=== PATIENT | male | born 1950 | race Caucasian/White ===

== ENCOUNTER 2016-10-28 05:18 | Day surgery (SDC) | payer OTHER ==
[2016-10-23 14:04] VITALS: BMI 32.4
[2016-10-28] MEDS ORDERED: LIDOCAINE 1%/EPI 1:100000 (50 ML MULTI DOSE VIAL) ONE (10:38)
[2016-10-28] MEDS ORDERED: BUPIVACAINE HCL/PF 0.5% (5MG/ML) 10 ML VIAL ONE (10:48)
[2016-10-28] MEDS ORDERED: MIDAZOLAM HCL 2 MG/2 ML SINGLE DOSE VIAL ONE ×2 (10:57→11:03)
[2016-10-28] MEDS ORDERED: LIDOCAINE HCL/PF 2% SDV 5ML VIAL ONE (10:57)
[2016-10-28] MEDS ORDERED: ceFAZolin SODIUM 1 GM VIAL ONE (10:57)
[2016-10-28] MEDS ORDERED: PROPOFOL 20 ML ONE ×2 (10:57)
[2016-10-28] MEDS ORDERED: BUPIVACAINE HCL/PF 0.5% (5MG/ML) 10 ML VIAL IJ ONE ×2 (11:11)
[2016-10-28] MEDS ORDERED: ONDANSETRON 4 MG/2 ML VIAL IVPUSH PRN (11:46)
[2016-10-28] MEDS ORDERED: oxyCODONE HCL 5 MG TABLET PO PRN (11:46)
--- NOTE | 2016-10-28 11:52 | HP ---
Admitting History and Physical - Primary Care Physician PCP: Osorio Chery ([employer]) - Admission Chief Complaint: Chronic ulceration of the left 3rd toe History of Present Illness: Left 3rd toe is rigidly hammered and suffers from months of recurrent ulcerations that were treated with padding, debridement and antibiotics. The ulceration heals and then reulcerates when patient returns to work. Most recently we decided to wait for ulcer healing and then to remove the distal phalanx to prevent recurrence of the wound again. The same procedure worked nicely on the left 2nd toe previously. 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 No: None - Smoking History Smoking history: Never smoked Have you smoked in the past 12 months: No Aproximately how many cigarettes per day: 0 - Alcohol/Substance Use Hx Alcohol Use: Yes (BEER,WINE) Number of Drinks Daily: 4 - Social History ADL: Independent Occupation: salesman History of Recent Travel: No Home Medications - Allergies Allergies/Adverse Reactions: Allergies Allergy/AdvReac Type Severity Reaction Status Date / Time No Known Drug Allergies Allergy Verified 10/28/16 10:10 - Home Medications Home Medications: Ambulatory Orders Allopurinol [Zyloprim -] 100 mg PO DAILY 07/28/16 Amiodarone HCl 100 mg PO DAILY 07/28/16 Bicalutamide 50 mg PO DAILY 07/28/16 Cholecalciferol (Vitamin D3) [Vitamin D3 -] 1,000 unit PO HS 07/28/16 Fenofibrate [Lofibra] 54 mg PO DAILY 07/28/16 Ferrous Gluconate [Iron] 28 mg PO HS 07/28/16 Flaxseed/Omega3,6,9/Fatty Acid [Flax Seed Oil 1,300 mg Softgel] 1,000 mg PO HS 07/28/16 Folic Acid 0.4 mg PO HS 07/28/16 Metoprolol Tartrate 75 mg PO BID 07/28/16 Rivaroxaban [Xarelto -] 20 mg PO HS 07/28/16 Simvastatin 20 mg PO HS 07/28/16 Vitamin B Complex 1 each PO HS 10/17/16 Furosemide [Lasix -] 40 mg PO DAILY #30 tablet 07/30/16 Calcium Carbonate [Calcium] 500 mg PO HS 10/23/16 Cinnamon Bark [Cinnamon] 500 mg PO HS 10/23/16 Magnesium 200 mg PO HS 10/23/16 Multivitamin [Poly-Vitamin] 1 each PO HS 10/23/16 Cordova-3 Fatty Acids [Fish Oil] 300 mg PO HS 10/23/16 Pyridoxine HCl [Vitamin B6] 100 mg PO HS 10/23/16 Simvastatin 40 mg PO HS 10/23/16 Tamsulosin HCl [Flomax] 0.4 mg PO DAILY 10/23/16 Thiamine HCl [Vitamin B1] 100 mg PO HS 10/23/16 Family Disease History - Family Disease History Family Disease History: Heart Disease: Mother ( at 66), Other: Father ( unknown) Physical Examination Vital Signs: Vital Signs Temperature 97.7 F 10/28/16 10:14 Pulse Rate 76 10/28/16 10:14 Respiratory Rate 18 10/28/16 10:14 Blood Pressure 133/56 10/28/16 10:14 O2 Sat by Pulse Oximetry (%) 98 10/28/16 10:14 Edema: LLE: Trace, RLE: Trace Peripheral Pulses: Left Doralis Pedis: 2+, Right Dorsalis Pedis: 2+ Wound/Incision: Yes: Other (Left toe distal wound fully healed but 3rd toe remains rigidly hammered at the pipj.) Imaging - Results X-ray: Other (Image of left 3rd toe examined. No sign of erosion present in the distal phalanx. No sign of soft tissue edema in the toe.) Assessment/Plan Diagnosis/Assessment Left 3rd hammertoe rigidly plantarflexed with history of chronic ulceration at the distal end of the digit from mechanical pressure and peripheral neuropathy. Lesion is currently healed and no sign of cellulitis or infection is present currently. Plan Resection of the distal phalanx of the to to remove weight bearing pressure and allow for more permanent resolution of the wound process at this site.
[2016-10-28] MEDS ORDERED: LACTATED RINGERS SOLUTION 1,000 ML IV SCH (12:00)
[2016-10-28 12:15] VITALS: TEMP 98.1
[2016-10-28 13:25] VITALS: BP 141/69; PULSE 70
--- NOTE | 2016-10-28 13:44 | OP ---
DATE OF OPERATION: 10/28/2016 SURGEON: Osorio Chery DPM PREOPERATIVE DIAGNOSIS: Left 3rd toe rigid hammertoe with history of distal ulceration. POSTOPERATIVE DIAGNOSIS: Left 3rd toe rigid hammertoe with history of distal ulceration. PROCEDURE: Distal phalangeal disarticulation amputation of the left 3rd toe distal interphalangeal joint. DESCRIPTION OF PROCEDURE: Under fractional anesthesia and a surgical scrub with Betadine scrub and solution x2, the patient was draped using sterile technique. Inspection of the left foot showed a prior amputation of the distal interphalangeal joint of the left 2nd toe with normal skin integrity and complete healing. Also noted was a healed ulceration of the distal aspect of the left 3rd toe with no cutaneous signs of infection or inflammation, complete resolution of prior ulceration. There was no edema, no erythema, and no break in the epithelium. Using a number 15 surgical blade, a curvilinear incision was made on the distal aspect of the toe proximal to the proximal nail fold and around the distal aspect of the foot, removing the tissue that was previously ulcerated on the distal aspect of the toe. The distal interphalangeal joint was disarticulated using sharp dissection, and then, the entire distal phalanx and the overlying soft tissue was resected, leaving a nice healthy plantar pad flap for primary closure. Following removal of the distal phalanx and its overlying soft tissue, the wound was copiously irrigated with sterile saline. The wound was inspected to investigate for any sign of abscess, necrosis, or pathology, and none was found visually. There was no drainage. There was no abscess. No sign of infection whatsoever. Following irrigation and inspection, the distal flap was articulated in a normal anatomic position and sutured with simple interrupted sutures, 4-0 Prolene suture. A dry sterile dressing with Adaptic underlay was applied to the left foot. The patient tolerated the surgical procedure well, and he left the operating room stable, awake, and in no pain. SUSANNE ROBINS/[id number]
--- NOTE | 2016-10-31 13:16 | PATH ---
Surgical Pathology Report Patient Name: MORALES ZHONG [facility]. Rec. #: [id number] /Age/Gender: 1950 (Age: 66) / M Account: [id number] Location: [facility] SURGICAL Taken: 10/28/2016 Received: 10/28/2016 Reported: 10/31/2016 Physicians: Osorio Chery M.D. Specimen(s) Received BONE & SKIN DISTAL PHALANX 3RD LEFT TOE Clinical History Hammertoe, chronic ulceration Final Diagnosis SKIN AND BONE, DISTAL PHALANX THIRD LEFT TOE, REMOVAL: FOCALLY ULCERATED SKIN AND UNDERLYING SOFT TISSUE WITH CHRONIC INFLAMMATION, FIBROSIS AND REACTIVE VASCULAR PROLIFERATION. UNDERLYING BONE WITH REACTIVE CHANGES; NO HISTOLOGIC EVIDENCE OF OSTEOMYELITIS. SKIN AND SOFT TISSUE RESECTION MARGIN APPEAR VIABLE. BONE AT RESECTION MARGIN APPEARS VIABLE. Comment: Immunohistochemical stain for HHV8 performed at [place], [place] ([id number]) and interpreted at [facility] is negative, supporting reactive vascular proliferation. Electronically Signed Dago Diaz M.D. Gross Description Received in formalin, labeled "bone/skin distal phalanx third toe left foot" is a 2.7 x 2.2 x 1.4 cm product of a distal phalanx amputation. The unguis is nayak and thickened. There is a focal possible ulceration at 0.1 cm from the skin and soft tissue margin. Carpet Measurer sections are submitted in 2 cassettes as follows: 1-shave of bone, soft tissue and skin margins, following decalcification; 2-additional full thickness sections of specimen, following decalcification. 10/29/2016 [facility]10/29/2016
== END 2016-10-28 14:13 | disposition home or self-care (01) ==
LOC: JASU-SURG 05:18
PROVIDERS: ATTEND Podiatrist Foot Surgery
PROC: 0Y6U0Z3 Detachment at Left 3rd Toe, Low, Open Approach (ICD-10-PCS; principal; 2016-10-28 11:00)
DX: M20.42 Other hammer toe(s) (acquired), left foot (principal); L97.524 Non-pressure chronic ulcer of other part of left foot with necrosis of bone
CPT/HCPCS: 73630-TC-LT; 88304-TC; 88311-TC; 88342-TC; 94760

== ENCOUNTER 2017-04-02 16:36 | Inpatient (IN) | payer OTHER ==
--- NOTE | 2017-04-02 17:03 | PDOC ---
History of Present Illness - General History Source: Patient Exam Limitations: No Limitations - History of Present Illness Initial Comments: 04/02/17 17:01 This is a 65 yo M with PMH of HTN, HLD, Afib s/p pacemaker, on xarelto, neuropathy, CVA, prostate CA, Renal CA s/p nephrectomy (05/2016) and BPH, who presents to ED due to L foot pain. Patient suffered L foot charcot fracture 4 mo ago and was placed in a boot. Boot was taken off 2 weeks ago and he was walking in orthopedic shoes. 3 days ago the Plantar aspect of his L foot started hurting with weight bearing so he visited his PCP. PCP discovered a planter blister associated with erythema and pitting edema of ankle. Blister was debrided and patient was referred to ER. He denies f/c, chest pain, cough, hemoptysis, sob 04/02/17 17:25 04/02/17 18:16 <Adrienne Hendrix - Last Filed: 04/02/17 18:49> <Jam Carrillo - Last Filed: 04/02/17 22:42> - General Chief Complaint: Wound Stated Complaint: PCP SENT/LT FOOT PAIN Past History - Past Medical History Anemia: No Asthma: No Cancer: Yes (PROSTATE CANCER 12/23 HORMONE INJECTIONS, RENAL CA) Cardiac Disorders: Yes (bradycardia,afib) CVA: Yes (DENIES TIA) COPD: No CHF: (ATRIAL FIB) Dementia: No Diabetes: No GI Disorders: No Disorders: Yes (enlarged prostate) HTN: Yes Hypercholesterolemia: Yes Liver Disease: No Seizures: No Thyroid Disease: Yes (hypothyroid) - Surgical History Abdominal Surgery: Yes (LEFT KIDNEY REMOVED) Appendectomy: No Cardiac Surgery: Yes (ppm) Cholecystectomy: No Lung Surgery: No Neurologic Surgery: No Orthopedic Surgery: Yes (bilateral knee replacement) - Immunization History Immunization Up to Date: Yes - Psycho/Social/Smoking Cessation Hx Anxiety: No Suicidal Ideation: No Smoking Status: No Smoking History: Never smoked Have you smoked in the past 12 months: No Number of Cigarettes Smoked Daily: 0 Information on smoking cessation initiated: No Hx Alcohol Use: Yes (everyday) Drug/Substance Use Hx: No Substance Use Type: Alcohol Hx Substance Use Treatment: No <Adrienne Hendrix - Last Filed: 04/02/17 18:49> <Jam Carrillo - Last Filed: 04/02/17 22:42> - Past Medical History Allergies/Adverse Reactions: Allergies Allergy/AdvReac Type Severity Reaction Status Date / Time No Known Drug Allergies Allergy Verified 04/02/17 18:07 Home Medications: Ambulatory Orders Allopurinol [Zyloprim -] 100 mg PO DAILY 04/02/17 Amiodarone HCl 100 mg PO DAILY 04/02/17 Bicalutamide 50 mg PO DAILY 04/02/17 Calcium Carbonate [Calcium] 500 mg PO DAILY 04/02/17 Cholecalciferol (Vitamin D3) [Vitamin D3 -] 1,000 unit PO DAILY 04/02/17 Ferrous Gluconate [Ferate] 240 mg PO DAILY 04/02/17 Folic Acid 0.4 mg PO DAILY 04/02/17 Furosemide [Lasix] 40 mg PO DAILY 04/02/17 Hydralazine HCl [Apresoline -] 25 mg PO BID 04/02/17 Magnesium Oxide [Magnesium] 400 mg PO DAILY 04/02/17 Metoprolol Tartrate [Lopressor -] 50 mg PO BID 04/02/17 Rivaroxaban [Xarelto -] 20 mg PO DAILY 04/02/17 Simvastatin [Zocor -] 20 mg PO HS 04/02/17 Tamsulosin HCl 0.4 mg PO DAILY 04/02/17 Review of Systems - Review of Systems Able to Perform ROS?: Yes Is the patient limited Indonesian proficient: No Constitutional: No: Chills, Fever HEENTM: No: Nose Congestion, Hearing Loss, Throat Pain Respiratory: No: Orthopnea, Shortness of Breath, SOB with Exertion, Productive cough, Hemoptysis ABD/GI: No: Abdominal Distended, Constipated, Diarrhea, Nausea, Rectal Bleeding , Vomiting, Tarry Stools : No: Dysuria, Flank Pain Musculoskeletal: No: Back Pain, Joint Pain, Joint Swelling Integumentary: No: Bruising, Pruritus, Rash Neurological: No: Headache, Numbness, Paresthesia Psychiatric: No: Anxiety Endocrine: No: Change in Weight Hematologic/Lymphatic: No: Blood Clots, Easy Bruising All Other Systems: Reviewed and Negative <Adrienne Hendrix - Last Filed: 04/02/17 18:49> *Physical Exam - Vital Signs Last Vital Signs Temp Pulse Resp BP Pulse Ox 97.7 F 70 20 156/74 98 04/02/17 16:46 04/02/17 16:46 04/02/17 16:46 04/02/17 16:46 04/02/17 16:46 - Physical Exam Comments: 04/02/17 17:32 General: AAOx3, NAD HEENT atraumatic, perrla eomi, sclera anicteric, conjunctiva clear CV RRR S1S2 grade 3 systolic ej murmur Pulm CTA b/l Musclumoskeletal: L ankle 2+ pitting edema, erythematous, warm, 3 cm ulcer on plantar aspect if foot with clean base and no discharge or odor. Surrounding mild tenderness. Neuro: CN II-XII grossly intact. b/l reduced plantar sensation. <Adrienne Hendrix - Last Filed: 04/02/17 18:49> - Vital Signs Last Vital Signs Temp Pulse Resp BP Pulse Ox 97.7 F 70 20 156/74 98 04/02/17 16:46 04/02/17 16:46 04/02/17 16:46 04/02/17 16:46 04/02/17 16:46 <Jam Carrillo - Last Filed: 04/02/17 22:42> ED Treatment Course - LABORATORY CBC & Chemistry Diagram: 04/02/17 17:45 04/02/17 17:45 <Adrienne Hendrix - Last Filed: 04/02/17 18:49> - LABORATORY CBC & Chemistry Diagram: 04/02/17 17:45 04/02/17 17:45 - ADDITIONAL ORDERS Additional order review: Laboratory Results 04/02/17 04/02/17 17:45 16:52 Sodium Cancelled 140 Potassium Cancelled 3.7 Chloride Cancelled 103 Carbon Dioxide Cancelled 27 Anion Gap Cancelled 10 BUN Cancelled 21 H D Creatinine Cancelled 1.7 H Creat Clearance w eGFR Cancelled 40.78 Random Glucose Cancelled 126 H Calcium Cancelled 9.0 Total Bilirubin Cancelled 0.7 AST Cancelled 27 ALT Cancelled 34 Alkaline Phosphatase Cancelled 47 Total Protein Cancelled 7.2 Albumin Cancelled 3.6 04/02/17 17:45 RBC 3.39 L MCV 94.0 MCHC 34.1 RDW 13.7 MPV 7.9 Neutrophils % 58.9 D Lymphocytes % 27.4 D Monocytes % 9.4 Eosinophils % 3.1 Basophils % 1.2 - Medications Given in the ED: ED Medications Discontinued Medications Generic Name Dose Route Start Last Admin Trade Name Tonny PRN Reason Stop Dose Admin Vancomycin HCl 1,000 mg/ 250 mls @ 250 mls/hr 04/02/17 17:31 04/02/17 18:54 Dextrose IVPB 04/02/17 18:30 250 mls/hr ONCE ONE Administration Protocol Piperacillin Sod/Tazobactam 50 mls @ 100 mls/hr 04/02/17 17:31 04/02/17 18:00 Sod 3.375 gm/ Dextrose IVPB 04/02/17 18:00 100 mls/hr ONCE ONE Administration Protocol <Jam Carrillo - Last Filed: 04/02/17 22:42> Medical Decision Making - Medical Decision Making 04/02/17 17:34 patient presents with cinical picture most consistent with L foot cellulitis. r/ o osteomyelitis, fracture, dvt cbc, cmp, blood cultures, foot x ray, duplex IV luis ferro 04/02/17 18:16 No leukocystosis, baseline anemia 04/02/17 18:49 further labs and imaging p/d <Adrienne Hendrix - Last Filed: 04/02/17 18:49> *DC/Admit/Observation/Transfer <Adrienne Hendrix - Last Filed: 04/02/17 18:49> - Discharge Dispostion Admit: Yes <Jam Carrillo - Last Filed: 04/02/17 22:42> Diagnosis at time of Disposition: Foot pain, left Cellulitis Qualifiers: Site of cellulitis: extremity Site of cellulitis of extremity: lower extremity Laterality: left Qualified Code(s): L03.116 - Cellulitis of left lower limb - Discharge Dispostion Condition at time of disposition: Stable - Referrals Referrals: Eric Feliciano [Primary Care Provider] -
[2017-04-02] MEDS ORDERED: VANCOMYCIN 1,000 MG in DEXTROSE 5%-WATER - 250 ML IVPB ONE (17:31)
[2017-04-02] MEDS ORDERED: PIPERACILLIN/TAZOB 3.375 GM 3.375 GM in DEXTROSE 5%-WATER - 50 ML IVPB ONE (17:31)
--- NOTE | 2017-04-02 17:34 | PDOC ---
Attending Attestation - Resident Resident Name: Jessica Hendrixudmila - ED Attending Attestation I have performed the following: I have examined & evaluated the patient, The case was reviewed & discussed with the resident, I agree w/resident's findings & plan - HPI HPI: 04/02/17 17:34 65y M hx of htn, hl, afib on xerolto s/p pm, neuropathy hx of charcot fracture, cva, prostate ca, renal ca, bph referred to ED by podiatry for evaluation of L foot pain and swelling, pt with recent ulcer on L plantar arch, but with swelling for several days and redness for approx 1 day without associated fver/ chlils, n/v/c. on exam the ulcer appear with clean margins (but s/p dibridement ), on medial aspect of L ankle +erythema, warmth, edema and mildly tendner, + deminished sensation on foot. suspect cellulitis with entry point at ulcer will r/o dvt will likely need abx in light of medical history, consider admission for iv abx 04/02/17 21:13 pts labs reviewed pts US and xray negative likely cellulitis will admit for inpatient management per dr. Chery's request will admit to hospitilast service discussed with dr. chery - states he failed outpatient augmentin requests admission 04/02/17 21:[address] Arango agreed with admission stable for med/surg Case discussed in detail with admitting physician including history, physical exam and ancillary studies. Admitting physician has assumed care for the patient, will follow all pending diagnostics and will complete the evaluation and treatment. - Physicial Exam PE: 04/06/17 07:36 see above - Medical Decision Making 04/06/17 07:36 see above Heart Score/ECG Review - ECG Impressions Comment:: 04/03/17 00:15 Twelve-lead EKG was performed and reviewed by me. AV dual paced rhythm Rate of 68
[2017-04-02] MEDS ORDERED: PIPERACILLIN/TAZOB 3.375 GM 50 ML IVPB ONE (17:59)
[2017-04-02 18:01] LABS: BASOPHIL 1.2 % (0-2.0); EOSINOPHIL 3.1 % (0-4.5); MCH 32.1 pg (25.7-33.7); MCHC 34.1 g/dl (32.0-35.9); MEAN PLT VOLUME 7.9 fl (7.5-11.1); NEUTROPHILS 58.9 % (42.8-82.8); PLATELET COUNT 222 K/MM3 (134-434); RDW 13.7 % (11.9-15.9); WHITE BLOOD COUNT 8.3 K/mm3 (4.0-10.0)
[2017-04-02] MEDS ORDERED: VANCOMYCIN 1 GRAM (PRE-DOCKED) 250 ML IVPB ONE (18:33)
[2017-04-02 19:45] LABS: ALBUMIN 3.6 g/dl (3.4-5.0); ANION GAP 10 (8-16); BILIRUBIN,TOTAL 0.7 mg/dL (0.2-1.0); CO2 27 mmol/L (21-32); CREATININE 1.7 mg/dL (0.7-1.3); GLUCOSE,RANDOM 126 mg/dL (74-106); SGOT/AST 27 U/L (15-37); SGPT/ALT 34 U/L (12-78); TOT PROT 7.2 g/dl (6.4-8.2)
[2017-04-02 19:46] LABS: ALK PHOS 47 U/L (45-117)
--- NOTE | 2017-04-02 22:37 | HP ---
CHIEF COMPLAINT: "My left foot hurts." PCP: Braden kellogg [facility] HISTORY OF PRESENT ILLNESS: This is a 65 yo M with PMH of HTN, HLD, Afib s/p pacemaker, on xarelto, neuropathy, CVA, prostate CA, Renal CA s/p left nephrectomy (05/2016) and BPH, who presents for care due to L foot pain. Patient suffered L foot charcot fracture 4 months ago and was placed in a cam boot. Boot was taken off 2 weeks ago and he was walking in orthopedic shoes. 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 Blister was debrided and patient was started on Augmentin 875mg. Patient had f/u visit today where exam has not improved and was referred to ED for admission. He denies f/c, chest pain, cough , hemoptysis or sob. ER course was notable for: (1) Sono negative for DVT (2) Xray neg for osteomyelitis (3) CKD stage 3b Recent Travel: denies PAST MEDICAL HISTORY: see HPI PAST SURGICAL HISTORY: see HPI Social History: Smoking: denies Alcohol: 6 beers daily Drugs: denies Family History: Allergies No Known Drug Allergies Allergy (Verified 04/02/17 18:07) HOME MEDICATIONS: Home Medications 3 Medication Instructions Recorded Allopurinol [Zyloprim -] 100 mg PO DAILY 04/02/17 Amiodarone HCl 100 mg PO DAILY 04/02/17 Bicalutamide 50 mg PO DAILY 04/02/17 Calcium Carbonate [Calcium] 500 mg PO DAILY 04/02/17 Cholecalciferol (Vitamin D3) 1,000 unit PO DAILY 04/02/17 [Vitamin D3 -] Ferrous Gluconate [Ferate] 240 mg PO DAILY 04/02/17 Folic Acid 0.4 mg PO DAILY 04/02/17 Furosemide [Lasix] 40 mg PO DAILY 04/02/17 Hydralazine HCl [Apresoline -] 25 mg PO BID 04/02/17 Magnesium Oxide [Magnesium] 400 mg PO DAILY 04/02/17 Metoprolol Tartrate [Lopressor -] 50 mg PO BID 04/02/17 Rivaroxaban [Xarelto -] 20 mg PO DAILY 04/02/17 Simvastatin [Zocor -] 20 mg PO HS 04/02/17 Tamsulosin HCl 0.4 mg PO DAILY 04/02/17 REVIEW OF SYSTEMS CONSTITUTIONAL: Absent: fever, chills, diaphoresis, generalized weakness, malaise, loss of appetite, weight change HEENT: Absent: rhinorrhea, nasal congestion, throat pain, throat swelling, difficulty swallowing, mouth swelling, ear pain, eye pain, visual changes CARDIOVASCULAR: Absent: chest pain, syncope, palpitations, irregular heart rate, lightheadedness , peripheral edema RESPIRATORY: Absent: cough, shortness of breath, dyspnea with exertion, orthopnea, wheezing, stridor, hemoptysis GASTROINTESTINAL: Absent: abdominal pain, abdominal distension, nausea, vomiting, diarrhea, constipation, melena, hematochezia GENITOURINARY: Absent: dysuria, frequency, urgency, hesitancy, hematuria, flank pain, genital pain MUSCULOSKELETAL: Absent: myalgia, arthralgia, joint swelling, back pain, neck pain SKIN: Present- erythema to left ankle Absent: rash, itching, pallor HEMATOLOGIC/IMMUNOLOGIC: Absent: easy bleeding, easy bruising, lymphadenopathy, frequent infections ENDOCRINE: Absent: unexplained weight gain, unexplained weight loss, heat intolerance, cold intolerance NEUROLOGIC: Absent: headache, focal weakness or paresthesias, dizziness, unsteady gait, seizure, mental status changes, bladder or bowel incontinence PSYCHIATRIC: Absent: anxiety, depression, suicidal or homicidal ideation, hallucinations. PHYSICAL EXAMINATION Vital Signs - 24 hr 3 04/02/17 16:46 Temperature 97.7 F Pulse Rate 70 Respiratory 20 Rate Blood Pressure 156/74 O2 Sat by Pulse 98 Oximetry (%) GENERAL: Awake, alert, and fully oriented, in no acute distress. HEAD: Normal with no signs of trauma. EYES: Pupils equal, round and reactive to light, extraocular movements intact, sclera anicteric, conjunctiva clear. No lid lag. EARS, NOSE, THROAT: Ears normal, nares patent, oropharynx clear without exudates. Moist mucous membranes. NECK: Normal range of motion, supple without lymphadenopathy, JVD, or masses. LUNGS: Breath sounds equal, clear to auscultation bilaterally. No wheezes, and no crackles. No accessory muscle use. HEART: Regular rate and rhythm, normal S1 and S2 without murmur, rub or gallop. ABDOMEN: Soft, nontender, not distended, normoactive bowel sounds, no guarding, no rebound, no masses. No hepatomegaly or splenomegaly. MUSCULOSKELETAL: Normal range of motion at all joints. No bony deformities or tenderness. No CVA tenderness. UPPER EXTREMITIES: 2+ pulses, warm, well-perfused. No cyanosis. No clubbing. No peripheral edema. LOWER EXTREMITIES: 2+ pulses, warm, well-perfused. No calf tenderness. Left ankle and calf swelling with erythema. No streaking present. NEUROLOGICAL: Cranial nerves II-XII intact. Normal speech. Normal gait. PSYCHIATRIC: Cooperative. Good eye contact. Appropriate mood and affect. SKIN: Warm, dry, normal turgor, no rashes or lesions noted, normal capillary refill. 2cm x 4cm ovoid ulceration to medial plantar surface of left foot. Laboratory Results - last 24 hr 3 04/02/17 04/02/17 04/02/17 16:52 17:45 17:45 WBC 8.3 RBC 3.39 L Hgb 10.9 L D Hct 31.9 L MCV 94.0 MCHC 34.1 RDW 13.7 Plt Count 222 MPV 7.9 Neutrophils % 58.9 D Lymphocytes % 27.4 D Monocytes % 9.4 Eosinophils % 3.1 Basophils % 1.2 Sodium 140 Cancelled Potassium 3.7 Cancelled Chloride 103 Cancelled Carbon Dioxide 27 Cancelled Anion Gap 10 Cancelled BUN 21 H D Cancelled Creatinine 1.7 H Cancelled Creat Clearance w eGFR 40.78 Cancelled Random Glucose 126 H Cancelled Calcium 9.0 Cancelled Total Bilirubin 0.7 Cancelled AST 27 Cancelled ALT 34 Cancelled Alkaline Phosphatase 47 Cancelled Total Protein 7.2 Cancelled Albumin 3.6 Cancelled ASSESSMENT/PLAN: A: 66 yo man who failed outpatient abx therapy for cellulitis of left ankle and calf. CIWA- 0. P: 1. Cellulitis - Vanco renal dosed - Zosyn 3.375g q6h - ID consult 2. CKD stage 3b - avoid nephrotoxic drugs - trend lytes - CaCO3 500mg daily - Ferrous gluconate 240mg daily 3. Anemia of chronic disease - trend CBC - Ferrous gluconate 240mg daily 4. HTN - Metoprolol 50mg bid - Hydralazine 25mg bid - Lasix 40mg daily 5. HLD - Zocor 20mg 6. Afib - Amiodorone 100mg daily - Xarelto 20mg daily 7. ETOH dependance - Folate 0.4mg daily - Mag Oxide 400mg daily - trend CIWA- 0 at present - librium prn 8. Prostate CA - Bicalutamide 50mg daily - Flomax 0.4mg daily 9. Gout - Allopurinol 100mg daily 10. F/E/N - low NA diet - replete prn 11. PPX - on Xarelto - OOB Dispo- This patient requires inpatient evaluation of acute medical conditions. Code Status- FULL CODE Visit type - Emergency Visit Emergency Visit: Yes ED Registration Date: 04/02/17 Care time: The patient presented to the Emergency Department on the above date and was hospitalized for further evaluation of their emergent condition. - New Patient This patient is new to me today: Yes Date on this admission: 04/03/17 - Critical Care Critical Care patient: No
[2017-04-02] MEDS: METOPROLOL TARTRATE 50 MG TABLET (FP) PO SCH (23:37)
[2017-04-02] MEDS: hydrALAZINE HCL 25 MG TABLET (FP) PO SCH (23:37)
[2017-04-03] MEDS ORDERED: PIPERACILLIN/TAZOB 3.375 GM/50 ML PRE-DOCKED IVPB ONE
[2017-04-03] MEDS ORDERED: PIPERACILLIN/TAZOB 3.375 GM 50 ML IVPB ONE (00:34)
[2017-04-03] MEDS ORDERED: VANCOMYCIN 1,750 MG in DEXTROSE 5%-WATER - 500 ML IVPB ONE (06:00)
[2017-04-03] MEDS ORDERED: PIPERACILLIN/TAZOB 3.375 GM/50 ML PRE-DOCKED IV ONE (06:13)
[2017-04-03 06:18] LABS: BASOPHIL 1.1 % (0-2.0); EOSINOPHIL 4.4 % (0-4.5); MCH 32.2 pg (25.7-33.7); MCHC 33.9 g/dl (32.0-35.9); MEAN CELL VOLUME 95.1 fl (80-96); MEAN PLT VOLUME 7.7 fl (7.5-11.1); NEUTROPHILS 56.2 % (42.8-82.8); PLATELET COUNT 193 K/MM3 (134-434); WHITE BLOOD COUNT 6.9 K/mm3 (4.0-10.0)
[2017-04-03 06:39] LABS: ANION GAP 9 (8-16); CALCIUM 8.4 mg/dL (8.5-10.1); CO2 27 mmol/L (21-32); CREATININE 1.7 mg/dL (0.7-1.3); GLUCOSE,RANDOM 172 mg/dL (74-106); MAGNESIUM 1.6 mg/dL (1.8-2.4)
[2017-04-03] MEDS: TAMSULOSIN HCL 0.4 MG CAP.ER.24H (FP) PO SCH (09:31)
[2017-04-03] MEDS ORDERED: TAMSULOSIN HCL 0.4 MG CAP.ER.24H (FP) ONE (09:39)
[2017-04-03] MEDS ORDERED: FUROSEMIDE 40 MG TABLET (FP) PO SCH (10:00)
[2017-04-03] MEDS ORDERED: SODIUM CHLORIDE 1,000 ML IV SCH (10:00)
[2017-04-03] MEDS: hydrALAZINE HCL 25 MG TABLET (FP) PO SCH ×2 (10:30→21:46)
[2017-04-03] MEDS: BICALUTAMIDE 50 MG TABLET (FP) PO SCH (10:31)
[2017-04-03] MEDS: METOPROLOL TARTRATE 50 MG TABLET (FP) PO SCH ×2 (10:31→21:47)
[2017-04-03] MEDS: FERROUS GLUCONATE 324 MG TAB (FP) PO SCH (10:32)
[2017-04-03] MEDS: AMIODARONE HCL 200 MG TABLET (FP) PO SCH (10:32)
[2017-04-03] MEDS: MAGNESIUM OXIDE 400 MG TABLET (FP) PO SCH (10:32)
[2017-04-03] MEDS: CALCIUM (OYSTER SHELL) 500 MG TABLET (FP) PO SCH (10:32)
[2017-04-03] MEDS: RIVAROXABAN 20 MG TABLET PO SCH (10:33)
[2017-04-03] MEDS: ALLOPURINOL 100 MG TABLET (FP) PO SCH (10:33)
[2017-04-03] MEDS: CHOLECALCIFEROL (VITAMIN D3) 1,000 UNIT TABLET (FP) PO SCH (10:33)
[2017-04-03 17:03] VITALS: BMI 33.1
--- NOTE | 2017-04-03 17:04 | CONSULT ---
Consult Consult Specialty:: infectious diseases Reason for Consultation:: cellulittis and wound of the rt leg - History of Present Illness History of Present Illness: 65 yo M with PMH of HTN, HLD, Afib s/p pacemaker, on xarelto, neuropathy, CVA, prostate CA, Renal CA s/p left nephrectomy (05/2016) and BPH, who presents for care due to L foot pain. Patient suffered L foot charcot fracture 4 months ago and was placed in a cam boot. Boot was taken off 2 weeks ago and he was walking in orthopedic shoes. On 03/30, the plantar aspect of his L foot started hurting with weight bearing so he visited his chief technical officer who discovered a planter blister associated with erythema and pitting edema of ankle. Blister was debrided and patient was started on Augmentin 875mg. acording to the patient and the doctor his wound is not improving and now he has developed cellulittis of th ankle and the leg with pain present wound looked at and the patient has cellulitis - History Source History Provided By: Patient Limitations to Obtaining History: No Limitations - Past Medical History Cardio/Vascular: Yes: HTN, Hyperlipdemia, Other (bradycardia on PPM) Renal/: Yes: Renal Inusuff, BPH - Past Surgical History Past Surgical History: Yes: Joint Replacement (knee bilaterally). No: None - Alcohol/Substance Use Hx Alcohol Use: Yes (everyday) Number of Drinks Daily: 4 - Smoking History Smoking history: Never smoked Have you smoked in the past 12 months: No Aproximately how many cigarettes per day: 0 - Social History Usual Living Arrangement: With Spouse ADL: Independent Occupation: salesman History of Recent Travel: No Home Medications - Allergies Allergies/Adverse Reactions: Allergies Allergy/AdvReac Type Severity Reaction Status Date / Time No Known Drug Allergies Allergy Verified 04/02/17 18:07 - Home Medications Home Medications: Ambulatory Orders Allopurinol [Zyloprim -] 100 mg PO DAILY 04/02/17 Amiodarone HCl 100 mg PO DAILY 04/02/17 Bicalutamide 50 mg PO DAILY 04/02/17 Calcium Carbonate [Calcium] 500 mg PO DAILY 04/02/17 Cholecalciferol (Vitamin D3) [Vitamin D3 -] 1,000 unit PO HS 04/02/17 Ferrous Gluconate [Ferate] 240 mg PO DAILY 04/02/17 Furosemide [Lasix] 40 mg PO DAILY 04/02/17 Hydralazine HCl [Apresoline -] 25 mg PO BID 04/02/17 Magnesium Oxide [Magnesium] 400 mg PO DAILY 04/02/17 Rivaroxaban [Xarelto -] 20 mg PO HS 04/02/17 Simvastatin [Zocor -] 20 mg PO HS 04/02/17 Tamsulosin HCl 0.4 mg PO HS 04/02/17 Fenofibrate 54 mg PO DAILY 04/04/17 Levothyroxine [Synthroid -] 50 mg PO DAILY 04/04/17 Mirabegron [Myrbetriq] 50 mg PO HS 04/04/17 Amox-Tr/K Cl [Augmentin - 875Mg Tablet] 1 tab PO BID #14 tablet 04/06/17 Collagenase Clostridium Hist. [Santyl -] 1 applic TP DAILY #1 tube 04/06/17 Folic Acid - 1 mg PO HS #30 tablet 04/06/17 Furosemide [Lasix -] 40 mg PO DAILY tablet 04/06/17 Magnesium Oxide [Mag-Ox -] 400 mg PO BID #60 tab 04/06/17 Metoprolol Tartrate [Lopressor -] 75 mg PO BID #60 tablet 04/06/17 Thiamine HCl [Vitamin B1 -] 100 mg PO DAILY #60 tablet MDD 1 tab 04/06/17 Family Disease History - Family Disease History Family Disease History: Heart Disease: Mother ( at 66), Other: Father ( unknown) Review of Systems - Review of Systems Constitutional: reports: No Symptoms Eyes: reports: No Symptoms HENT: reports: No Symptoms Neck: reports: No Symptoms Cardiovascular: reports: No Symptoms Respiratory: reports: No Symptoms Gastrointestinal: reports: No Symptoms Genitourinary: reports: No Symptoms Musculoskeletal: reports: Extremity Pain, Other Integumentary: reports: Change in Color, Erythema Neurological: reports: No Symptoms Endocrine: reports: No Symptoms Hematology/Lymphatic: reports: No Symptoms Psychiatric: reports: No Symptoms Physical Exam Vital Signs: Vital Signs Temperature 98.2 F 04/03/17 05:41 Pulse Rate 64 04/03/17 13:41 Respiratory Rate 18 04/03/17 05:41 Blood Pressure 127/80 04/03/17 13:41 O2 Sat by Pulse Oximetry (%) 97 04/03/17 13:41 Constitutional: Yes: Well Nourished, No Distress, Obese Eyes: Yes: Conjunctiva Clear Neck: Yes: Supple, Trachea Midline Cardiovascular: Yes: Regular Rate and Rhythm Respiratory: Yes: Regular, CTA Bilaterally Gastrointestinal: Yes: Normal Bowel Sounds, Soft Musculoskeletal: Yes: WNL Extremities: Yes: Erythema (rt leg), Other Integumentary: Yes: Erythema Wound/Incision: Yes: Dressing Removed (wound looked at patient wound is clean about 3x 3) Psychiatric: Yes: Alert, Oriented Labs: CBC, BMP 04/03/17 06:10 04/03/17 06:10 Imaging - Results X-ray: Report Reviewed, Image Reviewed Assessment/Plan P: 1. Cellulitis 2. CKD 3. Anemia of chronic disease 4. HTN 5. HLD 6. Afib 7. ETOH dependance 8. Prostate CA 9. Gout plan [place] patient on oral clinda iv zosyn monitor leg rest as per primary
--- NOTE | 2017-04-03 17:26 | PN ---
Physical Exam: SUBJECTIVE: Patient seen and examined in ED. Patient states one week ago his foot was fine. He was given orthotics to wear in his boot for a Charcot foot and the orthotics were too tight. He developed a blister that then developed into an ulcer. OBJECTIVE: Vital Signs Period Temp Pulse Resp BP Sys/Farrar Pulse Ox Last 24 Hr 97.8 F-98.2 F 64-74 18-20 127-163/80-98 97-99 GENERAL: The patient is awake, alert, and fully oriented, in no acute distress. HEAD: Normal with no signs of trauma. EYES: PERRL, extraocular movements intact, sclera anicteric, conjunctiva clear. No ptosis. LUNGS: Breath sounds equal, clear to auscultation bilaterally, no wheezes, no crackles, no accessory muscle use. HEART: Regular rate and rhythm, S1, S2 without murmur, rub or gallop. ABDOMEN: Soft, nontender, nondistended, normoactive bowel sounds, no guarding, no rebound UPPER EXTREMITIES: 2+ pulses, warm, well-perfused, no edema. LOWER EXTREMITIES: Left foot: ulcer to plantar surface with moderate amount of nayak exudate on dressing, nayak slough in wound bed. Mild redness, streaking extending from left foot to just above the ankle. NEUROLOGICAL: Cranial nerves II through XII grossly intact. Normal speech, gait not observed. Laboratory Results - last 24 hr 04/03/17 04/03/17 06:10 06:10 WBC 6.9 RBC 3.25 L Hgb 10.5 L Hct 30.9 L MCV 95.1 MCHC 33.9 RDW 14.0 Plt Count 193 MPV 7.7 Neutrophils % 56.2 Lymphocytes % 28.6 Monocytes % 9.7 Eosinophils % 4.4 Basophils % 1.1 Sodium 140 Potassium 3.9 Chloride 104 Carbon Dioxide 27 Anion Gap 9 BUN 20 H Creatinine 1.7 H Random Glucose 172 H D Calcium 8.4 L Magnesium 1.6 L D Active Medications Generic Name Dose Route Start Last Admin Trade Name Freq PRN Reason Stop Dose Admin Allopurinol 100 mg 04/03/17 10:00 04/03/17 10:33 Zyloprim - PO Not Given DAILY [facility] Amiodarone HCl 100 mg 04/03/17 10:00 04/03/17 10:32 Cordarone - PO Not Given DAILY [facility] Atorvastatin Calcium 10 mg 04/03/17 22:00 Lipitor - PO [facility] Bicalutamide 50 mg 04/03/17 10:00 04/03/17 10:31 Casodex - PO Not Given DAILY [facility] Calcium Carbonate 500 mg 04/03/17 10:00 04/03/17 10:32 Os-Franko 500mg - PO 500 mg DAILY [facility] Administration Cholecalciferol 1,000 unit 04/03/17 10:00 04/03/17 10:33 Vitamin D3 - PO Not Given DAILY [facility] Clindamycin HCl 300 mg 04/03/17 18:00 Cleocin - PO Q6HPO [facility] Ferrous Gluconate 324 mg 04/03/17 10:00 04/03/17 10:32 Fergon - PO 324 mg DAILY [facility] Administration Furosemide 40 mg 04/03/17 10:00 04/03/17 10:32 Lasix - PO Not Given DAILY [facility] Hydralazine HCl 25 mg 04/02/17 23:00 04/03/17 10:30 Apresoline - PO Not Given BID [facility] Vancomycin HCl 1,500 mg/ 500 mls @ 250 mls/hr 04/03/17 18:30 Dextrose IVPB 04/03/17 20:29 ONCE ONE Protocol Sodium Chloride 1,000 mls @ 100 mls/hr 04/03/17 10:00 04/03/17 12:05 Normal Saline - IV 100 mls/hr ASDIR [facility] Administration Piperacillin Sod/Tazobactam 50 mls @ 100 mls/hr 04/03/17 18:00 Sod 3.375 gm/ Dextrose IVPB Q8H-IV [facility] Protocol Magnesium Oxide 400 mg 04/03/17 10:00 04/03/17 10:32 Mag-Ox - PO 400 mg DAILY [facility] Administration Metoprolol Tartrate 50 mg 04/02/17 23:00 04/03/17 10:31 Lopressor - PO Not Given BID [facility] Non-Formulary Medication 0.4 mg 04/03/17 10:00 Folic Acid [Folic Acid] PO DAILY [facility] Rivaroxaban 20 mg 04/03/17 10:00 04/03/17 10:33 Xarelto - PO Not Given DAILY [facility] Tamsulosin HCl 0.4 mg 04/03/17 08:30 04/03/17 09:31 Flomax - PO Not Given DAILY@0830 [facility] ASSESSMENT/PLAN: 66 year-old male with a PMH of HTN, HLD, afib with demand PPM, ETOH abuse s/p Lola Prince tear repair, gout, Charcot foot, peripheral neuropathy, BPH, CKD, renal cancer s/p nephrectomy, and prostate cancer on androgen deprivation therapy. Admitted for vascular ulcer of left foot and cellulitis. Vascular ulcer, plantar surface left foot Mild LLE cellulitis Peripheral neuropathy Charcot foot --wound with thick, nayak exudate --start Zosyn (day #1) and Clinda (day #1) --ID following Hypertension --continue metoprolol, hydralazine Hyperlipidemia --continue Lipitor Afib --continue metoprolol, amiodarone, Xarelto Current ETOH abuse s/p Lola Prince tear repair --told admitting provider he drinks 6 beers per day; on previous admissions 2 -9 drinks per day (beer, wine, vodka) --multivitamin bag x 1L --librium PRN --monitor closely for s/s of withdrawal --daily thiamine, folic acid BPH --continue Flomax Prostate cancer --continue bicalutamide Acute kidney injury --Cr 1.7 on admission, baseline appears to be ~ 1.3 --hold Lasix F/E/N Fluids: PO intake adequate Electrolytes: replete as indicated Nutrition: low sodium DVT prophylaxis: on Xarelto, oob, ambulation Physical therapy eval Daily PT Dispo: continues to require inpatient care. Full Code. Visit type - Emergency Visit Emergency Visit: Yes ED Registration Date: 04/02/17 Care time: The patient presented to the Emergency Department on the above date and was hospitalized for further evaluation of their emergent condition. - New Patient This patient is new to me today: Yes Date on this admission: 04/03/17 - Critical Care Critical Care patient: No
[2017-04-03] MEDS ORDERED: chlordiazePOXIDE HCL 25 MG CAPSULE PO PRN (17:31)
[2017-04-03] MEDS: CLINDAMYCIN HCL 150 MG CAPSULE (FP) PO SCH (17:49)
[2017-04-03] MEDS: PIPERACILLIN/TAZOB 3.375 GM 50 ML IVPB SCH (17:50)
[2017-04-03] MEDS ORDERED: FOLIC ACID INJECTION - 1 MG, THIAMINE HCL 100 MG, MULTIVIT INJECTION ADULT 10 ML in SOD... IVPB ONE (18:00)
[2017-04-03] MEDS ORDERED: VANCOMYCIN 1,500 MG in DEXTROSE 5%-WATER - 500 ML IVPB ONE (18:30)
[2017-04-03] MEDS ORDERED: ATORVASTATIN CA 10 MG TABLET (FP) PO SCH (22:00)
[2017-04-04] MEDS: CLINDAMYCIN HCL 150 MG CAPSULE (FP) PO SCH ×5 (00:29→23:50)
[2017-04-04] MEDS: PIPERACILLIN/TAZOB 3.375 GM 50 ML IVPB SCH ×3 (02:25→17:47)
[2017-04-04] MEDS: TAMSULOSIN HCL 0.4 MG CAP.ER.24H (FP) PO SCH ×2 (08:25→21:29)
[2017-04-04] MEDS: hydrALAZINE HCL 25 MG TABLET (FP) PO SCH ×2 (09:14→21:29)
[2017-04-04] MEDS: AMIODARONE HCL 200 MG TABLET (FP) PO SCH (09:15)
[2017-04-04] MEDS: BICALUTAMIDE 50 MG TABLET (FP) PO SCH (09:15)
[2017-04-04] MEDS: METOPROLOL TARTRATE 50 MG TABLET (FP) PO SCH ×2 (09:16→21:32)
[2017-04-04] MEDS: CHOLECALCIFEROL (VITAMIN D3) 1,000 UNIT TABLET (FP) PO SCH ×2 (09:16→21:30)
[2017-04-04] MEDS: THIAMINE HCL 100 MG TABLET (FP) PO SCH (09:16)
[2017-04-04] MEDS: ALLOPURINOL 100 MG TABLET (FP) PO SCH (09:17)
[2017-04-04] MEDS: RIVAROXABAN 20 MG TABLET PO SCH ×2 (09:17→21:30)
[2017-04-04] MEDS: FERROUS GLUCONATE 324 MG TAB (FP) PO SCH (09:28)
[2017-04-04] MEDS: MAGNESIUM OXIDE 400 MG TABLET (FP) PO SCH (09:28)
[2017-04-04] MEDS: CALCIUM (OYSTER SHELL) 500 MG TABLET (FP) PO SCH (09:28)
[2017-04-04] MEDS ORDERED: FOLIC ACID 1 MG TABLET (FP) PO SCH ×2 (10:00)
--- NOTE | 2017-04-04 13:27 | PN ---
Progress Note, Physician History of Present Illness: doing well leg looks better no complaints swelling has improved - Current Medication List Current Medications: Active Medications Allopurinol (Zyloprim -) 100 mg PO DAILY [facility] Last Admin: 04/04/17 09:17 Dose: Not Given Amiodarone HCl (Cordarone -) 100 mg PO DAILY [facility] Last Admin: 04/04/17 09:15 Dose: Not Given Atorvastatin Calcium (Lipitor -) 10 mg PO HS [facility] Last Admin: 04/03/17 21:46 Dose: Not Given Bicalutamide (Casodex -) 50 mg PO DAILY [facility] Last Admin: 04/04/17 09:15 Dose: Not Given Calcium Carbonate (Os-Franko 500mg -) 500 mg PO DAILY [facility] Last Admin: 04/04/17 09:28 Dose: 500 mg Chlordiazepoxide HCl (Librium -) 25 mg PO Q6H PRN PRN Reason: WITHDRAWAL(CONT SUBST) Cholecalciferol (Vitamin D3 -) 1,000 unit PO DAILY [facility] Last Admin: 04/04/17 09:16 Dose: Not Given Clindamycin HCl (Cleocin -) 300 mg PO Q6HPO [facility] Last Admin: 04/04/17 11:58 Dose: 300 mg Ferrous Gluconate (Fergon -) 324 mg PO DAILY [facility] Last Admin: 04/04/17 09:28 Dose: 324 mg Folic Acid (Folic Acid -) 1 mg PO DAILY [facility] Last Admin: 04/04/17 09:15 Dose: Not Given Hydralazine HCl (Apresoline -) 25 mg PO BID [facility] Last Admin: 04/04/17 09:14 Dose: Not Given Piperacillin Sod/Tazobactam Sod (Zosyn 3.375gm Ivpb (Pre-Docked)) 50 mls @ 100 mls/hr IVPB Q8H-IV [facility] PRN Reason: Protocol Last Admin: 04/04/17 09:13 Dose: 100 mls/hr Magnesium Oxide (Mag-Ox -) 400 mg PO DAILY [facility] Last Admin: 04/04/17 09:28 Dose: 400 mg Metoprolol Tartrate (Lopressor -) 50 mg PO BID [facility] Last Admin: 04/04/17 09:16 Dose: Not Given Rivaroxaban (Xarelto -) 20 mg PO DAILY [facility] Last Admin: 04/04/17 09:17 Dose: Not Given Tamsulosin HCl (Flomax -) 0.4 mg PO DAILY@0830 [facility] Last Admin: 04/04/17 08:25 Dose: Not Given Thiamine HCl (Vitamin B1 -) 100 mg PO DAILY [facility] Last Admin: 04/04/17 09:16 Dose: Not Given - Objective Vital Signs: Vital Signs Temperature 98.2 F 04/04/17 10:00 Pulse Rate 70 04/04/17 10:00 Respiratory Rate 20 04/04/17 10:00 Blood Pressure 172/89 04/04/17 10:00 O2 Sat by Pulse Oximetry (%) 99 04/04/17 09:00 Constitutional: Yes: No Distress, Calm Cardiovascular: Yes: Regular Rate and Rhythm Respiratory: Yes: Regular, CTA Bilaterally Gastrointestinal: Yes: Normal Bowel Sounds, Soft Musculoskeletal: Yes: Other Extremities: Yes: Other Integumentary: Yes: Other (swelling decreasing cellulitits resolving) Neurological: Yes: Alert, Oriented Labs: CBC, BMP 04/03/17 06:10 04/03/17 06:10 Assessment/Plan P: 1. Cellulitis 2. CKD 3. Anemia of chronic disease 4. HTN 5. HLD 6. Afib 7. ETOH dependance 8. Prostate CA 9. Gout plan continue abx rest as per primary
--- NOTE | 2017-04-04 16:12 | PN ---
Physical Exam: SUBJECTIVE: Patient seen and examined Patient was then advised that he could not continue taking his home medications while at the hospital, that he had to take the medications prescribed. Patient said his doctors said he could take his own medications. The nurse asked to see the medications and patient refused. Patient became angry, loud, jumped out of bed and said he was signing out AMA. Security was called. Security officers explained to patient they would have to take his medications. The nurse explained he would get them back. He still refused to have security take the medications or to even see the vials. He was advised of the risks of signing out against medical advice including infection, complications from infection, and . He then agreed to have the nurse see his medications with security guards present. His medications were fully reconciled and will be profiled by pharmacy. OBJECTIVE: Vital Signs Period Temp Pulse Resp BP Sys/Farrar Pulse Ox Last 24 Hr 97.8 F-98.2 F 68-74 18-20 142-172/68-89 97-99 GENERAL: The patient is awake, alert, and fully oriented, in no acute distress. HEAD: Normal with no signs of trauma. EYES: PERRL, extraocular movements intact, sclera anicteric, conjunctiva clear. No ptosis. LUNGS: Breath sounds equal, clear to auscultation bilaterally, no wheezes, no crackles, no accessory muscle use. HEART: Regular rate and rhythm, S1, S2 without murmur, rub or gallop. ABDOMEN: Soft, nontender, nondistended, normoactive bowel sounds, no guarding, no rebound UPPER EXTREMITIES: 2+ pulses, warm, well-perfused, no edema. LOWER EXTREMITIES: Left foot: ulcer to plantar surface with moderate amount of nayak exudate on dressing, nayak slough in wound bed. Mild redness, streaking extending from left foot to just above the ankle. NEUROLOGICAL: Cranial nerves II through XII grossly intact. Normal speech, gait not observed. Active Medications Generic Name Dose Route Start Last Admin Trade Name Freq PRN Reason Stop Dose Admin Allopurinol 100 mg 04/03/17 10:00 04/04/17 09:17 Zyloprim - PO Not Given DAILY [facility] Amiodarone HCl 100 mg 04/03/17 10:00 04/04/17 09:15 Cordarone - PO Not Given DAILY [facility] Atorvastatin Calcium 10 mg 04/03/17 22:00 04/03/17 21:46 Lipitor - PO Not Given [facility] Bicalutamide 50 mg 04/03/17 10:00 04/04/17 09:15 Casodex - PO Not Given DAILY [facility] Calcium Carbonate 500 mg 04/03/17 10:00 04/04/17 09:28 Os-Franko 500mg - PO 500 mg DAILY [facility] Administration Chlordiazepoxide HCl 25 mg 04/03/17 17:31 Librium - PO Q6H PRN WITHDRAWAL(CONT SUBST) Cholecalciferol 1,000 unit 04/03/17 10:00 04/04/17 09:16 Vitamin D3 - PO Not Given DAILY [facility] Clindamycin HCl 300 mg 04/03/17 18:00 04/04/17 11:58 Cleocin - PO 300 mg Q6HPO [facility] Administration Ferrous Gluconate 324 mg 04/03/17 10:00 04/04/17 09:28 Fergon - PO 324 mg DAILY [facility] Administration Folic Acid 1 mg 04/04/17 10:00 04/04/17 09:15 Folic Acid - PO Not Given DAILY [facility] Hydralazine HCl 25 mg 04/02/17 23:00 04/04/17 09:14 Apresoline - PO Not Given BID [facility] Piperacillin Sod/Tazobactam Sod 50 mls @ 100 mls/hr 04/03/17 18:00 04/04/17 09: 13 Zosyn 3.375gm Ivpb (Pre-Docked) IVPB 100 mls/hr Q8H-IV [facility] Administration Protocol Magnesium Oxide 400 mg 04/03/17 10:00 04/04/17 09:28 Mag-Ox - PO 400 mg DAILY [facility] Administration Metoprolol Tartrate 50 mg 04/02/17 23:00 04/04/17 09:16 Lopressor - PO Not Given BID [facility] Rivaroxaban 20 mg 04/03/17 10:00 04/04/17 09:17 Xarelto - PO Not Given DAILY [facility] Tamsulosin HCl 0.4 mg 04/03/17 08:30 04/04/17 08:25 Flomax - PO Not Given DAILY@0830 [facility] Thiamine HCl 100 mg 04/04/17 10:00 04/04/17 09:16 Vitamin B1 - PO Not Given DAILY [facility] ASSESSMENT/PLAN: ERYTHEMA HAS COMPLETELY RESOLVED WOUND bed pale, slough- clean, collagenase, jacintavyn 66 year-old male with a PMH of HTN, HLD, afib with demand PPM, ETOH abuse s/p Lola Prince tear repair, gout, Charcot foot, peripheral neuropathy, BPH, CKD, renal cancer s/p nephrectomy, and prostate cancer on androgen deprivation therapy. Admitted for vascular ulcer of left foot and cellulitis. Vascular ulcer, plantar surface left foot Mild LLE cellulitis Peripheral neuropathy Charcot foot --wound with thick, nayak exudate; apply collagenase, kaseyyn daily --leg cellulitis has resolved --start Zosyn (day #2) and Clinda (day #2) --ID following Hypertension --continue metoprolol, hydralazine Hyperlipidemia --continue Lipitor Afib --continue metoprolol, amiodarone, Xarelto Current ETOH abuse s/p Lola Prince tear repair --told admitting provider he drinks 6 beers per day; on previous admissions 2 -9 drinks per day (beer, wine, vodka) --multivitamin bag x 1L --librium PRN --monitor closely for s/s of withdrawal --daily thiamine, folic acid BPH --continue Flomax Prostate cancer --continue bicalutamide Acute kidney injury --Cr 1.7 on admission, baseline appears to be ~ 1.3 --hold Lasix F/E/N Fluids: PO intake adequate Electrolytes: replete as indicated Nutrition: low sodium DVT prophylaxis: on Xarelto, oob, ambulation Physical therapy eval Daily PT Dispo: continues to require inpatient care. Full Code. Visit type - Emergency Visit Emergency Visit: Yes ED Registration Date: 04/02/17 Care time: The patient presented to the Emergency Department on the above date and was hospitalized for further evaluation of their emergent condition. - New Patient This patient is new to me today: No - Critical Care Critical Care patient: No
--- NOTE | 2017-04-04 16:17 | DS ---
Physical Exam: SUBJECTIVE: Patient seen and examined OBJECTIVE: Patient seen and examined at bedside. Patient allowed physical examination. Patient was then advised that he could not continue taking his home medications while at the hospital, that he had to take the medications prescribed. Patient said his doctors said he could take his own medications. The nurse asked to see the medications and patient refused. Patient became angry , loud, jumped out of bed and said he was signing out AMA. Security was called. Security officers explained to patient they would have to take his medications. The nurse explained he would get them back. He still refused to have security take the medications or to even see the vials. He was advised of the risks of signing out against medical advice including infection, complications from infection, and . He refused to sign the AMA paperwork. Security will remain with patient until he leaves the building. Vital Signs Period Temp Pulse Resp BP Sys/Farrar Pulse Ox Last 24 Hr 97.8 F-98.2 F 68-74 18-20 142-172/68-89 97-99 PHYSICAL EXAM GENERAL: The patient is awake, alert, and fully oriented, in no acute distress. HEAD: Normal with no signs of trauma. EYES: PERRL, extraocular movements intact, sclera anicteric, conjunctiva clear. No ptosis. LUNGS: Breath sounds equal, clear to auscultation bilaterally, no wheezes, no crackles, no accessory muscle use. HEART: Regular rate and rhythm, S1, S2 without murmur, rub or gallop. ABDOMEN: Soft, nontender, nondistended, normoactive bowel sounds, no guarding, no rebound UPPER EXTREMITIES: 2+ pulses, warm, well-perfused, no edema. LOWER EXTREMITIES: Left foot: ulcer to plantar surface with moderate amount of nayak exudate on dressing, nayak slough in wound bed. Mild redness, streaking seen yesterday has resolved. NEUROLOGICAL: Cranial nerves II through XII grossly intact. Normal speech, gait not observed. HOSPITAL COURSE: Date of Admission:04/02/17 Date of Discharge: 04/04/17 66 year-old male with a PMH of HTN, HLD, afib with demand PPM, ETOH abuse s/p Lola Prince tear repair, gout, Charcot foot, peripheral neuropathy, BPH, CKD, renal cancer s/p nephrectomy, and prostate cancer on androgen deprivation therapy. Admitted for vascular ulcer of left foot and cellulitis. Vascular ulcer, plantar surface left foot Mild LLE cellulitis Peripheral neuropathy Charcot foot --wound with thick, nayak exudate --continue Zosyn (day #2) and Clinda (day #2) --ID following Hypertension --continued metoprolol, hydralazine Hyperlipidemia --continued Lipitor Afib --continued metoprolol, amiodarone, Xarelto Current ETOH abuse s/p Lola Prince tear repair --told admitting provider he drinks 6 beers per day; on previous admissions 2 -9 drinks per day (beer, wine, vodka) --multivitamin bag x 1L --librium PRN --monitor closely for s/s of withdrawal --daily thiamine, folic acid BPH --continue Flomax Prostate cancer --continue bicalutamide Acute kidney injury --Cr 1.7 on admission, baseline appears to be ~ 1.3 --hold Lasix F/E/N Fluids: PO intake adequate Electrolytes: replete as indicated Nutrition: low sodium DVT prophylaxis: on Xarelto, oob, ambulation Physical therapy eval Daily PT Dispo: continues to require inpatient care. Full Code. Discharge Summary Reason For Visit: CELLULITIS Current Active Problems Afib (Acute) Bilateral lower extremity edema (Acute) CHF (congestive heart failure) (Acute) Cellulitis (Acute) Foot pain, left (Acute) H/O prostate cancer (Acute) H/O renal cell cancer (Acute) H/O unilateral nephrectomy (Acute) Pacemaker (Acute) Renal cancer (Acute) Condition: Guarded - Instructions Referrals: Eric Feliciano [Primary Care Provider] - Disposition: AGAINST MEDICAL ADVICE - Home Medications Comprehensive Discharge Medication List: Ambulatory Orders Allopurinol [Zyloprim -] 100 mg PO DAILY 04/02/17 Amiodarone HCl 100 mg PO DAILY 04/02/17 Bicalutamide 50 mg PO DAILY 04/02/17 Calcium Carbonate [Calcium] 500 mg PO DAILY 04/02/17 Cholecalciferol (Vitamin D3) [Vitamin D3 -] 1,000 unit PO DAILY 04/02/17 Ferrous Gluconate [Ferate] 240 mg PO DAILY 04/02/17 Folic Acid 0.4 mg PO DAILY 04/02/17 Furosemide [Lasix] 40 mg PO DAILY 04/02/17 Hydralazine HCl [Apresoline -] 25 mg PO BID 04/02/17 Magnesium Oxide [Magnesium] 400 mg PO DAILY 04/02/17 Metoprolol Tartrate [Lopressor -] 50 mg PO BID 04/02/17 Rivaroxaban [Xarelto -] 20 mg PO DAILY 04/02/17 Simvastatin [Zocor -] 20 mg PO HS 04/02/17 Tamsulosin HCl 0.4 mg PO DAILY 04/02/17
[2017-04-04] MEDS ORDERED: RIVAROXABAN 20 MG TABLET PO SCH (16:52)
[2017-04-04] MEDS ORDERED: TAMSULOSIN HCL 0.4 MG CAP.ER.24H (FP) PO SCH (16:56)
[2017-04-04] MEDS ORDERED: CHOLECALCIFEROL (VITAMIN D3) 1,000 UNIT TABLET (FP) PO SCH (16:56)
[2017-04-04] MEDS ORDERED: FENOFIBRIC ACID 45 MG CAP PO SCH (17:00)
[2017-04-04] MEDS: FENOFIBRATE 54 MG PO SCH (17:26)
[2017-04-04] MEDS: FUROSEMIDE 40 MG TABLET (FP) PO SCH (17:26)
[2017-04-04] MEDS ORDERED: MYRBETRIQ 50 MG PO SCH (17:54)
[2017-04-04] MEDS ORDERED: PT OWN MED DRAWER 7, Y5N ONE (18:33)
[2017-04-04] MEDS: FOLIC ACID 1 MG TABLET (FP) PO SCH (21:29)
[2017-04-04] MEDS: SIMVASTATIN 20 MG PO SCH (21:30)
[2017-04-04] MEDS: MYRBETRIQ 50 MG PO SCH (21:30)
[2017-04-05] MEDS: PIPERACILLIN/TAZOB 3.375 GM 50 ML IVPB SCH ×3 (02:47→17:25)
[2017-04-05] MEDS: CLINDAMYCIN HCL 150 MG CAPSULE (FP) PO SCH ×3 (05:50→17:25)
[2017-04-05] MEDS: LEVOTHYROXINE NA 50 MCG TABLET (FP) PO SCH (06:32)
[2017-04-05 06:48] LABS: EOSINOPHIL 4.9 % (0-4.5); MCH 32.4 pg (25.7-33.7); MCHC 34.4 g/dl (32.0-35.9); MEAN CELL VOLUME 94.1 fl (80-96); MEAN PLT VOLUME 7.3 fl (7.5-11.1); NEUTROPHILS 54.4 % (42.8-82.8); PLATELET COUNT 207 K/MM3 (134-434); RDW 14.1 % (11.9-15.9); WHITE BLOOD COUNT 8.1 K/mm3 (4.0-10.0)
[2017-04-05 07:34] LABS: ALBUMIN 3.4 g/dl (3.4-5.0); ANION GAP 10 (8-16); CALCIUM 8.9 mg/dL (8.5-10.1); CO2 27 mmol/L (21-32); CREATININE 1.8 mg/dL (0.7-1.3); GLUCOSE,RANDOM 172 mg/dL (74-106); MAGNESIUM 1.6 mg/dL (1.8-2.4); SGOT/AST 26 U/L (15-37); SGPT/ALT 33 U/L (12-78)
[2017-04-05 07:36] LABS: ALK PHOS 40 U/L (45-117); BILIRUBIN,TOTAL 0.5 mg/dL (0.2-1.0); TOT PROT 6.9 g/dl (6.4-8.2)
[2017-04-05] MEDS ORDERED: PT OWN MED DRAWER 7, Y5N ONE ×2 (09:11→09:38)
[2017-04-05] MEDS: hydrALAZINE HCL 25 MG TABLET (FP) PO SCH ×2 (09:16→21:29)
[2017-04-05] MEDS: BICALUTAMIDE 50 MG TABLET (FP) PO SCH (09:16)
[2017-04-05] MEDS: AMIODARONE HCL 200 MG TABLET (FP) PO SCH (09:17)
[2017-04-05] MEDS: MAGNESIUM OXIDE 400 MG TABLET (FP) PO SCH (09:18)
[2017-04-05] MEDS: METOPROLOL TARTRATE 50 MG TABLET (FP) PO SCH ×2 (09:18→21:29)
[2017-04-05] MEDS: FERROUS GLUCONATE 324 MG TAB (FP) PO SCH (09:18)
[2017-04-05] MEDS: FENOFIBRATE 54 MG PO SCH (09:18)
[2017-04-05] MEDS: FUROSEMIDE 40 MG TABLET (FP) PO SCH (09:18)
[2017-04-05] MEDS: CALCIUM (OYSTER SHELL) 500 MG TABLET (FP) PO SCH (09:18)
[2017-04-05] MEDS: ALLOPURINOL 100 MG TABLET (FP) PO SCH (09:19)
[2017-04-05] MEDS: THIAMINE HCL 100 MG TABLET (FP) PO SCH (09:19)
[2017-04-05] MEDS: COLLAGENASE CLOSTRIDIUM HIST. 30 GRAMS TUBE TP SCH (13:24)
--- NOTE | 2017-04-05 17:09 | PN ---
Physical Exam: SUBJECTIVE: Patient seen and examined OBJECTIVE: Vital Signs Period Temp Pulse Resp BP Sys/Farrar Pulse Ox Last 24 Hr 97.8 F-98.4 F 66-80 16-20 147-163/75-95 99 GENERAL: The patient is awake, alert, and fully oriented, in no acute distress. HEAD: Normal with no signs of trauma. EYES: PERRL, extraocular movements intact, sclera anicteric, conjunctiva clear. No ptosis. LUNGS: Breath sounds equal, clear to auscultation bilaterally, no wheezes, no crackles, no accessory muscle use. HEART: Regular rate and rhythm, S1, S2 without murmur, rub or gallop. ABDOMEN: Soft, nontender, nondistended, normoactive bowel sounds, no guarding, no rebound UPPER EXTREMITIES: 2+ pulses, warm, well-perfused, no edema. LOWER EXTREMITIES: Left foot: ulcer to plantar surface with scant exudate on dressing; no redness or streaking on foot or ankle NEUROLOGICAL: Cranial nerves II through XII grossly intact. Normal speech, gait not observed. Laboratory Results - last 24 hr 04/05/17 04/05/17 06:00 06:00 WBC 8.1 RBC 3.43 L Hgb 11.1 L Hct 32.3 L MCV 94.1 MCHC 34.4 RDW 14.1 Plt Count 207 MPV 7.3 L Neutrophils % 54.4 Lymphocytes % 31.2 Monocytes % 8.5 Eosinophils % 4.9 H Basophils % 1.0 Sodium 140 Potassium 3.9 Chloride 103 Carbon Dioxide 27 Anion Gap 10 BUN 18 Creatinine 1.8 H Creat Clearance w eGFR 38.18 Random Glucose 172 H Calcium 8.9 Magnesium 1.6 L Total Bilirubin 0.5 D AST 26 ALT 33 Alkaline Phosphatase 40 L Total Protein 6.9 Albumin 3.4 Active Medications Generic Name Dose Route Start Last Admin Trade Name Freq PRN Reason Stop Dose Admin Allopurinol 100 mg 04/03/17 10:00 04/05/17 09:19 Zyloprim - PO 100 mg DAILY DAYANA Administration Amiodarone HCl 100 mg 04/03/17 10:00 04/05/17 09:17 Cordarone - PO 100 mg DAILY DAYANA Administration Bicalutamide 50 mg 04/03/17 10:00 04/05/17 09:16 Casodex - PO 50 mg DAILY DAYANA Administration Calcium Carbonate 500 mg 06/23/17 10:00 04/05/17 09:18 Os-Franko 500mg - PO 500 mg DAILY DAYANA Administration Chlordiazepoxide HCl 25 mg 04/03/17 17:31 Librium - PO Q6H PRN WITHDRAWAL(CONT SUBST) Cholecalciferol 1,000 unit 04/04/17 22:00 04/04/17 21:30 Vitamin D3 - PO 1,000 unit HS DAYANA Administration Clindamycin HCl 300 mg 04/03/17 18:00 04/05/17 13:24 Cleocin - PO 300 mg Q6HPO DAYANA Administration Collagenase 1 applic 04/05/17 11:30 04/05/17 13:24 Santyl - TP 1 appful DAILY DAYANA Administration Ferrous Gluconate 324 mg 04/03/17 10:00 04/05/17 09:18 Fergon - PO 324 mg DAILY DAYANA Administration Folic Acid 1 mg 04/04/17 22:00 04/04/17 21:29 Folic Acid - PO 1 mg HS DAYANA Administration Furosemide 40 mg 04/04/17 17:00 04/05/17 09:18 Lasix - PO 40 mg DAILY DAYANA Administration Hydralazine HCl 25 mg 04/02/17 23:00 04/05/17 09:16 Apresoline - PO 25 mg BID DAYANA Administration Piperacillin Sod/Tazobactam Sod 50 mls @ 100 mls/hr 04/03/17 18:00 04/05/17 09: 19 Zosyn 3.375gm Ivpb (Pre-Docked) IVPB 100 mls/hr Q8H-IV DAYANA Administration Protocol Levothyroxine Sodium 50 mcg 04/05/17 07:00 04/05/17 06:32 Synthroid - PO 50 mcg DAILY@0700 DAYANA Administration Magnesium Oxide 400 mg 04/03/17 10:00 04/05/17 09:18 Mag-Ox - PO 400 mg DAILY DAYANA Administration Metoprolol Tartrate 50 mg 04/02/17 23:00 04/05/17 09:18 Lopressor - PO 50 mg BID DAYANA Administration Fenofibrate 54mg 1 each 04/04/17 17:00 04/05/17 09:18 Tablets-Patient's PO 1 each Own Medication (Non- DAILY DAYANA Administration Formulary) Simvastatin 20mg 1 each 04/04/17 22:00 04/04/17 21:30 Tablets-Patient's PO 1 each Own Medication (Non- HS DAYANA Administration Formulary) Myrbetriq 50mg - 1 each 04/04/17 22:00 04/04/17 21:30 Patient's Own PO 1 each Medication (Non- HS DAYANA Administration Formulary) Rivaroxaban 20 mg 04/04/17 22:00 04/04/17 21:30 Xarelto - PO 20 mg HS DAYANA Administration Tamsulosin HCl 0.4 mg 04/04/17 22:00 04/04/17 21:29 Flomax - PO 0.4 mg HS DAYANA Administration Thiamine HCl 100 mg 04/04/17 10:00 04/05/17 09:19 Vitamin B1 - PO Not Given DAILY DAYANA ASSESSMENT/PLAN 66 year-old male with a PMH of HTN, HLD, afib with demand PPM, ETOH abuse s/p Lola Prince tear repair, gout, Charcot foot, peripheral neuropathy, BPH, CKD, renal cancer s/p nephrectomy, and prostate cancer on androgen deprivation therapy. Admitted for vascular ulcer of left foot and cellulitis. Vascular ulcer, plantar surface left foot Mild LLE cellulitis Peripheral neuropathy Charcot foot --wound with scant exudate; collagenase, allevyn daily --leg cellulitis has resolved --Zosyn (day #3) and Clinda (day #3) --ID following Hypertension --BP has been elevated --increase metoprolol 75 BID, continue hydralazine Hyperlipidemia --continue Lipitor Afib --continue metoprolol, amiodarone, Xarelto Current ETOH abuse s/p Lola Prince tear repair --told admitting provider he drinks 6 beers per day; on previous admissions 2 -9 drinks per day (beer, wine, vodka) --multivitamin bag x 1L --librium PRN --monitor closely for s/s of withdrawal --daily thiamine, folic acid BPH --continue Flomax Prostate cancer --continue bicalutamide Acute kidney injury --Cr trending up, now 1.8 baseline ~ 1.3 --IV fluids F/E/N Fluids: NS @ 125mL/hr Electrolytes: replete as indicated Nutrition: low sodium DVT prophylaxis: on Xarelto, oob, ambulation Physical therapy eval Daily PT Dispo: continues to require inpatient care. Full Code. Visit type - Emergency Visit Emergency Visit: Yes ED Registration Date: 04/02/17 Care time: The patient presented to the Emergency Department on the above date and was hospitalized for further evaluation of their emergent condition. - New Patient This patient is new to me today: No - Critical Care Critical Care patient: No
[2017-04-05] MEDS: SODIUM CHLORIDE 1,000 ML IV SCH (18:28)
[2017-04-05] MEDS: TAMSULOSIN HCL 0.4 MG CAP.ER.24H (FP) PO SCH (21:29)
[2017-04-05] MEDS: FOLIC ACID 1 MG TABLET (FP) PO SCH (21:29)
[2017-04-05] MEDS: CHOLECALCIFEROL (VITAMIN D3) 1,000 UNIT TABLET (FP) PO SCH (21:30)
[2017-04-05] MEDS: MYRBETRIQ 50 MG PO SCH (21:30)
[2017-04-05] MEDS: RIVAROXABAN 20 MG TABLET PO SCH (21:30)
[2017-04-05] MEDS: SIMVASTATIN 20 MG PO SCH (21:30)
[2017-04-06] MEDS: CLINDAMYCIN HCL 150 MG CAPSULE (FP) PO SCH ×3 (00:02→12:17)
[2017-04-06] MEDS: PIPERACILLIN/TAZOB 3.375 GM 50 ML IVPB SCH ×2 (01:23→09:12)
[2017-04-06] MEDS: SODIUM CHLORIDE 1,000 ML IV SCH (02:20)
[2017-04-06] MEDS: LEVOTHYROXINE NA 50 MCG TABLET (FP) PO SCH (06:33)
[2017-04-06 07:58] LABS: BASOPHIL 0.9 % (0-2.0); EOSINOPHIL 5.8 % (0-4.5); MCH 32.7 pg (25.7-33.7); MCHC 34.3 g/dl (32.0-35.9); MEAN CELL VOLUME 95.2 fl (80-96); MEAN PLT VOLUME 7.8 fl (7.5-11.1); PLATELET COUNT 210 K/MM3 (134-434); RDW 14.2 % (11.9-15.9); WHITE BLOOD COUNT 8.6 K/mm3 (4.0-10.0)
[2017-04-06 08:00] LABS: BASOPHIL 0.9 % (0-2.0); EOSINOPHIL 5.7 % (0-4.5); MCH 32.9 pg (25.7-33.7); MCHC 34.6 g/dl (32.0-35.9); MEAN PLT VOLUME 7.7 fl (7.5-11.1); NEUTROPHILS 56.6 % (42.8-82.8); PLATELET COUNT 218 K/MM3 (134-434); RDW 14.5 % (11.9-15.9); WHITE BLOOD COUNT 8.5 K/mm3 (4.0-10.0)
[2017-04-06 08:38] LABS: ALBUMIN 3.3 g/dl (3.4-5.0); ALK PHOS 37 U/L (45-117); ANION GAP 11 (8-16); BILIRUBIN,TOTAL 0.6 mg/dL (0.2-1.0); CALCIUM 8.7 mg/dL (8.5-10.1); CO2 25 mmol/L (21-32); CREATININE 1.6 mg/dL (0.7-1.3); GLUCOSE,RANDOM 156 mg/dL (74-106); MAGNESIUM 1.7 mg/dL (1.8-2.4); SGOT/AST 35 U/L (15-37); SGPT/ALT 38 U/L (12-78); TOT PROT 6.7 g/dl (6.4-8.2)
[2017-04-06] MEDS ORDERED: PT OWN MED DRAWER 7, Y5N ONE (08:59)
[2017-04-06] MEDS: ALLOPURINOL 100 MG TABLET (FP) PO SCH (09:06)
[2017-04-06] MEDS: THIAMINE HCL 100 MG TABLET (FP) PO SCH (09:06)
[2017-04-06] MEDS: MAGNESIUM OXIDE 400 MG TABLET (FP) PO SCH (09:07)
[2017-04-06] MEDS: FUROSEMIDE 40 MG TABLET (FP) PO SCH (09:07)
[2017-04-06] MEDS: CALCIUM (OYSTER SHELL) 500 MG TABLET (FP) PO SCH (09:07)
[2017-04-06] MEDS: FERROUS GLUCONATE 324 MG TAB (FP) PO SCH (09:07)
[2017-04-06] MEDS: METOPROLOL TARTRATE 50 MG TABLET (FP) PO SCH (09:07)
[2017-04-06] MEDS: hydrALAZINE HCL 25 MG TABLET (FP) PO SCH (09:07)
[2017-04-06] MEDS: BICALUTAMIDE 50 MG TABLET (FP) PO SCH (09:08)
[2017-04-06] MEDS: AMIODARONE HCL 200 MG TABLET (FP) PO SCH (09:08)
[2017-04-06] MEDS: FENOFIBRATE 54 MG PO SCH (09:09)
[2017-04-06] MEDS: COLLAGENASE CLOSTRIDIUM HIST. 30 GRAMS TUBE TP SCH (09:11)
--- NOTE | 2017-04-06 12:00 | PN ---
Progress Note, Physician History of Present Illness: patient doing well cellulitis has resolved wound looks better - Current Medication List Current Medications: Active Medications Allopurinol (Zyloprim -) 100 mg PO DAILY [facility] Last Admin: 04/06/17 09:06 Dose: 100 mg Amiodarone HCl (Cordarone -) 100 mg PO DAILY [facility] Last Admin: 04/06/17 09:08 Dose: 100 mg Bicalutamide (Casodex -) 50 mg PO DAILY [facility] Last Admin: 04/06/17 09:08 Dose: 50 mg Calcium Carbonate (Os-Franko 500mg -) 500 mg PO DAILY [facility] Last Admin: 04/06/17 09:07 Dose: 500 mg Chlordiazepoxide HCl (Librium -) 25 mg PO Q6H PRN PRN Reason: WITHDRAWAL(CONT SUBST) Cholecalciferol (Vitamin D3 -) 1,000 unit PO HS [facility] Last Admin: 04/05/17 21:30 Dose: 1,000 unit Clindamycin HCl (Cleocin -) 300 mg PO Q6HPO [facility] Last Admin: 04/06/17 06:33 Dose: 300 mg Collagenase (Santyl -) 1 applic TP DAILY [facility] Last Admin: 04/06/17 09:11 Dose: 1 appful Ferrous Gluconate (Fergon -) 324 mg PO DAILY [facility] Last Admin: 04/06/17 09:07 Dose: 324 mg Folic Acid (Folic Acid -) 1 mg PO HS [facility] Last Admin: 04/05/17 21:29 Dose: 1 mg Furosemide (Lasix -) 40 mg PO DAILY [facility] Last Admin: 04/06/17 09:07 Dose: 40 mg Hydralazine HCl (Apresoline -) 25 mg PO BID [facility] Last Admin: 04/06/17 09:07 Dose: 25 mg Piperacillin Sod/Tazobactam Sod (Zosyn 3.375gm Ivpb (Pre-Docked)) 50 mls @ 100 mls/hr IVPB Q8H-IV [facility] PRN Reason: Protocol Last Admin: 04/06/17 09:12 Dose: 100 mls/hr Sodium Chloride (Normal Saline -) 1,000 mls @ 125 mls/hr IV ASDIR [facility] Last Admin: 04/06/17 02:20 Dose: 125 mls/hr Levothyroxine Sodium (Synthroid -) 50 mcg PO DAILY@0700 [facility] Last Admin: 04/06/17 06:33 Dose: 50 mcg Magnesium Oxide (Mag-Ox -) 400 mg PO BID [facility] Metoprolol Tartrate (Lopressor -) 75 mg PO BID [facility] Last Admin: 04/06/17 09:07 Dose: 75 mg Fenofibrate 54mg Tablets-Patient's Own Medication (Non- Formulary) 1 each PO DAILY [facility] Last Admin: 04/06/17 09:09 Dose: 1 each Simvastatin 20mg Tablets-Patient's Own Medication (Non- Formulary) 1 each PO HS [facility] Last Admin: 04/05/17 21:30 Dose: 1 each Myrbetriq 50mg - Patient's Own Medication (Non- Formulary) 1 each PO HS [facility] Last Admin: 04/05/17 21:30 Dose: 1 each Rivaroxaban (Xarelto -) 20 mg PO HS [facility] Last Admin: 04/05/17 21:30 Dose: 20 mg Tamsulosin HCl (Flomax -) 0.4 mg PO HS [facility] Last Admin: 04/05/17 21:29 Dose: 0.4 mg Thiamine HCl (Vitamin B1 -) 100 mg PO DAILY [facility] Last Admin: 04/06/17 09:06 Dose: 100 mg - Objective Vital Signs: Vital Signs Temperature 98 F 04/06/17 09:00 Pulse Rate 70 04/06/17 09:00 Respiratory Rate 20 04/06/17 09:00 Blood Pressure 153/82 04/06/17 09:00 O2 Sat by Pulse Oximetry (%) 99 04/06/17 09:00 Constitutional: Yes: No Distress, Calm Cardiovascular: Yes: Regular Rate and Rhythm Respiratory: Yes: Regular, CTA Bilaterally Gastrointestinal: Yes: Normal Bowel Sounds, Soft Musculoskeletal: Yes: Other Extremities: Yes: Other (cellulitis has resolved) Wound/Incision: Yes: Dressing Removed Neurological: Yes: Alert, Oriented Psychiatric: Yes: Alert, Oriented Labs: CBC, BMP 04/06/17 06:30 04/06/17 06:30 Assessment/Plan P: 1. Cellulitis 2. CKD 3. Anemia of chronic disease 4. HTN 5. HLD 6. Afib 7. ETOH dependance 8. Prostate CA 9. Gout plan can stop iv abx switch to po augmentin 875 mg twice a day for another 7 days wound care rest as per priamry team
--- NOTE | 2017-04-06 13:51 | DS ---
Physical Exam: SUBJECTIVE: Patient seen and examined. He denies pain or discomfort. OBJECTIVE: Vital Signs Period Temp Pulse Resp BP Sys/Farrar Pulse Ox Last 24 Hr 97.8 F-98.4 F 65-79 16-20 153-161/76-98 99-99 PHYSICAL EXAM GENERAL: The patient is awake, alert, and fully oriented, in no acute distress. HEAD: Normal with no signs of trauma. EYES: PERRL, extraocular movements intact, sclera anicteric, conjunctiva clear. No ptosis. LUNGS: Breath sounds equal, clear to auscultation bilaterally, no wheezes, no crackles, no accessory muscle use. HEART: Regular rate and rhythm, S1, S2 without murmur, rub or gallop. ABDOMEN: Soft, nontender, nondistended, normoactive bowel sounds, no guarding, no rebound UPPER EXTREMITIES: 2+ pulses, warm, well-perfused, no edema. LOWER EXTREMITIES: Left foot: ulcer to plantar surface with scant exudate on dressing; no redness or streaking on foot or ankle NEUROLOGICAL: Cranial nerves II through XII grossly intact. Normal speech, gait not observed. LABS Laboratory Results - last 24 hr 04/06/17 04/06/17 04/06/17 06:30 06:30 06:30 WBC 8.5 8.6 RBC 3.48 L 3.50 L Hgb 11.5 L 11.4 L Hct 33.1 L 33.3 L MCV 95.0 95.2 MCHC 34.6 34.3 RDW 14.5 14.2 Plt Count 218 210 MPV 7.7 7.8 Neutrophils % 56.6 57.0 Lymphocytes % 28.1 27.7 Monocytes % 8.7 8.6 Eosinophils % 5.7 H 5.8 H Basophils % 0.9 0.9 Sodium 140 Potassium 4.2 Chloride 104 Carbon Dioxide 25 Anion Gap 11 BUN 19 H Creatinine 1.6 H Creat Clearance w eGFR 43.74 Random Glucose 156 H Calcium 8.7 Magnesium 1.7 L Total Bilirubin 0.6 AST 35 D ALT 38 Alkaline Phosphatase 37 L Total Protein 6.7 Albumin 3.3 L HOSPITAL COURSE: Date of Admission:04/02/17 Date of Discharge: 04/06/17 66 year-old male with a PMH of HTN, HLD, afib with demand PPM, ETOH abuse s/p Lola Prince tear repair, gout, Charcot foot, peripheral neuropathy, BPH, CKD, renal cancer s/p nephrectomy, and prostate cancer on androgen deprivation therapy. Admitted for vascular ulcer of left foot and cellulitis. ID: Vascular ulcer, plantar surface left foot - resolving/much improved Assessment/Plan: No drainage from wound, no odor No streaking or redness ID cleared patient for d/c with PO antibiotics Continue wound care as outpatient Patient to see cigar head stringer tomorrow Cardiology: Hypertension Assessment/Plan: BP improving Metoprolol increased Patient has appointment with his PCP and Change Over upon d/c Afib Assessment/Plan: Rate control with Metoprolol On Amiodorone AC with Xarelto Psyche Current ETOH abuse/Lola Prince tear repair Assessment/Plan: No signs of withdrawal on exam CIWA 0 On folic acid and thiamine Disposition: Full Code. Minutes to complete discharge: 60 Discharge Summary Reason For Visit: CELLULITIS Current Active Problems Afib (Acute) Bilateral lower extremity edema (Acute) CHF (congestive heart failure) (Acute) Cellulitis (Acute) Foot pain, left (Acute) H/O prostate cancer (Acute) H/O renal cell cancer (Acute) H/O unilateral nephrectomy (Acute) Pacemaker (Acute) Renal cancer (Acute) Condition: Improved - Instructions Diet, Activity, Other Instructions: Mr. Rivera: As discussed, please follow up with your cigar head stringer tomorrow, Dr. Westfall this Thursday and your PCP within one week of discharge. Wound Care Instructions: 1. Wash your hands, remove old dressing 2. Clean wound with sterile saline and remove as much debris as possible 3. Apply Santyl apx 2mm directly to the wound or to a sterile gauze and then apply to wound 4. Secure with sterile dressing and paper tape 5. Wash hands after completing the wound care 6. Wound care should be done daily and as needed if soiled Please report any redness or streaking. Please return to the ER if you experience fevers. Please take all medications as prescribed and monitor your blood pressure. If you have any questions please call me @ [phone] between 7am and 7pm. Heena Gomez NP Referrals: Eric Feliciano [Primary Care Provider] - Disposition: HOME - Home Medications Comprehensive Discharge Medication List: Ambulatory Orders Allopurinol [Zyloprim -] 100 mg PO DAILY 04/02/17 Amiodarone HCl 100 mg PO DAILY 04/02/17 Bicalutamide 50 mg PO DAILY 04/02/17 Calcium Carbonate [Calcium] 500 mg PO DAILY 04/02/17 Cholecalciferol (Vitamin D3) [Vitamin D3 -] 1,000 unit PO HS 04/02/17 Ferrous Gluconate [Ferate] 240 mg PO DAILY 04/02/17 Furosemide [Lasix] 40 mg PO DAILY 04/02/17 Hydralazine HCl [Apresoline -] 25 mg PO BID 04/02/17 Magnesium Oxide [Magnesium] 400 mg PO DAILY 04/02/17 Rivaroxaban [Xarelto -] 20 mg PO HS 04/02/17 Simvastatin [Zocor -] 20 mg PO HS 04/02/17 Tamsulosin HCl 0.4 mg PO HS 04/02/17 Fenofibrate 54 mg PO DAILY 04/04/17 Levothyroxine [Synthroid -] 50 mg PO DAILY 04/04/17 Mirabegron [Myrbetriq] 50 mg PO HS 04/04/17 Amox-Tr/K Cl [Augmentin - 875Mg Tablet] 1 tab PO BID #14 tablet 04/06/17 Collagenase Clostridium Hist. [Santyl -] 1 applic TP DAILY #1 tube 04/06/17 Folic Acid - 1 mg PO HS #30 tablet 04/06/17 Furosemide [Lasix -] 40 mg PO DAILY tablet 04/06/17 Magnesium Oxide [Mag-Ox -] 400 mg PO BID #60 tab 04/06/17 Metoprolol Tartrate [Lopressor -] 75 mg PO BID #60 tablet 04/06/17 Thiamine HCl [Vitamin B1 -] 100 mg PO DAILY #60 tablet MDD 1 tab 04/06/17 This patient is new to me today: Yes Date on this admission: 04/07/17 Emergency Visit: Yes ED Registration Date: 04/02/17 Care time: The patient presented to the Emergency Department on the above date and was hospitalized for further evaluation of their emergent condition. Critical Care patient: No - Discharge Referral Referred to [facility] No
[2017-04-06 14:23] VITALS: BP 140/78; PULSE 73; TEMP 98.4
[2017-04-06] MEDS ORDERED: MAGNESIUM OXIDE 400 MG TABLET (FP) PO SCH (22:00)
--- NOTE | 2017-04-09 11:20 | EKG ---
Test Reason : Blood Pressure : / mmHG Vent. Rate : 068 BPM Atrial Rate : 068 BPM P-R Int : 184 ms QRS Dur : 184 ms QT Int : 482 ms P-R-T Axes : 000 -77 083 degrees QTc Int : 512 ms AV dual-paced rhythm ABNORMAL ECG WHEN COMPARED WITH ECG OF 28-JUL-2016 13:13, ELECTRONIC VENTRICULAR PACEMAKER HAS REPLACED ELECTRONIC ATRIAL PACEMAKER Confirmed by BABITA ARCINIEGA, LYUBOV (2013) on 04/09/2017 11:19:55 AM Referred By: Confirmed By:LYUBOV JC MD
== END 2017-04-06 14:12 | disposition home or self-care (01) | DRG 383 ==
LOC: JER 16:36 → JERBED 22:42 → J8W 04-03 15:54
PROVIDERS: ADMIT Internal Medicine; ATTEND Nurse Practitioner Family
DX: L03.116 Cellulitis of left lower limb (principal); L97.429 Non-pressure chronic ulcer of left heel and midfoot with unspecified severity; E78.5 Hyperlipidemia, unspecified; I48.91 Unspecified atrial fibrillation; Z95.0 Presence of cardiac pacemaker; N40.0 Benign prostatic hyperplasia without lower urinary tract symptoms; C61 Malignant neoplasm of prostate; Z90.5 Acquired absence of kidney; Z96.653 Presence of artificial knee joint, bilateral; I12.9 Hypertensive chronic kidney disease with stage 1 through stage 4 chronic kidney disease, or unspecified chronic kidney disease; N18.3 Chronic kidney disease, stage 3 (moderate); F10.20 Alcohol dependence, uncomplicated; D63.1 Anemia in chronic kidney disease; N17.9 Acute kidney failure, unspecified; A52.16 Charcot's arthropathy (tabetic); I73.9 Peripheral vascular disease, unspecified
CPT/HCPCS: 36415; 73630-TC-LT; 80048; 80053; 83735; 85025; 85651; 86140; 87040; 87081; 93005; 93010; 93971-TC; 99284-25

== ENCOUNTER 2018-05-28 17:33 | Inpatient (IN) | payer OTHER ==
--- NOTE | 2018-05-28 17:39 | PDOC ---
Rapid Medical Evaluation Chief Complaint: Wound Time Seen by Provider: 05/28/18 17:36 Medical Evaluation: Allergies Allergy/AdvReac Type Severity Reaction Status Date / Time No Known Drug Allergies Allergy Verified 05/28/18 17:36 05/28/18 17:36 Pt presents to ED for cellulitis to his R lower extremity. He was on abx one week ago for similar infection and now the infection is getting worse. Presents for IV abx and admission. Just saw Dr. Chery (podiatry) today Exam: Redness to the R ankle with streaking up the leg Order: Labs, EKG, IV Pt to present to ED for further evaluation Discharge Disposition - Diagnosis Cellulitis - Referrals - Patient Instructions - Post Discharge Activity
[2018-05-28 18:26] LABS: EOS % 1.2 % (0-4.5); HEMATOCRIT 34.7 % (35.4-49); HEMOGLOBIN 11.8 GM/dL (11.7-16.9); MCH 32.2 pg (25.7-33.7); MCHC 34.2 g/dl (32.0-35.9); MEAN CELL VOLUME 94.2 fl (80-96); MEAN PLT VOLUME 8.4 fl (7.5-11.1); NEUT % 68.8 % (42.8-82.8); PLATELET COUNT 251 K/MM3 (134-434); RBC 3.68 M/mm3 (4.00-5.60); RDW 13.9 % (11.9-15.9); WHITE BLOOD COUNT 9.2 K/mm3 (4.0-10.0)
[2018-05-28 18:46] LABS: ALBUMIN 3.9 g/dl (3.4-5.0); ANION GAP 12 (8-16); BLOOD UREA NITROGEN 31 mg/dL (7-18); CALCIUM 9.5 mg/dL (8.5-10.1); CHLORIDE 106 mmol/L (98-107); CO2 24 mmol/L (21-32); GLUCOSE,RANDOM 238 mg/dL (74-106); POTASSIUM 3.8 mmol/L (3.5-5.1); SGOT/AST 24 U/L (15-37); SGPT/ALT 39 U/L (12-78); SODIUM 142 mmol/L (136-145)
[2018-05-28 18:47] LABS: INR 1.5 (0.83-1.09)
[2018-05-28 18:49] LABS: ALK PHOS 43 U/L (45-117); BILIRUBIN,TOTAL 0.9 mg/dL (0.2-1.0); TOT PROT 7.5 g/dl (6.4-8.2)
[2018-05-28] MEDS ORDERED: SODIUM CHLORIDE 0.9% 500 ML INFUS.BAG IV ONE (18:53)
--- NOTE | 2018-05-28 19:01 | PDOC ---
History of Present Illness - General Chief Complaint: Wound Stated Complaint: INFECTION LEG Time Seen by Provider: 05/28/18 17:36 - History of Present Illness Initial Comments: The patient is a 67M with a history of renal cancer s/p nephrectomy and prostate cancer (Lupron & Bicalutamide) who presents with 1 week of RLE cellulitis which was being treat as an outpatient with Augmentin. He endorsed a fever last Thursday however denies fevers otherwise. He states he has initial improvement of his cellulitis wiht PO abx. Today he reports walking a great deal with subsequent worsening of his RLE erythema. He called his predictive maintenance technician ( Dr. Chery) who told him to report to the ED for admission for IV abx for failed outpatient therapy. He denies ALONSO, N/V/C/D, dysuria, abdominal, chest pain, SOB. PCP: Dr. Ramires @ [facility] 05/28/18 18:55 Past History - Past Medical History Allergies/Adverse Reactions: Allergies Allergy/AdvReac Type Severity Reaction Status Date / Time No Known Drug Allergies Allergy Verified 05/28/18 17:36 Home Medications: Ambulatory Orders Allopurinol [Zyloprim -] 100 mg PO DAILY 04/02/17 Bicalutamide 50 mg PO DAILY 04/02/17 Rivaroxaban [Xarelto -] 20 mg PO HS 04/02/17 Simvastatin [Zocor -] 20 mg PO HS 04/02/17 Tamsulosin HCl 0.4 mg PO HS 04/02/17 hydrALAZINE HCL [Apresoline -] 50 mg PO BID 04/02/17 Fenofibrate 54 mg PO DAILY 04/04/17 Levothyroxine [Synthroid -] 75 mcg PO DAILY 04/04/17 Mirabegron [Myrbetriq] 50 mg PO HS 04/04/17 Collagenase Clostridium Hist. [Santyl -] 1 applic TP DAILY #1 tube 04/06/17 Furosemide [Lasix -] 40 mg PO DAILY tablet 04/06/17 Metoprolol Tartrate [Lopressor -] 150 mg PO BID 05/28/18 Leuprolide Acetate [Lupron Depot] 30 mg IM MONTHLY 05/29/18 Anemia: No Asthma: No Cancer: Yes (PROSTATE CANCER 12/23 HORMONE INJECTIONS, RENAL CA) Cardiac Disorders: Yes (bradycardia,afib) CVA: Yes (DENIES TIA) COPD: No CHF: (ATRIAL FIB) Dementia: No Diabetes: No GI Disorders: No Disorders: Yes (enlarged prostate) HTN: Yes Hypercholesterolemia: Yes Liver Disease: No Seizures: No Thyroid Disease: Yes (hypothyroid) - Surgical History Abdominal Surgery: Yes (LEFT KIDNEY REMOVED) Appendectomy: No Cardiac Surgery: Yes (ppm) Cholecystectomy: No Lung Surgery: No Neurologic Surgery: No Orthopedic Surgery: Yes (bilateral knee replacement) - Immunization History Immunization Up to Date: Yes - Suicide/Smoking/Psychosocial Hx Smoking Status: No Smoking History: Never smoked Have you smoked in the past 12 months: No Number of Cigarettes Smoked Daily: 0 Information on smoking cessation initiated: No Hx Alcohol Use: No Drug/Substance Use Hx: No Substance Use Type: Alcohol Hx Substance Use Treatment: No Review of Systems - Review of Systems Able to Perform ROS?: Yes Comments:: GENERAL/CONSTITUTIONAL: No fever or chills. No weakness HEAD, EYES, EARS, NOSE AND THROAT: No change in vision. No ear pain or discharge. No sore throat CARDIOVASCULAR: No chest pain or shortness of breath RESPIRATORY: No cough, wheezing, or hemoptysiS GASTROINTESTINAL: No nausea, vomiting, diarrhea or constipation GENITOURINARY: No dysuria, frequency, or change in urination MUSCULOSKELETAL: No joint or muscle swelling or pain. No neck or back pain SKIN: per HPI NEUROLOGIC: No headache, vertigo, loss of consciousness, or change in strength/ sensation ENDOCRINE: No increased thirst. No abnormal weight change HEMATOLOGIC/LYMPHATIC: No anemia, easy bleeding, or history of blood clots ALLERGIC/IMMUNOLOGIC: No hives or skin allergy *Physical Exam - Vital Signs Last Vital Signs Temp Pulse Resp BP Pulse Ox 98.6 F 78 18 146/72 100 05/28/18 17:36 05/28/18 17:36 05/28/18 17:36 05/28/18 17:36 05/28/18 17:36 - Physical Exam Comments: GENERAL: Awake, alert, and fully oriented, in no acute distress HEAD: No signs of trauma, normocephalic, atraumatic EYES: PERRL, EOMI, sclera anicteric, conjunctiva clear ENT:Hearing grossly normal, nares patent, oropharynx clear without exudates. Moist mucosa NECK: Normal ROM, supple, no lymphadenopathy LUNGS: No distress, speaks full sentences, clear to auscultation bilaterally HEART:Regular rate and rhythm, normal S1 and S2, systolic murmur appreciated, peripheral pulses normal and equal bilaterally ABDOMEN: Soft, nontender, normoactive bowel sounds. No guarding, no rebound EXTREMITIES : Normal inspection, Normal range of motion, no edema. No clubbing or cyanosis NEUROLOGICAL: Cranial nerves II through XII grossly intact. Normal speech, normal gait, no focal sensorimotor deficits SKIN: RLE erythema with tracking starting at his anterior ankle up to lower third lepe 05/28/18 19:01 ED Treatment Course - LABORATORY CBC & Chemistry Diagram: 06/01/18 06:00 06/02/18 06:30 - ADDITIONAL ORDERS Additional order review: Laboratory Results 05/28/18 05/28/18 18:07 18:07 Sodium 142 Potassium 3.8 Chloride 106 Carbon Dioxide 24 Anion Gap 12 BUN 31 H Creatinine 2.0 H Creat Clearance w eGFR 33.70 Random Glucose 238 H D Lactic Acid 2.6 H* Calcium 9.5 Total Bilirubin 0.9 AST 24 D ALT 39 Alkaline Phosphatase 43 L Total Protein 7.5 Albumin 3.9 05/28/18 18:07 RBC 3.68 L MCV 94.2 MCHC 34.2 RDW 13.9 MPV 8.4 Neutrophils % 68.8 D Lymphocytes % 20.0 D Monocytes % 9.0 Eosinophils % 1.2 Basophils % 1.0 Medical Decision Making - Medical Decision Making The patient is a 67M with a history of prostate ca currently on hormone therapy and chronic BLE wounds who presents with RLE erythema and failed outpatient abx ED Course CMP, CBC, lactate ECG No leukocytosis Lactate 2.6 NS 1L IV Will start vanc and zosyn Plan for admission for IV abx 05/28/18 19:03 Dispo: Admit for IV abx *DC/Admit/Observation/Transfer Diagnosis at time of Disposition: Cellulitis Qualifiers: Site of cellulitis: extremity Site of cellulitis of extremity: lower extremity Laterality: right Qualified Code(s): L03.115 - Cellulitis of right lower limb - Discharge Dispostion Condition at time of disposition: Good - Referrals - Patient Instructions - Post Discharge Activity
[2018-05-28] MEDS ORDERED: VANCOMYCIN 1,000 MG in DEXTROSE 5%-WATER - 250 ML IVPB ONE (19:12)
[2018-05-28] MEDS ORDERED: PIPERACILLIN/TAZOB 4.5 GM 4.5 GM in DEXTROSE 5%-WATER 100 ML IVPB ONE (19:12)
[2018-05-28] MEDS ORDERED: PIPERACILLIN/TAZOB 4.5 GM 4.5 GM/100 ML BAG IVPB ONE (19:37)
[2018-05-28] MEDS ORDERED: VANCOMYCIN 1 GRAM (PRE-DOCKED) 1,000 MG/250 ML BAG IVPB ONE (19:37)
--- NOTE | 2018-05-28 20:05 | PDOC ---
Attending Attestation - Resident Resident Name: InesMauricio barrera - ED Attending Attestation I have performed the following: I have examined & evaluated the patient, The case was reviewed & discussed with the resident, I agree w/resident's findings & plan, Exceptions are as noted - HPI HPI: 05/28/18 20:03 67 yo M with h/o frequent cellulitis, h/o HTN, renal ca s/p nephrectomy here with c/o right leg redness, swelling and failed outpt treatment with augment. did have fever one week ago, resolved since taking augmentin. was seen by his sheep sticker Dr Chery who felt he required iv abx. pcp dr. Ramires, has only seen once. no cp no sob. no h/o pe or dvt. states has been admitted multiple times for same. 05/28/18 20:12 - Physicial Exam PE: 05/28/18 20:15 awake alert lungs clear bilaterally heart rrr no mrg. abd soft nt nd. ext wwp right leg with erythema. warmth to level of mid lepe. no crepitus. 2 + dp/ pt pulses bilaterally. foot wound plantar surface ball foot , 1/1cm. ulceration. some drainage. 05/28/18 20:16 - Medical Decision Making 05/28/18 20:16 differential: dvt, celluitis, venous stasis. plan iv abx, labs cultures, xray foot r/o osteo. admit. 05/28/18 20:17 Heart Score/ECG Review #1 General ECG Interpretation: Normal Rate (66), No acute ischemic changes Compared to previous ECG there are: Other (paced, TWI AVL, occas PVC)
[2018-05-28 20:54] LABS: URINE APPEARANCE CLOUDY; URINE BILIRUBIN NEGATIVE (<2.0 mg/dL); URINE COLOR AMBER; URINE GLUCOSE (UA) NEGATIVE (NEGATIVE); URINE KETONE NEGATIVE (NEGATIVE); URINE LEUK ESTERASE NEGATIVE (NEGATIVE); URINE NITRITE NEGATIVE (NEGATIVE); URINE PROTEIN NEGATIVE (NEGATIVE); URINE UROBILINOGEN NEGATIVE mg/dL (0.2-1.0)
[2018-05-28] MEDS ORDERED: ATORVASTATIN CA 10 MG TABLET (FP) ONE (22:45)
--- NOTE | 2018-05-29 00:01 | PN ---
Teaching Attending Note Name of Resident: Jl Navarro ATTENDING PHYSICIAN STATEMENT I saw and evaluated the patient. I reviewed the resident's note and discussed the case with the resident. I agree with the resident's findings and plan as documented. SUBJECTIVE: Patient is a 67 year old man with a history of ?boderline DM, Afib s/p pacemaker (on xarelto), left foot charcot fracture, renal cancer s/p nephrectomy and prostate cancer (Lupron & Bicalutamide) who presents with 1 week of RLE cellulitis which was being treat as an outpatient with Augmentin. He endorsed a fever last Thursday however denies fevers otherwise. He states he has initial improvement of his cellulitis wiht PO abx. Today he reports walking a great deal with subsequent worsening of his RLE erythema. He called his network planner (Dr. Chery) who told him to report to the ED for admission for IV antibiotics for failed outpatient therapy. OBJECTIVE: Alert Vital Signs Period Temp Pulse Resp BP Sys/Farrar Pulse Ox Last 24 Hr 98.6 F 78 18 146/72 100 HEENT: No Jaundice, eye redness or discharge, PERRLA, EOMI. Normocephalic, atraumatic. External ears are normal and hearing is grossly intact. No nasal discharge. Neck: Supple, nontender. No palpable adenopathy or thyromegaly. No JVD Chest: Good effort. Clear to auscultation and percussion. Heart: Irregular. No S3, rub or murmur Abdomen: Not distended, soft, nontender and no HSM. No rebound or guarding. Normoactive bowel sounds. Ext: Peripheral pulses intact. Right lower leg erythema with streaking. Bilateral plantar ulcers - he refused to remove the dressing. No leg edema. Skin: Warm and dry. No petechiae, rash or ecchymosis. Neuro: Alert. Oriented x3. CN 2-12 grossly intact. Sensation grossly intact in all four extremities and DTR are symmetric. Current Medications Generic Name Dose Route Start Last Admin Trade Name Freq PRN Reason Stop Dose Admin Atorvastatin Calcium 10 mg 05/29/18 22:00 Lipitor - PO HS [facility] Home Medications Medication Instructions Recorded Allopurinol [Zyloprim -] 100 mg PO DAILY 04/02/17 Amiodarone HCl 100 mg PO DAILY 04/02/17 Bicalutamide 50 mg PO DAILY 04/02/17 Calcium Carbonate [Calcium] 500 mg PO DAILY 04/02/17 Cholecalciferol (Vitamin D3) 1,000 unit PO HS 04/02/17 [Vitamin D3 -] Ferrous Gluconate [Ferate] 240 mg PO DAILY 04/02/17 Furosemide [Lasix] 40 mg PO DAILY 04/02/17 Magnesium Oxide [Magnesium] 400 mg PO DAILY 04/02/17 Rivaroxaban [Xarelto -] 20 mg PO HS 04/02/17 Simvastatin [Zocor -] 20 mg PO HS 04/02/17 Tamsulosin HCl 0.4 mg PO HS 04/02/17 hydrALAZINE HCL [Apresoline -] 50 mg PO BID 04/02/17 Fenofibrate 54 mg PO DAILY 04/04/17 Levothyroxine [Synthroid -] 75 mg PO DAILY 04/04/17 Mirabegron [Myrbetriq] 50 mg PO HS 04/04/17 Amox-Tr/K Cl [Augmentin - 875Mg 1 tab PO BID #14 tablet 04/06/17 Tablet] Collagenase Clostridium Hist. 1 applic TP DAILY #1 tube 04/06/17 [Santyl -] Folic Acid - 1 mg PO HS #30 tablet 04/06/17 Furosemide [Lasix -] 40 mg PO DAILY tablet 04/06/17 Thiamine HCl [Vitamin B1 -] 100 mg PO DAILY #60 tablet MDD 1 04/06/17 tab Metoprolol Tartrate [Lopressor -] 150 mg PO BID 05/28/18 Abnormal Lab Results 05/28/18 05/28/18 05/28/18 18:07 18:07 18:07 RBC 3.68 L Hct 34.7 L PT with INR 17.00 H INR 1.50 H BUN 31 H Creatinine 2.0 H Random Glucose 238 H D Lactic Acid Alkaline Phosphatase 43 L 05/28/18 18:07 RBC Hct PT with INR INR BUN Creatinine Random Glucose Lactic Acid 2.6 H* Alkaline Phosphatase ASSESSMENT AND PLAN: 1. Right leg cellulitis and bilateral plantar ulcers - Needs wound cultures once he agrees to remove the dressings. Will treat with IV vanco and zosyn. Repeat HBA1c in view of "boderline DM". IV NS for lactic acidosis. Consult ID and podiatry. 2. CKD - Cause unclear - has multiple risk factors. Will consult nephrology and avoid nephrotoxic agents such as NSAIDS, aminoglycosides, contrast dyes and certain alternative medicine products. 3. Anemia - Likely multifactorial including renal anemia. Do basic anemia work up including serial stool guaiacs, reticulocyte count and iron studies. 4. Obesity - Will provide patient all the necessary assistance , counseling and positive reinforcement to facilitate weight loss. Consult box blank machine operator helper. 5. Afib - Rate controlled. Consult cardiology to explore other options - should not be on xarelto with reduced GFR. 6. DVT prophylaxis - On xarelto 7. Advance directives - Full code
--- NOTE | 2018-05-29 00:07 | HP ---
CHIEF COMPLAINT: RLE burning and erythema PCP: Dr. Ramires HISTORY OF PRESENT ILLNESS: The patient is a 67 yo m w/ PMH HTN, HLD, Afib s/p pacemaker, on xarelto, neuropathy, CVA, prostate CA, Renal CA s/p left nephrectomy (05/2016) and BPH who comes into the ED due to worsening RLE erythema for the past week. Last Thursday, the patient states that he began to feel burning and pain in his right lower extremity as well as erythema. The patient began to take some augmentin he had at home and called his director of business applications, Dr. Ashley. The patient' erythema began to improve in this treatment and was almost resolved, but became acutely worse the day prior to admission. The patient called his director of business applications again, who instructed him to come into the ED for evaluation of failed PO therapy. Per the patient, he is not diabetic, but has been "borderline" for several years. Last A1c with Dr. Ramires was 6.9 per patient. Patient denies fevers, chills, chest pain , SOB, sick contacts, diarrhea or dysuria. ER course was notable for: (1) XR right foot and ankle (2) Vancomycin, Zosyn (3) Recent Travel: none PAST MEDICAL HISTORY: see HPI PAST SURGICAL HISTORY: see HPI Social History: Smoking: denies Alcohol: denies Drugs: denies Family History: non-contributory Allergies No Known Drug Allergies Allergy (Verified 05/28/18 17:36) HOME MEDICATIONS: Home Medications Medication Instructions Recorded Allopurinol [Zyloprim -] 100 mg PO DAILY 04/02/17 Amiodarone HCl 100 mg PO DAILY 04/02/17 Bicalutamide 50 mg PO DAILY 04/02/17 Calcium Carbonate [Calcium] 500 mg PO DAILY 04/02/17 Cholecalciferol (Vitamin D3) 1,000 unit PO HS 04/02/17 [Vitamin D3 -] Ferrous Gluconate [Ferate] 240 mg PO DAILY 04/02/17 Furosemide [Lasix] 40 mg PO DAILY 04/02/17 Magnesium Oxide [Magnesium] 400 mg PO DAILY 04/02/17 Rivaroxaban [Xarelto -] 20 mg PO HS 04/02/17 Simvastatin [Zocor -] 20 mg PO HS 04/02/17 Tamsulosin HCl 0.4 mg PO HS 04/02/17 hydrALAZINE HCL [Apresoline -] 50 mg PO BID 04/02/17 Fenofibrate 54 mg PO DAILY 04/04/17 Levothyroxine [Synthroid -] 75 mg PO DAILY 04/04/17 Mirabegron [Myrbetriq] 50 mg PO HS 04/04/17 Amox-Tr/K Cl [Augmentin - 875Mg 1 tab PO BID #14 tablet 04/06/17 Tablet] Collagenase Clostridium Hist. 1 applic TP DAILY #1 tube 04/06/17 [Santyl -] Folic Acid - 1 mg PO HS #30 tablet 04/06/17 Furosemide [Lasix -] 40 mg PO DAILY tablet 04/06/17 Thiamine HCl [Vitamin B1 -] 100 mg PO DAILY #60 tablet MDD 1 04/06/17 tab Metoprolol Tartrate [Lopressor -] 150 mg PO BID 05/28/18 REVIEW OF SYSTEMS CONSTITUTIONAL: Absent: fever, chills, diaphoresis, generalized weakness, malaise, loss of appetite, weight change HEENT: Absent: rhinorrhea, nasal congestion, throat pain, throat swelling, difficulty swallowing, mouth swelling, ear pain, eye pain, visual changes CARDIOVASCULAR: Absent: chest pain, syncope, palpitations, irregular heart rate, lightheadedness , peripheral edema RESPIRATORY: Absent: cough, shortness of breath, dyspnea with exertion, orthopnea, wheezing, stridor, hemoptysis GASTROINTESTINAL: Absent: abdominal pain, abdominal distension, nausea, vomiting, diarrhea, constipation, melena, hematochezia GENITOURINARY: Absent: dysuria, frequency, urgency, hesitancy, hematuria, flank pain, genital pain MUSCULOSKELETAL: Absent: myalgia, arthralgia, joint swelling, back pain, neck pain SKIN: Absent: pallor HEMATOLOGIC/IMMUNOLOGIC: Absent: easy bleeding, easy bruising, lymphadenopathy, frequent infections ENDOCRINE: Absent: unexplained weight gain, unexplained weight loss, heat intolerance, cold intolerance NEUROLOGIC: Absent: headache, focal weakness or paresthesias, dizziness, unsteady gait, seizure, mental status changes, bladder or bowel incontinence PSYCHIATRIC: Absent: anxiety, depression, suicidal or homicidal ideation, hallucinations. PHYSICAL EXAMINATION Vital Signs - 24 hr 05/28/18 17:36 Temperature 98.6 F Pulse Rate 78 Respiratory 18 Rate Blood Pressure 146/72 O2 Sat by Pulse 100 Oximetry (%) GENERAL: Awake, alert, and fully oriented, in no acute distress. HEAD: Normal with no signs of trauma. EYES: Pupils equal, round and reactive to light, extraocular movements intact, sclera anicteric, conjunctiva clear. No lid lag. EARS, NOSE, THROAT: oropharynx clear without exudates. Moist mucous membranes. NECK: Normal range of motion, supple without lymphadenopathy, JVD, or masses. LUNGS: Breath sounds equal, clear to auscultation bilaterally. No wheezes, and no crackles. No accessory muscle use. HEART: Regular rate and rhythm, normal S1 and S2. Systolic murmur best heard at the left sternal border. ABDOMEN: Soft, nontender, not distended, normoactive bowel sounds, no guarding, no rebound, no masses. No hepatomegaly or splenomegaly. LOWER EXTREMITIES: 2+ pulses, warm, well-perfused. No calf tenderness. No peripheral edema. There is an area on the RLE at the junction of the lower leg and ankle which is erythematous, warm to the touch and tender to palpation. No fluctuance can be felt. There are nonhealing plantar ulcers on both LE b/l which are maintained and wrapped by the patient's director of business applications. Patient declines to have them unwrapped at this time. NEUROLOGICAL: Cranial nerves II-X intact. Normal speech. Normal gait SKIN: Warm, dry, normal turgor, no rashes or lesions noted, normal capillary refill. skin lesions as above. Laboratory Results - last 24 hr 05/28/18 05/28/18 05/28/18 18:07 18:07 18:07 WBC 9.2 RBC 3.68 L Hgb 11.8 Hct 34.7 L MCV 94.2 MCH 32.2 MCHC 34.2 RDW 13.9 Plt Count 251 MPV 8.4 Absolute Neuts (auto) 6.3 Neutrophils % 68.8 D Lymphocytes % 20.0 D Monocytes % 9.0 Eosinophils % 1.2 Basophils % 1.0 Nucleated RBC % 0 PT with INR 17.00 H INR 1.50 H Sodium 142 Potassium 3.8 Chloride 106 Carbon Dioxide 24 Anion Gap 12 BUN 31 H Creatinine 2.0 H Creat Clearance w eGFR 33.70 Random Glucose 238 H D Lactic Acid Calcium 9.5 Total Bilirubin 0.9 AST 24 D ALT 39 Alkaline Phosphatase 43 L Total Protein 7.5 Albumin 3.9 Urine Color Urine Appearance Urine pH Ur Specific Henderson Urine Protein Urine Glucose (UA) Urine Ketones Urine Blood Urine Nitrite Urine Bilirubin Urine Urobilinogen Ur Leukocyte Esterase 05/28/18 05/28/18 05/28/18 18:07 20:45 22:35 WBC RBC Hgb Hct MCV MCH MCHC RDW Plt Count MPV Absolute Neuts (auto) Neutrophils % Lymphocytes % Monocytes % Eosinophils % Basophils % Nucleated RBC % PT with INR INR Sodium Potassium Chloride Carbon Dioxide Anion Gap BUN Creatinine Creat Clearance w eGFR Random Glucose Lactic Acid 2.6 H* 1.2 Calcium Total Bilirubin AST ALT Alkaline Phosphatase Total Protein Albumin Urine Color Mallory Urine Appearance Cloudy Urine pH 5.0 Ur Specific Henderson 1.017 Urine Protein Negative Urine Glucose (UA) Negative Urine Ketones Negative Urine Blood Negative Urine Nitrite Negative Urine Bilirubin Negative Urine Urobilinogen Negative Ur Leukocyte Esterase Negative ASSESSMENT/PLAN: The patient is a 67 yo m w/ extensive PMH who comes into the ED with a RLE cellulitis which failed outpatient therapy. #RLE cellulitis in the setting of chronic nonhealing ulcers -s/p vanc and zosyn in the ED -bcx, ucx onbtained -will continue with vancomycin and zosyn for now -ID consult: Mandie in the past -podiatry consult #Lactic acidosis possibly 2/2 infection -LA 2.6 -NS @ 75 x 1L -trend q2 until resolution #"borderline" diabetes -given the presence of peripheral neuropathy, the hyperglycemia noted on admission, the EULA vs CKD and the typical presentation of DM foot ulcers, the patient likely has uncontrolled DM -A1c in the AM -BGM achs -ISS achs #EULA possibly 2/2 infection vs CKD from undiagnosed DM -BUN 31 cr 2.0 -IVF as above -monitor in AM #FEN -NS @ 75 x 1L -lytes WNL, monitor -diabetic diet #Dispo -admit med surg. -medications verified with patient Visit type - Emergency Visit Emergency Visit: Yes ED Registration Date: 05/28/18 Care time: The patient presented to the Emergency Department on the above date and was hospitalized for further evaluation of their emergent condition. - New Patient This patient is new to me today: Yes Date on this admission: 05/29/18 - Critical Care Critical Care patient: No Hospitalist Screening - Colonoscopy Questionnaire Colonoscopy Questionnaire: Colonoscopy Questionnaire - Patient: 50 - 75 years old and never had a screening colonoscopy: Unknown History of colon or rectal polyps, or CA: Unknown History of IBD, Crohn's disease or UC: Unknown History of abdominal radiation therapy as a child: Unknown - Relative: 1 with colon or rectal CA, or polyps at age 60 or younger: Unknown Colon or rectal CA diagnosed at age 45 or younger: Unknown Multiple relatives with colon or rectal CA: Unknown - Outcome: Screening Result: Negative Screen
[2018-05-29] MEDS ORDERED: SODIUM CHLORIDE 1,000 ML IV SCH (00:15)
[2018-05-29] MEDS: PIPERACILLIN/TAZOB 3.375 GM 3.375 GM in DEXTROSE 5%-WATER - 50 ML IVPB SCH ×4 (03:38→21:02)
[2018-05-29] MEDS ORDERED: PIPERACILLIN/TAZOB 3.375 GM 3.375 GM/50 ML BAG IVPB ONE (03:40)
[2018-05-29] MEDS ORDERED: INSULIN (NOVOLOG) ASPART 100 UNITS/ML 10ML VIAL ONE (06:41)
[2018-05-29] MEDS: INSULIN SLIDING SCALE (NOVOLOG) 1 VIAL SQ SCH ×4 (06:46→21:09)
[2018-05-29] MEDS: HEPARIN NA (PORCINE) 5,000 UNITS/ML 1ML VIAL SQ SCH ×2 (06:48→15:27)
[2018-05-29] MEDS ORDERED: PIPERACILLIN/TAZOBACTAM 3.375 GM VIAL IVPB ONE ×3 (08:58→19:53)
[2018-05-29] MEDS ORDERED: DEXTROSE 5%-WATER - 50 ML IVPB ONE ×3 (08:58→19:53)
--- NOTE | 2018-05-29 10:28 | PN ---
Physical Exam: SUBJECTIVE: Patient seen and examined Patient is c/o having redness of RLE, was on oral antibiotic which did not help. OBJECTIVE: Vital Signs Temperature 98.1 F 05/29/18 02:54 Pulse Rate 77 05/29/18 02:54 Respiratory Rate 16 05/29/18 05:20 Blood Pressure 144/77 05/29/18 02:54 O2 Sat by Pulse Oximetry (%) 98 05/29/18 05:20 GENERAL: The patient is awake, alert, and fully oriented, in no acute distress. HEAD: Normal with no signs of trauma. EYES: PERRL, extraocular movements intact, sclera anicteric, conjunctiva clear. ENT: Ears normal, oropharynx clear without exudates, moist mucous membranes. NECK: Trachea midline, full range of motion, supple. LUNGS: Breath sounds equal, clear to auscultation bilaterally, no wheezes, no crackles, no accessory muscle use. HEART: Regular rate and rhythm, S1, S2 without murmur, rub or gallop. ABDOMEN: Soft, nontender, nondistended, normoactive bowel sounds, no guarding, no rebound, no hepatosplenomegaly, no masses. EXTREMITIES: 2+ pulses, warm, well-perfused, RLE cellulitis NEUROLOGICAL: Cranial nerves II through XII grossly intact. Normal speech, gait not observed. PSYCH: Normal mood, normal affect. SKIN: Warm, dry, normal turgor, no rashes or lesions noted CBCD WBC 9.2 K/mm3 (4.0-10.0) 05/28/18 18:07 RBC 3.68 M/mm3 (4.00-5.60) L 05/28/18 18:07 Hgb 11.8 GM/dL (11.7-16.9) 05/28/18 18:07 Hct 34.7 % (35.4-49) L 05/28/18 18:07 MCV 94.2 fl (80-96) 05/28/18 18:07 MCHC 34.2 g/dl (32.0-35.9) 05/28/18 18:07 RDW 13.9 % (11.9-15.9) 05/28/18 18:07 Plt Count 251 K/MM3 (134-434) 05/28/18 18:07 MPV 8.4 fl (7.5-11.1) 05/28/18 18:07 CMP Sodium 142 mmol/L (136-145) 05/28/18 18:07 Potassium 3.8 mmol/L (3.5-5.1) 05/28/18 18:07 Chloride 106 mmol/L (98-107) 05/28/18 18:07 Carbon Dioxide 24 mmol/L (21-32) 05/28/18 18:07 Anion Gap 12 (8-16) 05/28/18 18:07 BUN 31 mg/dL (7-18) H 05/28/18 18:07 Creatinine 2.0 mg/dL (0.7-1.3) H 05/28/18 18:07 Creat Clearance w eGFR 33.70 (>60) 05/28/18 18:07 Random Glucose 238 mg/dL (74-106) H D 05/28/18 18:07 Calcium 9.5 mg/dL (8.5-10.1) 05/28/18 18:07 Total Bilirubin 0.9 mg/dL (0.2-1.0) 05/28/18 18:07 AST 24 U/L (15-37) D 05/28/18 18:07 ALT 39 U/L (12-78) 05/28/18 18:07 Alkaline Phosphatase 43 U/L (45-117) L 05/28/18 18:07 Total Protein 7.5 g/dl (6.4-8.2) 05/28/18 18:07 Albumin 3.9 g/dl (3.4-5.0) 05/28/18 18:07 Current Medications Generic Name Dose Route Start Last Admin Trade Name Freq PRN Reason Stop Dose Admin Atorvastatin Calcium 10 mg 05/29/18 22:00 Lipitor - PO HS DAYANA Heparin Sodium (Porcine) 5,000 unit 05/29/18 06:00 05/29/18 06:48 Heparin - SQ Not Given TID DAYANA Sodium Chloride 1,000 mls @ 75 mls/hr 05/29/18 00:15 05/29/18 02:51 Normal Saline - IV 05/29/18 13:34 75 mls/hr ASDIR DAYANA Administration Piperacillin Sod/Tazobactam 50 mls @ 100 mls/hr 05/29/18 15:00 Sod 3.375 gm/ Dextrose IVPB Q6H-IV COUNT INCLUDES THE [facility] Protocol Insulin Aspart 1 vial 05/29/18 07:00 05/29/18 06:46 Novolog Vial Sliding Scale - SQ Not Given ACHS COUNT INCLUDES THE [facility] Protocol Home Medications Medication Instructions Recorded Allopurinol [Zyloprim -] 100 mg PO DAILY 04/02/17 Amiodarone HCl 100 mg PO DAILY 04/02/17 Bicalutamide 50 mg PO DAILY 04/02/17 Calcium Carbonate [Calcium] 500 mg PO DAILY 04/02/17 Cholecalciferol (Vitamin D3) 1,000 unit PO HS 04/02/17 [Vitamin D3 -] Ferrous Gluconate [Ferate] 240 mg PO DAILY 04/02/17 Furosemide [Lasix] 40 mg PO DAILY 04/02/17 Magnesium Oxide [Magnesium] 400 mg PO DAILY 04/02/17 Rivaroxaban [Xarelto -] 20 mg PO HS 04/02/17 Simvastatin [Zocor -] 20 mg PO HS 04/02/17 Tamsulosin HCl 0.4 mg PO HS 04/02/17 hydrALAZINE HCL [Apresoline -] 50 mg PO BID 04/02/17 Fenofibrate 54 mg PO DAILY 04/04/17 Levothyroxine [Synthroid -] 75 mg PO DAILY 04/04/17 Mirabegron [Myrbetriq] 50 mg PO HS 04/04/17 Amox-Tr/K Cl [Augmentin - 875Mg 1 tab PO BID #14 tablet 04/06/17 Tablet] Collagenase Clostridium Hist. 1 applic TP DAILY #1 tube 04/06/17 [Santyl -] Folic Acid - 1 mg PO HS #30 tablet 04/06/17 Furosemide [Lasix -] 40 mg PO DAILY tablet 04/06/17 Thiamine HCl [Vitamin B1 -] 100 mg PO DAILY #60 tablet MDD 1 04/06/17 tab Metoprolol Tartrate [Lopressor -] 150 mg PO BID 05/28/18 A/P: Patient is a 67 y/o male with a history of HTN, renal cell ca s/p nephrectomy who is here for acute right lower extremity cellulitis. # Acute right lower extremity cellulitis: s/p Vanco and on IV zosyn now. Consult ID and podiatry appreciated # Elevated Blood sugar : HBA1c will check . # ACute over CKD - possible due dehydartion - has multiple risk factors. nephro consult # Anemia : w/u for Iron deficinecy anemia # Obesity :weight loss. Consult manufacturing coordinator. # Afib - Rate controlled. on xarelto with reduced GFR.will monitor if GFR does not improve then will reduce the dose to 15mg DVT prophylaxis - On xarelto Advance directives - Full code Visit type - Emergency Visit Emergency Visit: Yes ED Registration Date: 05/28/18 Care time: The patient presented to the Emergency Department on the above date and was hospitalized for further evaluation of their emergent condition. - New Patient This patient is new to me today: Yes Date on this admission: 05/30/18 - Critical Care Critical Care patient: No - Discharge Referral Referred to [facility] No
--- NOTE | 2018-05-29 12:01 | CON.ID ---
Consult - History of Present Illness History of Present Illness: Asked to evaluate this 67 y.o. male with PMH of CKD, renal CA s/p nephrectomy, prostate CA, Atrial fibrillation s/p PPM, Lt charcot foot fracture, b/l TKR , and previous LE cellulitis presenting with c/o weakness, subjective fevers and Rt leg erythema that he first noted 1 week CONTACT [employer]. He was taking Augmentin as an outpatient and symptoms appeared to improved initially but after a day of prolonged walking developed a worsening of leg erythema and warmth. He has been following with podiatry as an outpatient and has had a Rt plantar ulcer underlying the hallux. Pt noted to be afebrile in the ER but had a mildly elevated lactate level and hyperglycemia. He denies any other specific complaints. - History Source History Provided By: Patient Limitations to Obtaining History: No Limitations - Past Medical History Cardio/Vascular: Yes: HTN, Hyperlipdemia, Other (bradycardia on PPM) Renal/: Yes: Renal Inusuff, BPH, Cancer (renal CA s/p nephrectomy) Heme/Onc: Yes: Cancer (prostate) Musculoskeletal: Yes: Osteoarthritis - Past Surgical History Past Surgical History: Yes: Joint Replacement (knee bilaterally), Permanent Pacemaker. No: None - Alcohol/Substance Use Hx Alcohol Use: No Number of Drinks Daily: 4 - Smoking History Smoking history: Never smoked Have you smoked in the past 12 months: No Aproximately how many cigarettes per day: 0 - Social History Usual Living Arrangement: With Spouse ADL: Independent Occupation: salesman History of Recent Travel: No Home Medications - Allergies Allergies/Adverse Reactions: Allergies Allergy/AdvReac Type Severity Reaction Status Date / Time No Known Drug Allergies Allergy Verified 05/28/18 17:36 - Home Medications Home Medications: Ambulatory Orders Allopurinol [Zyloprim -] 100 mg PO DAILY 04/02/17 Amiodarone HCl 100 mg PO DAILY 04/02/17 Bicalutamide 50 mg PO DAILY 04/02/17 Calcium Carbonate [Calcium] 500 mg PO DAILY 04/02/17 Cholecalciferol (Vitamin D3) [Vitamin D3 -] 1,000 unit PO HS 04/02/17 Ferrous Gluconate [Ferate] 240 mg PO DAILY 04/02/17 Furosemide [Lasix] 40 mg PO DAILY 04/02/17 Magnesium Oxide [Magnesium] 400 mg PO DAILY 04/02/17 Rivaroxaban [Xarelto -] 20 mg PO HS 04/02/17 Simvastatin [Zocor -] 20 mg PO HS 04/02/17 Tamsulosin HCl 0.4 mg PO HS 04/02/17 hydrALAZINE HCL [Apresoline -] 50 mg PO BID 04/02/17 Fenofibrate 54 mg PO DAILY 04/04/17 Levothyroxine [Synthroid -] 75 mg PO DAILY 04/04/17 Mirabegron [Myrbetriq] 50 mg PO HS 04/04/17 Amox-Tr/K Cl [Augmentin - 875Mg Tablet] 1 tab PO BID #14 tablet 04/06/17 Collagenase Clostridium Hist. [Santyl -] 1 applic TP DAILY #1 tube 04/06/17 Folic Acid - 1 mg PO HS #30 tablet 04/06/17 Furosemide [Lasix -] 40 mg PO DAILY tablet 04/06/17 Thiamine HCl [Vitamin B1 -] 100 mg PO DAILY #60 tablet MDD 1 tab 04/06/17 Metoprolol Tartrate [Lopressor -] 150 mg PO BID 05/28/18 Family Disease History - Family Disease History Family Disease History: Heart Disease: Mother ( at 66), Other: Father ( unknown) Review of Systems - Review of Systems Constitutional: reports: No Symptoms. denies: Chills, Diaphoresis, Fever, Lethargy, Loss of Appetite, Malaise, Night Sweats, Unintentional Wgt. Loss, Weakness, Other Eyes: reports: No Symptoms. denies: Blind Spots, Blurred Vision, Double Vision , Eye Pain, Floaters, Photophobia, Recent Change in Vision, Other HENT: reports: No Symptoms. denies: Difficult Swallowing, Ear Discharge, Ear Pain, Epistaxis, Gingival Bleeding, Hearing Loss, Mouth Swelling, Nasal Congestion, Ocular Prosthesis, Throat Pain, Toothache, Ringing in Ears, Other Neck: reports: No Symptoms. denies: Decreased ROM, Lumps, Pain on Movement, Stiffness, Swollen Glands, Tenderness, Other Cardiovascular: reports: No Symptoms. denies: Chest Pain, Edema, Palpitations, Shortness of Breath, Other Respiratory: reports: No Symptoms. denies: Cough, Exercise Intolerance, Hemoptysis, Orthopnea, PND, Snoring, SOB, SOB on Exertion, Wheezing, Other Gastrointestinal: reports: No Symptoms. denies: Abdominal Pain, Bloating, Constipation, Diarrhea, Dysphagia, Indigestion, Melena, Nausea, Rectal Bleeding , Vomiting, Vomiting Blood, Other Genitourinary: reports: No Symptoms. denies: Burning, Discharge, Dysuria, Flank Pain, Frequency, Hematuria, Incontinence, Lesions, Menses, Pain, Testicular Mass, Testicular Pain, Testicular Swelling, Urgency, Vaginal Bleeding , Other Musculoskeletal: reports: No Symptoms. denies: Back Pain, Crepitus, Decreased ROM, Extremity Pain, Joint Pain, Joint Swelling, Muscle Pain, Muscle Cramps, Muscle Weakness, Other Integumentary: reports: Erythema (Rt LE erythema/warmth, no significant tenderness) Neurological: reports: No Symptoms. denies: Change in LOC, Change in Speech, Confusion, Dizziness, Headache, Incoordination, Numbness, Parasthesia, Pre- Existing Deficit, Seizure, Syncope, Tremors, Unsteady Gait, Weakness, Other Endocrine: reports: No Symptoms. denies: Excessive Sweating, Flushing, Increased Hunger, Increased Thirst, Intolerance to Cold, Intolerance to Heat, Unexplained Weight Gain, Unexplained Weight Loss, Other Hematology/Lymphatic: reports: No Symptoms. denies: Easily Bruised, Excessive Bleeding, Swollen Glands, Other Psychiatric: reports: No Symptoms. denies: Altered Sleep Pattern, Anxiety, Depression, Hallucinations, Panic, Paranoia, Suicidal, Other Physical Exam Vital Signs: Vital Signs Temperature 98.6 F 05/29/18 09:00 Pulse Rate 85 05/29/18 09:00 Respiratory Rate 16 05/29/18 09:00 Blood Pressure 146/72 05/29/18 09:00 O2 Sat by Pulse Oximetry (%) 98 05/29/18 09:00 Constitutional: Yes: No Distress, Calm Neck: Yes: Supple Cardiovascular: Yes: Pulse Irregular Respiratory: Yes: CTA Bilaterally Gastrointestinal: Yes: Normal Bowel Sounds, Soft Renal/: Yes: WNL Musculoskeletal: Yes: WNL Integumentary: Yes: Erythema (Rt LE erythema/warm to touch, mild edema, no tenderness Rt plantar/MTP bunion, mild amt clear discharge, mild surrounding erythema) Neurological: Yes: Alert, Oriented Labs: CBC, BMP 05/28/18 18:07 05/28/18 18:07 Lactate: 2.6 , repeat 1.2 Imaging - Results X-ray: Report Reviewed (Rt foot) Problem List - Problems (1) Cellulitis Code(s): L03.90 - CELLULITIS, UNSPECIFIED Qualifiers: Site of cellulitis: extremity Site of cellulitis of extremity: lower extremity Laterality: right Qualified Code(s): L03.115 - Cellulitis of right lower limb (2) Afib Code(s): I48.91 - UNSPECIFIED ATRIAL FIBRILLATION Qualifiers: Atrial fibrillation type: persistent Qualified Code(s): I48.1 - Persistent atrial fibrillation (3) BPH (benign prostatic hyperplasia) Code(s): N40.0 - BENIGN PROSTATIC HYPERPLASIA WITHOUT LOWER URINRY TRACT SYMP Qualifiers: Lower urinary tract symptom presence: symptoms present Qualified Code(s): N40.1 - Benign prostatic hyperplasia with lower urinary tract symptoms (4) H/O prostate cancer Code(s): Z85.46 - PERSONAL HISTORY OF MALIGNANT NEOPLASM OF PROSTATE (5) H/O renal cell cancer Code(s): Z85.528 - PERSONAL HISTORY OF OTHER MALIGNANT NEOPLASM OF KIDNEY (6) H/O unilateral nephrectomy Code(s): Z90.5 - ACQUIRED ABSENCE OF KIDNEY (7) Pacemaker Code(s): Z95.0 - PRESENCE OF CARDIAC PACEMAKER Assessment/Plan 67 y.o. male with PMH of renal CA s/p nephrectomy, prostate CA, CKD, Atrial Fibrillation s/p PM, Lt charcot Fx, Rt foot bunion, and previous LE cellulitis presenting with RLE erythema/warmth refractory to oral antibiotics, hyperglycemia RLE Cellulitis Rt foot bunion Renal insufficiency Hyperglycemia -- cont. Zosyn IV empirically for now, given one dose of Vancomycin -- send esr, crp, repeat cbc/bmp, vancomycin random level -- monitor glucose/renal function -- continue wound care will f/u Thank you
[2018-05-29] MEDS ORDERED: RIVAROXABAN 20 MG TABLET PO SCH (18:00)
--- NOTE | 2018-05-29 18:59 | EKG ---
Test Reason : Blood Pressure : / mmHG Vent. Rate : 066 BPM Atrial Rate : 066 BPM P-R Int : 188 ms QRS Dur : 188 ms QT Int : 498 ms P-R-T Axes : 015 -78 090 degrees QTc Int : 522 ms AV dual-paced rhythm WITH OCCASIONAL PREMATURE VENTRICULAR COMPLEXES ABNORMAL ECG WHEN COMPARED WITH ECG OF 02-APR-2017 23:20, PREMATURE VENTRICULAR COMPLEXES ARE NOW PRESENT VENT. RATE HAS DECREASED BY 2 BPM Confirmed by MD LISA, MAURISIO ([id number]) on 05/29/2018 6:59:33 PM Referred By: Confirmed By:MAURISIO GONZALEZ MD
[2018-05-29] MEDS: ATORVASTATIN CA 10 MG TABLET (FP) PO SCH (21:00)
[2018-05-29] MEDS: hydrALAZINE HCL 25 MG TABLET (FP) PO SCH (21:00)
[2018-05-29] MEDS: RIVAROXABAN 20 MG TABLET PO SCH (21:01)
[2018-05-29] MEDS: METOPROLOL TARTRATE 50 MG TABLET (FP) PO SCH (21:01)
[2018-05-29] MEDS: TAMSULOSIN HCL 0.4 MG CAP.ER.24H (FP) PO SCH (21:01)
[2018-05-30] MEDS ORDERED: DEXTROSE 5%-WATER - 50 ML IVPB ONE ×3 (01:42→14:16)
[2018-05-30] MEDS ORDERED: PIPERACILLIN/TAZOBACTAM 3.375 GM VIAL IVPB ONE ×3 (01:42→14:16)
[2018-05-30] MEDS: PIPERACILLIN/TAZOB 3.375 GM 3.375 GM in DEXTROSE 5%-WATER - 50 ML IVPB SCH ×3 (03:12→18:16)
[2018-05-30] MEDS: LEVOTHYROXINE NA 75 MCG TABLET (FP) PO SCH (06:40)
[2018-05-30] MEDS: INSULIN SLIDING SCALE (NOVOLOG) 1 VIAL SQ SCH ×4 (06:40→21:45)
[2018-05-30 07:15] LABS: ANION GAP 12 (8-16); BLOOD UREA NITROGEN 25 mg/dL (7-18); CHLORIDE 105 mmol/L (98-107); CO2 24 mmol/L (21-32); CREATININE 1.6 mg/dL (0.7-1.3); GLUCOSE,RANDOM 200 mg/dL (74-106); PHOSPHOROUS 4.1 mg/dL (2.5-4.9); SODIUM 141 mmol/L (136-145)
[2018-05-30 07:16] LABS: BASO % 1.3 % (0-2.0); EOS % 3.1 % (0-4.5); HEMATOCRIT 32.1 % (35.4-49); HEMOGLOBIN 11.2 GM/dL (11.7-16.9); LYMPH % 33.5 % (8-40); MCH 32.7 pg (25.7-33.7); MCHC 34.8 g/dl (32.0-35.9); MEAN CELL VOLUME 94.1 fl (80-96); MEAN PLT VOLUME 8.4 fl (7.5-11.1); MONO % 11.1 % (3.8-10.2); PLATELET COUNT 239 K/MM3 (134-434); RBC 3.41 M/mm3 (4.00-5.60); RDW 13.6 % (11.9-15.9)
[2018-05-30 07:20] LABS: MAGNESIUM 1.7 mg/dL (1.8-2.4); POTASSIUM 4.1 mmol/L (3.5-5.1)
[2018-05-30 07:21] LABS: ALBUMIN 3.4 g/dl (3.4-5.0); ALK PHOS 39 U/L (45-117); ANION GAP 8 (8-16); BILIRUBIN,TOTAL 0.6 mg/dL (0.2-1.0); BLOOD UREA NITROGEN 25 mg/dL (7-18); CALCIUM 8.8 mg/dL (8.5-10.1); CHLORIDE 106 mmol/L (98-107); CO2 26 mmol/L (21-32); CREATININE 1.6 mg/dL (0.7-1.3); GLUCOSE,RANDOM 206 mg/dL (74-106); POTASSIUM 3.9 mmol/L (3.5-5.1); SGOT/AST 24 U/L (15-37); SGPT/ALT 38 U/L (12-78); SODIUM 140 mmol/L (136-145); TOT PROT 6.6 g/dl (6.4-8.2)
[2018-05-30 07:22] LABS: INR 2.16 (0.83-1.09); PROTHROMBIN TIME (PATIENT) 24.4 SEC (9.7-13.0)
[2018-05-30] MEDS ORDERED: PT OWN MED DRAWER 7, Y5N ONE (08:42)
[2018-05-30] MEDS: hydrALAZINE HCL 25 MG TABLET (FP) PO SCH ×2 (09:21→21:44)
[2018-05-30] MEDS: FUROSEMIDE 40 MG TABLET (FP) PO SCH (09:21)
[2018-05-30] MEDS: METOPROLOL TARTRATE 50 MG TABLET (FP) PO SCH ×2 (09:21→21:44)
[2018-05-30] MEDS: ALLOPURINOL 100 MG TABLET (FP) PO SCH (09:22)
[2018-05-30] MEDS: BICALUTAMIDE 50 MG TABLET (FP) PO SCH (09:23)
--- NOTE | 2018-05-30 13:36 | PN ---
<Ivette Cruz - Last Filed: 05/30/18 16:27> Physical Exam: SUBJECTIVE: Patient is a 67 y/o male with a history of HTN, renal ca s/p nephrectomy who is here for cellulitis. Patient has no complaints and feels better. OBJECTIVE: Vital Signs Temperature 98.4 F 05/30/18 09:00 Pulse Rate 63 05/30/18 09:00 Respiratory Rate 18 05/30/18 09:00 Blood Pressure 137/75 05/30/18 09:00 O2 Sat by Pulse Oximetry (%) 98 05/30/18 09:00 GENERAL: The patient is awake, alert, and fully oriented, in no acute distress. EYES: PERRL, extraocular movements intact LUNGS: Breath sounds equal, clear to auscultation bilaterally HEART: Regular rate and rhythm, ABDOMEN: Soft, nontender, nondistended, normoactive bowel sounds EXTREMITIES: 2+ DP pulses, warm, well-perfused, no edema. PSYCH: Normal mood, normal affect. SKIN:R lower extremity, erythema, and warmth, CBC, BMP 05/30/18 06:30 05/30/18 06:30 Active Medications Allopurinol (Zyloprim -) 100 mg PO DAILY [facility] Last Admin: 05/30/18 09:22 Dose: Not Given Atorvastatin Calcium (Lipitor -) 10 mg PO HS [facility] Last Admin: 05/29/18 21:00 Dose: 10 mg Bicalutamide (Casodex -) 50 mg PO DAILY [facility] Last Admin: 05/30/18 09:23 Dose: Not Given Furosemide (Lasix -) 40 mg PO DAILY [facility] Last Admin: 05/30/18 09:21 Dose: Not Given Hydralazine HCl (Apresoline -) 50 mg PO BID [facility] Last Admin: 05/30/18 09:21 Dose: Not Given Piperacillin Sod/Tazobactam (Sod 3.375 gm/ Dextrose) 50 mls @ 100 mls/hr IVPB Q6H-IV [facility]; Protocol Last Admin: 05/30/18 09:23 Dose: 100 mls/hr Insulin Aspart (Novolog Vial Sliding Scale -) 1 vial SQ ACHS [facility]; Protocol Last Admin: 05/30/18 06:40 Dose: Not Given Levothyroxine Sodium (Synthroid -) 75 mcg PO 0700 [facility] Last Admin: 05/30/18 06:40 Dose: Not Given Metoprolol Tartrate (Lopressor -) 150 mg PO BID [facility] Last Admin: 05/30/18 09:21 Dose: Not Given Rivaroxaban (Xarelto -) 20 mg PO DAILY@2200 [facility] Last Admin: 05/29/18 21:01 Dose: 20 mg Tamsulosin HCl (Flomax -) 0.4 mg PO HS [facility] Last Admin: 05/29/18 21:01 Dose: 0.4 mg ASSESSMENT/PLAN: Patient is a 67 y/o male with a history of HTN, renal ca s/p nephrectomy who is here for cellulitis. #Cellulitis - Zosyn 3.375 mg - one time Vanc dose today, f/u level tomorrow - Ucx and Bcx: no growth - f/u ID Dr. Adams- continue wound care, ESR (95) elevated consider further imaging to r/o osteo - f/u Dr. Casillas, podiatry - afebrile #diabetes - A1C: 7.9 - SS #BPH - resume flomax #afib on pacemaker - Xarelto 20 mg po #HTN - lasix 40 mg dialy - metoprolol 150 mg BID #hypothyroidism - levothyroxine 75 mcg Dispo: Visit type - Emergency Visit Emergency Visit: No - New Patient This patient is new to me today: Yes Date on this admission: 05/30/18 - Critical Care Critical Care patient: No <Kenya Valdivia - Last Filed: 05/30/18 19:27> Physical Exam: SUBJECTIVE: Patient seen and examined OBJECTIVE: Vital Signs Period Temp Pulse Resp BP Sys/Farrar Pulse Ox Last 24 Hr 97.9 F-98.4 F 62-77 18-18 137-156/75-84 98-98 GENERAL: The patient is awake, alert, and fully oriented, in no acute distress. HEAD: Normal with no signs of trauma. EYES: PERRL, extraocular movements intact, sclera anicteric, conjunctiva clear. No ptosis. ENT: Ears normal, nares patent, oropharynx clear without exudates, moist mucous membranes. NECK: Trachea midline, full range of motion, supple. LUNGS: Breath sounds equal, clear to auscultation bilaterally, no wheezes, no crackles, no accessory muscle use. HEART: Regular rate and rhythm, S1, S2 without murmur, rub or gallop. ABDOMEN: Soft, nontender, nondistended, normoactive bowel sounds, no guarding, no rebound, no hepatosplenomegaly, no masses. EXTREMITIES: 2+ pulses, warm, well-perfused, no edema. NEUROLOGICAL: Cranial nerves II through XII grossly intact. Normal speech, gait not observed. PSYCH: Normal mood, normal affect. SKIN: Warm, dry, normal turgor, no rashes or lesions noted Laboratory Results - last 24 hr 05/29/18 05/30/18 05/30/18 21:07 06:30 06:30 WBC RBC Hgb Hct MCV MCH MCHC RDW Plt Count MPV Absolute Neuts (auto) Neutrophils % Lymphocytes % Monocytes % Eosinophils % Basophils % Nucleated RBC % ESR PT with INR 24.40 H INR 2.16 H Sodium Potassium Chloride Carbon Dioxide Anion Gap BUN Creatinine Creat Clearance w eGFR POC Glucometer 247 Random Glucose Hemoglobin A1c % Calcium Phosphorus Magnesium Total Bilirubin AST ALT Alkaline Phosphatase C-Reactive Protein Total Protein Albumin Random Vancomycin < 0.80 05/30/18 05/30/18 05/30/18 06:30 06:30 06:30 WBC RBC Hgb Hct MCV MCH MCHC RDW Plt Count MPV Absolute Neuts (auto) Neutrophils % Lymphocytes % Monocytes % Eosinophils % Basophils % Nucleated RBC % ESR 95 H PT with INR INR Sodium 141 Potassium 4.1 Chloride 105 Carbon Dioxide 24 Anion Gap 12 BUN 25 H Creatinine 1.6 H Creat Clearance w eGFR 43.60 POC Glucometer Random Glucose 200 H Hemoglobin A1c % 7.9 H D Calcium 9.0 Phosphorus 4.1 D Magnesium 1.7 L Total Bilirubin AST ALT Alkaline Phosphatase C-Reactive Protein Total Protein Albumin Random Vancomycin 05/30/18 05/30/18 05/30/18 06:30 06:30 10:45 WBC 6.0 RBC 3.41 L Hgb 11.2 L Hct 32.1 L MCV 94.1 MCH 32.7 MCHC 34.8 RDW 13.6 Plt Count 239 MPV 8.4 Absolute Neuts (auto) 3.1 Neutrophils % 51.0 D Lymphocytes % 33.5 D Monocytes % 11.1 H Eosinophils % 3.1 D Basophils % 1.3 Nucleated RBC % 0 ESR PT with INR INR Sodium 140 Potassium 3.9 Chloride 106 Carbon Dioxide 26 Anion Gap 8 BUN 25 H Creatinine 1.6 H Creat Clearance w eGFR 43.60 POC Glucometer 315 Random Glucose 206 H Hemoglobin A1c % Calcium 8.8 Phosphorus Magnesium Total Bilirubin 0.6 AST 24 ALT 38 Alkaline Phosphatase 39 L C-Reactive Protein 1.6 H Total Protein 6.6 Albumin 3.4 Random Vancomycin 05/30/18 16:41 WBC RBC Hgb Hct MCV MCH MCHC RDW Plt Count MPV Absolute Neuts (auto) Neutrophils % Lymphocytes % Monocytes % Eosinophils % Basophils % Nucleated RBC % ESR PT with INR INR Sodium Potassium Chloride Carbon Dioxide Anion Gap BUN Creatinine Creat Clearance w eGFR POC Glucometer 228 Random Glucose Hemoglobin A1c % Calcium Phosphorus Magnesium Total Bilirubin AST ALT Alkaline Phosphatase C-Reactive Protein Total Protein Albumin Random Vancomycin Active Medications Generic Name Dose Route Start Last Admin Trade Name Freq PRN Reason Stop Dose Admin Allopurinol 100 mg 05/30/18 10:00 05/30/18 09:22 Zyloprim - PO Not Given DAILY [facility] Atorvastatin Calcium 10 mg 05/29/18 22:00 05/29/18 21:00 Lipitor - PO 10 mg HS [facility] Administration Bicalutamide 50 mg 05/30/18 10:00 05/30/18 09:23 Casodex - PO Not Given DAILY [facility] Furosemide 40 mg 05/30/18 10:00 05/30/18 09:21 Lasix - PO Not Given DAILY [facility] Hydralazine HCl 50 mg 05/29/18 22:00 05/30/18 09:21 Apresoline - PO Not Given BID [facility] Piperacillin Sod/Tazobactam 50 mls @ 100 mls/hr 05/30/18 18:00 05/30/18 18:16 Sod 3.375 gm/ Dextrose IVPB 100 mls/hr Q8H-IV [facility] Administration Protocol Insulin Aspart 1 vial 05/29/18 07:00 05/30/18 17:14 Novolog Vial Sliding Scale - SQ 4 units ACHS [facility] Administration Protocol Levothyroxine Sodium 75 mcg 05/30/18 07:00 05/30/18 06:40 Synthroid - PO Not Given 0700 [facility] Metoprolol Tartrate 150 mg 05/29/18 22:00 05/30/18 09:21 Lopressor - PO Not Given BID [facility] Rivaroxaban 20 mg 05/29/18 22:00 05/29/18 21:01 Xarelto - PO 20 mg DAILY@2200 [facility] Administration Tamsulosin HCl 0.4 mg 05/29/18 22:00 05/29/18 21:01 Flomax - PO 0.4 mg HS [facility] Administration ASSESSMENT/PLAN:
--- NOTE | 2018-05-30 14:36 | PN ---
Progress Note, Physician History of Present Illness: Pt remains afebrile. Still with RLE erythema/pain but erythema slightly improved. No new complaints. Vancomycin level noted, will order another dose today and check level tomorrow. Creatinine stable since yesterday. - Current Medication List Current Medications: Active Medications Allopurinol (Zyloprim -) 100 mg PO DAILY [facility] Last Admin: 05/30/18 09:22 Dose: Not Given Atorvastatin Calcium (Lipitor -) 10 mg PO HS [facility] Last Admin: 05/29/18 21:00 Dose: 10 mg Bicalutamide (Casodex -) 50 mg PO DAILY [facility] Last Admin: 05/30/18 09:23 Dose: Not Given Furosemide (Lasix -) 40 mg PO DAILY [facility] Last Admin: 05/30/18 09:21 Dose: Not Given Hydralazine HCl (Apresoline -) 50 mg PO BID [facility] Last Admin: 05/30/18 09:21 Dose: Not Given Piperacillin Sod/Tazobactam (Sod 3.375 gm/ Dextrose) 50 mls @ 100 mls/hr IVPB Q8H-IV [facility]; Protocol Vancomycin HCl 1,000 mg/ (Dextrose) 250 mls @ 166.667 mls/hr IVPB ONCE ONE; Protocol Stop: 05/30/18 15:56 Insulin Aspart (Novolog Vial Sliding Scale -) 1 vial SQ ACHS [facility]; Protocol Last Admin: 05/30/18 14:15 Dose: Not Given Levothyroxine Sodium (Synthroid -) 75 mcg PO 0700 [facility] Last Admin: 05/30/18 06:40 Dose: Not Given Metoprolol Tartrate (Lopressor -) 150 mg PO BID [facility] Last Admin: 05/30/18 09:21 Dose: Not Given Rivaroxaban (Xarelto -) 20 mg PO DAILY@2200 [facility] Last Admin: 05/29/18 21:01 Dose: 20 mg Tamsulosin HCl (Flomax -) 0.4 mg PO [facility] Last Admin: 05/29/18 21:01 Dose: 0.4 mg - Objective Vital Signs: Vital Signs Temperature 98.4 F 05/30/18 09:00 Pulse Rate 63 05/30/18 09:00 Respiratory Rate 18 05/30/18 09:00 Blood Pressure 137/75 05/30/18 09:00 O2 Sat by Pulse Oximetry (%) 98 05/30/18 09:00 Constitutional: Yes: No Distress, Calm Cardiovascular: Yes: Regular Rate and Rhythm Respiratory: Yes: Regular Gastrointestinal: Yes: Normal Bowel Sounds, Soft Extremities: Yes: Erythema (RLE erythema/warmth, mildly decreased since yesterday) Labs: CBC, BMP 05/30/18 06:30 05/30/18 06:30 INR, PTT INR 2.16 (0.83-1.09) H 05/30/18 06:30 Problem List - Problems (1) Cellulitis Code(s): L03.90 - CELLULITIS, UNSPECIFIED Qualifiers: Site of cellulitis: extremity Site of cellulitis of extremity: lower extremity Laterality: right Qualified Code(s): L03.115 - Cellulitis of right lower limb (2) Afib Code(s): I48.91 - UNSPECIFIED ATRIAL FIBRILLATION Qualifiers: Atrial fibrillation type: persistent Qualified Code(s): I48.1 - Persistent atrial fibrillation (3) BPH (benign prostatic hyperplasia) Code(s): N40.0 - BENIGN PROSTATIC HYPERPLASIA WITHOUT LOWER URINRY TRACT SYMP Qualifiers: Lower urinary tract symptom presence: symptoms present Qualified Code(s): N40.1 - Benign prostatic hyperplasia with lower urinary tract symptoms (4) H/O prostate cancer Code(s): Z85.46 - PERSONAL HISTORY OF MALIGNANT NEOPLASM OF PROSTATE (5) H/O renal cell cancer Code(s): Z85.528 - PERSONAL HISTORY OF OTHER MALIGNANT NEOPLASM OF KIDNEY (6) H/O unilateral nephrectomy Code(s): Z90.5 - ACQUIRED ABSENCE OF KIDNEY (7) Pacemaker Code(s): Z95.0 - PRESENCE OF CARDIAC PACEMAKER Assessment/Plan 67 y.o. male with PMH of renal CA s/p nephrectomy, prostate CA, CKD, Atrial Fibrillation s/p PM, Lt charcot Fx, Rt foot bunion, and previous LE cellulitis presenting with RLE erythema/warmth refractory to oral antibiotics, hyperglycemia RLE Cellulitis - appears slightly improved Rt foot bunion Renal insufficiency s/p nephrectomy Hyperglycemia/ elevated HgbA1C -- cont. Zosyn IV , ordered one dose of Vancomycin today -- esr elevated - consider further imaging to r/o OM Rt foot -- repeat bmp, vancomycin random level tomorrow -- monitor renal function -- continue wound care
[2018-05-30] MEDS ORDERED: VANCOMYCIN 1,000 MG in DEXTROSE 5%-WATER - 250 ML IVPB ONE (15:00)
[2018-05-30] MEDS ORDERED: INSULIN (NOVOLOG) ASPART 100 UNITS/ML 10ML VIAL ONE (17:11)
--- NOTE | 2018-05-30 19:29 | PN ---
Teaching Attending Note Name of Resident: Ivette Cruz ATTENDING PHYSICIAN STATEMENT I saw and evaluated the patient. I reviewed the resident's note and discussed the case with the resident. I agree with the resident's findings and plan as documented. SUBJECTIVE: Patient is feeling better the lower extrimity improving, no fever or chills OBJECTIVE: Vital Signs Temperature 98.2 F 05/30/18 18:00 Pulse Rate 66 05/30/18 18:00 Respiratory Rate 18 05/30/18 18:00 Blood Pressure 152/84 05/30/18 18:00 O2 Sat by Pulse Oximetry (%) 98 05/30/18 09:00 CBCD WBC 6.0 K/mm3 (4.0-10.0) 05/30/18 06:30 RBC 3.41 M/mm3 (4.00-5.60) L 05/30/18 06:30 Hgb 11.2 GM/dL (11.7-16.9) L 05/30/18 06:30 Hct 32.1 % (35.4-49) L 05/30/18 06:30 MCV 94.1 fl (80-96) 05/30/18 06:30 MCHC 34.8 g/dl (32.0-35.9) 05/30/18 06:30 RDW 13.6 % (11.9-15.9) 05/30/18 06:30 Plt Count 239 K/MM3 (134-434) 05/30/18 06:30 MPV 8.4 fl (7.5-11.1) 05/30/18 06:30 CMP Sodium 140 mmol/L (136-145) 05/30/18 06:30 Potassium 3.9 mmol/L (3.5-5.1) 05/30/18 06:30 Chloride 106 mmol/L (98-107) 05/30/18 06:30 Carbon Dioxide 26 mmol/L (21-32) 05/30/18 06:30 Anion Gap 8 (8-16) 05/30/18 06:30 BUN 25 mg/dL (7-18) H 05/30/18 06:30 Creatinine 1.6 mg/dL (0.7-1.3) H 05/30/18 06:30 Creat Clearance w eGFR 43.60 (>60) 05/30/18 06:30 Random Glucose 206 mg/dL (74-106) H 05/30/18 06:30 Calcium 8.8 mg/dL (8.5-10.1) 05/30/18 06:30 Total Bilirubin 0.6 mg/dL (0.2-1.0) 05/30/18 06:30 AST 24 U/L (15-37) 05/30/18 06:30 ALT 38 U/L (12-78) 05/30/18 06:30 Alkaline Phosphatase 39 U/L (45-117) L 05/30/18 06:30 Total Protein 6.6 g/dl (6.4-8.2) 05/30/18 06:30 Albumin 3.4 g/dl (3.4-5.0) 05/30/18 06:30 Current Medications Generic Name Dose Route Start Last Admin Trade Name Freq PRN Reason Stop Dose Admin Allopurinol 100 mg 05/30/18 10:00 05/30/18 09:22 Zyloprim - PO Not Given DAILY [facility] Atorvastatin Calcium 10 mg 05/29/18 22:00 05/29/18 21:00 Lipitor - PO 10 mg HS [facility] Administration Bicalutamide 50 mg 05/30/18 10:00 05/30/18 09:23 Casodex - PO Not Given DAILY [facility] Furosemide 40 mg 05/30/18 10:00 05/30/18 09:21 Lasix - PO Not Given DAILY [facility] Hydralazine HCl 50 mg 05/29/18 22:00 05/30/18 09:21 Apresoline - PO Not Given BID [facility] Piperacillin Sod/Tazobactam 50 mls @ 100 mls/hr 05/30/18 18:00 05/30/18 18:16 Sod 3.375 gm/ Dextrose IVPB 100 mls/hr Q8H-IV [facility] Administration Protocol Insulin Aspart 1 vial 05/29/18 07:00 05/30/18 17:14 Novolog Vial Sliding Scale - SQ 4 units ACHS [facility] Administration Protocol Levothyroxine Sodium 75 mcg 05/30/18 07:00 05/30/18 06:40 Synthroid - PO Not Given 0700 [facility] Metoprolol Tartrate 150 mg 05/29/18 22:00 05/30/18 09:21 Lopressor - PO Not Given BID [facility] Rivaroxaban 20 mg 05/29/18 22:00 08/18/18 21:01 Xarelto - PO 20 mg DAILY@2200 [facility] Administration Tamsulosin HCl 0.4 mg 05/29/18 22:00 05/29/18 21:01 Flomax - PO 0.4 mg HS [facility] Administration Microbiology 05/28/18 18:00 Blood - Peripheral Venous Blood Culture - Preliminary NO GROWTH OBTAINED AFTER 48 HOURS, INCUBATION TO CONTINUE FOR 3 DAYS. 05/28/18 18:07 Blood - Peripheral Venous Blood Culture - Preliminary NO GROWTH OBTAINED AFTER 48 HOURS, INCUBATION TO CONTINUE FOR 3 DAYS. 05/28/18 20:45 Urine - Urine Clean Catch Urine Culture - Final NO GROWTH OBTAINED 03/07/16 03/08/16 05/30/18 17:50 05:30 06:30 Creatinine 2.6 H 1.9 H D Hemoglobin A1c % 7.9 H D PE: per resident's note RLE: improving cellulitis ASSESSMENT AND PLAN: Patient is a 67 y/o male with a history of HTN, renal cell ca s/p nephrectomy who is here for acute right lower extremity cellulitis. # Acute right lower extremity cellulitis: on IV zosyn improving Id consult appreciated. consulted podiatry # Elevated Blood sugar : HBA1c 7.9 m, SS with coverage . # ACute over CKD - possible due dehydartion - improving , will repaet labs for am. nephro consult # Anemia : w/u for Iron deficinecy anemia iron w/u # Obesity :weight loss. Consult punch box tender. # Afib - Rate controlled. on xarelto with reduced GFR.will monitor if GFR does not improve then will reduce the dose to 15mg DVT prophylaxis - On xarelto Advance directives - Full code
[2018-05-30] MEDS: RIVAROXABAN 20 MG TABLET PO SCH (21:44)
[2018-05-30] MEDS: ATORVASTATIN CA 10 MG TABLET (FP) PO SCH (21:45)
[2018-05-30] MEDS: TAMSULOSIN HCL 0.4 MG CAP.ER.24H (FP) PO SCH (21:45)
[2018-05-31] MEDS ORDERED: DEXTROSE 5%-WATER - 50 ML IVPB ONE ×3 (00:59→17:07)
[2018-05-31] MEDS ORDERED: PIPERACILLIN/TAZOBACTAM 3.375 GM VIAL IVPB ONE ×3 (00:59→17:07)
[2018-05-31] MEDS: PIPERACILLIN/TAZOB 3.375 GM 3.375 GM in DEXTROSE 5%-WATER - 50 ML IVPB SCH ×3 (01:56→17:20)
[2018-05-31] MEDS: LEVOTHYROXINE NA 75 MCG TABLET (FP) PO SCH (06:33)
[2018-05-31] MEDS: INSULIN SLIDING SCALE (NOVOLOG) 1 VIAL SQ SCH ×4 (06:35→21:25)
[2018-05-31 07:22] LABS: HEMATOCRIT 33.1 % (35.4-49); HEMOGLOBIN 11.7 GM/dL (11.7-16.9); MCHC 35.3 g/dl (32.0-35.9); MEAN CELL VOLUME 93.5 fl (80-96); MEAN PLT VOLUME 8.3 fl (7.5-11.1); PLATELET COUNT 246 K/MM3 (134-434); RBC 3.55 M/mm3 (4.00-5.60); RDW 13.8 % (11.9-15.9); WHITE BLOOD COUNT 7.5 K/mm3 (4.0-10.0)
[2018-05-31 07:40] LABS: INR 2.34 (0.83-1.09); PROTHROMBIN TIME (PATIENT) 26.4 SEC (9.7-13.0)
[2018-05-31 07:46] LABS: ALBUMIN 3.6 g/dl (3.4-5.0); ANION GAP 12 (8-16); BILIRUBIN,TOTAL 0.6 mg/dL (0.2-1.0); BLOOD UREA NITROGEN 26 mg/dL (7-18); CALCIUM 9.3 mg/dL (8.5-10.1); CHLORIDE 103 mmol/L (98-107); CO2 26 mmol/L (21-32); CREATININE 1.6 mg/dL (0.7-1.3); GLUCOSE,RANDOM 167 mg/dL (74-106); MAGNESIUM 1.7 mg/dL (1.8-2.4); PHOSPHOROUS 4.2 mg/dL (2.5-4.9); SGOT/AST 26 U/L (15-37); SGPT/ALT 39 U/L (12-78); SODIUM 141 mmol/L (136-145); TOT PROT 6.9 g/dl (6.4-8.2)
[2018-05-31 07:49] LABS: ALK PHOS 40 U/L (45-117)
[2018-05-31] MEDS ORDERED: PT OWN MED DRAWER 7, Y5N ONE (08:58)
[2018-05-31] MEDS: FUROSEMIDE 40 MG TABLET (FP) PO SCH (09:05)
[2018-05-31] MEDS: METOPROLOL TARTRATE 50 MG TABLET (FP) PO SCH ×2 (09:05→21:24)
[2018-05-31] MEDS: hydrALAZINE HCL 25 MG TABLET (FP) PO SCH ×2 (09:05→21:24)
[2018-05-31] MEDS: ALLOPURINOL 100 MG TABLET (FP) PO SCH (09:05)
[2018-05-31] MEDS: BICALUTAMIDE 50 MG TABLET (FP) PO SCH (09:06)
[2018-05-31] MEDS ORDERED: MAGNESIUM OXIDE 400 MG TABLET (FP) PO ONE (09:10)
--- NOTE | 2018-05-31 11:40 | PN ---
<Ivette Cruz - Last Filed: 05/31/18 15:07> Physical Exam: SUBJECTIVE: Patient is a 67 y/o male with a history of HTN, renal ca s/p nephrectomy who is here for cellulitis. Patient has no complaints and feels better. OBJECTIVE: Vital Signs Temperature 99 F 05/31/18 09:00 Pulse Rate 79 05/31/18 09:00 Respiratory Rate 18 05/31/18 09:00 Blood Pressure 132/65 05/31/18 09:00 O2 Sat by Pulse Oximetry (%) 98 05/31/18 09:00 GENERAL: The patient is awake, alert, and fully oriented, in no acute distress. EYES: PERRL, extraocular movements intact LUNGS: Breath sounds equal, clear to auscultation bilaterally HEART: Regular rate and rhythm, ABDOMEN: Soft, nontender, nondistended, normoactive bowel sounds EXTREMITIES: 2+ DP pulses, warm, well-perfused, no edema. PSYCH: Normal mood, normal affect. SKIN:R lower extremity, erythema, and warmth, CBC, BMP 05/31/18 06:00 05/31/18 06:00 Active Medications Allopurinol (Zyloprim -) 100 mg PO DAILY [facility] Last Admin: 05/31/18 09:05 Dose: 100 mg Atorvastatin Calcium (Lipitor -) 10 mg PO HS [facility] Last Admin: 05/30/18 21:45 Dose: 10 mg Bicalutamide (Casodex -) 50 mg PO DAILY [facility] Last Admin: 05/31/18 09:06 Dose: 50 mg Furosemide (Lasix -) 40 mg PO DAILY [facility] Last Admin: 05/31/18 09:05 Dose: 40 mg Hydralazine HCl (Apresoline -) 50 mg PO BID [facility] Last Admin: 05/31/18 09:05 Dose: 50 mg Piperacillin Sod/Tazobactam (Sod 3.375 gm/ Dextrose) 50 mls @ 100 mls/hr IVPB Q8H-IV [facility]; Protocol Last Admin: 05/31/18 09:05 Dose: 100 mls/hr Insulin Aspart (Novolog Vial Sliding Scale -) 1 vial SQ ACHS [facility]; Protocol Last Admin: 05/31/18 06:35 Dose: 2 units Levothyroxine Sodium (Synthroid -) 75 mcg PO 0700 [facility] Last Admin: 05/31/18 06:33 Dose: 75 mcg Metoprolol Tartrate (Lopressor -) 150 mg PO BID [facility] Last Admin: 05/31/18 09:05 Dose: 150 mg Rivaroxaban (Xarelto -) 20 mg PO DAILY@2200 [facility] Last Admin: 05/30/18 21:44 Dose: 20 mg Tamsulosin HCl (Flomax -) 0.4 mg PO HS [facility] Last Admin: 05/30/18 21:45 Dose: 0.4 mg ASSESSMENT/PLAN: Patient is a 67 y/o male with a history of HTN, renal ca s/p nephrectomy who is here for cellulitis. #Cellulitis - Zosyn 3.375 mg - one time Vanc dose yesterday, level : 6.4 - Ucx and Bcx: no growth - f/u ID Dr. Adams- continue wound care - f/u Dr. Casillas - f/u bone scan to r/o osteo, MRI not possible with pace maker - f/u wound culture - afebrile #diabetes - A1C: 7.9 - SS - levemir 12 unit sq daily - f/u Dr. Anderson for endo consult #BPH - resume flomax #afib on pacemaker - Xarelto 20 mg po #HTN - lasix 40 mg dialy - metoprolol 150 mg BID #hypothyroidism - levothyroxine 75 mcg Dispo: Visit type - Emergency Visit Emergency Visit: No - New Patient This patient is new to me today: No - Critical Care Critical Care patient: No <La N[place]ot[place] - Last Filed: 05/31/18 19:21> Physical Exam: Patient is feeling better , RLE improving on Zosyn IV and given a dose of Vanco as per ID. on the case. Patient's HgbA1c is 7.9 will Levimir 12 Units in an and SS. ARF over chronic Crcl is 43 , Xarelto is adjusted accordingly , discontinued 20mg and placed on 15mg adjusted due to CrCl Vital Signs Temperature 97.8 F 05/31/18 18:25 Pulse Rate 70 05/31/18 18:25 Respiratory Rate 18 05/31/18 18:25 Blood Pressure 149/78 05/31/18 18:25 O2 Sat by Pulse Oximetry (%) 98 05/31/18 09:00 CBCD WBC 7.5 K/mm3 (4.0-10.0) 05/31/18 06:00 RBC 3.55 M/mm3 (4.00-5.60) L 05/31/18 06:00 Hgb 11.7 GM/dL (11.7-16.9) 05/31/18 06:00 Hct 33.1 % (35.4-49) L 05/31/18 06:00 MCV 93.5 fl (80-96) 05/31/18 06:00 MCHC 35.3 g/dl (32.0-35.9) 05/31/18 06:00 RDW 13.8 % (11.9-15.9) 05/31/18 06:00 Plt Count 246 K/MM3 (134-434) 05/31/18 06:00 MPV 8.3 fl (7.5-11.1) 05/31/18 06:00 CMP Sodium 141 mmol/L (136-145) 05/31/18 06:00 Potassium 4.0 mmol/L (3.5-5.1) 05/31/18 06:00 Chloride 103 mmol/L (98-107) 05/31/18 06:00 Carbon Dioxide 26 mmol/L (21-32) 05/31/18 06:00 Anion Gap 12 (8-16) 05/31/18 06:00 BUN 26 mg/dL (7-18) H 05/31/18 06:00 Creatinine 1.6 mg/dL (0.7-1.3) H 05/31/18 06:00 Creat Clearance w eGFR 43.60 (>60) 05/31/18 06:00 Random Glucose 167 mg/dL (74-106) H 05/31/18 06:00 Calcium 9.3 mg/dL (8.5-10.1) 05/31/18 06:00 Total Bilirubin 0.6 mg/dL (0.2-1.0) 05/31/18 06:00 AST 26 U/L (15-37) 05/31/18 06:00 ALT 39 U/L (12-78) 05/31/18 06:00 Alkaline Phosphatase 40 U/L (45-117) L 05/31/18 06:00 Total Protein 6.9 g/dl (6.4-8.2) 05/31/18 06:00 Albumin 3.6 g/dl (3.4-5.0) 05/31/18 06:00 Current Medications Generic Name Dose Route Start Last Admin Trade Name Tonny PRN Reason Stop Dose Admin Allopurinol 100 mg 05/30/18 10:00 05/31/18 09:05 Zyloprim - PO 100 mg DAILY [facility] Administration Atorvastatin Calcium 10 mg 05/29/18 22:00 05/30/18 21:45 Lipitor - PO 10 mg HS [facility] Administration Bicalutamide 50 mg 05/30/18 10:00 05/31/18 09:06 Casodex - PO 50 mg DAILY [facility] Administration Furosemide 40 mg 05/30/18 10:00 05/31/18 09:05 Lasix - PO 40 mg DAILY [facility] Administration Hydralazine HCl 50 mg 05/29/18 22:00 05/31/18 09:05 Apresoline - PO 50 mg BID [facility] Administration Piperacillin Sod/Tazobactam 50 mls @ 100 mls/hr 05/30/18 18:00 05/31/18 17:20 Sod 3.375 gm/ Dextrose IVPB 100 mls/hr Q8H-IV [facility] Administration Protocol Insulin Aspart 1 vial 05/29/18 07:00 05/31/18 17:20 Novolog Vial Sliding Scale - SQ 2 units ACHS [facility] Administration Protocol Insulin Detemir 12 units 06/01/18 07:00 Levemir Vial SQ DAILY@0700 [facility] Levothyroxine Sodium 75 mcg 05/30/18 07:00 05/31/18 06:33 Synthroid - PO 75 mcg 0700 [facility] Administration Metoprolol Tartrate 150 mg 05/29/18 22:00 05/31/18 09:05 Lopressor - PO 150 mg BID [facility] Administration Rivaroxaban 20 mg 05/29/18 22:00 05/30/18 21:44 Xarelto - PO 20 mg DAILY@2200 [facility] Administration Tamsulosin HCl 0.4 mg 05/29/18 22:00 05/30/18 21:45 Flomax - PO 0.4 mg HS [facility] Administration Home Medications Medication Instructions Recorded Allopurinol [Zyloprim -] 100 mg PO DAILY 04/02/17 Bicalutamide 50 mg PO DAILY 04/02/17 Rivaroxaban [Xarelto -] 20 mg PO HS 04/02/17 Simvastatin [Zocor -] 20 mg PO HS 04/02/17 Tamsulosin HCl 0.4 mg PO HS 04/02/17 hydrALAZINE HCL [Apresoline -] 50 mg PO BID 04/02/17 Fenofibrate 54 mg PO DAILY 04/04/17 Levothyroxine [Synthroid -] 75 mcg PO DAILY 04/04/17 Mirabegron [Myrbetriq] 50 mg PO HS 04/04/17 Collagenase Clostridium Hist. 1 applic TP DAILY #1 tube 04/06/17 [Santyl -] Furosemide [Lasix -] 40 mg PO DAILY tablet 04/06/17 Metoprolol Tartrate [Lopressor -] 150 mg PO BID 05/28/18 Leuprolide Acetate [Lupron Depot] 30 mg IM MONTHLY 05/29/18
[2018-05-31] MEDS ORDERED: INSULIN (NOVOLOG) ASPART 100 UNITS/ML 10ML VIAL ONE ×2 (12:10→20:44)
--- NOTE | 2018-05-31 12:52 | PN ---
Progress Note, Physician History of Present Illness: patient symptoms noted foul smelling below the 1st metatarsal with cellulitis of the rt leg patient received vanc and zosyn and now on zosyn - Current Medication List Current Medications: Active Medications Allopurinol (Zyloprim -) 100 mg PO DAILY [facility] Last Admin: 05/31/18 09:05 Dose: 100 mg Atorvastatin Calcium (Lipitor -) 10 mg PO HS [facility] Last Admin: 05/30/18 21:45 Dose: 10 mg Bicalutamide (Casodex -) 50 mg PO DAILY [facility] Last Admin: 05/31/18 09:06 Dose: 50 mg Furosemide (Lasix -) 40 mg PO DAILY [facility] Last Admin: 05/31/18 09:05 Dose: 40 mg Hydralazine HCl (Apresoline -) 50 mg PO BID [facility] Last Admin: 05/31/18 09:05 Dose: 50 mg Piperacillin Sod/Tazobactam (Sod 3.375 gm/ Dextrose) 50 mls @ 100 mls/hr IVPB Q8H-IV [facility]; Protocol Last Admin: 05/31/18 09:05 Dose: 100 mls/hr Insulin Aspart (Novolog Vial Sliding Scale -) 1 vial SQ ACHS [facility]; Protocol Last Admin: 05/31/18 12:22 Dose: 6 units Insulin Detemir (Levemir Vial) 12 units SQ DAILY@0700 [facility] Levothyroxine Sodium (Synthroid -) 75 mcg PO 0700 [facility] Last Admin: 05/31/18 06:33 Dose: 75 mcg Metoprolol Tartrate (Lopressor -) 150 mg PO BID [facility] Last Admin: 05/31/18 09:05 Dose: 150 mg Rivaroxaban (Xarelto -) 20 mg PO DAILY@2200 [facility] Last Admin: 05/30/18 21:44 Dose: 20 mg Tamsulosin HCl (Flomax -) 0.4 mg PO HS [facility] Last Admin: 05/30/18 21:45 Dose: 0.4 mg - Objective Vital Signs: Vital Signs Temperature 99 F 05/31/18 09:00 Pulse Rate 79 05/31/18 09:00 Respiratory Rate 18 05/31/18 09:00 Blood Pressure 132/65 05/31/18 09:00 O2 Sat by Pulse Oximetry (%) 98 05/31/18 09:00 Constitutional: Yes: No Distress, Calm Cardiovascular: Yes: Regular Rate and Rhythm Respiratory: Yes: Regular, CTA Bilaterally Gastrointestinal: Yes: Normal Bowel Sounds, Soft Musculoskeletal: Yes: Other Extremities: Yes: Erythema (cellulittis) Integumentary: Yes: Erythema, Other Wound/Incision: Yes: Other Neurological: Yes: Alert, Oriented Labs: CBC, BMP 05/31/18 06:00 05/31/18 06:00 INR, PTT INR 2.34 (0.83-1.09) H 05/31/18 06:00 Assessment/Plan Problem List - Problems (1) Cellulitis Code(s): L03.90 - CELLULITIS, UNSPECIFIED Qualifiers: Site of cellulitis: extremity Site of cellulitis of extremity: lower extremity Laterality: right Qualified Code(s): L03.115 - Cellulitis of right lower limb (2) Afib Code(s): I48.91 - UNSPECIFIED ATRIAL FIBRILLATION Qualifiers: Atrial fibrillation type: persistent Qualified Code(s): I48.1 - Persistent atrial fibrillation (3) BPH (benign prostatic hyperplasia) Code(s): N40.0 - BENIGN PROSTATIC HYPERPLASIA WITHOUT LOWER URINRY TRACT SYMP Qualifiers: Lower urinary tract symptom presence: symptoms present Qualified Code(s): N40.1 - Benign prostatic hyperplasia with lower urinary tract symptoms (4) H/O prostate cancer Code(s): Z85.46 - PERSONAL HISTORY OF MALIGNANT NEOPLASM OF PROSTATE (5) H/O renal cell cancer Code(s): Z85.528 - PERSONAL HISTORY OF OTHER MALIGNANT NEOPLASM OF KIDNEY (6) H/O unilateral nephrectomy Code(s): Z90.5 - ACQUIRED ABSENCE OF KIDNEY (7) Pacemaker Code(s): Z95.0 - PRESENCE OF CARDIAC PACEMAKER Assessment/Plan 67 y.o. male with PMH of renal CA s/p nephrectomy, prostate CA, CKD, Atrial Fibrillation s/p PM, Lt charcot Fx, Rt foot bunion, and previous LE cellulitis presenting with RLE erythema/warmth refractory to oral antibiotics, hyperglycemia RLE Cellulitis Renal insufficiency Hyperglycemia -- cont. Zosyn -- await for all cx report will order a triphase bone scan wound cx rest as per the team celluljesseniais improving
--- NOTE | 2018-05-31 20:39 | CONSULT ---
Consult - text type - Consultation Consultation Note: Patient was seen this afternoon around 12:45pm with Dr. Lockwood present. Patient is a patient of Dr. Chery who states he recently found out he is diabetic. He states he has neuropathy for 15 years but doesn't know why. He has been admitted 3 times in last 10 years for this problem. States the wound under his right foot comes and goes but this time he got cellulitis in the right leg and was admitted Thursday. He keeps his own bandage on foot wound and tales the tip of his second toe to prevent a corn. Does not have protective shoe gear out patient. vsgi, +grade 2-3 wound with drainage and abscess, -foul odor, +drainage ( purulent), +cellulitis ascending to medial calf right, -tender, +neuropathic, wbc=7.5, esr=95, zggw9p=9.9, xray negative for om r/o om abscess neuropathy wound culture. bone scan. discussed with id. might need I&D. Betadine dressing to right foot plantar area. Vascular consult. ID on case. Will follow. Post op shoe right foot. tx options will be given once results are in. Continue IVABX.
[2018-05-31] MEDS: TAMSULOSIN HCL 0.4 MG CAP.ER.24H (FP) PO SCH (21:25)
[2018-05-31] MEDS: RIVAROXABAN 15 MG TABLET PO SCH (21:25)
[2018-05-31] MEDS: ATORVASTATIN CA 10 MG TABLET (FP) PO SCH (21:25)
[2018-06-01] MEDS ORDERED: PIPERACILLIN/TAZOBACTAM 3.375 GM VIAL IVPB ONE ×2 (02:00→09:15)
[2018-06-01] MEDS ORDERED: DEXTROSE 5%-WATER - 50 ML IVPB ONE ×2 (02:00→09:15)
[2018-06-01] MEDS: PIPERACILLIN/TAZOB 3.375 GM 3.375 GM in DEXTROSE 5%-WATER - 50 ML IVPB SCH ×2 (02:22→09:19)
[2018-06-01 06:06] LABS: SERUM IRON SATURATION 24 % (15-55); TOTAL IRON BINDING CAPACITY 365 ug/dL (250-450); UIBC 277 ug/dL (111-343)
[2018-06-01] MEDS: INSULIN SLIDING SCALE (NOVOLOG) 1 VIAL SQ SCH ×4 (06:17→22:07)
[2018-06-01] MEDS: INSULIN (LEVEMIR) 100 UNITS/ML UNITS SQ SCH (06:17)
[2018-06-01] MEDS: LEVOTHYROXINE NA 75 MCG TABLET (FP) PO SCH (06:18)
[2018-06-01 07:14] LABS: HEMATOCRIT 35.5 % (35.4-49); MCH 31.6 pg (25.7-33.7); MCHC 33.9 g/dl (32.0-35.9); MEAN CELL VOLUME 93.2 fl (80-96); MEAN PLT VOLUME 8.4 fl (7.5-11.1); PLATELET COUNT 256 K/MM3 (134-434); RBC 3.81 M/mm3 (4.00-5.60); RDW 13.4 % (11.9-15.9); WHITE BLOOD COUNT 7.8 K/mm3 (4.0-10.0)
[2018-06-01 07:31] LABS: INR 2.04 (0.83-1.09)
[2018-06-01 07:50] LABS: CHLORIDE 104 mmol/L (98-107); POTASSIUM 3.9 mmol/L (3.5-5.1); SODIUM 141 mmol/L (136-145)
[2018-06-01 07:59] LABS: ALBUMIN 3.7 g/dl (3.4-5.0); ALK PHOS 41 U/L (45-117); ANION GAP 12 (8-16); BILIRUBIN,TOTAL 0.7 mg/dL (0.2-1.0); BLOOD UREA NITROGEN 28 mg/dL (7-18); CALCIUM 9.4 mg/dL (8.5-10.1); CO2 25 mmol/L (21-32); CREATININE 1.5 mg/dL (0.7-1.3); GLUCOSE,RANDOM 180 mg/dL (74-106); SGOT/AST 23 U/L (15-37); SGPT/ALT 40 U/L (12-78); TOT PROT 7.1 g/dl (6.4-8.2)
--- NOTE | 2018-06-01 08:32 | PN ---
Physical Exam: SUBJECTIVE: Patient is a 67 y/o male with a history of HTN, renal ca s/p nephrectomy who is here for cellulitis. Patient is agitated with his care here. Does not feel he is getting better or the appropriate treatment. No acute events overnight. OBJECTIVE: Vital Signs Temperature 97.7 F 06/01/18 05:53 Pulse Rate 81 06/01/18 05:53 Respiratory Rate 20 06/01/18 05:53 Blood Pressure 146/84 06/01/18 05:53 O2 Sat by Pulse Oximetry (%) 98 05/31/18 21:00 GENERAL: The patient is awake, alert, and fully oriented, in no acute distress. EYES: PERRL, extraocular movements intact LUNGS: Breath sounds equal, clear to auscultation bilaterally HEART: Regular rate and rhythm, ABDOMEN: Soft, nontender, nondistended, normoactive bowel sounds EXTREMITIES: 2+ DP pulses, warm, well-perfused, no edema. PSYCH: Normal mood, normal affect. SKIN:R lower extremity, erythema, and warmth, ulcer on plantar surface of foot , 1x1 clean bases CBC, BMP 06/01/18 06:00 06/01/18 06:00 Active Medications Allopurinol (Zyloprim -) 100 mg PO DAILY [facility] Last Admin: 05/31/18 09:05 Dose: 100 mg Atorvastatin Calcium (Lipitor -) 10 mg PO HS [facility] Last Admin: 05/31/18 21:25 Dose: 10 mg Bicalutamide (Casodex -) 50 mg PO DAILY [facility] Last Admin: 05/31/18 09:06 Dose: 50 mg Furosemide (Lasix -) 40 mg PO DAILY [facility] Last Admin: 05/31/18 09:05 Dose: 40 mg Hydralazine HCl (Apresoline -) 50 mg PO BID [facility] Last Admin: 05/31/18 21:24 Dose: 50 mg Piperacillin Sod/Tazobactam (Sod 3.375 gm/ Dextrose) 50 mls @ 100 mls/hr IVPB Q8H-IV [facility]; Protocol Last Admin: 06/01/18 02:22 Dose: 100 mls/hr Insulin Aspart (Novolog Vial Sliding Scale -) 1 vial SQ ACHS [facility]; Protocol Last Admin: 06/01/18 06:17 Dose: 2 units Insulin Detemir (Levemir Vial) 12 units SQ DAILY@0700 [facility] Last Admin: 06/01/18 06:17 Dose: 12 unit Levothyroxine Sodium (Synthroid -) 75 mcg PO 0700 [facility] Last Admin: 06/01/18 06:18 Dose: 75 mcg Metoprolol Tartrate (Lopressor -) 150 mg PO BID [facility] Last Admin: 05/31/18 21:24 Dose: 150 mg Rivaroxaban (Xarelto -) 15 mg PO DAILY@2200 [facility] Last Admin: 05/31/18 21:25 Dose: 15 mg Tamsulosin HCl (Flomax -) 0.4 mg PO HS [facility] Last Admin: 05/31/18 21:25 Dose: 0.4 mg ASSESSMENT/PLAN: Patient is a 67 y/o male with a history of HTN, renal ca s/p nephrectomy who is here for cellulitis. 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 Jose M mcnair, continue with wound care for the plantar surface wound and abscess - betadine dressing to right plantar foot area - afebrile #diabetes - A1C: 7.9 - SS - levemir 12 unit sq daily - f/u Dr. Su for endo consult #BPH - resume flomax #afib on pacemaker - Xarelto 15 mg po changed from 20 for nephrotoxicity #HTN - lasix 40 mg dialy - metoprolol 150 mg BID #hypothyroidism - levothyroxine 75 mcg Dispo: Visit type - Emergency Visit Emergency Visit: No - New Patient This patient is new to me today: No - Critical Care Critical Care patient: No
--- NOTE | 2018-06-01 09:03 | CONSULT ---
Consult Consult Specialty:: Endocrinology Referred by:: Dr Herzog Reason for Consultation:: Hyperglycemia - History of Present Illness Chief Complaint: Rt leg cellulitis History of Present Illness: This is a 67 yo m with h/o HTN, T2DM, HLD, Afib s/p pacemaker, on xarelto, neuropathy, CVA, prostate CA, Renal CA s/p left nephrectomy (05/2016) and BPH who was admitted for worsening RLE erythema. Started to feel burning and pain in his right lower extremity as well as erythema last Thursday. The patient took some augmentin he had at home and called his electronic court recorder, Dr. Ashley. The patient' erythema began to improve in this treatment and was almost resolved, but became acutely worse the day prior to admission. The patient called his electronic court recorder again, who instructed him to come into the ED for evaluation of failed PO therapy. Last A1c with Dr. Ramires was 6.9 per patient. Patient denies fevers, chills, chest pain, SOB, sick contacts, diarrhea or dysuria. - Past Medical History Cardio/Vascular: Yes: HTN, Hyperlipdemia, Other (bradycardia on PPM) Renal/: Yes: Renal Inusuff, BPH, Cancer (renal CA s/p nephrectomy) Musculoskeletal: Yes: Osteoarthritis - Past Surgical History Past Surgical History: Yes: Joint Replacement (knee bilaterally), Permanent Pacemaker. No: None - Alcohol/Substance Use Hx Alcohol Use: No Number of Drinks Daily: 4 - Smoking History Smoking history: Never smoked Have you smoked in the past 12 months: No Aproximately how many cigarettes per day: 0 - Social History Usual Living Arrangement: With Spouse ADL: Independent Occupation: salesman History of Recent Travel: No Home Medications - Allergies Allergies/Adverse Reactions: Allergies Allergy/AdvReac Type Severity Reaction Status Date / Time No Known Drug Allergies Allergy Verified 05/28/18 17:36 - Home Medications Home Medications: Ambulatory Orders Allopurinol [Zyloprim -] 100 mg PO DAILY 04/02/17 Bicalutamide 50 mg PO DAILY 04/02/17 Rivaroxaban [Xarelto -] 20 mg PO HS 04/02/17 Simvastatin [Zocor -] 20 mg PO HS 04/02/17 Tamsulosin HCl 0.4 mg PO HS 04/02/17 hydrALAZINE HCL [Apresoline -] 50 mg PO BID 04/02/17 Fenofibrate 54 mg PO DAILY 04/04/17 Levothyroxine [Synthroid -] 75 mcg PO DAILY 04/04/17 Mirabegron [Myrbetriq] 50 mg PO HS 04/04/17 Collagenase Clostridium Hist. [Santyl -] 1 applic TP DAILY #1 tube 04/06/17 Furosemide [Lasix -] 40 mg PO DAILY tablet 04/06/17 Metoprolol Tartrate [Lopressor -] 150 mg PO BID 05/28/18 Leuprolide Acetate [Lupron Depot] 30 mg IM MONTHLY 05/29/18 Family Disease History - Family Disease History Family Disease History: Heart Disease: Mother ( at 66), Other: Father ( unknown) Other Family History: No family h/o DM Review of Systems - Review of Systems Constitutional: reports: No Symptoms Eyes: reports: No Symptoms HENT: reports: No Symptoms Neck: reports: No Symptoms Cardiovascular: reports: No Symptoms Respiratory: reports: No Symptoms Gastrointestinal: reports: No Symptoms Genitourinary: reports: No Symptoms Musculoskeletal: reports: No Symptoms Integumentary: reports: Erythema (right leg) Neurological: reports: No Symptoms Endocrine: reports: No Symptoms Physical Exam Vital Signs: Vital Signs Temperature 97.7 F 06/01/18 05:53 Pulse Rate 81 06/01/18 05:53 Respiratory Rate 20 06/01/18 05:53 Blood Pressure 146/84 06/01/18 05:53 O2 Sat by Pulse Oximetry (%) 98 05/31/18 21:00 Constitutional: Yes: No Distress, Calm Eyes: Yes: Conjunctiva Clear, EOM Intact HENT: Yes: Atraumatic, Normocephalic Neck: Yes: Supple, Trachea Midline Cardiovascular: Yes: Pulse Irregular Respiratory: Yes: Regular, CTA Bilaterally Gastrointestinal: Yes: Normal Bowel Sounds, Soft Musculoskeletal: Yes: WNL Extremities: Yes: Erythema (Rt leg) Neurological: Yes: Alert, Oriented Labs: CBC, BMP 06/01/18 06:00 06/01/18 06:00 Imaging - Results X-ray: Report Reviewed (Rt foot farhana Xray report noted) EKG: Report Reviewed (Paced rhythm) Assessment/Plan AP; RLE Cellulitis Renal insufficiency T2DM with hyperglycemia A Fib Obesity h/O Renal Ca s/p left Nephrectomy S/p Pacemaker Monitor BGM Change Novolog Q ACHS Levemir 12 units daily Nutrition consult Will f/u
[2018-06-01] MEDS: METOPROLOL TARTRATE 50 MG TABLET (FP) PO SCH ×2 (09:17→21:53)
[2018-06-01] MEDS: hydrALAZINE HCL 25 MG TABLET (FP) PO SCH ×2 (09:17→21:53)
[2018-06-01] MEDS: FUROSEMIDE 40 MG TABLET (FP) PO SCH (09:18)
[2018-06-01] MEDS: ALLOPURINOL 100 MG TABLET (FP) PO SCH (09:18)
[2018-06-01] MEDS: BICALUTAMIDE 50 MG TABLET (FP) PO SCH (09:19)
--- NOTE | 2018-06-01 09:21 | PN ---
Teaching Attending Note Name of Resident: Ivette Cruz ATTENDING PHYSICIAN STATEMENT I saw and evaluated the patient. I reviewed the resident's note and discussed the case with the resident. I agree with the resident's findings and plan as documented. SUBJECTIVE: Patient is comfortable, no fever or chills. OBJECTIVE: Vital Signs Temperature 97.7 F 06/01/18 05:53 Pulse Rate 81 06/01/18 05:53 Respiratory Rate 20 06/01/18 05:53 Blood Pressure 146/84 06/01/18 05:53 O2 Sat by Pulse Oximetry (%) 98 05/31/18 21:00 CBCD WBC 7.8 K/mm3 (4.0-10.0) 06/01/18 06:00 RBC 3.81 M/mm3 (4.00-5.60) L 06/01/18 06:00 Hgb 12.0 GM/dL (11.7-16.9) 06/01/18 06:00 Hct 35.5 % (35.4-49) 06/01/18 06:00 MCV 93.2 fl (80-96) 06/01/18 06:00 MCHC 33.9 g/dl (32.0-35.9) 06/01/18 06:00 RDW 13.4 % (11.9-15.9) 06/01/18 06:00 Plt Count 256 K/MM3 (134-434) 06/01/18 06:00 MPV 8.4 fl (7.5-11.1) 06/01/18 06:00 CMP Sodium 141 mmol/L (136-145) 06/01/18 06:00 Potassium 3.9 mmol/L (3.5-5.1) 06/01/18 06:00 Chloride 104 mmol/L (98-107) 06/01/18 06:00 Carbon Dioxide 25 mmol/L (21-32) 06/01/18 06:00 Anion Gap 12 (8-16) 06/01/18 06:00 BUN 28 mg/dL (7-18) H 06/01/18 06:00 Creatinine 1.5 mg/dL (0.7-1.3) H 06/01/18 06:00 Creat Clearance w eGFR 46.97 (>60) 06/01/18 06:00 Random Glucose 180 mg/dL (74-106) H 06/01/18 06:00 Calcium 9.4 mg/dL (8.5-10.1) 06/01/18 06:00 Total Bilirubin 0.7 mg/dL (0.2-1.0) 06/01/18 06:00 AST 23 U/L (15-37) 06/01/18 06:00 ALT 40 U/L (12-78) 06/01/18 06:00 Alkaline Phosphatase 41 U/L (45-117) L 06/01/18 06:00 Total Protein 7.1 g/dl (6.4-8.2) 06/01/18 06:00 Albumin 3.7 g/dl (3.4-5.0) 06/01/18 06:00 Home Medications Medication Instructions Recorded Allopurinol [Zyloprim -] 100 mg PO DAILY 04/02/17 Bicalutamide 50 mg PO DAILY 04/02/17 Rivaroxaban [Xarelto -] 20 mg PO HS 04/02/17 Simvastatin [Zocor -] 20 mg PO HS 04/02/17 Tamsulosin HCl 0.4 mg PO HS 04/02/17 hydrALAZINE HCL [Apresoline -] 50 mg PO BID 04/02/17 Fenofibrate 54 mg PO DAILY 04/04/17 Levothyroxine [Synthroid -] 75 mcg PO DAILY 04/04/17 Mirabegron [Myrbetriq] 50 mg PO HS 04/04/17 Collagenase Clostridium Hist. 1 applic TP DAILY #1 tube 04/06/17 [Santyl -] Furosemide [Lasix -] 40 mg PO DAILY tablet 04/06/17 Metoprolol Tartrate [Lopressor -] 150 mg PO BID 05/28/18 Leuprolide Acetate [Lupron Depot] 30 mg IM MONTHLY 05/29/18 Laboratory Tests 05/30/18 05/30/18 05/30/18 06:30 06:30 06:30 Creatinine 1.6 H 1.6 H Hemoglobin A1c % 7.9 H D 05/31/18 06:00 Creatinine 1.6 H Hemoglobin A1c % Current Medications Generic Name Dose Route Start Last Admin Trade Name Freq PRN Reason Stop Dose Admin Allopurinol 100 mg 05/30/18 10:00 06/01/18 09:18 Zyloprim - PO 100 mg DAILY [facility] Administration Atorvastatin Calcium 10 mg 05/29/18 22:00 05/31/18 21:25 Lipitor - PO 10 mg HS [facility] Administration Bicalutamide 50 mg 05/30/18 10:00 06/01/18 09:19 Casodex - PO 50 mg DAILY [facility] Administration Furosemide 40 mg 05/30/18 10:00 06/01/18 09:18 Lasix - PO 40 mg DAILY [facility] Administration Hydralazine HCl 50 mg 05/29/18 22:00 06/01/18 09:17 Apresoline - PO 50 mg BID [facility] Administration Vancomycin HCl 1,250 mg/ 250 mls @ 250 mls/2 hr 06/02/18 12:00 Dextrose IVPB DAILY@1200 [facility] Protocol Insulin Aspart 1 vial 06/01/18 11:00 06/01/18 17:01 Novolog Vial Sliding Scale - SQ 6 units TIDAC [facility] Administration Protocol Insulin Aspart 1 vial 06/01/18 22:00 Novolog Vial Sliding Scale - SQ HS [facility] Protocol Insulin Detemir 12 units 06/01/18 07:00 06/01/18 06:17 Levemir Vial SQ 12 unit DAILY@0700 [facility] Administration Levothyroxine Sodium 75 mcg 05/30/18 07:00 06/01/18 06:18 Synthroid - PO 75 mcg 0700 [facility] Administration Metoprolol Tartrate 150 mg 05/29/18 22:00 06/01/18 09:17 Lopressor - PO 150 mg BID [facility] Administration Rivaroxaban 15 mg 05/31/18 22:00 05/31/18 21:25 Xarelto - PO 15 mg DAILY@2200 [facility] Administration Tamsulosin HCl 0.4 mg 05/29/18 22:00 05/31/18 21:25 Flomax - PO 0.4 mg HS [facility] Administration PE: as per resident's note RLE: Right LE with resoving cellulitis over distal 1/3 of tibia, warm to touch. Right foot with stage 2 pressure ulcer at plantar surface of 1st MTP @ 1cmx1.5cm , no active d/c, no foul odor noted, surrounding tissue intact with evidence of callus, no evidence of fluctuance or collection. 2+ DP pulse, warm, well- perfused. No calf tenderness. No peripheral edema. Microbiology 05/31/18 13:00 Foot - Right Plantar Gram Stain - Final 05/31/18 13:00 Foot - Right Plantar Wound Culture - Preliminary Presumptive Mrsa (Pbp2a Pos) 05/28/18 18:00 Blood - Peripheral Venous Blood Culture - Preliminary NO GROWTH OBTAINED AFTER 72 HOURS, INCUBATION TO CONTINUE FOR 2 DAYS. 05/28/18 18:07 Blood - Peripheral Venous Blood Culture - Preliminary NO GROWTH OBTAINED AFTER 72 HOURS, INCUBATION TO CONTINUE FOR 2 DAYS. 05/28/18 20:45 Urine - Urine Clean Catch Urine Culture - Final NO GROWTH OBTAINED Laboratory Tests 05/30/18 05/30/18 05/30/18 06:30 06:30 06:30 Creatinine 1.6 H 1.6 H Hemoglobin A1c % 7.9 H D Iron TIBC Iron Saturation Ferritin 05/31/18 05/31/18 06:00 06:00 Creatinine 1.6 H Hemoglobin A1c % Iron 88 TIBC 365 Iron Saturation 24 Ferritin 451.4 H ASSESSMENT AND PLAN: Patient is a 67 y/o male with a history of HTN, renal cell ca s/p nephrectomy who is here for acute right lower extremity cellulitis. # Acute right lower extremity cellulitis: on IV Vancomycin now since growing MRSA s/p zosyn improving Id on the case .His processing technologist is will see the patient in am , will take over from . As per no need for Bone scan for now since patient has one kidney. # New diagnosed T2DM : HBA1c 7.9 m, SS with coverage with Dr.Shresta Pili on the case. # Acute over CKD - possible due dehydration - improving , will repeat labs for am. nephro consult if needed # Anemia : w/u as above. # Obesity :weight loss. Consult waiter/waitress informal. # Afib - Rate controlled. on xarelto with reduced GFR. changed the dose to 15mg from 20mg DVT prophylaxis - On xarelto Advance directives - Full code
--- NOTE | 2018-06-01 10:52 | CONSULT ---
- Consultation REQUESTING PROVIDER: CONSULT REQUEST: We have been asked to surgically evaluate this patient for ( specify). PCP:Kenya Valdivia HISTORY OF PRESENT ILLNESS: 67 yo M with h/o frequent cellulitis, h/o HTN, renal ca s/p nephrectomy presents with right leg redness, swelling x 2weeks after failed outpt treatment with augmentin. He reports that he had a fever and chills last week that resolved after taking augmentin. He is followed closely by his agricultural crop farm manager Dr Chery who also noticed a small ulcer at the plantar surface of his 1st metatarsal, which comes and goes but this time he developed cellulitis in the right leg and was admitted for IVABX on Thursday. Patient denies any CP, SOB, N/V/D or chills. PMHx: h/o frequent cellulitis, h/o HTN, renal ca s/p nephrectomy PSHx: Abdominal Surgery: Yes (LEFT KIDNEY REMOVED) Appendectomy: No Cardiac Surgery: Yes (ppm) Cholecystectomy: No Lung Surgery: No Neurologic Surgery: No Orthopedic Surgery: Yes (bilateral knee replacement) Home Medications Medication Instructions Recorded Allopurinol [Zyloprim -] 100 mg PO DAILY 04/02/17 Bicalutamide 50 mg PO DAILY 04/02/17 Rivaroxaban [Xarelto -] 20 mg PO HS 04/02/17 Simvastatin [Zocor -] 20 mg PO HS 04/02/17 Tamsulosin HCl 0.4 mg PO HS 04/02/17 hydrALAZINE HCL [Apresoline -] 50 mg PO BID 04/02/17 Fenofibrate 54 mg PO DAILY 04/04/17 Levothyroxine [Synthroid -] 75 mcg PO DAILY 04/04/17 Mirabegron [Myrbetriq] 50 mg PO HS 04/04/17 Collagenase Clostridium Hist. 1 applic TP DAILY #1 tube 04/06/17 [Santyl -] Furosemide [Lasix -] 40 mg PO DAILY tablet 04/06/17 Metoprolol Tartrate [Lopressor -] 150 mg PO BID 05/28/18 Leuprolide Acetate [Lupron Depot] 30 mg IM MONTHLY 05/29/18 Allergies Allergy/AdvReac Type Severity Reaction Status Date / Time No Known Drug Allergies Allergy Verified 05/28/18 17:36 REVIEW OF SYSTEMS: CONSTITUTIONAL: Absent: chills, diaphoresis, generalized weakness, malaise, loss of appetite, weight change CARDIOVASCULAR: Absent: chest pain, syncope, palpitations,, lightheadedness, RESPIRATORY: Absent: cough, shortness of breath, GASTROINTESTINAL: Absent: abdominal pain, abdominal distension, nausea, vomiting, diarrhea, MUSCULOSKELETAL: Absent: myalgia, arthralgia, joint swelling, back pain, neck pain SKIN: Absent: rash, itching, pallor HEMATOLOGIC/IMMUNOLOGIC: Absent: easy bleeding, easy bruising, NEUROLOGIC: Absent: headache bladder or bowel incontinence PSYCHIATRIC: Absent: anxiety, depression, suicidal or homicidal ideation, hallucinations. PHYSICAL EXAM: GENERAL: Awake, alert, and fully oriented, in no acute distress. HEAD: Normal with no signs of trauma. EYES: conjunctiva clear. LUNGS: Unlabored resp on RA HEART: Regular rate and rhythm. No murmurs LOWER EXTREMITIES: Right LE with resoving cellulitis over distal 1/3 or tibia, all compartments soft, supple and non-tender. Right foot with isolated stage 2 pressure ulcer at plantar surface of 1st MTP @ 1cmx1.5cm, no active d/c, no foul odor noted, surrounding tissue intact with evidence of callus, no evidence of fluctuance or collection. 2+ DP pulse, warm, well-perfused. No calf tenderness. No peripheral edema. Left LE compartments soft, supple and non-tender, +2 DP pulses NEUROLOGICAL: Normal speech, gait not observed. PSYCH: Cooperative. Good eye contact. Appropriate mood and affect. SKIN: Warm, dry, normal turgor, no rashes or lesions noted. Vital Signs Temp 97.7 F 06/01/18 05:53 Pulse 81 06/01/18 05:53 Resp 20 06/01/18 05:53 BP 146/84 06/01/18 05:53 Pulse Ox 98 05/31/18 21:00 Intake & Output 05/31/18 05/31/18 06/01/18 11:59 23:59 11:59 Intake Total 100 350 50 Balance 100 350 50 Intake: IVPB 100 50 Oral 350 Other: Voiding Method Toilet Toilet Toilet # Unmeasured Voids Void 1 1 Bowel Movement No No CBC, BMP 06/01/18 06:00 06/01/18 06:00 Right foot and ankle x-ray 3 views: reveal OA changes throughout with no evidence of lytic lesions, soft tissue yassine, emphysema, fracture or foreign body Problem List - Problems (1) Chronic foot ulcer Assessment/Plan: Acute on Chronic plantar ulcer of right foot with no sign of abscess or collection and good distal blood flow in the setting of cellulitis- No need for vascular intervention. 1) Continue wound care per Podiaty 2) Offload pressure sensitive areas 3) IV ABX per ID 4) re-consult surgery PRN Evaluation and plan discussed with Dr Salguero Code(s): L97.509 - NON-PRESSURE CHRONIC ULCER OTH PRT UNSP FOOT W UNSP SEVERITY Visit type - Case Type Case Type: ED Admission - Emergency Emergency Visit: Yes ED Registration Date: 05/28/18 Care time: The patient presented to the Emergency Department on the above date and was hospitalized for further evaluation of their emergent condition. - New patient This patient is new to me today: Yes Date on this admission: 06/01/18
[2018-06-01] MEDS ORDERED: INSULIN (NOVOLOG) ASPART 100 UNITS/ML 10ML VIAL ONE ×2 (11:51→22:00)
[2018-06-01] MEDS ORDERED: VANCOMYCIN 1 GM PREMIX - 1 GM/200 ML BAG IVPB ONE (12:00)
--- NOTE | 2018-06-01 12:42 | PN ---
Progress Note, Physician History of Present Illness: stable no issues according tot eh patient his foot was drained last night bone scan cancelled by the lead security officer - Current Medication List Current Medications: Active Medications Allopurinol (Zyloprim -) 100 mg PO DAILY [facility] Last Admin: 06/01/18 09:18 Dose: 100 mg Atorvastatin Calcium (Lipitor -) 10 mg PO [facility] Last Admin: 05/31/18 21:25 Dose: 10 mg Bicalutamide (Casodex -) 50 mg PO DAILY [facility] Last Admin: 06/01/18 09:19 Dose: 50 mg Furosemide (Lasix -) 40 mg PO DAILY [facility] Last Admin: 06/01/18 09:18 Dose: 40 mg Hydralazine HCl (Apresoline -) 50 mg PO BID [facility] Last Admin: 06/01/18 09:17 Dose: 50 mg Vancomycin HCl (Vancomycin 1 Gm Premix -) 1 gm in 200 mls @ 200 mls/hr IVPB DAILY@1200 [facility]; Protocol Vancomycin HCl (Vancomycin 1 Gm Premix -) 1 gm in 200 mls @ 133.333 mls/hr IVPB ONCE ONE Stop: 06/01/18 13:29 Last Admin: 06/01/18 11:42 Dose: 133.333 mls/hr Insulin Aspart (Novolog Vial Sliding Scale -) 1 vial SQ [facility]; Protocol Last Admin: 06/01/18 11:52 Dose: 4 units Insulin Aspart (Novolog Vial Sliding Scale -) 1 vial SQ [facility]; Protocol Insulin Detemir (Levemir Vial) 12 units SQ DAILY@0700 [facility] Last Admin: 06/01/18 06:17 Dose: 12 unit Levothyroxine Sodium (Synthroid -) 75 mcg PO 0700 [facility] Last Admin: 06/01/18 06:18 Dose: 75 mcg Metoprolol Tartrate (Lopressor -) 150 mg PO BID [facility] Last Admin: 06/01/18 09:17 Dose: 150 mg Rivaroxaban (Xarelto -) 15 mg PO DAILY@2200 [facility] Last Admin: 05/31/18 21:25 Dose: 15 mg Tamsulosin HCl (Flomax -) 0.4 mg PO [facility] Last Admin: 05/31/18 21:25 Dose: 0.4 mg - Objective Vital Signs: Vital Signs Temperature 98.4 F 06/01/18 10:00 Pulse Rate 66 06/01/18 10:00 Respiratory Rate 20 06/01/18 10:00 Blood Pressure 127/65 06/01/18 10:00 O2 Sat by Pulse Oximetry (%) 99 06/01/18 10:00 Constitutional: Yes: No Distress, Calm Cardiovascular: Yes: Regular Rate and Rhythm Respiratory: Yes: Regular, CTA Bilaterally Gastrointestinal: Yes: Normal Bowel Sounds, Soft Musculoskeletal: Yes: WNL Extremities: Yes: Other Wound/Incision: Yes: Dressing Dry and Intact Neurological: Yes: Alert, Oriented Psychiatric: Yes: Alert, Oriented Labs: CBC, BMP 06/01/18 06:00 06/01/18 06:00 INR, PTT INR 2.04 (0.83-1.09) H 06/01/18 06:00 Assessment/Plan Problem List - Problems (1) Cellulitis Code(s): L03.90 - CELLULITIS, UNSPECIFIED Qualifiers: Site of cellulitis: extremity Site of cellulitis of extremity: lower extremity Laterality: right Qualified Code(s): L03.115 - Cellulitis of right lower limb (2) Afib Code(s): I48.91 - UNSPECIFIED ATRIAL FIBRILLATION Qualifiers: Atrial fibrillation type: persistent Qualified Code(s): I48.1 - Persistent atrial fibrillation (3) BPH (benign prostatic hyperplasia) Code(s): N40.0 - BENIGN PROSTATIC HYPERPLASIA WITHOUT LOWER URINRY TRACT SYMP Qualifiers: Lower urinary tract symptom presence: symptoms present Qualified Code(s): N40.1 - Benign prostatic hyperplasia with lower urinary tract symptoms (4) H/O prostate cancer Code(s): Z85.46 - PERSONAL HISTORY OF MALIGNANT NEOPLASM OF PROSTATE (5) H/O renal cell cancer Code(s): Z85.528 - PERSONAL HISTORY OF OTHER MALIGNANT NEOPLASM OF KIDNEY (6) H/O unilateral nephrectomy Code(s): Z90.5 - ACQUIRED ABSENCE OF KIDNEY (7) Pacemaker Code(s): Z95.0 - PRESENCE OF CARDIAC PACEMAKER Assessment/Plan 67 y.o. male with PMH of renal CA s/p nephrectomy, prostate CA, CKD, Atrial Fibrillation s/p PM, Lt charcot Fx, Rt foot bunion, and previous LE cellulitis presenting with RLE erythema/warmth refractory to oral antibiotics, hyperglycemia RLE Cellulitis Renal insufficiency Hyperglycemia abscess of the foot i think the patient has osteo since his scan was cancelled the only way of knowing is to have a i and d of the site and possibly bone biopsy wound cx is mrsa plan wer will continue vanco will talk with podiatry team rest as per the team
[2018-06-01] MEDS: VANCOMYCIN 1 GM PREMIX - 1 GM/200 ML BAG IVPB SCH (14:30)
[2018-06-01 15:57] VITALS: BMI 33.0
--- NOTE | 2018-06-01 16:15 | PN ---
Progress Note (short form) - Note Progress Note: FUV right foot. Patient is a patient of Dr. Chery. Bone scan cancelled patient has 1 kidney. vss, Tmax 98.5 vsgi, decreased ns, wbc=7.8, esr=95, wound culture presumptive mrsa, celulitis left foot r/o om Discussed with Dr. Chery and decided that he will manage patient going forward because he has been treating patient for over [address] Chery will be taking care of patient going forward. Spoke to Dr. Chery today.
[2018-06-01] MEDS ORDERED: PT OWN MED DRAWER 7, Y5N ONE (20:12)
[2018-06-01] MEDS: ATORVASTATIN CA 10 MG TABLET (FP) PO SCH (21:53)
[2018-06-01] MEDS: RIVAROXABAN 15 MG TABLET PO SCH (21:53)
[2018-06-01] MEDS: TAMSULOSIN HCL 0.4 MG CAP.ER.24H (FP) PO SCH (21:53)
[2018-06-02] MEDS: LEVOTHYROXINE NA 75 MCG TABLET (FP) PO SCH (06:07)
[2018-06-02] MEDS: INSULIN SLIDING SCALE (NOVOLOG) 1 VIAL SQ SCH ×4 (06:08→20:59)
[2018-06-02] MEDS: INSULIN (LEVEMIR) 100 UNITS/ML UNITS SQ SCH (06:08)
[2018-06-02 08:46] LABS: ANION GAP 11 MMOL/L (8-16); BLOOD UREA NITROGEN 26 mg/dL (7-18); CALCIUM 9.1 mg/dL (8.5-10.1); CHLORIDE 104 mmol/L (98-107); CO2 25 mmol/L (21-32); CREATININE 1.4 mg/dL (0.7-1.3); GLUCOSE,RANDOM 165 mg/dL (74-106); POTASSIUM 3.7 mmol/L (3.5-5.1); SODIUM 140 mmol/L (136-145)
--- NOTE | 2018-06-02 09:52 | PN ---
Physical Exam: SUBJECTIVE: Patient is a 67 y/o male with a history of HTN, renal ca s/p nephrectomy who is here for cellulitis. Patient has discussed management with his Infertility Medical Assistant who is aware of his care. No acute events overnight. OBJECTIVE: Vital Signs Temperature 97.6 F 06/02/18 06:00 Pulse Rate 75 06/02/18 06:00 Respiratory Rate 19 06/02/18 06:00 Blood Pressure 138/77 06/02/18 06:00 O2 Sat by Pulse Oximetry (%) 97 06/01/18 21:00 GENERAL: The patient is awake, alert, and fully oriented, in no acute distress. EYES: PERRL, extraocular movements intact LUNGS: Breath sounds equal, clear to auscultation bilaterally HEART: Regular rate and rhythm, ABDOMEN: Soft, nontender, nondistended, normoactive bowel sounds EXTREMITIES: 2+ DP pulses, warm, well-perfused, no edema. PSYCH: Normal mood, normal affect. SKIN:R lower extremity, erythema, and warmth, ulcer on plantar surface of foot , 1x1 clean bases CBC, BMP 06/01/18 06:00 06/02/18 06:30 Active Medications Allopurinol (Zyloprim -) 100 mg PO DAILY [facility] Last Admin: 06/01/18 09:18 Dose: 100 mg Atorvastatin Calcium (Lipitor -) 10 mg PO HS [facility] Last Admin: 06/01/18 21:53 Dose: 10 mg Bicalutamide (Casodex -) 50 mg PO DAILY [facility] Last Admin: 06/01/18 09:19 Dose: 50 mg Furosemide (Lasix -) 40 mg PO DAILY [facility] Last Admin: 06/01/18 09:18 Dose: 40 mg Hydralazine HCl (Apresoline -) 50 mg PO BID [facility] Last Admin: 06/01/18 21:53 Dose: 50 mg Vancomycin HCl 1,250 mg/ (Dextrose) 250 mls @ 250 mls/2 hr IVPB DAILY@1200 [facility] ; Protocol Insulin Aspart (Novolog Vial Sliding Scale -) 1 vial SQ TIDAC [facility]; Protocol Last Admin: 06/02/18 06:08 Dose: 4 units Insulin Aspart (Novolog Vial Sliding Scale -) 1 vial SQ HS [facility]; Protocol Last Admin: 06/01/18 22:07 Dose: 2 units Insulin Detemir (Levemir Vial) 12 units SQ DAILY@0700 [facility] Last Admin: 06/02/18 06:08 Dose: 12 unit Levothyroxine Sodium (Synthroid -) 75 mcg PO 0700 [facility] Last Admin: 06/02/18 06:07 Dose: 75 mcg Metoprolol Tartrate (Lopressor -) 150 mg PO BID [facility] Last Admin: 06/01/18 21:53 Dose: 150 mg Rivaroxaban (Xarelto -) 15 mg PO DAILY@2200 [facility] Last Admin: 06/01/18 21:53 Dose: 15 mg Tamsulosin HCl (Flomax -) 0.4 mg PO HS [facility] Last Admin: 06/01/18 21:53 Dose: 0.4 mg ASSESSMENT/PLAN: Patient is a 67 y/o male with a history of HTN, renal ca s/p nephrectomy who is here for cellulitis. #Cellulitis - Zosyn 3.375 mg - Vancomycin 1 gm started - Wound Cx: MRSA - per ID Bobde- patient likely has osteo consider bone biopsy - Patients air tank assembler Dr Chery decided bone scan was not necessary and will follow patients care - per Dr. Jose M mcnair, continue with wound care for the plantar surface wound and abscess - betadine dressing to right plantar foot area - afebrile #diabetes - A1C: 7.9 - SS - levemir 12 unit sq daily - f/u Dr. Su for endo consult #BPH - resume flomax #afib on pacemaker - Xarelto 15 mg po changed from 20 for nephrotoxicity #HTN - lasix 40 mg dialy - metoprolol 150 mg BID #hypothyroidism - levothyroxine 75 mcg Dispo: f/u Dr. Chery for treatment tomorrowChai recommendations for outpatient treatment Visit type - Emergency Visit Emergency Visit: No - New Patient This patient is new to me today: No - Critical Care Critical Care patient: No
[2018-06-02] MEDS ORDERED: PT OWN MED DRAWER 7, Y5N ONE ×2 (10:09→20:46)
[2018-06-02] MEDS: BICALUTAMIDE 50 MG TABLET (FP) PO SCH (10:12)
[2018-06-02] MEDS: METOPROLOL TARTRATE 50 MG TABLET (FP) PO SCH ×2 (10:12→20:59)
[2018-06-02] MEDS: FUROSEMIDE 40 MG TABLET (FP) PO SCH (10:13)
[2018-06-02] MEDS: ALLOPURINOL 100 MG TABLET (FP) PO SCH (10:13)
[2018-06-02] MEDS: hydrALAZINE HCL 25 MG TABLET (FP) PO SCH ×2 (10:13→20:59)
[2018-06-02] MEDS ORDERED: INSULIN (NOVOLOG) ASPART 100 UNITS/ML 10ML VIAL ONE (11:39)
--- NOTE | 2018-06-02 11:45 | PN ---
Progress Note (short form) - Note Progress Note: Denies any complaints Blood sugar Improving Vital Signs Period Temp Pulse Resp BP Sys/Farrar Pulse Ox Last 24 Hr 97.6 F-98.5 F 66-75 18-20 135-152/69-77 97 PE: AOx3 Neck: Supple HEENT: PERRL, EOMI Lungs:CTA CVS: S1S2 ABD: Benign Ext: Rt leg cellulitis Neuro: No focal deficit CMP Sodium 140 mmol/L (136-145) 06/02/18 06:30 Potassium 3.7 mmol/L (3.5-5.1) 06/02/18 06:30 Chloride 104 mmol/L (98-107) 06/02/18 06:30 Carbon Dioxide 25 mmol/L (21-32) 06/02/18 06:30 Anion Gap 11 MMOL/L (8-16) 06/02/18 06:30 BUN 26 mg/dL (7-18) H 06/02/18 06:30 Creatinine 1.4 mg/dL (0.7-1.3) H 06/02/18 06:30 Creat Clearance w eGFR 50.86 (>60) 06/02/18 06:30 POC Glucometer 195 UNITS (80-120) 06/02/18 06:07 Random Glucose 165 mg/dL (74-106) H 06/02/18 06:30 Hemoglobin A1c % 7.9 % (4.8-6.0) H D 05/30/18 06:30 Lactic Acid 1.2 mmol/L (0.0-2.0) 05/28/18 22:35 Calcium 9.1 mg/dL (8.5-10.1) 06/02/18 06:30 Phosphorus 4.2 mg/dL (2.5-4.9) 05/31/18 06:00 Magnesium 1.7 mg/dL (1.8-2.4) L 05/31/18 06:00 Iron 88 ug/dL (38-169) 05/31/18 06:00 TIBC 365 ug/dL (250-450) 05/31/18 06:00 Iron Saturation 24 % (15-55) 05/31/18 06:00 Ferritin 451.4 ng/ml (16.4-293.9) H 05/31/18 06:00 Total Bilirubin 0.7 mg/dL (0.2-1.0) 06/01/18 06:00 AST 23 U/L (15-37) 06/01/18 06:00 ALT 40 U/L (12-78) 06/01/18 06:00 Alkaline Phosphatase 41 U/L (45-117) L 06/01/18 06:00 C-Reactive Protein 1.6 MG/DL (0.00-0.3) H 05/30/18 06:30 Total Protein 7.1 g/dl (6.4-8.2) 06/01/18 06:00 Albumin 3.7 g/dl (3.4-5.0) 06/01/18 06:00 Current Medications Generic Name Dose Route Start Last Admin Trade Name Tonny PRN Reason Stop Dose Admin Allopurinol 100 mg 05/30/18 10:00 06/02/18 10:13 Zyloprim - PO 100 mg DAILY [facility] Administration Atorvastatin Calcium 10 mg 05/29/18 22:00 06/01/18 21:53 Lipitor - PO 10 mg HS [facility] Administration Bicalutamide 50 mg 05/30/18 10:00 06/02/18 10:12 Casodex - PO 50 mg DAILY [facility] Administration Furosemide 40 mg 05/30/18 10:00 06/02/18 10:13 Lasix - PO 40 mg DAILY [facility] Administration Hydralazine HCl 50 mg 05/29/18 22:00 06/02/18 10:13 Apresoline - PO 50 mg BID [facility] Administration Vancomycin HCl 1,250 mg/ 250 mls @ 250 mls/2 hr 06/02/18 12:00 Dextrose IVPB DAILY@1200 [facility] Protocol Insulin Aspart 1 vial 06/01/18 11:00 06/02/18 06:08 Novolog Vial Sliding Scale - SQ 4 units TIDAC [facility] Administration Protocol Insulin Aspart 1 vial 06/01/18 22:00 06/01/18 22:07 Novolog Vial Sliding Scale - SQ 2 units HS [facility] Administration Protocol Insulin Detemir 12 units 06/01/18 07:00 06/02/18 06:08 Levemir Vial SQ 12 unit DAILY@0700 [facility] Administration Levothyroxine Sodium 75 mcg 05/30/18 07:00 06/02/18 06:07 Synthroid - PO 75 mcg 0700 [facility] Administration Metoprolol Tartrate 150 mg 05/29/18 22:00 06/02/18 10:12 Lopressor - PO 150 mg BID [facility] Administration Rivaroxaban 15 mg 05/31/18 22:00 06/01/18 21:53 Xarelto - PO 15 mg DAILY@2200 [facility] Administration Tamsulosin HCl 0.4 mg 05/29/18 22:00 06/01/18 21:53 Flomax - PO 0.4 mg HS [facility] Administration AP; RLE Cellulitis Renal insufficiency T2DM with hyperglycemia A Fib Obesity h/O Renal Ca s/p left Nephrectomy S/p Pacemaker Monitor BGM Change Novolog Q ACHS INcrease Levemir 15 units daily Nutrition consult Will f/u
[2018-06-02] MEDS: VANCOMYCIN 1,250 MG in DEXTROSE 5%-WATER - 250 ML IVPB SCH (12:45)
--- NOTE | 2018-06-02 14:33 | PN ---
Progress Note, Physician History of Present Illness: no specific issues patient otherwise stable - Current Medication List Current Medications: Active Medications Allopurinol (Zyloprim -) 100 mg PO DAILY [facility] Last Admin: 06/02/18 10:13 Dose: 100 mg Atorvastatin Calcium (Lipitor -) 10 mg PO [facility] Last Admin: 06/01/18 21:53 Dose: 10 mg Bicalutamide (Casodex -) 50 mg PO DAILY [facility] Last Admin: 06/02/18 10:12 Dose: 50 mg Furosemide (Lasix -) 40 mg PO DAILY [facility] Last Admin: 06/02/18 10:13 Dose: 40 mg Hydralazine HCl (Apresoline -) 50 mg PO BID [facility] Last Admin: 06/02/18 10:13 Dose: 50 mg Vancomycin HCl 1,250 mg/ (Dextrose) 250 mls @ 250 mls/2 hr IVPB DAILY@1200 [facility] ; Protocol Last Admin: 06/02/18 12:45 Dose: 250 mls/2 hr Insulin Aspart (Novolog Vial Sliding Scale -) [facility] Protocol Last Admin: 06/02/18 11:54 Dose: 6 units Insulin Aspart (Novolog Vial Sliding Scale -) 1 vial SQ [facility]; Protocol Last Admin: 06/01/18 22:07 Dose: 2 units Insulin Detemir (Levemir Vial) 15 units SQ DAILY@0700 [facility] Levothyroxine Sodium (Synthroid -) 75 mcg PO 0700 [facility] Last Admin: 06/02/18 06:07 Dose: 75 mcg Metoprolol Tartrate (Lopressor -) 150 mg PO BID [facility] Last Admin: 06/02/18 10:12 Dose: 150 mg Rivaroxaban (Xarelto -) 15 mg PO DAILY@2200 [facility] Last Admin: 06/01/18 21:53 Dose: 15 mg Tamsulosin HCl (Flomax -) 0.4 mg PO [facility] Last Admin: 06/01/18 21:53 Dose: 0.4 mg - Objective Vital Signs: Vital Signs Temperature 97.8 F 06/02/18 10:18 Pulse Rate 70 06/02/18 10:18 Respiratory Rate 18 06/02/18 10:18 Blood Pressure 144/73 06/02/18 10:18 O2 Sat by Pulse Oximetry (%) 97 06/02/18 09:00 Constitutional: Yes: No Distress, Calm Cardiovascular: Yes: S1, S2 Gastrointestinal: Yes: Normal Bowel Sounds, Soft Musculoskeletal: Yes: WNL Extremities: Yes: Other Wound/Incision: Yes: Dressing Dry and Intact Neurological: Yes: Alert, Oriented Psychiatric: Yes: Alert, Oriented Labs: CBC, BMP 06/01/18 06:00 06/02/18 06:30 INR, PTT INR 2.04 (0.83-1.09) H 06/01/18 06:00 Assessment/Plan Problem List - Problems (1) Cellulitis Code(s): L03.90 - CELLULITIS, UNSPECIFIED Qualifiers: Site of cellulitis: extremity Site of cellulitis of extremity: lower extremity Laterality: right Qualified Code(s): L03.115 - Cellulitis of right lower limb (2) Afib Code(s): I48.91 - UNSPECIFIED ATRIAL FIBRILLATION Qualifiers: Atrial fibrillation type: persistent Qualified Code(s): I48.1 - Persistent atrial fibrillation (3) BPH (benign prostatic hyperplasia) Code(s): N40.0 - BENIGN PROSTATIC HYPERPLASIA WITHOUT LOWER URINRY TRACT SYMP Qualifiers: Lower urinary tract symptom presence: symptoms present Qualified Code(s): N40.1 - Benign prostatic hyperplasia with lower urinary tract symptoms (4) H/O prostate cancer Code(s): Z85.46 - PERSONAL HISTORY OF MALIGNANT NEOPLASM OF PROSTATE (5) H/O renal cell cancer Code(s): Z85.528 - PERSONAL HISTORY OF OTHER MALIGNANT NEOPLASM OF KIDNEY (6) H/O unilateral nephrectomy Code(s): Z90.5 - ACQUIRED ABSENCE OF KIDNEY (7) Pacemaker Code(s): Z95.0 - PRESENCE OF CARDIAC PACEMAKER Assessment/Plan 67 y.o. male with PMH of renal CA s/p nephrectomy, prostate CA, CKD, Atrial Fibrillation s/p PM, Lt charcot Fx, Rt foot bunion, and previous LE cellulitis presenting with RLE erythema/warmth refractory to oral antibiotics, hyperglycemia RLE Cellulitis Renal insufficiency Hyperglycemia abscess of the foot i have no way of determining how deep is the infection as the podiatry team taking care of him dash not plan to do a bone biopsy since they so not want any imaging studies done if no imaging studies and no biopsy done then patient can be switched to oral doxy cycline 100 mg po bid for another 15 days when the patient is discharged follow pillo louise and adjust vanco accordingly for now and then if not further plan is made patient can be discharged home on doxy for another 15 days rest as per the team
--- NOTE | 2018-06-02 19:57 | PN ---
Teaching Attending Note Name of Resident: Ivette Cruz ATTENDING PHYSICIAN STATEMENT I saw and evaluated the patient. I reviewed the resident's note and discussed the case with the resident. I agree with the resident's findings and plan as documented. SUBJECTIVE: no pain, no fever or chills. OBJECTIVE: NAD CV: RRR, 3/6 SM at [facility] and [place] Lungs: CTAB Ext : L DP 2+ , L PT 2+ . refused unwrapping of his R foot . no edema on legs ASSESSMENT AND PLAN: 67 y/o man with h/o cellulitis, foot ulcers, renal cell ca s/p nephrectomy, prostate cancer , a fib bs/p PM , who presented with increased paina nd discharge from his R foot wounds. 1- R foot infection : Unable to evaluate wounds as he refused foot exam. wound cx with MRSA. can't do MRI and bone scan. patient insists on no bone Bx as his eye dropper assembler recommended against that. without being able to examine site, I would go with ID recommendations pending Podiatry evaluation. cont vanco. will check trough tomorrow podiatry called again by resident 2- New onset DM : - cont Insulin levemir and SSI 3- EULA on CKD. improved cr 5- A fib : cont xarelto and BB 6-Cont home lasix Dispo : depends on POdiatry eval tomorrow
[2018-06-02] MEDS: ATORVASTATIN CA 10 MG TABLET (FP) PO SCH (20:59)
[2018-06-02] MEDS: TAMSULOSIN HCL 0.4 MG CAP.ER.24H (FP) PO SCH (20:59)
[2018-06-02] MEDS: RIVAROXABAN 15 MG TABLET PO SCH (20:59)
[2018-06-03] MEDS: LEVOTHYROXINE NA 75 MCG TABLET (FP) PO SCH (06:21)
[2018-06-03] MEDS: INSULIN SLIDING SCALE (NOVOLOG) 1 VIAL SQ SCH ×3 (06:21→17:00)
[2018-06-03] MEDS ORDERED: INSULIN (LEVEMIR) 100 UNITS/ML UNITS SQ SCH (07:00)
[2018-06-03 08:26] LABS: ANION GAP 13 MMOL/L (8-16); BLOOD UREA NITROGEN 28 mg/dL (7-18); CALCIUM 9.2 mg/dL (8.5-10.1); CHLORIDE 105 mmol/L (98-107); CO2 24 mmol/L (21-32); CREATININE 1.4 mg/dL (0.7-1.3); GLUCOSE,RANDOM 161 mg/dL (74-106); POTASSIUM 3.7 mmol/L (3.5-5.1); SODIUM 142 mmol/L (136-145)
--- NOTE | 2018-06-03 09:29 | PN ---
Physical Exam: SUBJECTIVE: Patient is a 67 y/o male with a history of HTN, renal ca s/p nephrectomy who is here for cellulitis. Patient has discussed management with his Residential Program Worker who is aware of his care. No acute events overnight. OBJECTIVE: Vital Signs Temperature 98.1 F 06/03/18 05:46 Pulse Rate 79 06/03/18 05:46 Respiratory Rate 18 06/03/18 05:46 Blood Pressure 121/60 06/03/18 05:46 O2 Sat by Pulse Oximetry (%) 98 06/02/18 21:00 GENERAL: The patient is awake, alert, and fully oriented, in no acute distress. EYES: PERRL, extraocular movements intact LUNGS: Breath sounds equal, clear to auscultation bilaterally HEART: Regular rate and rhythm, ABDOMEN: Soft, nontender, nondistended, normoactive bowel sounds EXTREMITIES: 2+ DP pulses, warm, well-perfused, no edema. PSYCH: Normal mood, normal affect. SKIN:R lower extremity, erythema, and warmth, ulcer on plantar surface of foot , 1x1 clean bases CBC, BMP 06/01/18 06:00 06/03/18 07:26 Active Medications Allopurinol (Zyloprim -) 100 mg PO DAILY [facility] Last Admin: 06/02/18 10:13 Dose: 100 mg Atorvastatin Calcium (Lipitor -) 10 mg PO HS [facility] Last Admin: 06/02/18 20:59 Dose: 10 mg Bicalutamide (Casodex -) 50 mg PO DAILY [facility] Last Admin: 06/02/18 10:12 Dose: 50 mg Cholecalciferol (Vitamin D3 -) 400 unit PO DAILY [facility] Furosemide (Lasix -) 40 mg PO DAILY [facility] Last Admin: 06/02/18 10:13 Dose: 40 mg Hydralazine HCl (Apresoline -) 50 mg PO BID [facility] Last Admin: 06/02/18 20:59 Dose: 50 mg Vancomycin HCl 1,250 mg/ (Dextrose) 250 mls @ 250 mls/2 hr IVPB DAILY@1200 [facility] ; Protocol Last Admin: 06/02/18 12:45 Dose: 250 mls/2 hr Insulin Aspart (Novolog Vial Sliding Scale -) 1 vial SQ HS [facility]; Protocol Last Admin: 06/02/18 20:59 Dose: Not Given Insulin Aspart (Novolog Vial Sliding Scale -) 1 vial SQ TIDAC [facility]; Protocol Last Admin: 06/03/18 06:21 Dose: 6 unit Insulin Detemir (Levemir Vial) 15 units SQ DAILY@0700 [facility] Last Admin: 06/03/18 06:22 Dose: 15 units Levothyroxine Sodium (Synthroid -) 75 mcg PO 0700 [facility] Last Admin: 06/03/18 06:21 Dose: 75 mcg Magnesium Oxide (Mag-Ox -) 400 mg PO DAILY [facility] Metoprolol Tartrate (Lopressor -) 150 mg PO BID [facility] Last Admin: 06/02/18 20:59 Dose: 150 mg Multivitamins/Minerals/Vitamin C (Tab-A-Vit -) 1 tab PO DAILY [facility] Rivaroxaban (Xarelto -) 15 mg PO DAILY@2200 [facility] Last Admin: 06/02/18 20:59 Dose: 15 mg Tamsulosin HCl (Flomax -) 0.4 mg PO HS [facility] Last Admin: 06/02/18 20:59 Dose: 0.4 mg ASSESSMENT/PLAN: Patient is a 67 y/o male with a history of HTN, renal ca s/p nephrectomy who is here for cellulitis. #Cellulitis - Zosyn 3.375 mg - Vancomycin 1 gm started, follow vanc through today, Vanc increased to 1.25 - Wound Cx: MRSA - per ID Mandie- patient likely has osteo consider bone biopsy - Patients preschool education director Dr Chery : only conservative management at this time , will exam patient and give recommendations - per tabby, Dr. Salguero, continue with wound care for the plantar surface wound and abscess - betadine dressing to right plantar foot area - afebrile #diabetes - A1C: 7.9 - Novolog ACHS - levemir 15 unit sq daily - f/u Dr. Su for endo consult #BPH - resume flomax #afib on pacemaker - Xarelto 15 mg po changed from 20 for nephrotoxicity #HTN - lasix 40 mg dialy - metoprolol 150 mg BID #hypothyroidism - levothyroxine 75 mcg Dispo: f/u Dr. Chery for treatment tomorrow, Chai recommendations for outpatient treatment Visit type - Emergency Visit Emergency Visit: No - New Patient This patient is new to me today: No - Critical Care Critical Care patient: No
[2018-06-03] MEDS: METOPROLOL TARTRATE 50 MG TABLET (FP) PO SCH (09:30)
[2018-06-03] MEDS: hydrALAZINE HCL 25 MG TABLET (FP) PO SCH (09:31)
[2018-06-03] MEDS: FUROSEMIDE 40 MG TABLET (FP) PO SCH (09:31)
[2018-06-03] MEDS: ALLOPURINOL 100 MG TABLET (FP) PO SCH (09:31)
[2018-06-03] MEDS: BICALUTAMIDE 50 MG TABLET (FP) PO SCH (09:32)
[2018-06-03] MEDS ORDERED: MULTIVITAMINS (DAILY MVI) TABLET (FP) PO SCH (10:00)
[2018-06-03] MEDS ORDERED: MAGNESIUM OXIDE 400 MG TABLET (FP) PO SCH (10:00)
[2018-06-03] MEDS ORDERED: CHOLECALCIFEROL (VITAMIN D3) 400 UNIT TABLET (FP) PO SCH (10:00)
--- NOTE | 2018-06-03 11:53 | PN ---
Progress Note (short form) - Note Progress Note: Denies any complaints Blood sugar Improving Eager to go home Vital Signs Period Temp Pulse Resp BP Sys/Farrar Pulse Ox Last 24 Hr 97.8 F-98.5 F 69-79 16-18 121-146/60-69 96-98 PE: AOx3 Neck: Supple HEENT: PERRL, EOMI Lungs:CTA CVS: S1S2 ABD: Benign Ext: Rt leg cellulitis Neuro: No focal deficit CMP Sodium 142 mmol/L (136-145) 06/03/18 07:26 Potassium 3.7 mmol/L (3.5-5.1) 06/03/18 07:26 Chloride 105 mmol/L (98-107) 06/03/18 07:26 Carbon Dioxide 24 mmol/L (21-32) 06/03/18 07:26 Anion Gap 13 MMOL/L (8-16) 06/03/18 07:26 BUN 28 mg/dL (7-18) H 06/03/18 07:26 Creatinine 1.4 mg/dL (0.7-1.3) H 06/03/18 07:26 Creat Clearance w eGFR 50.86 (>60) 06/03/18 07:26 POC Glucometer 191 UNITS (80-120) 06/03/18 04:58 Random Glucose 161 mg/dL (74-106) H 06/03/18 07:26 Hemoglobin A1c % 7.9 % (4.8-6.0) H D 05/30/18 06:30 Lactic Acid 1.2 mmol/L (0.0-2.0) 05/28/18 22:35 Calcium 9.2 mg/dL (8.5-10.1) 06/03/18 07:26 Phosphorus 4.2 mg/dL (2.5-4.9) 05/31/18 06:00 Magnesium 1.7 mg/dL (1.8-2.4) L 05/31/18 06:00 Iron 88 ug/dL (38-169) 05/31/18 06:00 TIBC 365 ug/dL (250-450) 05/31/18 06:00 Iron Saturation 24 % (15-55) 05/31/18 06:00 Ferritin 451.4 ng/ml (16.4-293.9) H 05/31/18 06:00 Total Bilirubin 0.7 mg/dL (0.2-1.0) 06/01/18 06:00 AST 23 U/L (15-37) 06/01/18 06:00 ALT 40 U/L (12-78) 06/01/18 06:00 Alkaline Phosphatase 41 U/L (45-117) L 06/01/18 06:00 C-Reactive Protein 1.6 MG/DL (0.00-0.3) H 05/30/18 06:30 Total Protein 7.1 g/dl (6.4-8.2) 06/01/18 06:00 Albumin 3.7 g/dl (3.4-5.0) 06/01/18 06:00 Current Medications Generic Name Dose Route Start Last Admin Trade Name Freq PRN Reason Stop Dose Admin Allopurinol 100 mg 05/30/18 10:00 06/03/18 09:31 Zyloprim - PO 100 mg DAILY [facility] Administration Atorvastatin Calcium 10 mg 05/29/18 22:00 06/02/18 20:59 Lipitor - PO 10 mg HS [facility] Administration Bicalutamide 50 mg 05/30/18 10:00 06/03/18 09:32 Casodex - PO 50 mg DAILY [facility] Administration Cholecalciferol 400 unit 06/03/18 10:00 06/03/18 09:31 Vitamin D3 - PO 400 unit DAILY [facility] Administration Furosemide 40 mg 05/30/18 10:00 06/03/18 09:31 Lasix - PO 40 mg DAILY [facility] Administration Hydralazine HCl 50 mg 05/29/18 22:00 06/03/18 09:31 Apresoline - PO 50 mg BID [facility] Administration Vancomycin HCl 1,250 mg/ 250 mls @ 250 mls/2 hr 06/02/18 12:00 06/02/18 12:45 Dextrose IVPB 250 mls/2 hr DAILY@1200 [facility] Administration Protocol Insulin Aspart 1 vial 06/01/18 22:00 06/02/18 20:59 Novolog Vial Sliding Scale - SQ Not Given HS [facility] Protocol Insulin Aspart 1 vial 06/02/18 16:30 06/03/18 06:21 Novolog Vial Sliding Scale - SQ 6 unit TIDAC [facility] Administration Protocol Insulin Detemir 15 units 06/03/18 07:00 06/03/18 06:22 Levemir Vial SQ 15 units DAILY@0700 [facility] Administration Levothyroxine Sodium 75 mcg 05/30/18 07:00 06/03/18 06:21 Synthroid - PO 75 mcg 0700 [facility] Administration Magnesium Oxide 400 mg 06/03/18 10:00 06/03/18 09:31 Mag-Ox - PO 400 mg DAILY [facility] Administration Metoprolol Tartrate 150 mg 05/29/18 22:00 06/03/18 09:30 Lopressor - PO 150 mg BID [facility] Administration Multivitamins/Minerals/Vitamin C 1 tab 06/03/18 10:00 06/03/18 09:31 Tab-A-Vit - PO 1 tab DAILY [facility] Administration Rivaroxaban 15 mg 05/31/18 22:00 06/02/18 20:59 Xarelto - PO 15 mg DAILY@2200 [facility] Administration Tamsulosin HCl 0.4 mg 05/29/18 22:00 06/02/18 20:59 Flomax - PO 0.4 mg HS [facility] Administration AP; RLE Cellulitis Renal insufficiency T2DM with hyperglycemia A Fib Obesity h/O Renal Ca s/p left Nephrectomy S/p Pacemaker Monitor BGM Change Novolog Q ACHS Levemir 15 units daily Will f/u
[2018-06-03] MEDS ORDERED: INSULIN (NOVOLOG) ASPART 100 UNITS/ML 10ML VIAL ONE (11:56)
--- NOTE | 2018-06-03 12:46 | PN ---
Teaching Attending Note Name of Resident: Ivette Cruz ATTENDING PHYSICIAN STATEMENT I saw and evaluated the patient. I reviewed the resident's note and discussed the case with the resident. I agree with the resident's findings and plan as documented. SUBJECTIVE: No fever or chills , No pain in foot. has no CP, SOB , or fever OBJECTIVE: NAD CV: RRR, 3/6 SM at [facility] and [place] [employer] Lungs: CTAB Ext: R foot with a dry ulcer on plantar aspect of the foot at the level of the 1st metatarsal head. DP 2+ , PT 1+ ASSESSMENT AND PLAN: 67 y/o man with h/o cellulitis, foot ulcers, renal cell ca s/p nephrectomy, prostate cancer , a fib bs/p PM , who presented with increased paina nd discharge from his R foot wounds. 1- R foot infection with MRSA. can't do MRI or bone scan. POdiatry was invited again by Dr. Cruz. await evaluation vanco trough today depending on podiatry plan, ( biopsy vs no Bx ) will decide on Abx 2- New onset DM : - cont Insulin levemir and SSI 3- EULA on CKD. improved cr 5- A fib : cont xarelto and BB 6-Cont home lasix Dispo : depends on POdiatry eval toda. if no biopsy will dc on po Abx x 14 days
[2018-06-03] MEDS: VANCOMYCIN 1,250 MG in DEXTROSE 5%-WATER - 250 ML IVPB SCH (14:50)
[2018-06-03 15:14] VITALS: BP 146/72; PULSE 67; TEMP 97.8
--- NOTE | 2018-06-03 16:00 | PN ---
Progress Note, Physician History of Present Illness: no specific issues patient otherwise stable leg doing well - Current Medication List Current Medications: Active Medications Allopurinol (Zyloprim -) 100 mg PO DAILY [facility] Last Admin: 06/03/18 09:31 Dose: 100 mg Atorvastatin Calcium (Lipitor -) 10 mg PO HS [facility] Last Admin: 06/02/18 20:59 Dose: 10 mg Bicalutamide (Casodex -) 50 mg PO DAILY [facility] Last Admin: 06/03/18 09:32 Dose: 50 mg Cholecalciferol (Vitamin D3 -) 400 unit PO DAILY [facility] Last Admin: 06/03/18 09:31 Dose: 400 unit Furosemide (Lasix -) 40 mg PO DAILY [facility] Last Admin: 06/03/18 09:31 Dose: 40 mg Hydralazine HCl (Apresoline -) 50 mg PO BID [facility] Last Admin: 06/03/18 09:31 Dose: 50 mg Vancomycin HCl 1,250 mg/ (Dextrose) 250 mls @ 250 mls/2 hr IVPB DAILY@1200 [facility] ; Protocol Last Admin: 06/03/18 14:50 Dose: 250 mls/2 hr Insulin Aspart (Novolog Vial Sliding Scale -) 1 vial SQ [facility]; Protocol Last Admin: 06/02/18 20:59 Dose: Not Given Insulin Aspart ([facility] Sliding Scale -) [facility] Protocol Last Admin: 06/03/18 12:06 Dose: 8 unit Insulin Detemir (Levemir Vial) 15 units SQ DAILY@0700 [facility] Last Admin: 06/03/18 06:22 Dose: 15 units Levothyroxine Sodium (Synthroid -) 75 mcg PO 0700 [facility] Last Admin: 06/03/18 06:21 Dose: 75 mcg Magnesium Oxide (Mag-Ox -) 400 mg PO DAILY [facility] Last Admin: 06/03/18 09:31 Dose: 400 mg Metoprolol Tartrate (Lopressor -) 150 mg PO BID [facility] Last Admin: 06/03/18 09:30 Dose: 150 mg Multivitamins/Minerals/Vitamin C (Tab-A-Vit -) 1 tab PO DAILY [facility] Last Admin: 06/03/18 09:31 Dose: 1 tab Rivaroxaban (Xarelto -) 15 mg PO DAILY@2200 [facility] Last Admin: 06/02/18 20:59 Dose: 15 mg Tamsulosin HCl (Flomax -) 0.4 mg PO HS [facility] Last Admin: 06/02/18 20:59 Dose: 0.4 mg - Objective Vital Signs: Vital Signs Temperature 97.8 F 06/03/18 14:13 Pulse Rate 67 06/03/18 14:13 Respiratory Rate 16 06/03/18 14:13 Blood Pressure 146/72 06/03/18 14:13 O2 Sat by Pulse Oximetry (%) 96 06/03/18 09:00 Constitutional: Yes: No Distress, Calm Respiratory: Yes: Regular, CTA Bilaterally Gastrointestinal: Yes: Normal Bowel Sounds, Soft Extremities: Yes: Other (cellulitis resolved) Wound/Incision: Yes: Clean/Dry Neurological: Yes: Alert, Oriented Labs: CBC, BMP 06/01/18 06:00 06/03/18 07:26 INR, PTT INR 2.04 (0.83-1.09) H 06/01/18 06:00 Assessment/Plan Problem List - Problems (1) Cellulitis Code(s): L03.90 - CELLULITIS, UNSPECIFIED Qualifiers: Site of cellulitis: extremity Site of cellulitis of extremity: lower extremity Laterality: right Qualified Code(s): L03.115 - Cellulitis of right lower limb (2) Afib Code(s): I48.91 - UNSPECIFIED ATRIAL FIBRILLATION Qualifiers: Atrial fibrillation type: persistent Qualified Code(s): I48.1 - Persistent atrial fibrillation (3) BPH (benign prostatic hyperplasia) Code(s): N40.0 - BENIGN PROSTATIC HYPERPLASIA WITHOUT LOWER URINRY TRACT SYMP Qualifiers: Lower urinary tract symptom presence: symptoms present Qualified Code(s): N40.1 - Benign prostatic hyperplasia with lower urinary tract symptoms (4) H/O prostate cancer Code(s): Z85.46 - PERSONAL HISTORY OF MALIGNANT NEOPLASM OF PROSTATE (5) H/O renal cell cancer Code(s): Z85.528 - PERSONAL HISTORY OF OTHER MALIGNANT NEOPLASM OF KIDNEY (6) H/O unilateral nephrectomy Code(s): Z90.5 - ACQUIRED ABSENCE OF KIDNEY (7) Pacemaker Code(s): Z95.0 - PRESENCE OF CARDIAC PACEMAKER Assessment/Plan 67 y.o. male with PMH of renal CA s/p nephrectomy, prostate CA, CKD, Atrial Fibrillation s/p PM, Lt charcot Fx, Rt foot bunion, and previous LE cellulitis presenting with RLE erythema/warmth refractory to oral antibiotics, hyperglycemia RLE Cellulitis Renal insufficiency Hyperglycemia abscess of the foot continue abx as planned rest as per the team
--- NOTE | 2018-06-03 16:11 | DS ---
Physical Exam: SUBJECTIVE: Patient is a 67 y/o male with a history of HTN, renal ca s/p nephrectomy who is here for cellulitis. Patient has discussed management with his Clinical Care Manager who is aware of his care. No acute events overnight. OBJECTIVE: Vital Signs Temperature 97.8 F 06/03/18 14:13 Pulse Rate 67 06/03/18 14:13 Respiratory Rate 16 06/03/18 14:13 Blood Pressure 146/72 06/03/18 14:13 O2 Sat by Pulse Oximetry (%) 96 06/03/18 09:00 PHYSICAL EXAM GENERAL: The patient is awake, alert, and fully oriented, in no acute distress. EYES: PERRL, extraocular movements intact LUNGS: Breath sounds equal, clear to auscultation bilaterally HEART: Regular rate and rhythm, ABDOMEN: Soft, nontender, nondistended, normoactive bowel sounds EXTREMITIES: 2+ DP pulses, warm, well-perfused, no edema. PSYCH: Normal mood, normal affect. SKIN:R lower extremity, erythema, and warmth, ulcer on plantar surface of foot , 1x1 clean bases LABS CBC, BMP 06/01/18 06:00 06/03/18 07:26 HOSPITAL COURSE: Date of Admission:05/28/18 Patient is a 67 y/o male with a history of HTN, renal ca s/p nephrectomy who presented for cellulitis of his left lower extremity. Patient has a history of non healing wound ulcers. Patients wound grew MRSA and he was treated with Vancomycin. Infectious Disease Dr. Lockwood, saw patient and treated the cellulitis with a plan for outpatient antibiotics. Per Patients Clinical Care Manager, Dr. Chery, patient will continue antibiotics outpatient to treat his cellulitis and will follow up with him for treatment of the chronic ulcers. Patient will complete 15 days of Doxycycline 100 mg BID. Patients Rivaroxaban was changed from 20 to 15 to be adjusted for creatinine clearance. While in the hospital the patient had an A1C of 7.9. Dr. Su was consulted and began the patient on Levemir 15 mg units in the morning. Patient will follow up as an outpatient for control of his diabetes. He was also sent home with a sliding scale to complete coverage of his sugars. Patient stable and discharged home with the appropriate followup. Foot Ankle Xray: no fracture or sublaxaition, swelling, foreign body or soft tissue air is not seen Date of Discharge: 06/03/18 Minutes to complete discharge: 36 Discharge Summary Reason For Visit: ATRIAL FIBRILLATION,CELLULITIS, Current Active Problems Chronic foot ulcer (Chronic) Condition: Improved - Instructions Diet, Activity, Other Instructions: You came to the hospital because of an infection on your Right lower leg. we gave you antibiotics to treat this infection. To complete treatment of your infection you will take: Doxycycline 100 mg by mouth twice a day for 15 days You should follow up with your Clinical Care Manager, Dr. Chery for treatment of your chronic ulcers and cellulitis. While you were here you were found to have diabetes. You will continue to follow up with Dr. Su for management of your diabetes. For treatment of your diabetes you will now take: Levemir 15 units daily in the morning You will need to monitor your sugar before every meal and before bed time. Please you the insulin sliding scale as seen below to appropriately treat your sugar levels: Sugar Level Dose of Insulin 100-150 0 units 151-200 2 units 201-250 4 units 251-300 6 units 301-350 8 units 351-400 10 units 400+ 12 units and call your doctor While in the hospital we adjusted your dose of Rivaroxaban (Xarelto). You will no longer take 20 mg. You will continue to take Rivaroxaban (Xarelto) 15mg by mouth daily. You should continue to take the rest of your home medications as prescribed. You should follow up with your primary care physician within one week. Please return to the ED if you have worsening symptoms, chest pain, shortness of breath, nausea, vomiting, or diarrhea. Take a diabetic diet ( loow carb , low fat diet ) you need eye exam yearly. please schedule one Referrals: Osorio Chery MD [Staff Physician] - 1 Week Arthur Ramires MD [Non Staff, Medical] - Patrick Su MD [Staff Physician] - 2 Weeks Disposition: HOME - Home Medications Comprehensive Discharge Medication List: Ambulatory Orders Allopurinol [Zyloprim -] 100 mg PO DAILY 04/02/17 Bicalutamide 50 mg PO DAILY 04/02/17 Simvastatin [Zocor -] 20 mg PO HS 04/02/17 Tamsulosin HCl 0.4 mg PO HS 04/02/17 hydrALAZINE HCL [Apresoline -] 50 mg PO BID 04/02/17 Fenofibrate 54 mg PO DAILY 04/04/17 Levothyroxine [Synthroid -] 75 mcg PO DAILY 04/04/17 Mirabegron [Myrbetriq] 50 mg PO HS 04/04/17 Collagenase Clostridium Hist. [Santyl -] 1 applic TP DAILY #1 tube 04/06/17 Furosemide [Lasix -] 40 mg PO DAILY tablet 04/06/17 Metoprolol Tartrate [Lopressor -] 150 mg PO BID 05/28/18 Leuprolide Acetate [Lupron Depot] 30 mg IM MONTHLY 05/29/18 Doxycycline Hyclate 100 mg PO BID #30 tablet 06/03/18 Insulin Detemir [Levemir Flextouch] 15 unit SQ DAILY #5 insuln.pen 06/03/18 Insulin Lispro [Humalog Kwikpen U-100] See Protocol SQ PRN #5 insuln.pen Lancets 1 each AC #100 each 06/03/18 Miscellaneous Medical Supply [Glucometer Device] 1 each SQ ASDIR #1 kit Miscellaneous Medical Supply [Glucometer Test Strips #100] 1 each SQ ASDIR #1 box 06/03/18 Rivaroxaban [Xarelto -] 15 mg PO DAILY@2200 #30 tablet 06/03/18 This patient is new to me today: No Emergency Visit: No Critical Care patient: No - Discharge Referral Referred to [facility] No
== END 2018-06-03 18:23 | disposition home or self-care (01) | DRG 603 ==
LOC: JER 17:33 → JERBED 19:13 → J7W 05-29 04:22 → J4S 06-01 20:22
PROVIDERS: ADMIT Internal Medicine; ATTEND Internal Medicine
DX: L03.115 Cellulitis of right lower limb (principal); E87.2 Acidosis; N17.9 Acute kidney failure, unspecified; L97.528 Non-pressure chronic ulcer of other part of left foot with other specified severity; I48.1 Persistent atrial fibrillation; C61 Malignant neoplasm of prostate; E11.65 Type 2 diabetes mellitus with hyperglycemia; I48.91 Unspecified atrial fibrillation; E78.00 Pure hypercholesterolemia, unspecified; E66.9 Obesity, unspecified; N40.1 Benign prostatic hyperplasia with lower urinary tract symptoms; E03.9 Hypothyroidism, unspecified; M19.90 Unspecified osteoarthritis, unspecified site; Z68.33 Body mass index [BMI] 33.0-33.9, adult; B95.62 Methicillin resistant Staphylococcus aureus infection as the cause of diseases classified elsewhere; D64.9 Anemia, unspecified; E11.621 Type 2 diabetes mellitus with foot ulcer; E11.610 Type 2 diabetes mellitus with diabetic neuropathic arthropathy; E11.42 Type 2 diabetes mellitus with diabetic polyneuropathy; E11.22 Type 2 diabetes mellitus with diabetic chronic kidney disease; N18.9 Chronic kidney disease, unspecified; M21.611 Bunion of right foot; E86.0 Dehydration; I12.9 Hypertensive chronic kidney disease with stage 1 through stage 4 chronic kidney disease, or unspecified chronic kidney disease; Z86.73 Personal history of transient ischemic attack (TIA), and cerebral infarction without residual deficits; Z85.528 Personal history of other malignant neoplasm of kidney; Z95.0 Presence of cardiac pacemaker; Z90.5 Acquired absence of kidney; Z96.653 Presence of artificial knee joint, bilateral
CPT/HCPCS: 36415; 73610-TC-RT-FY; 73630-TC-RT-FY; 80048; 80053; 81003; 82728; 82962; 83036; 83540; 83550; 83605; 83735; 84100; 85025; 85027; 85610; 85651; 86140; 87040; 87070; 87086; 87186; 87205; 93005; 93010; 97116-GP; 97161-GP; 99284-25; G0480; J7030

== ENCOUNTER 2019-08-13 23:14 | Emergency (ER) | payer OTHER ==
--- NOTE | 2019-08-13 23:35 | PDOC ---
History of Present Illness - General Stated Complaint: HEAVY NOSE BLEEDING Time Seen by Provider: 08/13/19 23:32 - History of Present Illness Initial Comments: 08/13/19 23:34 68 yo M PMH renal CA s/p nephrectomy, prostate CA, CKD, atrial fibrillation on Xarelto and metoprolol, h/o LE cellulitis, p/w epistaxis from R nostril. Reportedly began on Thursday, saw ENT at [facility] on Thursday who cauterized it, kept bleeding, went in and placed nasal tampon, no bleeding Thursday , began again last night. Reports that he had stopped taking his Xarelto for and Thursday, but then took it again yesterday. Patient also drinks 3-4 beers daily, last drink 2 hours before arrival to ED. Has follow-up ENT appointment on Thursday. Denies CP, SOB, fevers/chills, recent illness. Past History - Past Medical History Allergies/Adverse Reactions: Allergies Allergy/AdvReac Type Severity Reaction Status Date / Time No Known Drug Allergies Allergy Verified 05/28/18 17:36 Home Medications: Ambulatory Orders Allopurinol [Zyloprim -] 100 mg PO DAILY 04/02/17 Bicalutamide 50 mg PO DAILY 04/02/17 Simvastatin [Zocor -] 20 mg PO HS 04/02/17 Tamsulosin HCl 0.4 mg PO HS 04/02/17 hydrALAZINE HCL [Apresoline -] 50 mg PO BID 04/02/17 Fenofibrate 54 mg PO DAILY 04/04/17 Levothyroxine [Synthroid -] 75 mcg PO DAILY 04/04/17 Mirabegron [Myrbetriq] 50 mg PO HS 04/04/17 Collagenase Clostridium Hist. [Santyl -] 1 applic TP DAILY #1 tube 04/06/17 Furosemide [Lasix -] 40 mg PO DAILY tablet 04/06/17 Metoprolol Tartrate [Lopressor -] 150 mg PO BID 05/28/18 Leuprolide Acetate [Lupron Depot] 30 mg IM MONTHLY 05/29/18 Doxycycline Hyclate 100 mg PO BID #30 tablet 06/03/18 Insulin Detemir [Levemir Flextouch] 15 unit SQ DAILY #5 insuln.pen 06/03/18 Insulin Lispro [Humalog Kwikpen U-100] See Protocol SQ PRN #5 insuln.pen Lancets 1 each AC #100 each 06/03/18 Miscellaneous Medical Supply [Glucometer Device] 1 each SQ ASDIR #1 kit Miscellaneous Medical Supply [Glucometer Test Strips #100] 1 each SQ ASDIR #1 box 06/03/18 Rivaroxaban [Xarelto] 15 mg PO DAILY@2200 #30 tablet 06/03/18 Anemia: No Asthma: No Cancer: Yes (PROSTATE CANCER 12/23 HORMONE INJECTIONS, RENAL CA) Cardiac Disorders: Yes (bradycardia,afib) CVA: Yes (DENIES TIA) COPD: No CHF: (ATRIAL FIB) Dementia: No Diabetes: No GI Disorders: No Disorders: Yes (enlarged prostate) HTN: Yes Hypercholesterolemia: Yes Liver Disease: No Seizures: No Thyroid Disease: Yes (hypothyroid) - Surgical History Abdominal Surgery: Yes (LEFT KIDNEY REMOVED) Appendectomy: No Cardiac Surgery: Yes (ppm) Cholecystectomy: No Lung Surgery: No Neurologic Surgery: No Orthopedic Surgery: Yes (bilateral knee replacement) - Immunization History Immunization Up to Date: Yes - Psycho Social/Smoking Cessation Hx Smoking Status: No Smoking History: Never smoked Have you smoked in the past 12 months: No Number of Cigarettes Smoked Daily: 0 Hx Alcohol Use: No Drug/Substance Use Hx: No Substance Use Type: Alcohol Hx Substance Use Treatment: No Review of Systems - Review of Systems Able to Perform ROS?: Yes Constitutional: No: Chills, Diaphoresis, Fever HEENTM: Yes: Nose Bleeding. No: Recent change in vision, Tinnitus, Hearing Loss , Difficulty Swallowing Respiratory: No: Cough, Shortness of Breath Cardiac (ROS): No: Chest Pain, Edema, Irregular Heart Rate, Lightheadedness, Palpitations, Syncope, Chest Tightness ABD/GI: No: Constipated, Diarrhea, Nausea, Vomiting : No: Flank Pain Musculoskeletal: No: Back Pain Neurological: No: Headache, Numbness, Tingling, Weakness, Unsteady Gait, Ataxia , Dizziness Hematologic/Lymphatic: Yes: Easy Bleeding *Physical Exam - Physical Exam Comments: 08/14/19 00:40 Gen: well-developed, well-nourished, NAD Neuro: AAOX4, CN II-XII intact, FTN intact, EOMI, PERRLA, 5/5 strength, SILT HEENT: atraumatic, normocephalic, R nasal tampon with slow oozing, no bleeding in L nostril Neck: trachea midline, supple CV: regular rate, irregularly irregular, systolic murmur Pulm: CTA b/l, no wheezing Abd: soft, non-distended, non-tender MSK: full ROM, intact pulses Extr: no edema, no deformities Skin: warm, dry ED Treatment Course - LABORATORY CBC & Chemistry Diagram: 08/14/19 00:30 08/14/19 00:30 Medical Decision Making - Medical Decision Making 08/14/19 00:39 Epistaxis likely 2/2 to Xarelto and alcohol use. - CBC, CMP, coags, T+S - education on proper compression - likely dc with close follow up 08/14/19 00:57 Hgb 11.4, baseline around 12. 08/14/19 01:35 EDT Patient phone number is [phone]. Will call if there are concerning findings on CMP. Dc with close outpatient followup. Discharge - Discharge Information Problems reviewed: Yes Clinical Impression/Diagnosis: Epistaxis - Follow up/Referral Referrals: Arthur Ramires MD [Primary Care Provider] - - Patient Discharge Instructions Patient Printed Discharge Instructions: DI for Nosebleed Additional Instructions: You were seen with a nosebleed for several days. This is likely to be a side effect of Xarelto, worsened by alcohol use. Stop taking Xarelto for now and see your primary care doctor and record filing clerk in the next couple of days to go over options. Go to your ENT appointment on Thursday as well. Return to the ED if you develop worsening symptoms, or new symptoms such as shortness of breath, chest pain, or dizziness. - Post Discharge Activity
--- NOTE | 2019-08-13 23:36 | PDOC ---
Attending Attestation - Resident Resident Name: AdrianoShaniqua - HPI HPI: 08/14/19 01:22 EST Pt presents to the ED complaining of persistent nose bleed. Was seen by ENT, with placement of nasal tampon. Returns to the ED because he is having persistent oozing around the tampon without severe bleeding. patient is on xarelto for a fib, which he has continued to take. - Physicial Exam PE: 08/14/19 01:24 EST Agree with resident exam. Patinet is alert and oriented x 3. Nasal tampon is in place in R nare with minimal oozing. - Medical Decision Making 08/14/19 01:39 EST Pt presents to the Ed complaining of nose bleed. Minimal bleeding at this time. Will advise patient to hold xarelto until Thursday. Will discharge home.
[2019-08-14 00:46] LABS: BASO % 0.9 % (0-2.0); EOS % 3.9 % (0-4.5); HEMOGLOBIN 11.4 GM/dL (11.7-16.9); LYMPH % 29.8 % (8-40); MCH 34.1 pg (25.7-33.7); MCHC 35.7 g/dl (32.0-35.9); MEAN CELL VOLUME 95.4 fl (80-96); MEAN PLT VOLUME 7.4 fl (7.5-11.1); MONO % 8.7 % (3.8-10.2); NEUT % 56.7 % (42.8-82.8); PLATELET COUNT 205 K/MM3 (134-434); RBC 3.35 M/mm3 (4.00-5.60); RDW 14.3 % (11.9-15.9); WHITE BLOOD COUNT 8.1 K/mm3 (4.0-10.0)
[2019-08-14 00:47] VITALS: TEMP 98; BMI 31.0
[2019-08-14 01:11] LABS: INR 1.34 (0.83-1.09); PROTHROMBIN TIME (PATIENT) 15.8 SEC (9.7-13.0)
[2019-08-14 01:56] VITALS: BP 131/63; PULSE 76
[2019-08-14 02:24] LABS: CREATININE 1.4 mg/dL (0.55-1.3)
[2019-08-14 02:25] LABS: BILIRUBIN,TOTAL 0.8 mg/dL (0.2-1); TOT PROT 7.4 g/dl (6.4-8.2)
[2019-08-14 07:26] LABS: BLOOD UREA NITROGEN 29.8 mg/dL (7-18); CALCIUM 9.3 mg/dL (8.5-10.1); POTASSIUM 3.6 mmol/L (3.5-5.1)
== END 2019-08-14 01:55 | disposition home or self-care (01) ==
LOC: JER 23:14
DX: R04.0 Epistaxis (principal); D68.32 Hemorrhagic disorder due to extrinsic circulating anticoagulants; T45.515A Adverse effect of anticoagulants, initial encounter; Y92.038 Other place in apartment as the place of occurrence of the external cause; I48.91 Unspecified atrial fibrillation; Z79.01 Long term (current) use of anticoagulants; I13.10 Hypertensive heart and chronic kidney disease without heart failure, with stage 1 through stage 4 chronic kidney disease, or unspecified chronic kidney disease; N18.9 Chronic kidney disease, unspecified; R00.1 Bradycardia, unspecified; Z95.0 Presence of cardiac pacemaker; E03.9 Hypothyroidism, unspecified; E78.00 Pure hypercholesterolemia, unspecified; N40.0 Benign prostatic hyperplasia without lower urinary tract symptoms; C61 Malignant neoplasm of prostate; Z86.73 Personal history of transient ischemic attack (TIA), and cerebral infarction without residual deficits; Z85.46 Personal history of malignant neoplasm of prostate; Z85.528 Personal history of other malignant neoplasm of kidney; Z90.5 Acquired absence of kidney; Z96.653 Presence of artificial knee joint, bilateral
CPT/HCPCS: 36415; 80053; 83735; 85025; 85610; 85730; 86850; 86900; 86901; 99283-25

== ENCOUNTER 2021-05-08 14:19 | Inpatient (IN) | payer OTHER ==
[2021-05-08 15:15] LABS: BASO % 0.8 % (0-2.0); EOS % 2.3 % (0-4.5); HEMATOCRIT 28.8 % (35.4-49); HEMOGLOBIN 9.8 GM/dL (11.7-16.9); LYMPH % 21.2 % (8-40); MCH 32.3 pg (25.7-33.7); MCHC 34.2 g/dl (32.0-35.9); MEAN CELL VOLUME 94.5 fl (80-96); MEAN PLT VOLUME 7.7 fl (7.5-11.1); MONO % 6.2 % (3.8-10.2); NEUT % 69.5 % (42.8-82.8); PLATELET COUNT 273 10^3/uL (134-434); RBC 3.05 M/mm3 (4.00-5.60); RDW 14.4 % (11.9-15.9)
[2021-05-08 15:27] LABS: INR 1.83 (0.83-1.09); PROTHROMBIN TIME (PATIENT) 22.1 SEC (9.7-13.0)
[2021-05-08 15:29] LABS: ACTIVATED PTT 40.3 SECONDS (25.2-36.5)
[2021-05-08 15:43] LABS: ALBUMIN 3.9 g/dl (3.4-5.0); CALCIUM 9.2 mg/dL (8.5-10.1)
[2021-05-08 15:44] LABS: BLOOD UREA NITROGEN 32.7 mg/dL (7-18)
[2021-05-08 15:46] LABS: CREATININE 1.6 mg/dL (0.55-1.3)
[2021-05-08 15:48] LABS: BILIRUBIN,TOTAL 0.7 mg/dL (0.2-1); TOT PROT 7.1 g/dl (6.4-8.2)
[2021-05-08] MEDS: LACTATED RINGERS SOLUTION 1,000 ML/1,000 ML INFUS.BAG IV SCH (18:00)
[2021-05-08 21:20] LABS: BASO % 0.5 % (0-2.0); EOS % 2.4 % (0-4.5); HEMATOCRIT 26.3 % (35.4-49); LYMPH % 24.1 % (8-40); MCH 32.2 pg (25.7-33.7); MCHC 34.2 g/dl (32.0-35.9); MEAN CELL VOLUME 94.1 fl (80-96); MEAN PLT VOLUME 7.6 fl (7.5-11.1); MONO % 8.2 % (3.8-10.2); NEUT % 64.8 % (42.8-82.8); PLATELET COUNT 231 10^3/uL (134-434); WHITE BLOOD COUNT 9.9 K/mm3 (4.0-10.0)
[2021-05-09 01:24] LABS: BASO % 0.7 % (0-2.0); EOS % 2.6 % (0-4.5); HEMATOCRIT 25.2 % (35.4-49); HEMOGLOBIN 8.7 GM/dL (11.7-16.9); LYMPH % 30.4 % (8-40); MCH 31.9 pg (25.7-33.7); MCHC 34.4 g/dl (32.0-35.9); MEAN CELL VOLUME 92.6 fl (80-96); MEAN PLT VOLUME 7.5 fl (7.5-11.1); MONO % 8.6 % (3.8-10.2); NEUT % 57.7 % (42.8-82.8); PLATELET COUNT 214 10^3/uL (134-434); RBC 2.72 M/mm3 (4.00-5.60); RDW 14.1 % (11.9-15.9); WHITE BLOOD COUNT 9.1 K/mm3 (4.0-10.0)
[2021-05-09] MEDS ORDERED: CEFTRIAXONE 2 GM in DEXTROSE 5%-WATER - 50 ML IVPB ONE (01:30)
[2021-05-09] MEDS ORDERED: DEXTROSE 5%-WATER - 50 ML IVPB ONE (01:35)
[2021-05-09 06:29] LABS: BASO % 0.8 % (0-2.0); EOS % 3.3 % (0-4.5); HEMATOCRIT 25.4 % (35.4-49); HEMOGLOBIN 8.8 GM/dL (11.7-16.9); LYMPH % 31.2 % (8-40); MCH 32.5 pg (25.7-33.7); MCHC 34.6 g/dl (32.0-35.9); MEAN CELL VOLUME 93.9 fl (80-96); MEAN PLT VOLUME 7.9 fl (7.5-11.1); MONO % 7.3 % (3.8-10.2); NEUT % 57.4 % (42.8-82.8); PLATELET COUNT 240 10^3/uL (134-434); RBC 2.71 M/mm3 (4.00-5.60); RDW 13.9 % (11.9-15.9); WHITE BLOOD COUNT 9.1 K/mm3 (4.0-10.0)
[2021-05-09 06:36] LABS: INR 1.43 (0.83-1.09); PROTHROMBIN TIME (PATIENT) 17.4 SEC (9.7-13.0)
[2021-05-09 06:39] LABS: ACTIVATED PTT 34.6 SECONDS (25.2-36.5)
[2021-05-09 06:47] LABS: ALBUMIN 3.5 g/dl (3.4-5.0); BLOOD UREA NITROGEN 27.9 mg/dL (7-18); CALCIUM 8.7 mg/dL (8.5-10.1); MAGNESIUM 1.8 mg/dL (1.8-2.4)
[2021-05-09 06:50] LABS: CREATININE 1.4 mg/dL (0.55-1.3)
[2021-05-09 06:51] LABS: PHOSPHOROUS 4.1 mg/dL (2.5-4.9)
[2021-05-09 06:52] LABS: BILIRUBIN,TOTAL 0.7 mg/dL (0.2-1); TOT PROT 6.5 g/dl (6.4-8.2)
[2021-05-09] MEDS ORDERED: SODIUM CHLORIDE 500 ML IV STA (08:50)
[2021-05-09] MEDS ORDERED: MUPIROCIN 2% TOPICAL OINTMENT FOR DECOLONIZATION NS SCH (10:00)
[2021-05-09] MEDS ORDERED: ALPRAZolam 0.25 MG TABLET PO PRN (13:20)
[2021-05-09] MEDS: LACTATED RINGERS SOLUTION 1,000 ML/1,000 ML INFUS.BAG IV SCH ×2 (17:25→19:20)
[2021-05-09] MEDS ORDERED: CHLORHEXIDINE GLUCONATE 4% CLEANSER FOR DECOLONIZATION TP SCH (22:00)
[2021-05-09] MEDS ORDERED: METOPROLOL TARTRATE 50 MG TABLET (FP) PO SCH (22:00)
[2021-05-09] MEDS ORDERED: TAMSULOSIN HCL 0.4 MG CAP PO SCH (22:00)
[2021-05-09] MEDS ORDERED: hydrALAZINE HCL 50 MG TABLET (FP) PO SCH (22:00)
[2021-05-09] MEDS ORDERED: VASCEPA 2 GM PO SCH (22:00)
[2021-05-09] MEDS ORDERED: ATORVASTATIN CA 10 MG TABLET (FP) PO SCH (22:00)
[2021-05-09] MEDS: CHLORHEXIDINE GLUCONATE 4% CLEANSER FOR DECOLONIZATION TP SCH (22:30)
[2021-05-09] MEDS: hydrALAZINE HCL 50 MG TABLET (FP) PO SCH (22:30)
[2021-05-09] MEDS: TAMSULOSIN HCL 0.4 MG CAP PO SCH (22:32)
[2021-05-09] MEDS: MUPIROCIN 2% TOPICAL OINTMENT FOR DECOLONIZATION NS SCH (22:32)
[2021-05-09] MEDS: METOPROLOL TARTRATE 50 MG TABLET (FP) PO SCH (22:33)
[2021-05-09] MEDS: ATORVASTATIN CA 10 MG TABLET (FP) PO SCH (22:33)
[2021-05-10 06:49] LABS: BASO % 0.5 % (0-2.0); EOS % 2.2 % (0-4.5); HEMATOCRIT 20.7 % (35.4-49); HEMOGLOBIN 7.3 GM/dL (11.7-16.9); LYMPH % 29.6 % (8-40); MCH 32.8 pg (25.7-33.7); MCHC 35.2 g/dl (32.0-35.9); MEAN CELL VOLUME 93.3 fl (80-96); MEAN PLT VOLUME 8.1 fl (7.5-11.1); NEUT % 59.7 % (42.8-82.8); PLATELET COUNT 195 10^3/uL (134-434); RBC 2.22 M/mm3 (4.00-5.60); RDW 14.2 % (11.9-15.9); WHITE BLOOD COUNT 7.9 K/mm3 (4.0-10.0)
[2021-05-10] MEDS: LEVOTHYROXINE NA 75 MCG TABLET (FP) PO SCH (06:53)
[2021-05-10 06:55] LABS: INR 1.2 (0.83-1.09); PROTHROMBIN TIME (PATIENT) 14.5 SEC (9.7-13.0)
[2021-05-10] MEDS ORDERED: LEVOTHYROXINE NA 75 MCG TABLET (FP) PO SCH (07:00)
[2021-05-10 07:10] LABS: CHLORIDE 110 mmol/L (98-107); SODIUM 144 mmol/L (136-145)
[2021-05-10 07:16] LABS: ALBUMIN 3.2 g/dl (3.4-5.0); ANION GAP 9 MMOL/L (8-16); BLOOD UREA NITROGEN 22.4 mg/dL (7-18); CALCIUM 8.7 mg/dL (8.5-10.1); CO2 24 mmol/L (21-32); MAGNESIUM 1.8 mg/dL (1.8-2.4)
[2021-05-10 07:17] LABS: GLUCOSE,RANDOM 109 mg/dL (74-106)
[2021-05-10 07:18] LABS: SGPT/ALT 25 U/L (13-61)
[2021-05-10 07:19] LABS: CREATININE 1.3 mg/dL (0.55-1.3); IRON SERUM 78 ug/dL (50-175); PHOSPHOROUS 4.2 mg/dL (2.5-4.9); SGOT/AST 22 U/L (15-37)
[2021-05-10 07:20] LABS: TOTAL IRON BINDING CAPACITY 282 ug/dL (250-450)
[2021-05-10 07:21] LABS: BILIRUBIN,TOTAL 0.5 mg/dL (0.2-1); TOT PROT 5.8 g/dl (6.4-8.2)
[2021-05-10 07:22] LABS: ALK PHOS 38 U/L (45-117)
[2021-05-10] MEDS ORDERED: PT OWN MED DRAWER 7, Y5N ONE (09:34)
[2021-05-10] MEDS ORDERED: cefTRIAXone SODIUM 1 GM VIAL ONE (09:35)
[2021-05-10] MEDS ORDERED: DEXTROSE 5%-WATER - 50 ML IVPB ONE (09:35)
[2021-05-10] MEDS: CEFTRIAXONE 1 GM in DEXTROSE 5%-WATER - 50 ML IVPB SCH (09:40)
[2021-05-10] MEDS: METOPROLOL TARTRATE 50 MG TABLET (FP) PO SCH ×2 (09:45→21:08)
[2021-05-10] MEDS: MULTIVITAMINS (DAILY MVI) TABLET (FP) PO SCH (09:46)
[2021-05-10] MEDS: CHOLECALCIFEROL (VIT D3) 1,000 UNIT (25 MCG) TABLET PO SCH (09:46)
[2021-05-10] MEDS: ALLOPURINOL 100 MG TABLET (FP) PO SCH (09:46)
[2021-05-10] MEDS: hydrALAZINE HCL 50 MG TABLET (FP) PO SCH ×2 (09:46→21:08)
[2021-05-10] MEDS: AMIODARONE HCL 200 MG TABLET PO SCH (09:47)
[2021-05-10] MEDS: LACTATED RINGERS SOLUTION 1,000 ML/1,000 ML INFUS.BAG IV SCH (09:51)
[2021-05-10] MEDS ORDERED: CEFTRIAXONE 1 GM in DEXTROSE 5%-WATER - 50 ML IVPB SCH (10:00)
[2021-05-10] MEDS ORDERED: AMIODARONE HCL 200 MG TABLET PO SCH (10:00)
[2021-05-10] MEDS ORDERED: ALLOPURINOL 100 MG TABLET (FP) PO SCH (10:00)
[2021-05-10] MEDS ORDERED: FUROSEMIDE 40 MG TABLET (FP) PO SCH (10:00)
[2021-05-10] MEDS ORDERED: MULTIVITAMINS (DAILY MVI) TABLET (FP) PO SCH (10:00)
[2021-05-10] MEDS ORDERED: CHOLECALCIFEROL (VIT D3) 1,000 UNIT (25 MCG) TABLET PO SCH (10:00)
[2021-05-10 17:50] LABS: HEMATOCRIT 21.5 % (35.4-49); HEMOGLOBIN 7.5 GM/dL (11.7-16.9); MCH 32.1 pg (25.7-33.7); MCHC 34.7 g/dl (32.0-35.9); MEAN CELL VOLUME 92.7 fl (80-96); MEAN PLT VOLUME 7.5 fl (7.5-11.1); PLATELET COUNT 185 10^3/uL (134-434); RBC 2.32 M/mm3 (4.00-5.60); RDW 14.1 % (11.9-15.9); WHITE BLOOD COUNT 7.8 K/mm3 (4.0-10.0)
[2021-05-10] MEDS: ATORVASTATIN CA 10 MG TABLET (FP) PO SCH (21:08)
[2021-05-10] MEDS: MUPIROCIN 2% TOPICAL OINTMENT FOR DECOLONIZATION NS SCH (21:08)
[2021-05-10] MEDS: ALPRAZolam 0.25 MG TABLET PO PRN (21:08)
[2021-05-10] MEDS: TAMSULOSIN HCL 0.4 MG CAP PO SCH (21:08)
[2021-05-10] MEDS: CHLORHEXIDINE GLUCONATE 4% CLEANSER FOR DECOLONIZATION TP SCH (21:09)
[2021-05-11] MEDS: LEVOTHYROXINE NA 75 MCG TABLET (FP) PO SCH (06:12)
[2021-05-11 07:36] LABS: BASO % 0.9 % (0-2.0); EOS % 3.7 % (0-4.5); HEMATOCRIT 20.5 % (35.4-49); HEMOGLOBIN 7.3 GM/dL (11.7-16.9); LYMPH % 29.7 % (8-40); MCHC 35.6 g/dl (32.0-35.9); MEAN CELL VOLUME 92.7 fl (80-96); MEAN PLT VOLUME 7.8 fl (7.5-11.1); NEUT % 58.7 % (42.8-82.8); PLATELET COUNT 193 10^3/uL (134-434); RBC 2.21 M/mm3 (4.00-5.60); RDW 14.4 % (11.9-15.9); WHITE BLOOD COUNT 7.6 K/mm3 (4.0-10.0)
[2021-05-11 07:38] LABS: INR 1.17 (0.83-1.09); PROTHROMBIN TIME (PATIENT) 14.3 SEC (9.7-13.0)
[2021-05-11] MEDS ORDERED: cefTRIAXone SODIUM 1 GM VIAL ONE (08:58)
[2021-05-11] MEDS ORDERED: DEXTROSE 5%-WATER - 50 ML IVPB ONE (08:59)
[2021-05-11] MEDS: MUPIROCIN 2% TOPICAL OINTMENT FOR DECOLONIZATION NS SCH ×2 (09:15→09:17)
[2021-05-11] MEDS: CEFTRIAXONE 1 GM in DEXTROSE 5%-WATER - 50 ML IVPB SCH (09:15)
[2021-05-11] MEDS: AMIODARONE HCL 200 MG TABLET PO SCH (09:16)
[2021-05-11] MEDS: ALLOPURINOL 100 MG TABLET (FP) PO SCH (09:16)
[2021-05-11] MEDS: MULTIVITAMINS (DAILY MVI) TABLET (FP) PO SCH (09:16)
[2021-05-11] MEDS: CHOLECALCIFEROL (VIT D3) 1,000 UNIT (25 MCG) TABLET PO SCH (09:16)
[2021-05-11] MEDS: METOPROLOL TARTRATE 50 MG TABLET (FP) PO SCH ×2 (09:16→21:48)
[2021-05-11] MEDS: hydrALAZINE HCL 50 MG TABLET (FP) PO SCH ×2 (09:17→21:49)
[2021-05-11 09:42] LABS: CALCIUM 8.5 mg/dL (8.5-10.1)
[2021-05-11 09:43] LABS: BLOOD UREA NITROGEN 14.1 mg/dL (7-18)
[2021-05-11 09:46] LABS: CREATININE 1.2 mg/dL (0.55-1.3)
[2021-05-11] MEDS ORDERED: PT OWN MED DRAWER 7, Y5N ONE (14:45)
[2021-05-11] MEDS: BICALUTAMIDE 50 MG TABLET (FP) PO SCH (15:22)
[2021-05-11] MEDS: TAMSULOSIN HCL 0.4 MG CAP PO SCH (21:49)
[2021-05-11] MEDS: ALPRAZolam 0.25 MG TABLET PO PRN (21:49)
[2021-05-11] MEDS: ATORVASTATIN CA 10 MG TABLET (FP) PO SCH (21:49)
[2021-05-12] MEDS: LEVOTHYROXINE NA 75 MCG TABLET (FP) PO SCH (06:25)
[2021-05-12 08:06] LABS: BASO % 0.6 % (0-2.0); EOS % 3.4 % (0-4.5); HEMATOCRIT 19.5 % (35.4-49); LYMPH % 27.5 % (8-40); MCH 33.3 pg (25.7-33.7); MCHC 35.1 g/dl (32.0-35.9); MEAN CELL VOLUME 94.7 fl (80-96); MEAN PLT VOLUME 8.1 fl (7.5-11.1); MONO % 6.4 % (3.8-10.2); NEUT % 62.1 % (42.8-82.8); PLATELET COUNT 190 10^3/uL (134-434); RBC 2.06 M/mm3 (4.00-5.60); RDW 14.5 % (11.9-15.9); WHITE BLOOD COUNT 7.7 K/mm3 (4.0-10.0)
[2021-05-12 08:10] LABS: CALCIUM 8.1 mg/dL (8.5-10.1)
[2021-05-12 08:11] LABS: BLOOD UREA NITROGEN 13.9 mg/dL (7-18); INR 1.13 (0.83-1.09); MAGNESIUM 1.5 mg/dL (1.8-2.4); PROTHROMBIN TIME (PATIENT) 13.9 SEC (9.7-13.0)
[2021-05-12 08:14] LABS: CREATININE 1.3 mg/dL (0.55-1.3); PHOSPHOROUS 4.3 mg/dL (2.5-4.9)
[2021-05-12 08:35] LABS: HEMOGLOBIN 6.8 GM/dL (11.7-16.9)
[2021-05-12] MEDS ORDERED: PT OWN MED DRAWER 7, Y5N ONE ×2 (09:15→19:45)
[2021-05-12] MEDS ORDERED: DEXTROSE 5%-WATER - 50 ML IVPB ONE (09:16)
[2021-05-12] MEDS ORDERED: cefTRIAXone SODIUM 1 GM VIAL ONE (09:16)
[2021-05-12] MEDS: hydrALAZINE HCL 50 MG TABLET (FP) PO SCH ×2 (09:34→22:31)
[2021-05-12] MEDS: BICALUTAMIDE 50 MG TABLET (FP) PO SCH (09:34)
[2021-05-12] MEDS: AMIODARONE HCL 200 MG TABLET PO SCH (09:39)
[2021-05-12] MEDS: METOPROLOL TARTRATE 50 MG TABLET (FP) PO SCH ×2 (09:40→22:31)
[2021-05-12] MEDS: ALLOPURINOL 100 MG TABLET (FP) PO SCH (09:41)
[2021-05-12] MEDS: CEFTRIAXONE 1 GM in DEXTROSE 5%-WATER - 50 ML IVPB SCH (09:41)
[2021-05-12] MEDS: MULTIVITAMINS (DAILY MVI) TABLET (FP) PO SCH (09:41)
[2021-05-12] MEDS: CHOLECALCIFEROL (VIT D3) 1,000 UNIT (25 MCG) TABLET PO SCH (09:41)
[2021-05-12] MEDS ORDERED: POLYETHYLENE GLYCOL (HEALTHYLAX) 3350 17 GM PACKET PO SCH (10:00)
[2021-05-12] MEDS ORDERED: MAGNESIUM OXIDE 400 MG TABLET (FP) PO ONE (15:11)
[2021-05-12] MEDS: PANTOPRAZOLE 40 MG TABLET PO SCH (17:09)
[2021-05-12] MEDS: POLYETHYLENE GLYCOL (HEALTHYLAX) 3350 17 GM PACKET PO SCH (22:31)
[2021-05-12] MEDS: TAMSULOSIN HCL 0.4 MG CAP PO SCH (22:31)
[2021-05-12] MEDS: ATORVASTATIN CA 10 MG TABLET (FP) PO SCH (22:31)
[2021-05-12] MEDS: ALPRAZolam 0.25 MG TABLET PO PRN (22:32)
[2021-05-13] MEDS: LEVOTHYROXINE NA 75 MCG TABLET (FP) PO SCH (06:36)
[2021-05-13] MEDS: POLYETHYLENE GLYCOL (HEALTHYLAX) 3350 17 GM PACKET PO SCH ×3 (06:36→21:50)
[2021-05-13 07:49] LABS: BASO % 0.9 % (0-2.0); EOS % 3.5 % (0-4.5); HEMATOCRIT 22.4 % (35.4-49); MCH 33.1 pg (25.7-33.7); MCHC 35.5 g/dl (32.0-35.9); MEAN CELL VOLUME 93.3 fl (80-96); MEAN PLT VOLUME 7.6 fl (7.5-11.1); MONO % 7.9 % (3.8-10.2); NEUT % 57.7 % (42.8-82.8); PLATELET COUNT 190 10^3/uL (134-434); RDW 14.5 % (11.9-15.9)
[2021-05-13 07:55] LABS: BLOOD UREA NITROGEN 16.8 mg/dL (7-18); CALCIUM 8.3 mg/dL (8.5-10.1); MAGNESIUM 1.7 mg/dL (1.8-2.4)
[2021-05-13 07:59] LABS: CREATININE 1.4 mg/dL (0.55-1.3); PHOSPHOROUS 4.3 mg/dL (2.5-4.9)
[2021-05-13] MEDS ORDERED: cefTRIAXone SODIUM 1 GM VIAL ONE (09:40)
[2021-05-13] MEDS ORDERED: DEXTROSE 5%-WATER - 50 ML IVPB ONE (09:40)
[2021-05-13] MEDS: SODIUM CHLORIDE 1,000 ML IV SCH (09:47)
[2021-05-13] MEDS: hydrALAZINE HCL 50 MG TABLET (FP) PO SCH ×2 (09:51→21:48)
[2021-05-13] MEDS: CEFTRIAXONE 1 GM in DEXTROSE 5%-WATER - 50 ML IVPB SCH (09:51)
[2021-05-13] MEDS: AMIODARONE HCL 200 MG TABLET PO SCH (09:52)
[2021-05-13] MEDS: METOPROLOL TARTRATE 50 MG TABLET (FP) PO SCH ×2 (09:52→21:48)
[2021-05-13] MEDS: MULTIVITAMINS (DAILY MVI) TABLET (FP) PO SCH (09:52)
[2021-05-13] MEDS: CHOLECALCIFEROL (VIT D3) 1,000 UNIT (25 MCG) TABLET PO SCH (09:52)
[2021-05-13] MEDS: PANTOPRAZOLE 40 MG TABLET PO SCH ×2 (09:52→09:58)
[2021-05-13] MEDS: ALLOPURINOL 100 MG TABLET (FP) PO SCH (09:52)
[2021-05-13] MEDS: BICALUTAMIDE 50 MG TABLET (FP) PO SCH (09:57)
[2021-05-13 14:36] VITALS: BMI 29.3
[2021-05-13] MEDS ORDERED: RIVAROXABAN 15 MG TABLET PO SCH (18:00)
[2021-05-13] MEDS: TAMSULOSIN HCL 0.4 MG CAP PO SCH (21:48)
[2021-05-13] MEDS: ATORVASTATIN CA 10 MG TABLET (FP) PO SCH (21:48)
[2021-05-13] MEDS: ALPRAZolam 0.25 MG TABLET PO PRN (21:55)
[2021-05-14] MEDS: POLYETHYLENE GLYCOL (HEALTHYLAX) 3350 17 GM PACKET PO SCH ×2 (06:14→13:40)
[2021-05-14] MEDS: LEVOTHYROXINE NA 75 MCG TABLET (FP) PO SCH (06:14)
[2021-05-14 08:02] LABS: BASO % 0.7 % (0-2.0); EOS % 3.4 % (0-4.5); HEMATOCRIT 22.8 % (35.4-49); LYMPH % 28.7 % (8-40); MCH 33.2 pg (25.7-33.7); MCHC 35.2 g/dl (32.0-35.9); MEAN CELL VOLUME 94.5 fl (80-96); MEAN PLT VOLUME 8.1 fl (7.5-11.1); MONO % 7.2 % (3.8-10.2); PLATELET COUNT 212 10^3/uL (134-434); RBC 2.41 M/mm3 (4.00-5.60); WHITE BLOOD COUNT 8.8 K/mm3 (4.0-10.0)
[2021-05-14 08:05] LABS: BLOOD UREA NITROGEN 18.2 mg/dL (7-18); CALCIUM 8.2 mg/dL (8.5-10.1)
[2021-05-14 08:06] LABS: MAGNESIUM 1.6 mg/dL (1.8-2.4)
[2021-05-14 08:08] LABS: CREATININE 1.3 mg/dL (0.55-1.3)
[2021-05-14 08:09] LABS: PHOSPHOROUS 4.2 mg/dL (2.5-4.9)
[2021-05-14] MEDS ORDERED: MAGNESIUM SULF 50% (8.12 MEQ/2 ML-1 GM VIAL) IVPB ONE (08:56)
[2021-05-14] MEDS: SODIUM CHLORIDE 1,000 ML IV SCH (09:54)
[2021-05-14] MEDS ORDERED: PT OWN MED DRAWER 7, Y5N ONE (10:02)
[2021-05-14] MEDS ORDERED: cefTRIAXone SODIUM 1 GM VIAL ONE (10:03)
[2021-05-14] MEDS ORDERED: DEXTROSE 5%-WATER - 50 ML IVPB ONE (10:03)
[2021-05-14] MEDS: BICALUTAMIDE 50 MG TABLET (FP) PO SCH (10:11)
[2021-05-14] MEDS: hydrALAZINE HCL 50 MG TABLET (FP) PO SCH (10:11)
[2021-05-14] MEDS: CHOLECALCIFEROL (VIT D3) 1,000 UNIT (25 MCG) TABLET PO SCH (10:12)
[2021-05-14] MEDS: ALLOPURINOL 100 MG TABLET (FP) PO SCH (10:12)
[2021-05-14] MEDS: CEFTRIAXONE 1 GM in DEXTROSE 5%-WATER - 50 ML IVPB SCH (10:12)
[2021-05-14] MEDS: AMIODARONE HCL 200 MG TABLET PO SCH (10:12)
[2021-05-14] MEDS: METOPROLOL TARTRATE 50 MG TABLET (FP) PO SCH (10:12)
[2021-05-14] MEDS: MULTIVITAMINS (DAILY MVI) TABLET (FP) PO SCH (10:12)
[2021-05-14] MEDS: PANTOPRAZOLE 40 MG TABLET PO SCH (10:13)
[2021-05-14 14:38] VITALS: BP 136/68; PULSE 69; TEMP 97.9
== END 2021-05-14 16:25 | disposition home or self-care (01) | DRG 378 ==
LOC: JER 14:19 → JERBED 18:07 → JICU 23:47 → J2W 05-09 19:20 → J4S 05-11 20:29
PROVIDERS: ADMIT Internal Medicine; ATTEND Internal Medicine
PROC: 30233N1 Transfusion of Nonautologous Red Blood Cells into Peripheral Vein, Percutaneous Approach (ICD-10-PCS; principal; 2021-05-08)
DX: K57.33 Diverticulitis of large intestine without perforation or abscess with bleeding (principal); D68.32 Hemorrhagic disorder due to extrinsic circulating anticoagulants; N17.9 Acute kidney failure, unspecified; L97.429 Non-pressure chronic ulcer of left heel and midfoot with unspecified severity; K62.5 Hemorrhage of anus and rectum; I48.91 Unspecified atrial fibrillation; K57.90 Diverticulosis of intestine, part unspecified, without perforation or abscess without bleeding; N40.0 Benign prostatic hyperplasia without lower urinary tract symptoms; I25.10 Atherosclerotic heart disease of native coronary artery without angina pectoris; D64.9 Anemia, unspecified; T45.515A Adverse effect of anticoagulants, initial encounter; I08.1 Rheumatic disorders of both mitral and tricuspid valves; I12.9 Hypertensive chronic kidney disease with stage 1 through stage 4 chronic kidney disease, or unspecified chronic kidney disease; N18.9 Chronic kidney disease, unspecified; E11.22 Type 2 diabetes mellitus with diabetic chronic kidney disease; E03.9 Hypothyroidism, unspecified; F41.9 Anxiety disorder, unspecified; E11.610 Type 2 diabetes mellitus with diabetic neuropathic arthropathy; E11.621 Type 2 diabetes mellitus with foot ulcer; K59.09 Other constipation; K80.80 Other cholelithiasis without obstruction; K42.9 Umbilical hernia without obstruction or gangrene; Z95.0 Presence of cardiac pacemaker; Z96.653 Presence of artificial knee joint, bilateral; Z90.5 Acquired absence of kidney; Z85.53 Personal history of malignant neoplasm of renal pelvis
CPT/HCPCS: 36415; 36430; 71045-TC-FY; 74176-TC; 80048; 80053; 82272; 83540; 83550; 83735; 84100; 85025; 85027; 85610; 85730; 86140; 86850; 86900; 86901; 86922; 87081; 93005; 93010; 99285-25; C9803; P9058; U0003; U0005

== ENCOUNTER 2021-07-11 04:53 | Day surgery (SDC) | payer OTHER ==
[2021-07-11 14:13] VITALS: BMI 30.4
[2021-07-11 14:57] VITALS: TEMP 97.7
[2021-07-11 15:43] VITALS: BP 142/63; PULSE 49
== END 2021-07-11 16:04 | disposition home or self-care (01) ==
LOC: JASU-SURG 04:53
PROVIDERS: ATTEND Internal Medicine Gastroenterology
PROC: 0DJD8ZZ Inspection of Lower Intestinal Tract, Via Natural or Artificial Opening Endoscopic (ICD-10-PCS; principal; 2021-07-11 14:27)
DX: K92.2 Gastrointestinal hemorrhage, unspecified (principal); K64.8 Other hemorrhoids; E11.9 Type 2 diabetes mellitus without complications; I10 Essential (primary) hypertension

== ENCOUNTER 2021-08-18 12:50 | Observation (INO) | payer OTHER ==
[2021-08-18 13:02] VITALS: BMI 31.0
[2021-08-18 15:45] LABS: BASO % 2.6 % (0-2.0); EOS % 1.8 % (0-4.5); HEMATOCRIT 28.7 % (35.4-49); LYMPH % 14.6 % (8-40); MCH 31.7 pg (25.7-33.7); MCHC 34.8 g/dl (32.0-35.9); MEAN CELL VOLUME 91.2 fl (80-96); MEAN PLT VOLUME 7.1 fl (7.5-11.1); MONO % 7.1 % (3.8-10.2); NEUT % 73.9 % (42.8-82.8); PLATELET COUNT 381 10^3/uL (134-434); RBC 3.14 M/mm3 (4.00-5.60); RDW 15.9 % (11.9-15.9); WHITE BLOOD COUNT 9.6 K/mm3 (4.0-10.0)
[2021-08-18 15:54] LABS: INR 1.23 (0.83-1.09); PROTHROMBIN TIME (PATIENT) 14.4 SEC (9.7-13.0)
[2021-08-18 16:05] LABS: CALCIUM 8.9 mg/dL (8.5-10.1)
[2021-08-18 16:06] LABS: ALBUMIN 3.2 g/dl (3.4-5.0); BLOOD UREA NITROGEN 14.1 mg/dL (7-18)
[2021-08-18 16:09] LABS: CREATININE 1.2 mg/dL (0.55-1.3)
[2021-08-18 16:10] LABS: BILIRUBIN,TOTAL 0.8 mg/dL (0.2-1); TOT PROT 6.8 g/dl (6.4-8.2)
[2021-08-18] MEDS ORDERED: ALPRAZolam 0.25 MG TABLET PO PRN (17:02)
[2021-08-18] MEDS ORDERED: ACETAMINOPHEN 325 MG TABLET (FP) PO PRN (17:04)
[2021-08-18] MEDS ORDERED: LEUPROLIDE ACETATE IM SCH (17:15)
[2021-08-18 17:25] LABS: MAGNESIUM 1.8 mg/dL (1.8-2.4)
[2021-08-18] MEDS ORDERED: MAGNESIUM OXIDE 400 MG TABLET (FP) ONE (20:57)
[2021-08-18] MEDS ORDERED: CHOLECALCIFEROL (VIT D3) 1,000 UNIT (25 MCG) TABLET ONE (20:57)
[2021-08-18] MEDS ORDERED: ATORVASTATIN CA 10 MG TABLET (FP) ONE (20:57)
[2021-08-18] MEDS ORDERED: hydrALAZINE HCL 25 MG TABLET (FP) ONE (20:57)
[2021-08-18] MEDS ORDERED: METOPROLOL TARTRATE 50 MG TABLET (FP) ONE (20:57)
[2021-08-18] MEDS ORDERED: FOLIC ACID 1 MG TABLET (FP) ONE (20:58)
[2021-08-18] MEDS ORDERED: DOCUSATE SODIUM 100 MG CAPSULE (FP) PO ONE (20:58)
[2021-08-18] MEDS ORDERED: INSULIN SLIDING SCALE (NOVOLOG) 1 VIAL SQ ONE (20:59)
[2021-08-18] MEDS ORDERED: INSULIN (LEVEMIR) 100 UNITS/ML UNITS SQ ONE (20:59)
[2021-08-18] MEDS: DOCUSATE SODIUM 100 MG CAPSULE (FP) PO SCH (21:43)
[2021-08-18] MEDS ORDERED: PATIENT'S OWN MEDICATION (NON-FORMULARY) (Mirabegron [Myrbetriq] 50 MG Tab.Er.24h) PO SCH (22:00)
[2021-08-18] MEDS ORDERED: CINNAMON BARK 500 MG PO SCH (22:00)
[2021-08-18] MEDS ORDERED: FOLIC ACID 1 MG TABLET (FP) PO SCH (22:00)
[2021-08-18] MEDS ORDERED: CHOLECALCIFEROL (VIT D3) 1,000 UNIT (25 MCG) TABLET PO SCH (22:00)
[2021-08-18] MEDS ORDERED: INSULIN (LEVEMIR) 100 UNITS/ML UNITS SQ SCH (22:00)
[2021-08-18] MEDS ORDERED: hydrALAZINE HCL 50 MG TABLET (FP) PO SCH (22:00)
[2021-08-18] MEDS ORDERED: METOPROLOL TARTRATE 50 MG TABLET (FP) PO SCH (22:00)
[2021-08-18] MEDS ORDERED: INSULIN SLIDING SCALE (NOVOLOG) 1 VIAL SQ SCH (22:00)
[2021-08-18] MEDS ORDERED: MULTIVITAMINS THER W-MINERALS COMBO TABLET (FP) PO SCH (22:00)
[2021-08-18] MEDS ORDERED: ATORVASTATIN CA 10 MG TABLET (FP) PO SCH (22:00)
[2021-08-18] MEDS ORDERED: OMEGA-3 ACID ETHYL ESTERS (FATTY-ACIDS) 1 GM CAPSULE (FP) PO SCH (22:00)
[2021-08-18] MEDS ORDERED: MAGNESIUM OXIDE 400 MG TABLET (FP) PO SCH (22:00)
[2021-08-19] MEDS: DOCUSATE SODIUM 100 MG CAPSULE (FP) PO SCH (06:05)
[2021-08-19] MEDS ORDERED: LEVOTHYROXINE NA 75 MCG TABLET (FP) PO SCH (07:00)
[2021-08-19] MEDS ORDERED: LIDOCAINE 1%/EPI 1:100000 (20 ML MULTI DOSE VIAL) ONE (07:22)
[2021-08-19] MEDS ORDERED: BUPIVACAINE HCL/PF 0.5% (5MG/ML) 10 ML VIAL ONE (07:43)
[2021-08-19] MEDS ORDERED: GENTAMICIN SO4 80 MG/2 ML VIAL ONE (07:43)
[2021-08-19] MEDS ORDERED: SUCCINYLCHOLINE CHLORIDE 200 MG/10 ML SYRINGE ONE (07:48)
[2021-08-19] MEDS ORDERED: PROPOFOL 20 ML ONE (07:48)
[2021-08-19] MEDS ORDERED: MIDAZOLAM HCL 2 MG/2 ML SINGLE DOSE VIAL ONE ×2 (08:04→08:26)
[2021-08-19] MEDS ORDERED: DEXMEDETOMIDINE HCL 200 MCG/2 ML IVPB ONE (08:05)
[2021-08-19] MEDS ORDERED: ceFAZolin SODIUM 1 GM VIAL IVPB ONE (08:28)
[2021-08-19] MEDS ORDERED: TAMSULOSIN HCL 0.4 MG CAP PO SCH (08:30)
[2021-08-19] MEDS ORDERED: LIDOCAINE HCL 1%, 10 MG/ML (20ML VIAL) NR ONE ×2 (08:32→08:35)
[2021-08-19] MEDS ORDERED: BUPIVACAINE HCL/PF 0.5% (5MG/ML) 10 ML VIAL IJ ONE ×3 (08:32→08:35)
[2021-08-19] MEDS ORDERED: ONDANSETRON 4 MG/2 ML VIAL IVPUSH PRN (09:17)
[2021-08-19] MEDS ORDERED: ALLOPURINOL 100 MG TABLET (FP) PO SCH (10:00)
[2021-08-19] MEDS ORDERED: AMIODARONE HCL 200 MG TABLET PO SCH (10:00)
[2021-08-19] MEDS ORDERED: FENOFIBRIC ACID 45 MG CAP PO SCH (10:00)
[2021-08-19] MEDS ORDERED: BICALUTAMIDE 50 MG TABLET (FP) PO SCH (10:00)
[2021-08-19] MEDS ORDERED: PANTOPRAZOLE 40 MG TABLET PO SCH (10:00)
[2021-08-19 10:44] VITALS: PULSE 70; TEMP 98.8
[2021-08-19 11:12] VITALS: BP 156/80
[2021-08-20] MEDS ORDERED: FUROSEMIDE 20 MG TABLET (FP) PO SCH (10:00)
== END 2021-08-19 12:00 | disposition home or self-care (01) ==
LOC: JER 12:50 → JERBED 16:31
PROVIDERS: ADMIT Internal Medicine; ATTEND Nurse Practitioner Acute Care
PROC: 0JPT0PZ Removal of Cardiac Rhythm Related Device from Trunk Subcutaneous Tissue and Fascia, Open Approach (ICD-10-PCS; principal; 2021-08-18)
PROC: 0JH606Z Insertion of Pacemaker, Dual Chamber into Chest Subcutaneous Tissue and Fascia, Open Approach (ICD-10-PCS; 2021-08-18)
DX: R55 Syncope and collapse (principal); R07.89 Other chest pain; I25.10 Atherosclerotic heart disease of native coronary artery without angina pectoris; I48.91 Unspecified atrial fibrillation; R00.1 Bradycardia, unspecified; E11.9 Type 2 diabetes mellitus without complications; I10 Essential (primary) hypertension; E78.5 Hyperlipidemia, unspecified; Z90.5 Acquired absence of kidney; Z85.51 Personal history of malignant neoplasm of bladder; M19.90 Unspecified osteoarthritis, unspecified site; Z95.0 Presence of cardiac pacemaker; G89.29 Other chronic pain; Z96.653 Presence of artificial knee joint, bilateral; R53.1 Weakness; Z85.528 Personal history of other malignant neoplasm of kidney
CPT/HCPCS: 36415; 71045-TC-FY; 80053; 82272; 82962; 83735; 84484; 85025; 85610; 86850; 86900; 86901; 88300-TC; 93005; 93010; 94760; 99285-25; C9803; G0378; U0003; U0005

== ENCOUNTER 2022-04-03 11:29 | Inpatient (IN) | payer OTHER ==
[2022-04-03 14:00] LABS: BASO % 0.6 % (0-2.0); EOS % 1.8 % (0-4.5); HEMATOCRIT 32.5 % (35.4-49); LYMPH % 18.6 % (8-40); MCH 31.3 pg (25.7-33.7); MCHC 33.9 g/dl (32.0-35.9); MEAN CELL VOLUME 92.4 fl (80-96); MEAN PLT VOLUME 7.8 fl (7.5-11.1); MONO % 8.4 % (3.8-10.2); NEUT % 70.6 % (42.8-82.8); PLATELET COUNT 231 10^3/uL (134-434); RBC 3.52 M/mm3 (4.00-5.60); RDW 14.3 % (11.9-15.9); WHITE BLOOD COUNT 11.5 K/mm3 (4.0-10.0)
[2022-04-03 14:21] LABS: BLOOD UREA NITROGEN 35.3 mg/dL (7-18); CALCIUM 9.2 mg/dL (8.5-10.1)
[2022-04-03 14:25] LABS: CREATININE 1.5 mg/dL (0.55-1.3)
[2022-04-03 14:27] LABS: BILIRUBIN,TOTAL 0.7 mg/dL (0.2-1); TOT PROT 7.4 g/dl (6.4-8.2)
[2022-04-03 14:35] LABS: INR 1.93 (0.83-1.09); PROTHROMBIN TIME (PATIENT) 22.3 SEC (9.7-13.0)
[2022-04-03] MEDS ORDERED: DAPTOMYCIN 720 MG in SODIUM CHLORIDE 50 ML IVPB ONE (14:35)
[2022-04-03 14:38] LABS: ACTIVATED PTT 42.6 SECONDS (25.2-36.5)
[2022-04-03] MEDS ORDERED: ACETAMINOPHEN 1000 MG/100 ML BAG IVPB PRN (15:34)
[2022-04-03] MEDS: INSULIN SLIDING SCALE (NOVOLOG) 1 VIAL SQ SCH (16:41)
[2022-04-03] MEDS ORDERED: RIVAROXABAN 15 MG TABLET PO SCH (18:00)
[2022-04-03] MEDS ORDERED: METOPROLOL TARTRATE 50 MG TABLET (FP) PO SCH (22:00)
[2022-04-03] MEDS ORDERED: hydrALAZINE HCL 25 MG TABLET (FP) PO SCH (22:00)
[2022-04-03] MEDS ORDERED: HEPARIN NA (PORCINE) 5,000 UNITS/ML 1ML VIAL SQ SCH (22:00)
[2022-04-03] MEDS ORDERED: ROSUVASTATIN CA 20 MG TABLET ONE (22:16)
[2022-04-03] MEDS ORDERED: HEPARIN NA (PORCINE) 5,000 UNITS/ML 1ML VIAL ONE (22:16)
[2022-04-03] MEDS ORDERED: hydrALAZINE HCL 50 MG TABLET (FP) ONE (22:16)
[2022-04-03] MEDS ORDERED: INSULIN (LEVEMIR) 100 UNITS/ML UNITS SQ ONE (22:18)
[2022-04-03] MEDS: ROSUVASTATIN CA 20 MG TABLET PO SCH (22:36)
[2022-04-03] MEDS: hydrALAZINE HCL 25 MG TABLET (FP) PO SCH (22:36)
[2022-04-03] MEDS: INSULIN (LEVEMIR) 100 UNITS/ML UNITS SQ SCH (22:36)
[2022-04-03] MEDS: HEPARIN NA (PORCINE) 5,000 UNITS/ML 1ML VIAL SQ SCH (22:37)
[2022-04-03] MEDS ORDERED: METOPROLOL TARTRATE 50 MG TABLET (FP) PO ONE (22:49)
[2022-04-03] MEDS ORDERED: TAMSULOSIN HCL 0.4 MG CAP PO ONE (23:18)
[2022-04-03] MEDS ORDERED: TAMSULOSIN HCL 0.4 MG CAP ONE (23:32)
[2022-04-04] MEDS ORDERED: HEPARIN NA (PORCINE) 5,000 UNITS/ML 1ML VIAL ONE ×2 (05:42→13:43)
[2022-04-04] MEDS: HEPARIN NA (PORCINE) 5,000 UNITS/ML 1ML VIAL SQ SCH ×3 (05:46→22:23)
[2022-04-04 07:55] LABS: BASO % 0.5 % (0-2.0); HEMATOCRIT 31.9 % (35.4-49); HEMOGLOBIN 10.9 GM/dL (11.7-16.9); LYMPH % 27.8 % (8-40); MCH 31.7 pg (25.7-33.7); MCHC 34.1 g/dl (32.0-35.9); MEAN PLT VOLUME 7.9 fl (7.5-11.1); MONO % 8.4 % (3.8-10.2); NEUT % 60.3 % (42.8-82.8); PLATELET COUNT 207 10^3/uL (134-434); RBC 3.43 M/mm3 (4.00-5.60); RDW 14.6 % (11.9-15.9)
[2022-04-04 07:56] LABS: INR 1.43 (0.83-1.09); PROTHROMBIN TIME (PATIENT) 16.5 SEC (9.7-13.0)
[2022-04-04 08:09] LABS: CALCIUM 8.5 mg/dL (8.5-10.1)
[2022-04-04 08:10] LABS: ALBUMIN 3.7 g/dl (3.4-5.0); BLOOD UREA NITROGEN 34.8 mg/dL (7-18); MAGNESIUM 1.8 mg/dL (1.8-2.4)
[2022-04-04 08:14] LABS: CREATININE 1.6 mg/dL (0.55-1.3); TOT PROT 7.1 g/dl (6.4-8.2)
[2022-04-04 08:16] LABS: BILIRUBIN,TOTAL 0.6 mg/dL (0.2-1)
[2022-04-04] MEDS: INSULIN SLIDING SCALE (NOVOLOG) 1 VIAL SQ SCH ×3 (08:48→17:53)
[2022-04-04] MEDS ORDERED: FUROSEMIDE 40 MG TABLET (FP) PO SCH (10:00)
[2022-04-04] MEDS ORDERED: FUROSEMIDE 40 MG TABLET (FP) ONE (10:07)
[2022-04-04] MEDS ORDERED: METOPROLOL TARTRATE 50 MG TABLET (FP) ONE (10:07)
[2022-04-04] MEDS ORDERED: PANTOPRAZOLE 40 MG TABLET PO ONE (10:08)
[2022-04-04] MEDS ORDERED: hydrALAZINE HCL 50 MG TABLET (FP) ONE (10:08)
[2022-04-04] MEDS: PANTOPRAZOLE 40 MG TABLET PO SCH (10:15)
[2022-04-04] MEDS: METOPROLOL TARTRATE 50 MG TABLET (FP) PO SCH ×2 (10:15→22:16)
[2022-04-04] MEDS: hydrALAZINE HCL 25 MG TABLET (FP) PO SCH ×2 (10:15→22:21)
[2022-04-04] MEDS: DAPTOMYCIN IVPB SCH (16:05)
[2022-04-04] MEDS: SODIUM CHLORIDE IVPB SCH (16:05)
[2022-04-04] MEDS ORDERED: PATIENT'S OWN MEDICATION (NON-FORMULARY) (Mirabegron [Myrbetriq] 50 MG Tab.Er.24h) PO SCH (22:00)
[2022-04-04] MEDS: ROSUVASTATIN CA 20 MG TABLET PO SCH (22:20)
[2022-04-04] MEDS: INSULIN (LEVEMIR) 100 UNITS/ML UNITS SQ SCH (22:23)
[2022-04-04] MEDS: TAMSULOSIN HCL 0.4 MG CAP PO SCH (22:23)
[2022-04-05 01:04] VITALS: BMI 33.6
[2022-04-05] MEDS: HEPARIN NA (PORCINE) 5,000 UNITS/ML 1ML VIAL SQ SCH ×3 (06:16→22:42)
[2022-04-05] MEDS: INSULIN SLIDING SCALE (NOVOLOG) 1 VIAL SQ SCH ×3 (06:19→16:29)
[2022-04-05] MEDS ORDERED: INSULIN (LEVEMIR) 100 UNITS/ML UNITS SQ ONE (08:44)
[2022-04-05] MEDS ORDERED: INSULIN (NOVOLOG) ASPART 100 UNITS/ML 10ML VIAL ONE (08:44)
[2022-04-05 08:56] LABS: BASO % 0.7 % (0-2.0); EOS % 4.2 % (0-4.5); HEMOGLOBIN 11.2 GM/dL (11.7-16.9); LYMPH % 30.7 % (8-40); MCH 31.8 pg (25.7-33.7); MEAN CELL VOLUME 93.5 fl (80-96); MEAN PLT VOLUME 7.9 fl (7.5-11.1); MONO % 9.4 % (3.8-10.2); PLATELET COUNT 225 10^3/uL (134-434); RBC 3.53 M/mm3 (4.00-5.60); RDW 14.5 % (11.9-15.9); WHITE BLOOD COUNT 9.3 K/mm3 (4.0-10.0)
[2022-04-05] MEDS: FUROSEMIDE 20 MG TABLET (FP) PO SCH (09:36)
[2022-04-05] MEDS: hydrALAZINE HCL 25 MG TABLET (FP) PO SCH ×2 (09:37→22:41)
[2022-04-05] MEDS: METOPROLOL TARTRATE 50 MG TABLET (FP) PO SCH ×2 (09:37→22:41)
[2022-04-05] MEDS: PANTOPRAZOLE 40 MG TABLET PO SCH (09:37)
[2022-04-05 09:43] LABS: ALBUMIN 3.8 g/dl (3.4-5.0); CALCIUM 9.1 mg/dL (8.5-10.1)
[2022-04-05 09:45] LABS: BLOOD UREA NITROGEN 28.3 mg/dL (7-18)
[2022-04-05 09:47] LABS: CREATININE 1.4 mg/dL (0.55-1.3)
[2022-04-05 09:48] LABS: BILIRUBIN,TOTAL 0.8 mg/dL (0.2-1); TOT PROT 7.1 g/dl (6.4-8.2)
[2022-04-05] MEDS: POLYETHYLENE GLYCOL (HEALTHYLAX) 3350 17 GM PACKET PO SCH ×2 (15:49→22:41)
[2022-04-05] MEDS: DAPTOMYCIN IVPB SCH (16:18)
[2022-04-05] MEDS: SODIUM CHLORIDE IVPB SCH (16:18)
[2022-04-05] MEDS ORDERED: POLYETHYLENE GLYCOL (HEALTHYLAX) 3350 17 GM PACKET PO SCH (22:00)
[2022-04-05] MEDS: INSULIN (LEVEMIR) 100 UNITS/ML UNITS SQ SCH (22:41)
[2022-04-05] MEDS: ROSUVASTATIN CA 5 MG TABLET PO SCH (22:41)
[2022-04-05] MEDS: TAMSULOSIN HCL 0.4 MG CAP PO SCH (22:41)
[2022-04-06] MEDS: HEPARIN NA (PORCINE) 5,000 UNITS/ML 1ML VIAL SQ SCH ×3 (06:42→21:44)
[2022-04-06] MEDS: INSULIN SLIDING SCALE (NOVOLOG) 1 VIAL SQ SCH ×3 (06:45→16:45)
[2022-04-06] MEDS: FUROSEMIDE 20 MG TABLET (FP) PO SCH (11:23)
[2022-04-06] MEDS: POLYETHYLENE GLYCOL (HEALTHYLAX) 3350 17 GM PACKET PO SCH ×2 (11:23→21:44)
[2022-04-06] MEDS: PANTOPRAZOLE 40 MG TABLET PO SCH (11:23)
[2022-04-06] MEDS: hydrALAZINE HCL 25 MG TABLET (FP) PO SCH ×2 (11:23→21:44)
[2022-04-06] MEDS: METOPROLOL TARTRATE 50 MG TABLET (FP) PO SCH ×2 (11:23→21:43)
[2022-04-06] MEDS ORDERED: LACTULOSE 20 GM/30 ML UDC (FOR ORAL USE ONLY) PO ONE (14:25)
[2022-04-06] MEDS: SODIUM CHLORIDE IVPB SCH (15:33)
[2022-04-06] MEDS: DAPTOMYCIN IVPB SCH (15:33)
[2022-04-06] MEDS: TAMSULOSIN HCL 0.4 MG CAP PO SCH (21:44)
[2022-04-06] MEDS: INSULIN (LEVEMIR) 100 UNITS/ML UNITS SQ SCH (21:44)
[2022-04-06] MEDS: ROSUVASTATIN CA 5 MG TABLET PO SCH (21:44)
[2022-04-06] MEDS ORDERED: SENNOSIDES 8.6MG TABLET (FP) PO SCH (22:00)
[2022-04-07] MEDS: HEPARIN NA (PORCINE) 5,000 UNITS/ML 1ML VIAL SQ SCH ×2 (06:13→13:31)
[2022-04-07] MEDS: INSULIN SLIDING SCALE (NOVOLOG) 1 VIAL SQ SCH ×3 (06:16→16:45)
[2022-04-07] MEDS: FUROSEMIDE 20 MG TABLET (FP) PO SCH (10:03)
[2022-04-07] MEDS: hydrALAZINE HCL 25 MG TABLET (FP) PO SCH (10:03)
[2022-04-07] MEDS: POLYETHYLENE GLYCOL (HEALTHYLAX) 3350 17 GM PACKET PO SCH (10:03)
[2022-04-07] MEDS: METOPROLOL TARTRATE 50 MG TABLET (FP) PO SCH (10:04)
[2022-04-07] MEDS: PANTOPRAZOLE 40 MG TABLET PO SCH (10:04)
[2022-04-07 14:52] VITALS: BP 138/66; PULSE 69; TEMP 97.7
[2022-04-07] MEDS: DAPTOMYCIN IVPB SCH (15:54)
[2022-04-07] MEDS: SODIUM CHLORIDE IVPB SCH (15:54)
== END 2022-04-07 18:00 | disposition home or self-care (01) | DRG 638 ==
LOC: JER 11:29 → JERBED 14:04 → J7W 04-04 20:29
PROVIDERS: ADMIT Internal Medicine
PROC: 02HV33Z Insertion of Infusion Device into Superior Vena Cava, Percutaneous Approach (ICD-10-PCS; principal; 2022-04-07)
PROC: B518ZZA Fluoroscopy of Superior Vena Cava, Guidance (ICD-10-PCS; 2022-04-07)
DX: E11.69 Type 2 diabetes mellitus with other specified complication (principal); M86.8X7 Other osteomyelitis, ankle and foot; L97.528 Non-pressure chronic ulcer of other part of left foot with other specified severity; I42.8 Other cardiomyopathies; I48.91 Unspecified atrial fibrillation; E11.621 Type 2 diabetes mellitus with foot ulcer; E78.5 Hyperlipidemia, unspecified; E11.40 Type 2 diabetes mellitus with diabetic neuropathy, unspecified; K57.90 Diverticulosis of intestine, part unspecified, without perforation or abscess without bleeding; N40.0 Benign prostatic hyperplasia without lower urinary tract symptoms; D64.9 Anemia, unspecified; I12.9 Hypertensive chronic kidney disease with stage 1 through stage 4 chronic kidney disease, or unspecified chronic kidney disease; E11.22 Type 2 diabetes mellitus with diabetic chronic kidney disease; N18.9 Chronic kidney disease, unspecified; K59.00 Constipation, unspecified; M81.8 Other osteoporosis without current pathological fracture; I25.10 Atherosclerotic heart disease of native coronary artery without angina pectoris; F41.9 Anxiety disorder, unspecified; Z85.46 Personal history of malignant neoplasm of prostate; Z90.5 Acquired absence of kidney; Z85.528 Personal history of other malignant neoplasm of kidney; Z96.653 Presence of artificial knee joint, bilateral; Z79.4 Long term (current) use of insulin
CPT/HCPCS: 36415; 36558; 77001-TC-FY; 80053; 82550; 82553; 82962; 83036; 83735; 85025; 85610; 85730; 86850; 86900; 86901; 87040; 93005; 93010; 93922; 93925-TC; 99285-25; C1751; C9803-CS; G0463-25; J0878; U0003; U0005

== ENCOUNTER 2022-04-08 16:01 | Day surgery (SDC) | payer OTHER ==
[2022-04-08] MEDS ORDERED: SODIUM CHLORIDE IVPB ONE (16:30)
[2022-04-08] MEDS ORDERED: DAPTOMYCIN IVPB ONE (16:30)
[2022-04-08 16:31] VITALS: BP 123/52; TEMP 98.2
[2022-04-08 18:10] VITALS: PULSE 68
== END 2022-04-08 18:12 | disposition home or self-care (01) ==
LOC: FINFUSION 16:01 → FM/S 16:04 → FINFUSION 18:12
PROVIDERS: ATTEND Internal Medicine Infectious Disease
DX: M86.9 Osteomyelitis, unspecified (principal)
CPT/HCPCS: 96365; J0878

== ENCOUNTER 2022-04-09 16:11 | Day surgery (SDC) | payer OTHER ==
[2022-04-09] MEDS ORDERED: SODIUM CHLORIDE IVPB ONE (17:00)
[2022-04-09] MEDS ORDERED: DAPTOMYCIN IVPB ONE (17:00)
[2022-04-09 17:33] VITALS: BP 129/56; PULSE 70; TEMP 97.5
== END 2022-04-09 17:23 | disposition home or self-care (01) ==
LOC: FINFUSION 16:11 → FM/S 16:12 → FINFUSION 19:00
PROVIDERS: ATTEND Internal Medicine Infectious Disease
DX: M86.9 Osteomyelitis, unspecified (principal)
CPT/HCPCS: 96365; J0878

== ENCOUNTER 2022-04-10 16:00 | Day surgery (SDC) | payer OTHER ==
[2022-04-10] MEDS ORDERED: SODIUM CHLORIDE IVPB ONE (17:00)
[2022-04-10] MEDS ORDERED: DAPTOMYCIN IVPB ONE (17:00)
[2022-04-10 17:49] VITALS: BP 126/52; PULSE 67; TEMP 97.8
== END 2022-04-10 17:00 | disposition home or self-care (01) ==
LOC: FINFUSION 16:00 → FM/S 16:04 → FINFUSION 17:00
PROVIDERS: ATTEND Internal Medicine Infectious Disease
DX: M86.9 Osteomyelitis, unspecified (principal); E11.621 Type 2 diabetes mellitus with foot ulcer; M86.172 Other acute osteomyelitis, left ankle and foot; L97.422 Non-pressure chronic ulcer of left heel and midfoot with fat layer exposed; L97.509 Non-pressure chronic ulcer of other part of unspecified foot with unspecified severity; L90.8 Other atrophic disorders of skin
CPT/HCPCS: 15275; 96365; J0878; Q4196

== ENCOUNTER 2022-04-11 16:01 | Day surgery (SDC) | payer OTHER ==
[2022-04-11] MEDS ORDERED: DAPTOMYCIN IVPB ONE (17:00)
[2022-04-11] MEDS ORDERED: SODIUM CHLORIDE IVPB ONE (17:00)
[2022-04-11 17:49] VITALS: BP 129/52; PULSE 64; TEMP 97.9
== END 2022-04-11 17:05 | disposition home or self-care (01) ==
LOC: FINFUSION 16:01 → FM/S 16:04 → FINFUSION 17:05
PROVIDERS: ATTEND Internal Medicine Infectious Disease
DX: M86.9 Osteomyelitis, unspecified (principal)
CPT/HCPCS: 96365; J0878

== ENCOUNTER 2022-04-12 16:03 | Day surgery (SDC) | payer OTHER ==
[2022-04-12] MEDS ORDERED: SODIUM CHLORIDE IVPB ONE (17:00)
[2022-04-12] MEDS ORDERED: DAPTOMYCIN IVPB ONE (17:00)
[2022-04-12 17:26] VITALS: TEMP 97.9
[2022-04-12 17:29] VITALS: BP 128/50; PULSE 69
== END 2022-04-12 17:29 | disposition home or self-care (01) ==
LOC: FINFUSION 16:03 → FM/S 16:04 → FINFUSION 17:29
PROVIDERS: ATTEND Internal Medicine Infectious Disease
DX: M86.9 Osteomyelitis, unspecified (principal)
CPT/HCPCS: 96365; J0878

== ENCOUNTER 2022-04-13 14:57 | Day surgery (SDC) | payer OTHER ==
[2022-04-13 16:04] VITALS: BP 121/59; PULSE 69; TEMP 97.6
[2022-04-13] MEDS ORDERED: DAPTOMYCIN IVPB ONE (17:00)
[2022-04-13] MEDS ORDERED: SODIUM CHLORIDE IVPB ONE (17:00)
== END 2022-04-13 16:05 | disposition home or self-care (01) ==
LOC: FINFUSION 14:57 → FM/S 14:58 → FINFUSION 16:05
PROVIDERS: ATTEND Internal Medicine Infectious Disease
DX: M86.9 Osteomyelitis, unspecified (principal)
CPT/HCPCS: 96365; J0878

== ENCOUNTER 2022-04-14 15:00 | Day surgery (SDC) | payer OTHER ==
[~2022-04-14 15:00] MED LIST: DAPTOMYCIN IVPB ONE; SODIUM CHLORIDE IVPB ONE
[2022-04-14 16:16] VITALS: BP 131/58; PULSE 69; TEMP 98.3
[2022-04-14] MEDS ORDERED: DAPTOMYCIN IVPB ONE (17:00)
[2022-04-14] MEDS ORDERED: SODIUM CHLORIDE IVPB ONE (17:00)
== END 2022-04-14 16:08 | disposition home or self-care (01) ==
LOC: FINFUSION 15:00 → FM/S 15:14 → FINFUSION 16:08
PROVIDERS: ATTEND Internal Medicine Infectious Disease
DX: M86.9 Osteomyelitis, unspecified (principal)
CPT/HCPCS: 96365

== ENCOUNTER 2022-04-15 10:45 | Day surgery (SDC) | payer OTHER ==
[2022-04-15] MEDS ORDERED: DAPTOMYCIN IVPB ONE (11:00)
[2022-04-15] MEDS ORDERED: SODIUM CHLORIDE IVPB ONE (11:00)
[2022-04-15 11:46] VITALS: BP 127/53; PULSE 67; TEMP 97.8
== END 2022-04-15 11:49 | disposition home or self-care (01) ==
LOC: FINFUSION 10:45 → FM/S 10:46 → FINFUSION 11:49
PROVIDERS: ATTEND Internal Medicine Infectious Disease
DX: M86.9 Osteomyelitis, unspecified (principal)
CPT/HCPCS: 96365; J0878

== ENCOUNTER 2022-04-16 10:48 | Day surgery (SDC) | payer OTHER ==
[2022-04-16] MEDS ORDERED: SODIUM CHLORIDE IVPB ONE (11:15)
[2022-04-16] MEDS ORDERED: DAPTOMYCIN IVPB ONE (11:15)
[2022-04-16 11:56] VITALS: BP 127/51; PULSE 69; TEMP 98.7
== END 2022-04-16 12:06 | disposition home or self-care (01) ==
LOC: FINFUSION 10:48 → FM/S 10:49 → FINFUSION 12:06
PROVIDERS: ATTEND Internal Medicine Infectious Disease
DX: M86.9 Osteomyelitis, unspecified (principal)
CPT/HCPCS: 96365; J0878

== ENCOUNTER 2022-04-17 10:33 | Day surgery (SDC) | payer OTHER ==
[2022-04-17] MEDS ORDERED: DAPTOMYCIN IVPB ONE (11:00)
[2022-04-17] MEDS ORDERED: SODIUM CHLORIDE IVPB ONE (11:00)
[2022-04-17 12:43] VITALS: BP 130/70; PULSE 74; TEMP 98.3
== END 2022-04-17 13:03 | disposition home or self-care (01) ==
LOC: FINFUSION 10:33 → FM/S 10:34 → FINFUSION 13:03
PROVIDERS: ATTEND Internal Medicine Infectious Disease
DX: M86.9 Osteomyelitis, unspecified (principal)
CPT/HCPCS: 96365; J0878

== ENCOUNTER 2022-04-18 10:51 | Day surgery (SDC) | payer OTHER ==
[2022-04-18] MEDS ORDERED: SODIUM CHLORIDE IVPB ONE (11:30)
[2022-04-18] MEDS ORDERED: DAPTOMYCIN IVPB ONE (11:30)
[2022-04-18 12:24] VITALS: BP 121/43; PULSE 69; TEMP 99.8
== END 2022-04-18 12:10 | disposition home or self-care (01) ==
LOC: FINFUSION 10:51 → FM/S 10:52 → FINFUSION 12:10
PROVIDERS: ATTEND Internal Medicine Infectious Disease
DX: M86.9 Osteomyelitis, unspecified (principal)
CPT/HCPCS: 96365; J0878

== ENCOUNTER 2022-04-20 10:36 | Day surgery (SDC) | payer OTHER ==
[2022-04-20 12:08] VITALS: PULSE 70
[2022-04-20 12:11] VITALS: BP 116/65; TEMP 99.4
== END 2022-04-20 12:25 | disposition home or self-care (01) ==
LOC: FM/S 10:36 → FINFUSION 10:36
PROVIDERS: ATTEND Internal Medicine Infectious Disease
DX: M86.9 Osteomyelitis, unspecified (principal)
CPT/HCPCS: 96365; 96367; J0878

== ENCOUNTER 2022-04-21 10:38 | Day surgery (SDC) | payer OTHER ==
[2022-04-21] MEDS ORDERED: DAPTOMYCIN IVPB ONE (11:30)
[2022-04-21] MEDS ORDERED: SODIUM CHLORIDE IVPB ONE (11:30)
[2022-04-21 11:37] LABS: HEMATOCRIT 35.3 % (35.4-49); HEMOGLOBIN 12.2 G/dL (11.7-16.9); MCH 32.3 pg (25.7-33.7); MCHC 34.4 g/dl (32.0-35.9); MEAN CELL VOLUME 93.6 fl (80-96); MEAN PLT VOLUME 8.5 fl (7.5-11.1); PLATELET COUNT 207.2 10^3/uL (134-434); RBC 3.77 10^6/uL (4.00-5.60); RDW 14.6 % (11.9-15.9); WHITE BLOOD COUNT 6.1 10^3/uL (4.0-10.8)
[2022-04-21 12:21] VITALS: BP 115/52; PULSE 69; TEMP 98.2
[2022-04-21 13:21] LABS: CALCIUM 9.6 mg/dl (8.5-10); CREATININE 1.7 mg/dl (0.55-1.3)
[2022-04-21 14:05] LABS: N-TERMINAL BNP 3121.9 pg/ml (5-125)
[2022-04-21 15:54] LABS: PLATELET ESTIMATE ADEQUATE
== END 2022-04-21 12:10 | disposition home or self-care (01) ==
LOC: FINFUSION 10:38 → FM/S 10:43 → FINFUSION 12:10
PROVIDERS: ATTEND Internal Medicine Infectious Disease
DX: M86.9 Osteomyelitis, unspecified (principal)
CPT/HCPCS: 36415; 80048; 82550; 82553; 83880; 85027; 96365; J0878

== ENCOUNTER 2022-04-22 10:31 | Day surgery (SDC) | payer OTHER ==
[2022-04-22] MEDS ORDERED: DAPTOMYCIN IVPB ONE (11:00)
[2022-04-22] MEDS ORDERED: SODIUM CHLORIDE IVPB ONE (11:00)
[2022-04-22 11:31] VITALS: PULSE 69; TEMP 98
[2022-04-22 12:04] VITALS: BP 128/55
== END 2022-04-22 12:15 | disposition home or self-care (01) ==
LOC: FINFUSION 10:31 → FM/S 10:36 → FINFUSION 12:15
PROVIDERS: ATTEND Internal Medicine Infectious Disease
DX: M86.9 Osteomyelitis, unspecified (principal)
CPT/HCPCS: 96365; J0878

== ENCOUNTER 2022-04-23 10:49 | Day surgery (SDC) | payer OTHER ==
[2022-04-23] MEDS ORDERED: DAPTOMYCIN IVPB ONE (11:30)
[2022-04-23] MEDS ORDERED: SODIUM CHLORIDE IVPB ONE (11:30)
[2022-04-23 12:08] VITALS: BP 121/62; PULSE 72; TEMP 97.8
== END 2022-04-23 12:41 | disposition home or self-care (01) ==
LOC: FINFUSION 10:49 → FM/S 10:54 → FINFUSION 12:41
PROVIDERS: ATTEND Internal Medicine Infectious Disease
DX: M86.9 Osteomyelitis, unspecified (principal)
CPT/HCPCS: 96365; J0878

== ENCOUNTER 2022-04-24 10:51 | Day surgery (SDC) | payer OTHER ==
[2022-04-24] MEDS ORDERED: DAPTOMYCIN IVPB ONE (11:30)
[2022-04-24] MEDS ORDERED: SODIUM CHLORIDE IVPB ONE (11:30)
[2022-04-24 12:25] VITALS: BP 128/64; PULSE 85; TEMP 98.2
== END 2022-04-24 12:26 | disposition home or self-care (01) ==
LOC: FINFUSION 10:51 → FM/S 10:55 → FINFUSION 12:26
PROVIDERS: ATTEND Internal Medicine Infectious Disease
DX: M86.9 Osteomyelitis, unspecified (principal)
CPT/HCPCS: 96365; J0878

== ENCOUNTER 2022-04-25 10:51 | Day surgery (SDC) | payer OTHER ==
[2022-04-25] MEDS ORDERED: SODIUM CHLORIDE IVPB ONE (11:30)
[2022-04-25] MEDS ORDERED: DAPTOMYCIN IVPB ONE (11:30)
[2022-04-25 13:00] VITALS: BP 124/59; PULSE 63; TEMP 98
== END 2022-04-25 13:02 | disposition home or self-care (01) ==
LOC: FINFUSION 10:51 → FM/S 11:18 → FINFUSION 13:02
PROVIDERS: ATTEND Internal Medicine Infectious Disease
DX: M86.9 Osteomyelitis, unspecified (principal)
CPT/HCPCS: 96365; J0878

== ENCOUNTER 2022-04-26 10:32 | Day surgery (SDC) | payer OTHER ==
[2022-04-26 11:44] VITALS: BP 130/64; PULSE 69; TEMP 97.7
== END 2022-04-26 11:40 | disposition home or self-care (01) ==
LOC: FINFUSION 10:32 → FM/S 10:33 → FINFUSION 11:40
PROVIDERS: ATTEND Internal Medicine Infectious Disease
DX: M86.9 Osteomyelitis, unspecified (principal)
CPT/HCPCS: 96365; J0878

== ENCOUNTER 2022-04-27 10:30 | Day surgery (SDC) | payer OTHER ==
[2022-04-27 12:07] VITALS: BP 112/60; PULSE 70; TEMP 98.1
== END 2022-04-27 12:00 | disposition home or self-care (01) ==
LOC: FINFUSION 10:30 → FM/S 10:34 → FINFUSION 12:00
PROVIDERS: ATTEND Internal Medicine Infectious Disease
DX: M86.9 Osteomyelitis, unspecified (principal)
CPT/HCPCS: 96365; J0878

== ENCOUNTER 2022-04-28 10:53 | Day surgery (SDC) | payer OTHER ==
[2022-04-28] MEDS ORDERED: SODIUM CHLORIDE IVPB ONE (11:30)
[2022-04-28] MEDS ORDERED: DAPTOMYCIN IVPB ONE (11:30)
[2022-04-28 11:40] VITALS: BP 123/54; PULSE 82; TEMP 98.6
== END 2022-04-28 11:50 | disposition home or self-care (01) ==
LOC: FINFUSION 10:53 → FM/S 10:57 → FINFUSION 12:27
PROVIDERS: ATTEND Internal Medicine Infectious Disease
DX: M86.9 Osteomyelitis, unspecified (principal)
CPT/HCPCS: 96365; J0878

== ENCOUNTER 2022-04-29 10:35 | Day surgery (SDC) | payer OTHER ==
[2022-04-29] MEDS ORDERED: SODIUM CHLORIDE IVPB ONE (11:15)
[2022-04-29] MEDS ORDERED: DAPTOMYCIN IVPB ONE (11:15)
[2022-04-29 11:24] LABS: HEMATOCRIT 36.7 % (35.4-49); HEMOGLOBIN 12.9 G/dL (11.7-16.9); MCH 32.8 pg (25.7-33.7); MCHC 35.2 g/dl (32.0-35.9); MEAN CELL VOLUME 93.2 fl (80-96); MEAN PLT VOLUME 7.7 fl (7.5-11.1); PLATELET COUNT 279.2 10^3/uL (134-434); RBC 3.94 10^6/uL (4.00-5.60); RDW 14.3 % (11.9-15.9); WHITE BLOOD COUNT 10.6 10^3/uL (4.0-10.8)
[2022-04-29 11:46] VITALS: BP 112/66; PULSE 71; TEMP 98.1
[2022-04-29 11:49] LABS: CALCIUM 9.5 mg/dl (8.5-10); CREATININE 1.5 mg/dl (0.55-1.3)
== END 2022-04-29 11:51 | disposition home or self-care (01) ==
LOC: FINFUSION 10:35 → FM/S 10:36 → FINFUSION 11:51
PROVIDERS: ATTEND Internal Medicine Infectious Disease
DX: M86.9 Osteomyelitis, unspecified (principal)
CPT/HCPCS: 36415; 80048; 82550; 82553; 85027; 96365; J0878

== ENCOUNTER 2022-04-30 10:48 | Day surgery (SDC) | payer OTHER ==
[2022-04-30] MEDS ORDERED: DAPTOMYCIN IVPB ONE (11:15)
[2022-04-30] MEDS ORDERED: SODIUM CHLORIDE IVPB ONE (11:15)
[2022-04-30 12:14] VITALS: BP 132/76; PULSE 78; TEMP 97.8
== END 2022-04-30 12:15 | disposition home or self-care (01) ==
LOC: FINFUSION 10:48 → FM/S 10:48 → FINFUSION 12:15
PROVIDERS: ATTEND Internal Medicine Infectious Disease
DX: M86.9 Osteomyelitis, unspecified (principal)
CPT/HCPCS: 96365; J0878

== ENCOUNTER 2022-05-01 10:39 | Day surgery (SDC) | payer OTHER ==
[2022-05-01] MEDS ORDERED: SODIUM CHLORIDE IVPB ONE (11:00)
[2022-05-01] MEDS ORDERED: DAPTOMYCIN IVPB ONE (11:00)
[2022-05-01 11:31] VITALS: BP 112/54; PULSE 69; TEMP 98.1
== END 2022-05-01 12:10 | disposition home or self-care (01) ==
LOC: FM/S 10:39 → FINFUSION 10:39
PROVIDERS: ATTEND Internal Medicine Infectious Disease
DX: M86.9 Osteomyelitis, unspecified (principal)
CPT/HCPCS: 96365; J0878

== ENCOUNTER 2022-05-02 10:24 | Day surgery (SDC) | payer OTHER ==
[2022-05-02] MEDS ORDERED: DAPTOMYCIN IVPB ONE (11:00)
[2022-05-02] MEDS ORDERED: SODIUM CHLORIDE IVPB ONE (11:00)
[2022-05-02 12:45] VITALS: BP 131/56; PULSE 69; RESP 20; TEMP 98.5
== END 2022-05-02 11:30 | disposition home or self-care (01) ==
LOC: FINFUSION 10:24 → FM/S 10:27 → FINFUSION 11:30
PROVIDERS: ATTEND Internal Medicine Infectious Disease
DX: M86.9 Osteomyelitis, unspecified (principal); E11.621 Type 2 diabetes mellitus with foot ulcer; E11.9 Type 2 diabetes mellitus without complications; E11.42 Type 2 diabetes mellitus with diabetic polyneuropathy; L97.522 Non-pressure chronic ulcer of other part of left foot with fat layer exposed; L90.8 Other atrophic disorders of skin; I48.91 Unspecified atrial fibrillation; E66.01 Morbid (severe) obesity due to excess calories; Z79.01 Long term (current) use of anticoagulants
CPT/HCPCS: 96365; G0463-25; J0878

== ENCOUNTER 2022-05-03 10:31 | Day surgery (SDC) | payer OTHER ==
[2022-05-03] MEDS ORDERED: DAPTOMYCIN IVPB ONE (11:00)
[2022-05-03] MEDS ORDERED: SODIUM CHLORIDE IVPB ONE (11:00)
[2022-05-03 11:52] VITALS: BP 122/56; PULSE 71; RESP 18; TEMP 97.6
== END 2022-05-03 12:23 | disposition home or self-care (01) ==
LOC: FINFUSION 10:31 → FM/S 10:32 → FINFUSION 12:23
PROVIDERS: ATTEND Internal Medicine Infectious Disease
DX: M86.9 Osteomyelitis, unspecified (principal)
CPT/HCPCS: 96365; J0878

== ENCOUNTER 2022-05-04 10:25 | Day surgery (SDC) | payer OTHER ==
[2022-05-04 10:43] VITALS: RESP 18; TEMP 97.8
[2022-05-04] MEDS ORDERED: DAPTOMYCIN IVPB ONE (11:00)
[2022-05-04] MEDS ORDERED: SODIUM CHLORIDE IVPB ONE (11:00)
[2022-05-04 11:19] VITALS: BP 115/50; PULSE 86
== END 2022-05-04 11:19 | disposition home or self-care (01) ==
LOC: FINFUSION 10:25 → FM/S 10:31 → FINFUSION 11:19
PROVIDERS: ATTEND Internal Medicine Infectious Disease
DX: M86.9 Osteomyelitis, unspecified (principal)
CPT/HCPCS: 96365; J0878

== ENCOUNTER 2022-05-05 10:38 | Day surgery (SDC) | payer OTHER ==
[2022-05-05 11:03] VITALS: PULSE 69; RESP 18; TEMP 98.1
[2022-05-05] MEDS ORDERED: DAPTOMYCIN IVPB ONE (11:30)
[2022-05-05] MEDS ORDERED: SODIUM CHLORIDE IVPB ONE (11:30)
[2022-05-05 12:10] VITALS: BP 123/51
== END 2022-05-05 12:14 | disposition home or self-care (01) ==
LOC: FINFUSION 10:38 → FM/S 10:40 → FINFUSION 12:14
PROVIDERS: ATTEND Internal Medicine Infectious Disease
DX: M86.9 Osteomyelitis, unspecified (principal)
CPT/HCPCS: 96365; J0878

== ENCOUNTER 2022-05-06 10:31 | Day surgery (SDC) | payer OTHER ==
[2022-05-06] MEDS ORDERED: DAPTOMYCIN IVPB ONE (11:00)
[2022-05-06] MEDS ORDERED: SODIUM CHLORIDE IVPB ONE (11:00)
[2022-05-06 11:55] LABS: HEMATOCRIT 35.2 % (35.4-49); HEMOGLOBIN 12.5 G/dL (11.7-16.9); MCH 32.9 pg (25.7-33.7); MCHC 35.4 g/dl (32.0-35.9); MEAN CELL VOLUME 92.8 fl (80-96); MEAN PLT VOLUME 8.3 fl (7.5-11.1); PLATELET COUNT 231.8 10^3/uL (134-434); RBC 3.79 10^6/uL (4.00-5.60); RDW 14.3 % (11.9-15.9); WHITE BLOOD COUNT 9.2 10^3/uL (4.0-10.8)
[2022-05-06 12:06] LABS: CALCIUM 9.6 mg/dl (8.5-10); CREATININE 1.5 mg/dl (0.55-1.3)
[2022-05-06 12:43] VITALS: BP 121/52; PULSE 68; RESP 20; TEMP 98
== END 2022-05-06 12:53 | disposition home or self-care (01) ==
LOC: FINFUSION 10:31 → FM/S 10:35 → FINFUSION 12:53
PROVIDERS: ATTEND Internal Medicine Infectious Disease
DX: M86.9 Osteomyelitis, unspecified (principal)
CPT/HCPCS: 36415; 80048; 82550; 82553; 85027; 96365; J0878

== ENCOUNTER 2022-05-07 10:27 | Day surgery (SDC) | payer OTHER ==
[2022-05-07] MEDS ORDERED: SODIUM CHLORIDE IVPB ONE (11:00)
[2022-05-07] MEDS ORDERED: DAPTOMYCIN IVPB ONE (11:00)
[2022-05-07 11:52] VITALS: BP 127/52; PULSE 78; RESP 18; TEMP 98.8
== END 2022-05-07 11:53 | disposition home or self-care (01) ==
LOC: FM/S 10:27 → FINFUSION 10:27
PROVIDERS: ATTEND Internal Medicine Infectious Disease
DX: M86.9 Osteomyelitis, unspecified (principal)
CPT/HCPCS: 96365; J0878

== ENCOUNTER 2022-05-08 10:38 | Day surgery (SDC) | payer OTHER ==
[2022-05-08 11:14] VITALS: BP 127/73; PULSE 76; RESP 18; TEMP 97.8
[2022-05-08] MEDS ORDERED: DAPTOMYCIN IVPB ONE (11:30)
[2022-05-08] MEDS ORDERED: SODIUM CHLORIDE IVPB ONE (11:30)
== END 2022-05-08 11:53 | disposition home or self-care (01) ==
LOC: FINFUSION 10:38 → FM/S 10:39 → FINFUSION 11:53
PROVIDERS: ATTEND Internal Medicine Infectious Disease
DX: M86.9 Osteomyelitis, unspecified (principal)
CPT/HCPCS: 96365; 96367; J0878

== ENCOUNTER 2022-05-09 10:25 | Day surgery (SDC) | payer OTHER ==
[2022-05-09] MEDS ORDERED: SODIUM CHLORIDE IVPB ONE (10:45)
[2022-05-09] MEDS ORDERED: DAPTOMYCIN IVPB ONE (10:45)
[2022-05-09 12:05] VITALS: BP 129/58; PULSE 77; RESP 18; TEMP 98.4
== END 2022-05-09 12:08 | disposition home or self-care (01) ==
LOC: FINFUSION 10:25 → FM/S 10:26 → FINFUSION 12:08
PROVIDERS: ATTEND Internal Medicine Infectious Disease
DX: M86.9 Osteomyelitis, unspecified (principal)
CPT/HCPCS: 96365; J0878

== ENCOUNTER 2022-05-10 10:39 | Day surgery (SDC) | payer OTHER ==
[2022-05-10 12:15] VITALS: BP 126/57; PULSE 69; RESP 18; TEMP 98
== END 2022-05-10 12:10 | disposition home or self-care (01) ==
LOC: FINFUSION 10:39 → FM/S 10:40 → FINFUSION 12:10
PROVIDERS: ATTEND Internal Medicine Infectious Disease
DX: M86.9 Osteomyelitis, unspecified (principal)
CPT/HCPCS: 96365; J0878

== ENCOUNTER 2022-05-11 10:42 | Day surgery (SDC) | payer OTHER ==
[2022-05-11 12:01] VITALS: BP 128/55; PULSE 61; RESP 20; TEMP 98.8
== END 2022-05-11 12:01 | disposition home or self-care (01) ==
LOC: FINFUSION 10:42 → FM/S 10:46 → FINFUSION 12:01
PROVIDERS: ATTEND Internal Medicine Infectious Disease
DX: M86.9 Osteomyelitis, unspecified (principal)
CPT/HCPCS: 96365; J0878

== ENCOUNTER 2022-05-12 10:25 | Day surgery (SDC) | payer OTHER ==
[2022-05-12] MEDS ORDERED: DAPTOMYCIN IVPB ONE (11:00)
[2022-05-12] MEDS ORDERED: SODIUM CHLORIDE IVPB ONE (11:00)
[2022-05-12 11:16] VITALS: BP 119/60; PULSE 72; RESP 18; TEMP 98.7
== END 2022-05-12 11:45 | disposition home or self-care (01) ==
LOC: FINFUSION 10:25 → FM/S 10:27 → FINFUSION 11:45
PROVIDERS: ATTEND Internal Medicine Infectious Disease
DX: M86.9 Osteomyelitis, unspecified (principal)
CPT/HCPCS: 96365; J0878

== ENCOUNTER 2022-05-13 10:53 | Day surgery (SDC) | payer OTHER ==
[2022-05-13] MEDS ORDERED: DAPTOMYCIN IVPB ONE (11:30)
[2022-05-13] MEDS ORDERED: SODIUM CHLORIDE IVPB ONE (11:30)
[2022-05-13 11:51] LABS: HEMATOCRIT 35.8 % (35.4-49); HEMOGLOBIN 12.5 G/dL (11.7-16.9); MCH 32.1 pg (25.7-33.7); MCHC 34.8 g/dl (32.0-35.9); MEAN CELL VOLUME 92.2 fl (80-96); MEAN PLT VOLUME 8.3 fl (7.5-11.1); PLATELET COUNT 244.9 10^3/uL (134-434); RBC 3.88 10^6/uL (4.00-5.60); WHITE BLOOD COUNT 9.5 10^3/uL (4.0-10.8)
[2022-05-13 11:56] LABS: PLATELET ESTIMATE ADEQUATE
[2022-05-13 12:05] LABS: ALBUMIN 3.9 g/dl (3.4-5.0); CALCIUM 9.6 mg/dl (8.5-10); CREATININE 1.3 mg/dl (0.55-1.3); TOT PROT 7.3 g/dl (6.4-8.2)
[2022-05-13 12:24] VITALS: BP 123/55; PULSE 72; RESP 18; TEMP 98.2
[2022-05-13 12:25] LABS: ERYTHROCYTE SEDIMENTATION RATE 54 mm/hr (0-20)
== END 2022-05-13 12:25 | disposition home or self-care (01) ==
LOC: FINFUSION 10:53 → FM/S 11:03 → FINFUSION 12:25
PROVIDERS: ATTEND Internal Medicine Infectious Disease
DX: M86.9 Osteomyelitis, unspecified (principal)
CPT/HCPCS: 36415; 80053; 82550; 82553; 83036; 85025; 85651; 86140; 96365; J0878

== ENCOUNTER → 2022-05-16 | Day surgery (SDC) | payer OTHER | END | disposition home or self-care (01) | LOC: JRADIR 09:06 | PROVIDERS: ATTEND Internal Medicine Infectious Disease | PROC: 02PY03Z Removal of Infusion Device from Great Vessel, Open Approach (ICD-10-PCS; principal; 2022-05-16) | DX: Z45.2 Encounter for adjustment and management of vascular access device (principal) | CPT/HCPCS: 36589; 73630-TC-LT ==

== ENCOUNTER 2022-08-27 22:36 | Inpatient (IN) | payer OTHER ==
[2022-08-27] MEDS ORDERED: PANTOPRAZOLE SODIUM 40 MG VIAL IVPUSH ONE (23:08)
[2022-08-27] MEDS ORDERED: PANTOPRAZOLE SODIUM 40 MG VIAL ONE (23:22)
[2022-08-28 00:16] LABS: BASO % 0.6 % (0-2.0); EOS % 0.2 % (0-4.5); HEMATOCRIT 26.6 % (35.4-49); HEMOGLOBIN 9.1 GM/dL (11.7-16.9); LYMPH % 18.2 % (8-40); MCH 33.3 pg (25.7-33.7); MCHC 34.2 g/dl (32.0-35.9); MEAN CELL VOLUME 97.5 fl (80-96); MEAN PLT VOLUME 6.8 fl (7.5-11.1); MONO % 10.3 % (3.8-10.2); NEUT % 70.7 % (42.8-82.8); PLATELET COUNT 236 10^3/uL (134-434); RBC 2.73 M/mm3 (4.00-5.60); RDW 16.4 % (11.9-15.9); WHITE BLOOD COUNT 12.4 K/mm3 (4.0-10.0)
[2022-08-28 00:39] LABS: ALBUMIN 3.2 g/dl (3.4-5.0); BLOOD UREA NITROGEN 63.3 mg/dL (7-18); CALCIUM 8.3 mg/dL (8.5-10.1); INR 2.33 (0.83-1.09)
[2022-08-28 00:42] LABS: ACTIVATED PTT 37.4 SECONDS (25.2-36.5); CREATININE 1.4 mg/dL (0.55-1.3)
[2022-08-28 00:43] LABS: TOT PROT 6.4 g/dl (6.4-8.2)
[2022-08-28 00:44] LABS: BILIRUBIN,TOTAL 0.9 mg/dL (0.2-1)
[2022-08-28 00:56] LABS: PH,URINE 5.5 (5.0-8.0); URINE APPEARANCE CLEAR; URINE BILIRUBIN NEGATIVE (NEGATIVE); URINE COLOR YELLOW; URINE GLUCOSE (UA) NEGATIVE (NEGATIVE); URINE KETONE NEGATIVE (NEGATIVE); URINE LEUK ESTERASE NEGATIVE (NEGATIVE); URINE NITRITE NEGATIVE (NEGATIVE); URINE PROTEIN NEGATIVE (NEGATIVE)
[2022-08-28] MEDS: SODIUM CHLORIDE 1,000 ML IV SCH (05:00)
[2022-08-28 08:10] LABS: EOS % 0.4 % (0-4.5); HEMATOCRIT 25.3 % (35.4-49); HEMOGLOBIN 8.8 GM/dL (11.7-16.9); LYMPH % 27.8 % (8-40); MCH 33.9 pg (25.7-33.7); MCHC 34.8 g/dl (32.0-35.9); MEAN CELL VOLUME 97.6 fl (80-96); MEAN PLT VOLUME 7.1 fl (7.5-11.1); MONO % 9.6 % (3.8-10.2); NEUT % 61.2 % (42.8-82.8); PLATELET COUNT 223 10^3/uL (134-434); RDW 16.3 % (11.9-15.9); WHITE BLOOD COUNT 11.8 K/mm3 (4.0-10.0)
[2022-08-28 08:26] LABS: INR 2.4 (0.83-1.09); PROTHROMBIN TIME (PATIENT) 27.8 SEC (9.7-13.0)
[2022-08-28] MEDS ORDERED: CEFTRIAXONE 1 GM/50 ML BAG ONE (08:34)
[2022-08-28] MEDS ORDERED: METOPROLOL TARTRATE 50 MG TABLET (FP) ONE (08:34)
[2022-08-28] MEDS ORDERED: TAMSULOSIN HCL 0.4 MG CAP ONE (08:34)
[2022-08-28] MEDS ORDERED: AMIODARONE HCL 200 MG TABLET ONE (08:34)
[2022-08-28] MEDS ORDERED: LEVOTHYROXINE NA 75 MCG TABLET (FP) ONE (08:34)
[2022-08-28] MEDS ORDERED: CEFTRIAXONE 2 GM/100 ML BAG IVPB ONE (08:35)
[2022-08-28 08:46] LABS: ALBUMIN 3.5 g/dl (3.4-5.0); BLOOD UREA NITROGEN 69.8 mg/dL (7-18); CALCIUM 8.4 mg/dL (8.5-10.1); CREATININE 1.4 mg/dL (0.55-1.3)
[2022-08-28 08:47] LABS: BILIRUBIN,TOTAL 1.4 mg/dL (0.2-1); TOT PROT 6.6 g/dl (6.4-8.2)
[2022-08-28] MEDS: INSULIN SLIDING SCALE (NOVOLOG) 1 VIAL SQ SCH ×4 (08:47→22:28)
[2022-08-28 08:49] LABS: PHOSPHOROUS 1.8 mg/dL (2.5-4.9)
[2022-08-28] MEDS: LEVOTHYROXINE NA 75 MCG TABLET (FP) PO SCH (08:55)
[2022-08-28] MEDS: BICALUTAMIDE 50 MG TABLET (FP) PO SCH (08:55)
[2022-08-28] MEDS: METOPROLOL TARTRATE 50 MG TABLET (FP) PO SCH ×2 (08:56→22:28)
[2022-08-28] MEDS: AMIODARONE HCL 200 MG TABLET PO SCH (08:56)
[2022-08-28] MEDS: ALLOPURINOL 100 MG TABLET (FP) PO SCH (08:56)
[2022-08-28] MEDS: TAMSULOSIN HCL 0.4 MG CAP PO SCH (09:01)
[2022-08-28] MEDS ORDERED: PATIENT'S OWN MEDICATION (NON-FORMULARY) (Metoprolol Tartrate [Metoprolol Tartrate] 100 MG PO SCH (10:00)
[2022-08-28] MEDS ORDERED: PATIENT'S OWN MEDICATION (NON-FORMULARY) (Icosapent Ethyl [Icosapent Ethyl] 1 GM Capsule) PO SCH (10:00)
[2022-08-28] MEDS ORDERED: CEFTRIAXONE 1 GM in DEXTROSE 5%-WATER - 50 ML IVPB SCH (10:00)
[2022-08-28] MEDS: NYSTATIN POWDER 100,000 UNITS/GM - 15 GM TOPICAL POWDER TP SCH ×2 (10:06→22:28)
[2022-08-28] MEDS ORDERED: PANTOPRAZOLE SODIUM 40 MG VIAL IVPUSH SCH ×2 (11:00)
[2022-08-28] MEDS ORDERED: PANTOPRAZOLE SODIUM 40 MG VIAL ONE (12:29)
[2022-08-28] MEDS ORDERED: PHYTONADIONE 10 MG/1 ML AMP IVPB ONE ×2 (14:09→17:30)
[2022-08-28 14:52] VITALS: BMI 34.0
[2022-08-28 18:10] LABS: INR 1.83 (0.83-1.09); PROTHROMBIN TIME (PATIENT) 21.2 SEC (9.7-13.0)
[2022-08-28 18:12] LABS: ACTIVATED PTT 35.8 SECONDS (25.2-36.5)
[2022-08-28] MEDS: PANTOPRAZOLE SODIUM 80 MG in SODIUM CHLORIDE 100 ML IVPB SCH (18:23)
[2022-08-28] MEDS ORDERED: PATIENT'S OWN MEDICATION (NON-FORMULARY) (Mirabegron [Myrbetriq] 50 MG Tab.Er.24h) PO SCH (22:00)
[2022-08-28] MEDS: ATORVASTATIN CA 10 MG TABLET (FP) PO SCH (22:27)
[2022-08-29] MEDS ORDERED: MELATONIN 5 MG TABLETS PO ONE (01:13)
[2022-08-29] MEDS: PANTOPRAZOLE SODIUM 80 MG in SODIUM CHLORIDE 100 ML IVPB SCH ×2 (02:31→12:18)
[2022-08-29] MEDS: LEVOTHYROXINE NA 75 MCG TABLET (FP) PO SCH (06:10)
[2022-08-29] MEDS: SODIUM CHLORIDE 1,000 ML IV SCH (06:13)
[2022-08-29] MEDS: INSULIN SLIDING SCALE (NOVOLOG) 1 VIAL SQ SCH ×4 (06:13→21:37)
[2022-08-29 07:58] LABS: BASO % 0.7 % (0-2.0); EOS % 1.5 % (0-4.5); HEMATOCRIT 22.2 % (35.4-49); HEMOGLOBIN 7.6 GM/dL (11.7-16.9); LYMPH % 22.1 % (8-40); MCH 33.3 pg (25.7-33.7); MEAN CELL VOLUME 98.1 fl (80-96); MEAN PLT VOLUME 6.9 fl (7.5-11.1); MONO % 8.1 % (3.8-10.2); NEUT % 67.6 % (42.8-82.8); PLATELET COUNT 191 10^3/uL (134-434); RBC 2.27 M/mm3 (4.00-5.60); RDW 16.5 % (11.9-15.9); WHITE BLOOD COUNT 8.8 K/mm3 (4.0-10.0)
[2022-08-29 08:52] LABS: BLOOD UREA NITROGEN 49.7 mg/dL (7-18); CALCIUM 8.2 mg/dL (8.5-10.1)
[2022-08-29 08:56] LABS: CREATININE 1.3 mg/dL (0.55-1.3)
[2022-08-29] MEDS ORDERED: DEXTROSE 5%-LACTATED RINGERS 1,000 ML IV SCH ×3 (09:15→16:05)
[2022-08-29 09:16] LABS: INR 1.57 (0.83-1.09); PROTHROMBIN TIME (PATIENT) 18.1 SEC (9.7-13.0)
[2022-08-29] MEDS: METOPROLOL TARTRATE 50 MG TABLET (FP) PO SCH ×2 (09:56→21:37)
[2022-08-29] MEDS: ALLOPURINOL 100 MG TABLET (FP) PO SCH (09:57)
[2022-08-29] MEDS: TAMSULOSIN HCL 0.4 MG CAP PO SCH (09:57)
[2022-08-29] MEDS: AMIODARONE HCL 200 MG TABLET PO SCH (09:57)
[2022-08-29] MEDS: NYSTATIN POWDER 100,000 UNITS/GM - 15 GM TOPICAL POWDER TP SCH ×2 (09:58→21:38)
[2022-08-29] MEDS: BICALUTAMIDE 50 MG TABLET (FP) PO SCH (09:58)
[2022-08-29] MEDS ORDERED: FUROSEMIDE 40 MG TABLET (FP) PO SCH (13:17)
[2022-08-29 14:16] LABS: MAGNESIUM 1.9 mg/dL (1.8-2.4); PHOSPHOROUS 3.4 mg/dL (2.5-4.9)
[2022-08-29] MEDS ORDERED: POTASSIUM CHLORIDE TABS 20 MEQ TABLET.ER (FP) PO ONE (14:56)
[2022-08-29] MEDS ORDERED: FENOFIBRIC ACID 45 MG CAP PO SCH (15:00)
[2022-08-29] MEDS ORDERED: PANTOPRAZOLE SODIUM 160 MG in SODIUM CHLORIDE 290 ML IVPB SCH (17:30)
[2022-08-29] MEDS: ATORVASTATIN CA 10 MG TABLET (FP) PO SCH (21:38)
[2022-08-29 22:09] LABS: HEMATOCRIT 26.5 % (35.4-49); HEMOGLOBIN 9.1 GM/dL (11.7-16.9); MCH 33.4 pg (25.7-33.7); MCHC 34.2 g/dl (32.0-35.9); MEAN CELL VOLUME 97.6 fl (80-96); MEAN PLT VOLUME 6.8 fl (7.5-11.1); PLATELET COUNT 216 10^3/uL (134-434); RBC 2.71 M/mm3 (4.00-5.60); RDW 17.1 % (11.9-15.9); WHITE BLOOD COUNT 9.7 K/mm3 (4.0-10.0)
[2022-08-30 00:25] VITALS: BP 142/78; PULSE 60; RESP 20; TEMP 98.6
== END 2022-08-30 04:40 | disposition short-term general hospital (02) | DRG 378 ==
LOC: JER 22:36 → JERBED 08-28 01:53 → OBSVTOIN 08-28 02:53 → JERBED 08-28 13:29 → J4W 08-28 13:54 → J4S 08-28 21:33
PROVIDERS: ADMIT Internal Medicine; ATTEND Internal Medicine
PROC: 30233N1 Transfusion of Nonautologous Red Blood Cells into Peripheral Vein, Percutaneous Approach (ICD-10-PCS; principal; 2022-08-29)
DX: K92.2 Gastrointestinal hemorrhage, unspecified (principal); D62 Acute posthemorrhagic anemia; I50.22 Chronic systolic (congestive) heart failure; I42.9 Cardiomyopathy, unspecified; I13.0 Hypertensive heart and chronic kidney disease with heart failure and stage 1 through stage 4 chronic kidney disease, or unspecified chronic kidney disease; I48.20 Chronic atrial fibrillation, unspecified; E11.41 Type 2 diabetes mellitus with diabetic mononeuropathy; E03.9 Hypothyroidism, unspecified; C61 Malignant neoplasm of prostate; Z90.5 Acquired absence of kidney; Z85.528 Personal history of other malignant neoplasm of kidney; N18.30 Chronic kidney disease, stage 3 unspecified; I25.10 Atherosclerotic heart disease of native coronary artery without angina pectoris; E78.5 Hyperlipidemia, unspecified; N40.0 Benign prostatic hyperplasia without lower urinary tract symptoms; E66.9 Obesity, unspecified; Z68.34 Body mass index [BMI] 34.0-34.9, adult
CPT/HCPCS: 36415; 36430; 71045-TC-FY; 80048; 80053; 81003; 82272; 82550; 82553; 82962; 83690; 83735; 84100; 84484; 85025; 85027; 85610; 85730; 86850; 86900; 86901; 86922; 87040; 87086; 93005; 93010; 99285-25; C9803-CS; G0378; P9058; U0003; U0005

== ENCOUNTER 2022-09-10 20:25 | Inpatient (IN) | payer OTHER ==
[2022-09-10 22:51] LABS: BASO % 0.8 % (0-2.0); EOS % 0.4 % (0-4.5); HEMATOCRIT 15.4 % (35.4-49); LYMPH % 14.9 % (8-40); MCH 34.2 pg (25.7-33.7); MCHC 33.5 g/dl (32.0-35.9); MEAN PLT VOLUME 7.5 fl (7.5-11.1); MONO % 7.1 % (3.8-10.2); NEUT % 76.8 % (42.8-82.8); PLATELET COUNT 257 10^3/uL (134-434); RBC 1.51 M/mm3 (4.00-5.60); RDW 19.2 % (11.9-15.9); WHITE BLOOD COUNT 10.3 K/mm3 (4.0-10.0)
[2022-09-10 22:53] LABS: HEMOGLOBIN 5.2 GM/dL (11.7-16.9)
[2022-09-10 22:58] LABS: PH,URINE 5.5 (5.0-8.0); URINE APPEARANCE CLEAR; URINE BILIRUBIN NEGATIVE (NEGATIVE); URINE COLOR YELLOW; URINE GLUCOSE (UA) 3+ (NEGATIVE); URINE KETONE NEGATIVE (NEGATIVE); URINE LEUK ESTERASE NEGATIVE (NEGATIVE); URINE NITRITE NEGATIVE (NEGATIVE); URINE PROTEIN NEGATIVE (NEGATIVE)
[2022-09-10 23:09] LABS: INR 1.9 (0.83-1.09)
[2022-09-10 23:13] LABS: ALBUMIN 2.9 g/dl (3.4-5.0); CALCIUM 8.2 mg/dL (8.5-10.1); MAGNESIUM 2.1 mg/dL (1.8-2.4)
[2022-09-10 23:17] LABS: CREATININE 1.7 mg/dL (0.55-1.3)
[2022-09-10 23:18] LABS: BILIRUBIN,TOTAL 0.8 mg/dL (0.2-1); TOT PROT 5.8 g/dl (6.4-8.2)
[2022-09-10] MEDS ORDERED: PANTOPRAZOLE SODIUM 40 MG VIAL IVPUSH ONE (23:36)
[2022-09-10] MEDS ORDERED: PANTOPRAZOLE SODIUM 40 MG VIAL ONE (23:54)
[2022-09-11] MEDS ORDERED: PANTOPRAZOLE SODIUM 160 MG in SODIUM CHLORIDE 290 ML IVPB SCH (01:59)
[2022-09-11] MEDS ORDERED: ALPRAZolam 0.25 MG TABLET PO PRN (03:17)
[2022-09-11] MEDS ORDERED: PATIENT'S OWN MEDICATION (NON-FORMULARY) (Metoprolol Tartrate [Metoprolol Tartrate] 100 MG PO SCH (10:00)
[2022-09-11 10:20] LABS: BASO % 1.1 % (0-2.0); EOS % 1.1 % (0-4.5); HEMATOCRIT 21.9 % (35.4-49); HEMOGLOBIN 7.6 GM/dL (11.7-16.9); LYMPH % 20.7 % (8-40); MCH 34.2 pg (25.7-33.7); MCHC 34.6 g/dl (32.0-35.9); MEAN CELL VOLUME 98.7 fl (80-96); MEAN PLT VOLUME 7.2 fl (7.5-11.1); MONO % 8.4 % (3.8-10.2); NEUT % 68.7 % (42.8-82.8); PLATELET COUNT 274 10^3/uL (134-434); RBC 2.22 M/mm3 (4.00-5.60); RDW 19.4 % (11.9-15.9)
[2022-09-11 10:39] LABS: ALBUMIN 3.2 g/dl (3.4-5.0); CALCIUM 8.6 mg/dL (8.5-10.1); MAGNESIUM 2.2 mg/dL (1.8-2.4)
[2022-09-11 10:40] LABS: BLOOD UREA NITROGEN 32.1 mg/dL (7-18)
[2022-09-11 10:42] LABS: CREATININE 1.6 mg/dL (0.55-1.3); PHOSPHOROUS 3.5 mg/dL (2.5-4.9)
[2022-09-11 10:43] LABS: TOT PROT 6.4 g/dl (6.4-8.2)
[2022-09-11] MEDS ORDERED: TAMSULOSIN HCL 0.4 MG CAP ONE (14:34)
[2022-09-11] MEDS ORDERED: LEVOTHYROXINE NA 75 MCG TABLET (FP) ONE (14:35)
[2022-09-11] MEDS ORDERED: AMIODARONE HCL 200 MG TABLET ONE (14:35)
[2022-09-11] MEDS: METOPROLOL TARTRATE 50 MG TABLET (FP) PO SCH ×2 (14:40→23:01)
[2022-09-11] MEDS: AMIODARONE HCL 200 MG TABLET PO SCH (14:40)
[2022-09-11] MEDS: TAMSULOSIN HCL 0.4 MG CAP PO SCH (14:41)
[2022-09-11] MEDS: LEVOTHYROXINE NA 75 MCG TABLET (FP) PO SCH (14:41)
[2022-09-11] MEDS: BICALUTAMIDE 50 MG TABLET (FP) PO SCH (17:26)
[2022-09-11] MEDS: OMEGA-3 ACID ETHYL ESTERS (FATTY-ACIDS) 1 GM CAPSULE (FP) PO SCH ×2 (17:26→23:01)
[2022-09-11] MEDS: ALLOPURINOL 100 MG TABLET (FP) PO SCH (17:26)
[2022-09-11 19:30] VITALS: BMI 32.5
[2022-09-11 21:31] LABS: HEMATOCRIT 24.7 % (35.4-49); HEMOGLOBIN 8.1 GM/dL (11.7-16.9); MEAN PLT VOLUME 7.6 fl (7.5-11.1); PLATELET COUNT 259 10^3/uL (134-434); RBC 2.47 M/mm3 (4.00-5.60); RDW 19.2 % (11.9-15.9); WHITE BLOOD COUNT 8.6 K/mm3 (4.0-10.0)
[2022-09-11] MEDS ORDERED: PANTOPRAZOLE SODIUM 40 MG VIAL IVPUSH SCH (22:00)
[2022-09-11] MEDS ORDERED: PATIENT'S OWN MEDICATION (NON-FORMULARY) (Mirabegron [Myrbetriq] 50 MG Tab.Er.24h) PO SCH (22:00)
[2022-09-11] MEDS: ATORVASTATIN CA 10 MG TABLET (FP) PO SCH (23:00)
[2022-09-11] MEDS: INSULIN (LEVEMIR) 100 UNITS/ML UNITS SQ SCH (23:01)
[2022-09-12] MEDS: LEVOTHYROXINE NA 75 MCG TABLET (FP) PO SCH (06:44)
[2022-09-12 07:20] LABS: BASO % 0.9 % (0-2.0); EOS % 2.2 % (0-4.5); HEMOGLOBIN 7.8 GM/dL (11.7-16.9); LYMPH % 23.4 % (8-40); MCH 33.4 pg (25.7-33.7); MCHC 33.7 g/dl (32.0-35.9); MEAN CELL VOLUME 99.1 fl (80-96); MEAN PLT VOLUME 7.4 fl (7.5-11.1); MONO % 8.3 % (3.8-10.2); NEUT % 65.2 % (42.8-82.8); PLATELET COUNT 273 10^3/uL (134-434); RBC 2.32 M/mm3 (4.00-5.60); WHITE BLOOD COUNT 8.2 K/mm3 (4.0-10.0)
[2022-09-12 07:22] LABS: INR 1.24 (0.83-1.09); PROTHROMBIN TIME (PATIENT) 14.3 SEC (9.7-13.0)
[2022-09-12 07:48] LABS: CALCIUM 8.5 mg/dL (8.5-10.1)
[2022-09-12 07:49] LABS: BLOOD UREA NITROGEN 22.4 mg/dL (7-18)
[2022-09-12 07:52] LABS: CREATININE 1.5 mg/dL (0.55-1.3)
[2022-09-12] MEDS ORDERED: PANTOPRAZOLE SODIUM 160 MG in SODIUM CHLORIDE 290 ML IVPB SCH (08:00)
[2022-09-12] MEDS: TAMSULOSIN HCL 0.4 MG CAP PO SCH (12:13)
[2022-09-12] MEDS: OMEGA-3 ACID ETHYL ESTERS (FATTY-ACIDS) 1 GM CAPSULE (FP) PO SCH ×2 (12:14→21:42)
[2022-09-12] MEDS: METOPROLOL TARTRATE 50 MG TABLET (FP) PO SCH ×2 (12:14→21:42)
[2022-09-12] MEDS: AMIODARONE HCL 200 MG TABLET PO SCH (12:14)
[2022-09-12] MEDS: ALLOPURINOL 100 MG TABLET (FP) PO SCH (12:15)
[2022-09-12] MEDS: BICALUTAMIDE 50 MG TABLET (FP) PO SCH (12:15)
[2022-09-12] MEDS: POLYETHYLENE GLYCOL (HEALTHYLAX) 3350 17 GM PACKET PO SCH ×2 (16:27→21:42)
[2022-09-12] MEDS: FENOFIBRIC ACID 45 MG CAP PO SCH ×2 (16:27→16:28)
[2022-09-12] MEDS: ATORVASTATIN CA 10 MG TABLET (FP) PO SCH (21:42)
[2022-09-12] MEDS: PANTOPRAZOLE SODIUM 40 MG VIAL IVPUSH SCH (21:42)
[2022-09-12] MEDS: INSULIN (LEVEMIR) 100 UNITS/ML UNITS SQ SCH (21:52)
[2022-09-13] MEDS: LEVOTHYROXINE NA 75 MCG TABLET (FP) PO SCH (06:33)
[2022-09-13] MEDS: POLYETHYLENE GLYCOL (HEALTHYLAX) 3350 17 GM PACKET PO SCH ×3 (06:33→21:17)
[2022-09-13 08:41] LABS: BASO % 0.9 % (0-2.0); EOS % 2.5 % (0-4.5); HEMATOCRIT 22.6 % (35.4-49); HEMOGLOBIN 7.6 GM/dL (11.7-16.9); MCH 33.2 pg (25.7-33.7); MCHC 33.4 g/dl (32.0-35.9); MEAN CELL VOLUME 99.4 fl (80-96); MEAN PLT VOLUME 7.4 fl (7.5-11.1); MONO % 8.7 % (3.8-10.2); NEUT % 59.9 % (42.8-82.8); PLATELET COUNT 269 10^3/uL (134-434); RBC 2.28 M/mm3 (4.00-5.60); WHITE BLOOD COUNT 6.7 K/mm3 (4.0-10.0)
[2022-09-13 09:02] LABS: CALCIUM 8.4 mg/dL (8.5-10.1)
[2022-09-13 09:03] LABS: ALBUMIN 2.9 g/dl (3.4-5.0); BLOOD UREA NITROGEN 19.1 mg/dL (7-18)
[2022-09-13 09:06] LABS: CREATININE 1.4 mg/dL (0.55-1.3)
[2022-09-13 09:07] LABS: IRON SERUM 30 ug/dL (50-175); TOTAL IRON BINDING CAPACITY 426 ug/dL (250-450)
[2022-09-13 09:08] LABS: BILIRUBIN,TOTAL 1.6 mg/dL (0.2-1); TOT PROT 5.8 g/dl (6.4-8.2)
[2022-09-13] MEDS: PANTOPRAZOLE SODIUM 40 MG VIAL IVPUSH SCH ×2 (10:51→21:15)
[2022-09-13] MEDS: TAMSULOSIN HCL 0.4 MG CAP PO SCH (10:52)
[2022-09-13] MEDS: FENOFIBRIC ACID 45 MG CAP PO SCH (10:52)
[2022-09-13] MEDS: FUROSEMIDE 40 MG TABLET (FP) PO SCH (10:52)
[2022-09-13] MEDS: AMIODARONE HCL 200 MG TABLET PO SCH (10:52)
[2022-09-13] MEDS: BICALUTAMIDE 50 MG TABLET (FP) PO SCH (10:52)
[2022-09-13] MEDS: OMEGA-3 ACID ETHYL ESTERS (FATTY-ACIDS) 1 GM CAPSULE (FP) PO SCH ×2 (10:52→21:15)
[2022-09-13] MEDS: METOPROLOL TARTRATE 50 MG TABLET (FP) PO SCH ×2 (10:53→21:15)
[2022-09-13] MEDS: ALLOPURINOL 100 MG TABLET (FP) PO SCH (10:53)
[2022-09-13] MEDS: AMMONIUM LACTATE 12% LOTION 225 GM BOTTLE TP PRN ×2 (10:53→21:38)
[2022-09-13] MEDS: ATORVASTATIN CA 10 MG TABLET (FP) PO SCH (21:15)
[2022-09-13] MEDS: INSULIN (LEVEMIR) 100 UNITS/ML UNITS SQ SCH (21:17)
[2022-09-14] MEDS: LEVOTHYROXINE NA 75 MCG TABLET (FP) PO SCH (06:13)
[2022-09-14] MEDS: POLYETHYLENE GLYCOL (HEALTHYLAX) 3350 17 GM PACKET PO SCH ×3 (06:13→22:11)
[2022-09-14 08:13] LABS: ALBUMIN 3.1 g/dl (3.4-5.0); BLOOD UREA NITROGEN 16.3 mg/dL (7-18); CALCIUM 8.8 mg/dL (8.5-10.1)
[2022-09-14 08:16] LABS: CREATININE 1.6 mg/dL (0.55-1.3)
[2022-09-14 08:18] LABS: BILIRUBIN,TOTAL 1.2 mg/dL (0.2-1); TOT PROT 6.3 g/dl (6.4-8.2)
[2022-09-14 08:28] LABS: EOS % 2.9 % (0-4.5); LYMPH % 26.5 % (8-40); MCH 33.1 pg (25.7-33.7); MCHC 33.1 g/dl (32.0-35.9); MEAN CELL VOLUME 100.1 fl (80-96); MEAN PLT VOLUME 7.6 fl (7.5-11.1); MONO % 7.4 % (3.8-10.2); NEUT % 62.2 % (42.8-82.8); PLATELET COUNT 297 10^3/uL (134-434); RDW 19.3 % (11.9-15.9); WHITE BLOOD COUNT 7.2 K/mm3 (4.0-10.0)
[2022-09-14] MEDS: TAMSULOSIN HCL 0.4 MG CAP PO SCH (08:58)
[2022-09-14] MEDS ORDERED: PEG 3350/NA SULF BICARB CL/KCL 4000 ML SOLN.RECON PO ONE (09:00)
[2022-09-14] MEDS: BICALUTAMIDE 50 MG TABLET (FP) PO SCH (11:11)
[2022-09-14] MEDS: OMEGA-3 ACID ETHYL ESTERS (FATTY-ACIDS) 1 GM CAPSULE (FP) PO SCH ×2 (11:11→22:10)
[2022-09-14] MEDS: FUROSEMIDE 40 MG TABLET (FP) PO SCH (11:11)
[2022-09-14] MEDS: FENOFIBRIC ACID 45 MG CAP PO SCH (11:11)
[2022-09-14] MEDS: FERROUS GLUCONATE 324 MG TAB (FP) PO SCH (11:11)
[2022-09-14] MEDS: VITAMIN B COMP W-C 1 EA TABLET (NEPHRO-VITE) PO SCH (11:11)
[2022-09-14] MEDS: ALLOPURINOL 100 MG TABLET (FP) PO SCH (11:11)
[2022-09-14] MEDS: AMIODARONE HCL 200 MG TABLET PO SCH (11:12)
[2022-09-14] MEDS: PANTOPRAZOLE SODIUM 40 MG VIAL IVPUSH SCH ×2 (11:13→22:11)
[2022-09-14] MEDS: METOPROLOL TARTRATE 50 MG TABLET (FP) PO SCH ×2 (11:13→22:10)
[2022-09-14] MEDS: MAGNESIUM OXIDE 400 MG TABLET (FP) PO SCH (11:13)
[2022-09-14] MEDS ORDERED: BISACODYL 5 MG TABLET.DR (FP) PO ONE (18:00)
[2022-09-14] MEDS: INSULIN (LEVEMIR) 100 UNITS/ML UNITS SQ SCH (22:10)
[2022-09-14] MEDS: ATORVASTATIN CA 10 MG TABLET (FP) PO SCH (22:10)
[2022-09-15] MEDS: POLYETHYLENE GLYCOL (HEALTHYLAX) 3350 17 GM PACKET PO SCH ×3 (05:49→21:23)
[2022-09-15] MEDS: LEVOTHYROXINE NA 75 MCG TABLET (FP) PO SCH (06:25)
[2022-09-15 08:16] LABS: INR 1.18 (0.83-1.09); PROTHROMBIN TIME (PATIENT) 13.6 SEC (9.7-13.0)
[2022-09-15 08:19] LABS: BASO % 1.2 % (0-2.0); HEMOGLOBIN 8.3 GM/dL (11.7-16.9); LYMPH % 29.7 % (8-40); MCH 32.8 pg (25.7-33.7); MCHC 33.2 g/dl (32.0-35.9); MEAN CELL VOLUME 98.9 fl (80-96); MEAN PLT VOLUME 7.6 fl (7.5-11.1); MONO % 9.6 % (3.8-10.2); NEUT % 56.5 % (42.8-82.8); PLATELET COUNT 275 10^3/uL (134-434); RBC 2.53 M/mm3 (4.00-5.60); RDW 18.1 % (11.9-15.9); WHITE BLOOD COUNT 6.3 K/mm3 (4.0-10.0)
[2022-09-15 08:48] LABS: ALBUMIN 3.1 g/dl (3.4-5.0)
[2022-09-15 08:50] LABS: CALCIUM 8.5 mg/dL (8.5-10.1)
[2022-09-15 08:51] LABS: BLOOD UREA NITROGEN 12.6 mg/dL (7-18); CREATININE 1.3 mg/dL (0.55-1.3)
[2022-09-15 08:53] LABS: BILIRUBIN,TOTAL 1.1 mg/dL (0.2-1); TOT PROT 6.2 g/dl (6.4-8.2)
[2022-09-15] MEDS: TAMSULOSIN HCL 0.4 MG CAP PO SCH (12:50)
[2022-09-15] MEDS: VITAMIN B COMP W-C 1 EA TABLET (NEPHRO-VITE) PO SCH (12:51)
[2022-09-15] MEDS: OMEGA-3 ACID ETHYL ESTERS (FATTY-ACIDS) 1 GM CAPSULE (FP) PO SCH ×2 (12:51→21:24)
[2022-09-15] MEDS: MAGNESIUM OXIDE 400 MG TABLET (FP) PO SCH (12:51)
[2022-09-15] MEDS: PANTOPRAZOLE SODIUM 40 MG VIAL IVPUSH SCH ×2 (12:51→21:24)
[2022-09-15] MEDS: ALLOPURINOL 100 MG TABLET (FP) PO SCH (12:51)
[2022-09-15] MEDS: AMIODARONE HCL 200 MG TABLET PO SCH (12:51)
[2022-09-15] MEDS: FERROUS GLUCONATE 324 MG TAB (FP) PO SCH (12:51)
[2022-09-15] MEDS: METOPROLOL TARTRATE 50 MG TABLET (FP) PO SCH ×2 (12:52→21:23)
[2022-09-15] MEDS: FUROSEMIDE 40 MG TABLET (FP) PO SCH (12:52)
[2022-09-15] MEDS: BICALUTAMIDE 50 MG TABLET (FP) PO SCH (12:54)
[2022-09-15] MEDS: FENOFIBRIC ACID 45 MG CAP PO SCH (12:54)
[2022-09-15 19:07] LABS: GLIADIN ANTIBODY IGA 5 units (0-19); GLIADIN ANTIBODY IGG 3 units (0-19); TRANSGLUTAMINASE IGG < 2 U/mL (0-5)
[2022-09-15] MEDS: ATORVASTATIN CA 10 MG TABLET (FP) PO SCH (21:24)
[2022-09-15] MEDS: INSULIN (LEVEMIR) 100 UNITS/ML UNITS SQ SCH (22:41)
[2022-09-16] MEDS: POLYETHYLENE GLYCOL (HEALTHYLAX) 3350 17 GM PACKET PO SCH (06:05)
[2022-09-16] MEDS: LEVOTHYROXINE NA 75 MCG TABLET (FP) PO SCH (06:26)
[2022-09-16] MEDS: VITAMIN B COMP W-C 1 EA TABLET (NEPHRO-VITE) PO SCH (09:26)
[2022-09-16] MEDS: PANTOPRAZOLE SODIUM 40 MG VIAL IVPUSH SCH (09:26)
[2022-09-16] MEDS: FUROSEMIDE 40 MG TABLET (FP) PO SCH (09:26)
[2022-09-16] MEDS: MAGNESIUM OXIDE 400 MG TABLET (FP) PO SCH (09:26)
[2022-09-16] MEDS: AMIODARONE HCL 200 MG TABLET PO SCH (09:26)
[2022-09-16] MEDS: FERROUS GLUCONATE 324 MG TAB (FP) PO SCH (09:26)
[2022-09-16] MEDS: OMEGA-3 ACID ETHYL ESTERS (FATTY-ACIDS) 1 GM CAPSULE (FP) PO SCH (09:26)
[2022-09-16] MEDS: TAMSULOSIN HCL 0.4 MG CAP PO SCH (09:26)
[2022-09-16] MEDS: METOPROLOL TARTRATE 50 MG TABLET (FP) PO SCH (09:26)
[2022-09-16] MEDS: FENOFIBRIC ACID 45 MG CAP PO SCH (09:27)
[2022-09-16] MEDS: BICALUTAMIDE 50 MG TABLET (FP) PO SCH (09:27)
[2022-09-16] MEDS: ALLOPURINOL 100 MG TABLET (FP) PO SCH (09:27)
[2022-09-16 11:56] LABS: MCH 32.7 pg (25.7-33.7); MCHC 33.2 g/dl (32.0-35.9); MEAN CELL VOLUME 98.4 fl (80-96); PLATELET COUNT 281 10^3/uL (134-434); RBC 2.44 M/mm3 (4.00-5.60); RDW 17.3 % (11.9-15.9); WHITE BLOOD COUNT 6.9 K/mm3 (4.0-10.0)
[2022-09-16 12:21] LABS: CALCIUM 8.7 mg/dL (8.5-10.1)
[2022-09-16 12:24] LABS: CREATININE 1.4 mg/dL (0.55-1.3)
[2022-09-16 15:20] VITALS: BP 129/63; PULSE 69; RESP 20; TEMP 98.6
== END 2022-09-16 16:28 | disposition home or self-care (01) | DRG 378 ==
LOC: JER 20:25 → JERBED 23:38 → J4W 09-11 20:25
PROVIDERS: ADMIT Internal Medicine; ATTEND Internal Medicine
PROC: 30233N1 Transfusion of Nonautologous Red Blood Cells into Peripheral Vein, Percutaneous Approach (ICD-10-PCS; principal; 2022-09-11)
PROC: 0DJ08ZZ Inspection of Upper Intestinal Tract, Via Natural or Artificial Opening Endoscopic (ICD-10-PCS; 2022-09-12)
PROC: 0DJD8ZZ Inspection of Lower Intestinal Tract, Via Natural or Artificial Opening Endoscopic (ICD-10-PCS; 2022-09-15)
DX: K55.21 Angiodysplasia of colon with hemorrhage (principal); D62 Acute posthemorrhagic anemia; I13.0 Hypertensive heart and chronic kidney disease with heart failure and stage 1 through stage 4 chronic kidney disease, or unspecified chronic kidney disease; I50.22 Chronic systolic (congestive) heart failure; I48.20 Chronic atrial fibrillation, unspecified; K92.2 Gastrointestinal hemorrhage, unspecified; E03.9 Hypothyroidism, unspecified; N40.0 Benign prostatic hyperplasia without lower urinary tract symptoms; E78.5 Hyperlipidemia, unspecified; E11.22 Type 2 diabetes mellitus with diabetic chronic kidney disease; N18.30 Chronic kidney disease, stage 3 unspecified; E11.40 Type 2 diabetes mellitus with diabetic neuropathy, unspecified; R94.31 Abnormal electrocardiogram [ECG] [EKG]; I35.0 Nonrheumatic aortic (valve) stenosis; E11.65 Type 2 diabetes mellitus with hyperglycemia; K59.00 Constipation, unspecified; I25.10 Atherosclerotic heart disease of native coronary artery without angina pectoris; K21.00 Gastro-esophageal reflux disease with esophagitis, without bleeding; F41.9 Anxiety disorder, unspecified; K64.8 Other hemorrhoids; K57.90 Diverticulosis of intestine, part unspecified, without perforation or abscess without bleeding; E11.610 Type 2 diabetes mellitus with diabetic neuropathic arthropathy; Z96.653 Presence of artificial knee joint, bilateral; Z85.53 Personal history of malignant neoplasm of renal pelvis; Z85.46 Personal history of malignant neoplasm of prostate; Z89.422 Acquired absence of other left toe(s); Z95.0 Presence of cardiac pacemaker; Z79.4 Long term (current) use of insulin
CPT/HCPCS: 0241U-QW; 36415; 36430; 70450-TC; 71045-TC-FY; 80048; 80053; 81003; 82272; 82550; 82728; 82784; 82962; 83516; 83540; 83550; 83605; 83735; 84100; 84155; 84165; 84484; 85025; 85027; 85045; 85610; 85730; 86140; 86334; 86850; 86900; 86901; 86922; 87086; 93005; 93010; 99291; 99292; P9038; P9058

== ENCOUNTER 2022-10-01 00:24 | Inpatient (IN) | payer OTHER ==
[2022-10-01 02:02] LABS: BASO % 0.1 % (0-2.0); HEMATOCRIT 31.3 % (35.4-49); HEMOGLOBIN 10.1 GM/dL (11.7-16.9); LYMPH % 4.4 % (8-40); MCH 30.7 pg (25.7-33.7); MCHC 32.2 g/dl (32.0-35.9); MEAN CELL VOLUME 95.3 fl (80-96); MEAN PLT VOLUME 7.8 fl (7.5-11.1); MONO % 3.4 % (3.8-10.2); NEUT % 92.1 % (42.8-82.8); PLATELET COUNT 218 10^3/uL (134-434); RBC 3.28 M/mm3 (4.00-5.60); RDW 16.3 % (11.9-15.9); WHITE BLOOD COUNT 18.3 K/mm3 (4.0-10.0)
[2022-10-01 02:15] LABS: INR 1.6 (0.83-1.09); PROTHROMBIN TIME (PATIENT) 18.5 SEC (9.7-13.0)
[2022-10-01 02:18] LABS: ACTIVATED PTT 32.9 SECONDS (25.2-36.5)
[2022-10-01 02:24] LABS: CALCIUM 9.1 mg/dL (8.5-10.1)
[2022-10-01 02:25] LABS: ALBUMIN 3.8 g/dl (3.4-5.0); MAGNESIUM 1.6 mg/dL (1.8-2.4)
[2022-10-01 02:28] LABS: CREATININE 2.4 mg/dL (0.55-1.3)
[2022-10-01 02:29] LABS: TOT PROT 7.5 g/dl (6.4-8.2)
[2022-10-01 02:30] LABS: BILIRUBIN,TOTAL 1.8 mg/dL (0.2-1)
[2022-10-01] MEDS ORDERED: MAGNESIUM SULF 50% (8.12 MEQ/2 ML-1 GM VIAL) IVPB ONE (02:30)
[2022-10-01 02:58] LABS: N-TERMINAL BNP 32423.4 pg/ml (5-125)
[2022-10-01] MEDS ORDERED: PIPERACILLIN/TAZOB 4.5 GM 4.5 GM in DEXTROSE 5%-WATER 100 ML IVPB ONE (03:00)
[2022-10-01] MEDS ORDERED: SODIUM CHLORIDE 0.9% 500 ML INFUS.BAG IV ONE (03:00)
[2022-10-01] MEDS ORDERED: VANCOMYCIN 1 GM in D5W (PRE-DOCKED) 1,000 MG/250 ML IVPB ONE (03:00)
[2022-10-01] MEDS ORDERED: VANCOMYCIN/WATER FOR INJ (PEG) 1,000 MG/200 ML BAG IVPB ONE (03:17)
[2022-10-01] MEDS ORDERED: PIPERACILLIN/TAZOB 4.5 GM 4.5 GM/100 ML BAG IVPB ONE (03:17)
[2022-10-01 03:28] LABS: ANISOCYTOSIS 0; MACROCYTOSIS 0
[2022-10-01 04:49] LABS: LACTIC ACID 3.1 mmol/L (0.4-2.0)
[2022-10-01] MEDS ORDERED: ASPIRIN 325 MG TABLET PO ONE (05:03)
[2022-10-01] MEDS ORDERED: IRON SUCROSE INJECTION 200 MG in SODIUM CHLORIDE 90 ML IVPB ONE (06:45)
[2022-10-01] MEDS ORDERED: ASPIRIN 81 MG CHEWABLE TABLETS ONE (07:03)
[2022-10-01 08:58] LABS: EPI CELLS 36 /uL (0-25.1); HYALINE CASTS 2 /uL (0-3.1); PH,URINE 5.5 (5.0-8.0); URINE APPEARANCE CLEAR; URINE BACTERIA 14 /uL (0-1359); URINE BILIRUBIN NEGATIVE (NEGATIVE); URINE COLOR DK YELLOW; URINE GLUCOSE (UA) NEGATIVE (NEGATIVE); URINE KETONE TRACE (NEGATIVE); URINE LEUK ESTERASE 2+ (NEGATIVE); URINE NITRITE NEGATIVE (NEGATIVE); URINE PROTEIN 2+ (NEGATIVE); URINE RBC 27 /uL (0-23.9); URINE WBC 236 /uL (0-25.8)
[2022-10-01 09:04] LABS: LACTIC ACID 3.1 mmol/L (0.4-2.0)
[2022-10-01] MEDS ORDERED: VANCOMYCIN/WATER FOR INJ (PEG) 750 MG/150 ML BAG IVPB SCH (14:15)
[2022-10-01] MEDS: SODIUM CHLORIDE 1,000 ML IV SCH (14:30)
[2022-10-01] MEDS ORDERED: AMIODARONE HCL 200 MG TABLET ONE (15:03)
[2022-10-01] MEDS: AMIODARONE HCL 200 MG TABLET PO SCH (15:12)
[2022-10-01] MEDS: VANCOMYCIN/WATER FOR INJ (PEG) 750 MG/150 ML BAG IVPB SCH (15:24)
[2022-10-01] MEDS: INSULIN SLIDING SCALE (NOVOLOG) 1 VIAL SQ SCH (16:48)
[2022-10-01] MEDS ORDERED: ACETAMINOPHEN 325 MG TABLET (FP) PO PRN (18:23)
[2022-10-01] MEDS ORDERED: ATORVASTATIN CA 10 MG TABLET (FP) ONE (22:25)
[2022-10-01] MEDS ORDERED: ACETAMINOPHEN 325 MG TABLET (FP) ONE (22:26)
[2022-10-01] MEDS ORDERED: METOPROLOL TARTRATE 50 MG TABLET (FP) ONE (22:26)
[2022-10-01] MEDS: METOPROLOL TARTRATE 50 MG TABLET (FP) PO SCH (22:43)
[2022-10-01] MEDS: ATORVASTATIN CA 10 MG TABLET (FP) PO SCH (22:44)
[2022-10-02] MEDS: INSULIN SLIDING SCALE (NOVOLOG) 1 VIAL SQ SCH ×3 (08:47→17:31)
[2022-10-02] MEDS ORDERED: TAMSULOSIN HCL 0.4 MG CAP ONE (08:51)
[2022-10-02] MEDS: TAMSULOSIN HCL 0.4 MG CAP PO SCH (08:52)
[2022-10-02] MEDS ORDERED: AMIODARONE HCL 200 MG TABLET ONE (09:51)
[2022-10-02] MEDS: AMIODARONE HCL 200 MG TABLET PO SCH (09:51)
[2022-10-02] MEDS: VANCOMYCIN/WATER FOR INJ (PEG) 750 MG/150 ML BAG IVPB SCH (09:51)
[2022-10-02] MEDS: BICALUTAMIDE 50 MG TABLET (FP) PO SCH (09:52)
[2022-10-02 10:41] LABS: BASO % 0.2 % (0-2.0); HEMATOCRIT 29.5 % (35.4-49); HEMOGLOBIN 9.5 GM/dL (11.7-16.9); LYMPH % 8.3 % (8-40); MCH 30.7 pg (25.7-33.7); MCHC 32.2 g/dl (32.0-35.9); MEAN CELL VOLUME 95.5 fl (80-96); MEAN PLT VOLUME 8.5 fl (7.5-11.1); MONO % 5.9 % (3.8-10.2); NEUT % 85.6 % (42.8-82.8); PLATELET COUNT 174 10^3/uL (134-434); RBC 3.08 M/mm3 (4.00-5.60); RDW 16.3 % (11.9-15.9)
[2022-10-02 11:04] LABS: ALBUMIN 3.3 g/dl (3.4-5.0); BLOOD UREA NITROGEN 37.3 mg/dL (7-18); CALCIUM 8.7 mg/dL (8.5-10.1); MAGNESIUM 2.4 mg/dL (1.8-2.4)
[2022-10-02 11:07] LABS: BILIRUBIN,DIRECT 0.8 mg/dL (0.0-0.2); CREATININE 1.9 mg/dL (0.55-1.3); PHOSPHOROUS 3.4 mg/dL (2.5-4.9)
[2022-10-02 11:09] LABS: BILIRUBIN,TOTAL 1.4 mg/dL (0.2-1); TOT PROT 6.8 g/dl (6.4-8.2)
[2022-10-02] MEDS: SODIUM CHLORIDE 1,000 ML IV SCH (13:15)
[2022-10-02] MEDS: METOPROLOL TARTRATE 50 MG TABLET (FP) PO SCH ×2 (13:17→22:49)
[2022-10-02] MEDS ORDERED: SODIUM CHLORIDE 0.45% 1,000 ML IV SCH (16:30)
[2022-10-02] MEDS ORDERED: ACETAMINOPHEN 325 MG TABLET (FP) ONE (20:15)
[2022-10-02] MEDS ORDERED: METOPROLOL TARTRATE 50 MG TABLET (FP) ONE (22:46)
[2022-10-02] MEDS ORDERED: ATORVASTATIN CA 10 MG TABLET (FP) ONE (22:46)
[2022-10-02] MEDS: ATORVASTATIN CA 10 MG TABLET (FP) PO SCH (22:49)
[2022-10-03] MEDS ORDERED: MELATONIN 5 MG TABLETS PO ONE (00:56)
[2022-10-03] MEDS: INSULIN SLIDING SCALE (NOVOLOG) 1 VIAL SQ SCH ×3 (06:02→17:48)
[2022-10-03 08:22] LABS: CALCIUM 8.8 mg/dL (8.5-10.1)
[2022-10-03 08:23] LABS: BLOOD UREA NITROGEN 45.2 mg/dL (7-18)
[2022-10-03 08:24] LABS: LACTIC ACID 2.6 mmol/L (0.4-2.0)
[2022-10-03 08:26] LABS: CREATININE 1.8 mg/dL (0.55-1.3)
[2022-10-03 08:27] LABS: BILIRUBIN,TOTAL 1.9 mg/dL (0.2-1)
[2022-10-03 08:28] LABS: TOT PROT 6.4 g/dl (6.4-8.2)
[2022-10-03] MEDS ORDERED: METOPROLOL TARTRATE 25 MG TABLET (FP) ONE (10:12)
[2022-10-03] MEDS ORDERED: TAMSULOSIN HCL 0.4 MG CAP ONE (10:13)
[2022-10-03] MEDS ORDERED: AMIODARONE HCL 200 MG TABLET ONE (10:13)
[2022-10-03] MEDS: BICALUTAMIDE 50 MG TABLET (FP) PO SCH (10:16)
[2022-10-03] MEDS: TAMSULOSIN HCL 0.4 MG CAP PO SCH (10:16)
[2022-10-03] MEDS: AMIODARONE HCL 200 MG TABLET PO SCH (10:17)
[2022-10-03] MEDS: METOPROLOL TARTRATE 50 MG TABLET (FP) PO SCH ×2 (10:18→21:23)
[2022-10-03] MEDS ORDERED: METOPROLOL TARTRATE 50 MG TABLET (FP) ONE (10:24)
[2022-10-03] MEDS ORDERED: VANCOMYCIN/WATER 1250 MG 1,250 MG/250 ML BAG IVPB ONE ×2 (11:00→12:54)
[2022-10-03] MEDS: LACTATED RINGERS SOLUTION 1,000 ML/1,000 ML INFUS.BAG IV SCH (12:36)
[2022-10-03 12:42] LABS: BILIRUBIN,DIRECT 0.9 mg/dL (0.0-0.2)
[2022-10-03] MEDS ORDERED: PIPERACILLIN/TAZOB 3.375 GM 3.375 GM in DEXTROSE 5%-WATER - 50 ML IVPB SCH ×2 (14:15→18:00)
[2022-10-03] MEDS ORDERED: PIPERACILLIN/TAZOB 3.375 GM 3.375 GM/50 ML BAG IVPB ONE (15:16)
[2022-10-03 19:42] LABS: INR 1.49 (0.83-1.09); PROTHROMBIN TIME (PATIENT) 17.2 SEC (9.7-13.0)
[2022-10-03 19:44] LABS: ACTIVATED PTT 28.5 SECONDS (25.2-36.5)
[2022-10-04] MEDS: VANCOMYCIN/WATER 1250 MG 1,250 MG/250 ML BAG IVPB SCH ×2 (00:24→12:31)
[2022-10-04] MEDS: PIPERACILLIN/TAZOB 3.375 GM 3.375 GM in DEXTROSE 5%-WATER - 50 ML IVPB SCH ×3 (00:24→17:54)
[2022-10-04] MEDS: INSULIN SLIDING SCALE (NOVOLOG) 1 VIAL SQ SCH ×3 (07:12→17:09)
[2022-10-04] MEDS: TAMSULOSIN HCL 0.4 MG CAP PO SCH (09:06)
[2022-10-04] MEDS: METOPROLOL TARTRATE 50 MG TABLET (FP) PO SCH ×2 (09:06→21:44)
[2022-10-04] MEDS: LACTATED RINGERS SOLUTION 1,000 ML/1,000 ML INFUS.BAG IV SCH ×2 (12:15→17:54)
[2022-10-04 12:42] LABS: HEMATOCRIT 28.2 % (35.4-49); HEMOGLOBIN 8.9 GM/dL (11.7-16.9); MCHC 31.6 g/dl (32.0-35.9); MEAN PLT VOLUME 8.7 fl (7.5-11.1); PLATELET COUNT 211 10^3/uL (134-434); RBC 2.97 M/mm3 (4.00-5.60); RDW 16.2 % (11.9-15.9); WHITE BLOOD COUNT 12.3 K/mm3 (4.0-10.0)
[2022-10-04 12:49] LABS: INR 1.57 (0.83-1.09); PROTHROMBIN TIME (PATIENT) 18.1 SEC (9.7-13.0)
[2022-10-04 13:09] LABS: CALCIUM 8.3 mg/dL (8.5-10.1)
[2022-10-04 13:10] LABS: ALBUMIN 2.8 g/dl (3.4-5.0); BLOOD UREA NITROGEN 36.6 mg/dL (7-18)
[2022-10-04 13:12] LABS: BILIRUBIN,DIRECT 0.9 mg/dL (0.0-0.2); CREATININE 1.5 mg/dL (0.55-1.3)
[2022-10-04 13:14] LABS: BILIRUBIN,TOTAL 1.4 mg/dL (0.2-1)
[2022-10-04 19:15] VITALS: BMI 30.8
[2022-10-04] MEDS ORDERED: POLYETHYLENE GLYCOL (HEALTHYLAX) 3350 17 GM PACKET PO ONE (22:45)
[2022-10-04] MEDS ORDERED: SENNOSIDES 8.6MG TABLET (FP) PO PRN (22:46)
[2022-10-05] MEDS ORDERED: ACETAMINOPHEN 325 MG TABLET (FP) PO PRN (00:32)
[2022-10-05] MEDS: PIPERACILLIN/TAZOB 3.375 GM 3.375 GM in DEXTROSE 5%-WATER - 50 ML IVPB SCH ×3 (01:10→17:32)
[2022-10-05] MEDS: VANCOMYCIN/WATER 1250 MG 1,250 MG/250 ML BAG IVPB SCH ×2 (01:10→12:47)
[2022-10-05] MEDS: INSULIN SLIDING SCALE (NOVOLOG) 1 VIAL SQ SCH ×3 (06:16→17:28)
[2022-10-05 07:57] LABS: HEMATOCRIT 27.5 % (35.4-49); HEMOGLOBIN 8.8 GM/dL (11.7-16.9); MCH 30.1 pg (25.7-33.7); MCHC 31.9 g/dl (32.0-35.9); MEAN CELL VOLUME 94.5 fl (80-96); MEAN PLT VOLUME 8.9 fl (7.5-11.1); PLATELET COUNT 229 10^3/uL (134-434); RBC 2.91 M/mm3 (4.00-5.60); RDW 16.5 % (11.9-15.9); WHITE BLOOD COUNT 18.6 K/mm3 (4.0-10.0)
[2022-10-05 08:06] LABS: INR 1.66 (0.83-1.09); PROTHROMBIN TIME (PATIENT) 19.2 SEC (9.7-13.0)
[2022-10-05 08:18] LABS: ALBUMIN 2.8 g/dl (3.4-5.0); BLOOD UREA NITROGEN 29.5 mg/dL (7-18)
[2022-10-05 08:19] LABS: CALCIUM 7.9 mg/dL (8.5-10.1)
[2022-10-05 08:20] LABS: MAGNESIUM 1.9 mg/dL (1.8-2.4)
[2022-10-05 08:21] LABS: BILIRUBIN,DIRECT 0.9 mg/dL (0.0-0.2); CREATININE 1.3 mg/dL (0.55-1.3); PHOSPHOROUS 2.4 mg/dL (2.5-4.9)
[2022-10-05 08:22] LABS: BILIRUBIN,TOTAL 1.4 mg/dL (0.2-1); TOT PROT 6.1 g/dl (6.4-8.2)
[2022-10-05] MEDS: TAMSULOSIN HCL 0.4 MG CAP PO SCH (09:44)
[2022-10-05] MEDS: METOPROLOL TARTRATE 50 MG TABLET (FP) PO SCH ×2 (09:44→21:03)
[2022-10-05 10:19] LABS: ANISOCYTOSIS 0; HELMET CELLS 0; HOWELL-JOLLY BODIES 0; MACROCYTOSIS 0; OVALOCYTE 0; ROULEAU 0; SICKELED CELLS 0; TARGET CELLS 0; TEAR DROP CELLS 0; TOXIC GRANULATION 0
[2022-10-05] MEDS ORDERED: FUROSEMIDE 40 MG/4 ML INJECTABLE VIAL IVPUSH ONE (10:26)
[2022-10-05] MEDS ORDERED: POLYETHYLENE GLYCOL (HEALTHYLAX) 3350 17 GM PACKET PO ONE (11:30)
[2022-10-05] MEDS ORDERED: NAPH,MB-DB/K PH,MBDB POWDER PACKET PO ONE (12:59)
[2022-10-06] MEDS: VANCOMYCIN/WATER 1250 MG 1,250 MG/250 ML BAG IVPB SCH (02:24)
[2022-10-06] MEDS: PIPERACILLIN/TAZOB 3.375 GM 3.375 GM in DEXTROSE 5%-WATER - 50 ML IVPB SCH ×3 (04:23→18:18)
[2022-10-06] MEDS: INSULIN SLIDING SCALE (NOVOLOG) 1 VIAL SQ SCH ×3 (06:42→17:34)
[2022-10-06] MEDS ORDERED: LEVOTHYROXINE NA 75 MCG TABLET (FP) PO SCH (07:00)
[2022-10-06 07:25] LABS: HEMATOCRIT 28.6 % (35.4-49); HEMOGLOBIN 9.1 GM/dL (11.7-16.9); MCHC 31.9 g/dl (32.0-35.9); MEAN CELL VOLUME 93.9 fl (80-96); MEAN PLT VOLUME 8.8 fl (7.5-11.1); PLATELET COUNT 255 10^3/uL (134-434); RBC 3.04 M/mm3 (4.00-5.60); RDW 16.8 % (11.9-15.9)
[2022-10-06 07:52] LABS: ALBUMIN 2.9 g/dl (3.4-5.0); BLOOD UREA NITROGEN 25.6 mg/dL (7-18); CALCIUM 8.2 mg/dL (8.5-10.1); INR 1.73 (0.83-1.09)
[2022-10-06 07:55] LABS: CREATININE 1.3 mg/dL (0.55-1.3); PHOSPHOROUS 2.2 mg/dL (2.5-4.9)
[2022-10-06 07:56] LABS: BILIRUBIN,DIRECT 0.9 mg/dL (0.0-0.2)
[2022-10-06 07:57] LABS: BILIRUBIN,TOTAL 1.5 mg/dL (0.2-1); TOT PROT 6.4 g/dl (6.4-8.2)
[2022-10-06] MEDS: METOPROLOL TARTRATE 50 MG TABLET (FP) PO SCH ×2 (09:05→21:03)
[2022-10-06] MEDS: ALLOPURINOL 100 MG TABLET (FP) PO SCH (09:05)
[2022-10-06] MEDS: PANTOPRAZOLE 40 MG TABLET PO SCH (09:05)
[2022-10-06] MEDS: POLYETHYLENE GLYCOL (HEALTHYLAX) 3350 17 GM PACKET PO SCH (09:06)
[2022-10-06] MEDS: LEVOTHYROXINE NA 75 MCG TABLET (FP) PO SCH (09:06)
[2022-10-06 09:50] LABS: ANISOCYTOSIS 0; MACROCYTOSIS 0
[2022-10-06] MEDS ORDERED: AMIODARONE HCL 200 MG TABLET PO SCH (10:00)
[2022-10-06] MEDS ORDERED: SACUBITRIL/VALSARTAN 24 MG-26 MG TABLET PO SCH (10:00)
[2022-10-06] MEDS: FENOFIBRIC ACID 45 MG CAP PO SCH (10:04)
[2022-10-06] MEDS: TAMSULOSIN HCL 0.4 MG CAP PO SCH (21:03)
[2022-10-06] MEDS ORDERED: PATIENT'S OWN MEDICATION (NON-FORMULARY) (Mirabegron [Myrbetriq] 50 MG Tab.Er.24h) PO SCH (22:00)
[2022-10-06] MEDS ORDERED: ATORVASTATIN CA 10 MG TABLET (FP) PO SCH (22:00)
[2022-10-07] MEDS ORDERED: PIPERACILLIN/TAZOBACTAM 3.375 GM VIAL IVPB ONE (01:28)
[2022-10-07] MEDS: PIPERACILLIN/TAZOB 3.375 GM 3.375 GM in DEXTROSE 5%-WATER - 50 ML IVPB SCH ×3 (02:17→17:35)
[2022-10-07] MEDS: ALPRAZolam 0.25 MG TABLET PO PRN (03:21)
[2022-10-07] MEDS: INSULIN SLIDING SCALE (NOVOLOG) 1 VIAL SQ SCH ×3 (06:01→16:34)
[2022-10-07] MEDS: LEVOTHYROXINE NA 75 MCG TABLET (FP) PO SCH (06:01)
[2022-10-07 07:53] LABS: HEMATOCRIT 28.7 % (35.4-49); MCH 29.6 pg (25.7-33.7); MCHC 31.4 g/dl (32.0-35.9); MEAN CELL VOLUME 94.3 fl (80-96); MEAN PLT VOLUME 8.4 fl (7.5-11.1); PLATELET COUNT 290 10^3/uL (134-434); RBC 3.04 M/mm3 (4.00-5.60); RDW 16.6 % (11.9-15.9); WHITE BLOOD COUNT 17.7 K/mm3 (4.0-10.0)
[2022-10-07 08:13] LABS: CALCIUM 8.5 mg/dL (8.5-10.1)
[2022-10-07 08:14] LABS: BLOOD UREA NITROGEN 22.6 mg/dL (7-18)
[2022-10-07 08:16] LABS: CREATININE 1.2 mg/dL (0.55-1.3)
[2022-10-07 08:17] LABS: PHOSPHOROUS 2.6 mg/dL (2.5-4.9)
[2022-10-07 08:18] LABS: BILIRUBIN,TOTAL 1.4 mg/dL (0.2-1); TOT PROT 6.8 g/dl (6.4-8.2)
[2022-10-07 08:53] LABS: ANISOCYTOSIS 0; MACROCYTOSIS 0
[2022-10-07] MEDS: PANTOPRAZOLE 40 MG TABLET PO SCH (09:13)
[2022-10-07] MEDS: METOPROLOL TARTRATE 50 MG TABLET (FP) PO SCH ×2 (09:13→21:29)
[2022-10-07] MEDS: ALLOPURINOL 100 MG TABLET (FP) PO SCH (09:13)
[2022-10-07] MEDS: FENOFIBRIC ACID 45 MG CAP PO SCH (09:14)
[2022-10-07] MEDS: POLYETHYLENE GLYCOL (HEALTHYLAX) 3350 17 GM PACKET PO SCH (09:15)
[2022-10-07] MEDS ORDERED: BICALUTAMIDE 50 MG TABLET (FP) PO SCH (10:00)
[2022-10-07] MEDS: VANCOMYCIN/WATER 1,250 MG/250 ML BAG (RESTRICTED TO ID ONLY) IVPB SCH ×2 (10:35→21:29)
[2022-10-07] MEDS ORDERED: oxyCODONE HCL 5 MG TABLET PO PRN (14:04)
[2022-10-07] MEDS: TAMSULOSIN HCL 0.4 MG CAP PO SCH (21:28)
[2022-10-08] MEDS: PIPERACILLIN/TAZOB 3.375 GM 3.375 GM in DEXTROSE 5%-WATER - 50 ML IVPB SCH ×3 (05:39→17:08)
[2022-10-08] MEDS: INSULIN SLIDING SCALE (NOVOLOG) 1 VIAL SQ SCH ×3 (06:43→16:12)
[2022-10-08] MEDS: LEVOTHYROXINE NA 75 MCG TABLET (FP) PO SCH (06:44)
[2022-10-08 08:33] LABS: HEMATOCRIT 28.5 % (35.4-49); HEMOGLOBIN 8.9 GM/dL (11.7-16.9); MCH 29.9 pg (25.7-33.7); MCHC 31.2 g/dl (32.0-35.9); MEAN CELL VOLUME 95.6 fl (80-96); MEAN PLT VOLUME 8.6 fl (7.5-11.1); PLATELET COUNT 271 10^3/uL (134-434); RBC 2.99 M/mm3 (4.00-5.60); RDW 16.8 % (11.9-15.9); WHITE BLOOD COUNT 12.3 K/mm3 (4.0-10.0)
[2022-10-08 08:54] LABS: ALBUMIN 2.8 g/dl (3.4-5.0); CALCIUM 8.1 mg/dL (8.5-10.1); MAGNESIUM 2.1 mg/dL (1.8-2.4)
[2022-10-08 08:56] LABS: BLOOD UREA NITROGEN 18.3 mg/dL (7-18); CREATININE 1.2 mg/dL (0.55-1.3)
[2022-10-08 08:57] LABS: PHOSPHOROUS 3.1 mg/dL (2.5-4.9)
[2022-10-08 08:58] LABS: BILIRUBIN,TOTAL 1.4 mg/dL (0.2-1); TOT PROT 6.8 g/dl (6.4-8.2)
[2022-10-08] MEDS: METOPROLOL TARTRATE 50 MG TABLET (FP) PO SCH ×2 (09:48→22:38)
[2022-10-08] MEDS: PANTOPRAZOLE 40 MG TABLET PO SCH (09:48)
[2022-10-08] MEDS: ALLOPURINOL 100 MG TABLET (FP) PO SCH (09:48)
[2022-10-08] MEDS: FENOFIBRIC ACID 45 MG CAP PO SCH (09:50)
[2022-10-08] MEDS ORDERED: VANCOMYCIN/WATER 1,250 MG/250 ML BAG (RESTRICTED TO ID ONLY) IVPB ONE ×2 (10:00→16:45)
[2022-10-08] MEDS ORDERED: VANCOMYCIN/WATER 1,250 MG/250 ML BAG (RESTRICTED TO ID ONLY) IVPB SCH ×3 (10:00→22:00)
[2022-10-08] MEDS: POLYETHYLENE GLYCOL (HEALTHYLAX) 3350 17 GM PACKET PO SCH (10:01)
[2022-10-08] MEDS ORDERED: DOXYCYCLINE HYCLATE 100 MG CAPSULE PO SCH (13:45)
[2022-10-08] MEDS: oxyCODONE HCL 5 MG TABLET PO PRN ×2 (15:52→22:43)
[2022-10-08] MEDS: TAMSULOSIN HCL 0.4 MG CAP PO SCH (22:38)
[2022-10-09] MEDS ORDERED: VANCOMYCIN HCL 1,500 MG in DEXTROSE 5%-WATER - 500 ML IVPB ONE (00:22)
[2022-10-09] MEDS: PIPERACILLIN/TAZOB 3.375 GM 3.375 GM in DEXTROSE 5%-WATER - 50 ML IVPB SCH ×2 (01:30→09:56)
[2022-10-09] MEDS: ALPRAZolam 0.25 MG TABLET PO PRN (01:30)
[2022-10-09] MEDS: INSULIN SLIDING SCALE (NOVOLOG) 1 VIAL SQ SCH ×3 (06:15→17:24)
[2022-10-09] MEDS: LEVOTHYROXINE NA 75 MCG TABLET (FP) PO SCH (06:15)
[2022-10-09 08:12] LABS: HEMATOCRIT 28.2 % (35.4-49); HEMOGLOBIN 8.9 GM/dL (11.7-16.9); MCH 29.7 pg (25.7-33.7); MCHC 31.4 g/dl (32.0-35.9); MEAN CELL VOLUME 94.5 fl (80-96); MEAN PLT VOLUME 8.2 fl (7.5-11.1); PLATELET COUNT 252 10^3/uL (134-434); RBC 2.99 M/mm3 (4.00-5.60); RDW 17.3 % (11.9-15.9); WHITE BLOOD COUNT 10.5 K/mm3 (4.0-10.0)
[2022-10-09 08:48] LABS: BLOOD UREA NITROGEN 16.2 mg/dL (7-18)
[2022-10-09 08:49] LABS: ALBUMIN 2.7 g/dl (3.4-5.0)
[2022-10-09 08:50] LABS: CREATININE 1.2 mg/dL (0.55-1.3); MAGNESIUM 2.1 mg/dL (1.8-2.4); PHOSPHOROUS 3.3 mg/dL (2.5-4.9)
[2022-10-09 08:53] LABS: BILIRUBIN,TOTAL 1.3 mg/dL (0.2-1); TOT PROT 6.9 g/dl (6.4-8.2)
[2022-10-09 09:05] LABS: LIPASE 2483 U/L (73-393)
[2022-10-09] MEDS: POLYETHYLENE GLYCOL (HEALTHYLAX) 3350 17 GM PACKET PO SCH (09:55)
[2022-10-09] MEDS: PANTOPRAZOLE 40 MG TABLET PO SCH (09:56)
[2022-10-09] MEDS: METOPROLOL TARTRATE 50 MG TABLET (FP) PO SCH ×2 (09:56→22:57)
[2022-10-09] MEDS: ALLOPURINOL 100 MG TABLET (FP) PO SCH (09:56)
[2022-10-09] MEDS: FENOFIBRIC ACID 45 MG CAP PO SCH (09:57)
[2022-10-09] MEDS ORDERED: VANCOMYCIN/WATER 1,250 MG/250 ML BAG (RESTRICTED TO ID ONLY) IVPB SCH (11:30)
[2022-10-09] MEDS: oxyCODONE HCL 5 MG TABLET PO PRN (16:58)
[2022-10-09] MEDS ORDERED: DOXYCYCLINE HYCLATE 100 MG CAPSULE PO SCH ×2 (17:00→17:30)
[2022-10-09] MEDS: AMOX TR/POT CLAV 875MG/125MG TABLETS (FP) PO SCH (17:24)
[2022-10-09] MEDS: DOXYCYCLINE HYCLATE 100 MG CAPSULE PO SCH (17:25)
[2022-10-09] MEDS: TAMSULOSIN HCL 0.4 MG CAP PO SCH (22:57)
[2022-10-10] MEDS: oxyCODONE HCL 5 MG TABLET PO PRN ×3 (00:09→22:26)
[2022-10-10] MEDS: LEVOTHYROXINE NA 75 MCG TABLET (FP) PO SCH (06:31)
[2022-10-10] MEDS: INSULIN SLIDING SCALE (NOVOLOG) 1 VIAL SQ SCH ×3 (06:53→16:59)
[2022-10-10] MEDS: AMOX TR/POT CLAV 875MG/125MG TABLETS (FP) PO SCH ×2 (08:02→17:11)
[2022-10-10 09:14] LABS: HEMATOCRIT 29.2 % (35.4-49); HEMOGLOBIN 9.2 GM/dL (11.7-16.9); MCH 29.5 pg (25.7-33.7); MCHC 31.5 g/dl (32.0-35.9); MEAN CELL VOLUME 93.7 fl (80-96); MEAN PLT VOLUME 8.2 fl (7.5-11.1); PLATELET COUNT 295 10^3/uL (134-434); RBC 3.11 M/mm3 (4.00-5.60); WHITE BLOOD COUNT 10.7 K/mm3 (4.0-10.0)
[2022-10-10 09:47] LABS: CALCIUM 8.4 mg/dL (8.5-10.1)
[2022-10-10 09:48] LABS: ALBUMIN 2.9 g/dl (3.4-5.0); BLOOD UREA NITROGEN 16.4 mg/dL (7-18)
[2022-10-10 09:50] LABS: PHOSPHOROUS 3.2 mg/dL (2.5-4.9)
[2022-10-10 09:52] LABS: BILIRUBIN,TOTAL 1.8 mg/dL (0.2-1); TOT PROT 7.3 g/dl (6.4-8.2)
[2022-10-10 09:57] LABS: CREATININE 1.2 mg/dL (0.55-1.3)
[2022-10-10] MEDS: DOXYCYCLINE HYCLATE 100 MG CAPSULE PO SCH ×2 (10:12→17:11)
[2022-10-10] MEDS: BICALUTAMIDE 50 MG TABLET (FP) PO SCH (10:12)
[2022-10-10] MEDS: PANTOPRAZOLE 40 MG TABLET PO SCH (10:12)
[2022-10-10] MEDS: METOPROLOL TARTRATE 50 MG TABLET (FP) PO SCH ×2 (10:12→21:39)
[2022-10-10] MEDS: ALLOPURINOL 100 MG TABLET (FP) PO SCH (10:12)
[2022-10-10] MEDS: ZINC SULFATE 220 MG CAPSULE (FP) PO SCH (10:12)
[2022-10-10] MEDS: FENOFIBRIC ACID 45 MG CAP PO SCH (10:12)
[2022-10-10] MEDS: POLYETHYLENE GLYCOL (HEALTHYLAX) 3350 17 GM PACKET PO SCH (10:13)
[2022-10-10] MEDS ORDERED: MAGNESIUM OXIDE 400 MG TABLET (FP) PO ONE (11:30)
[2022-10-10] MEDS ORDERED: FUROSEMIDE 40 MG TABLET (FP) PO ONE (15:41)
[2022-10-10] MEDS: TAMSULOSIN HCL 0.4 MG CAP PO SCH (21:39)
[2022-10-11 02:25] VITALS: PULSE 69
[2022-10-11] MEDS: oxyCODONE HCL 5 MG TABLET PO PRN (06:40)
[2022-10-11] MEDS: LEVOTHYROXINE NA 75 MCG TABLET (FP) PO SCH (06:41)
[2022-10-11] MEDS: INSULIN SLIDING SCALE (NOVOLOG) 1 VIAL SQ SCH ×2 (06:59→12:35)
[2022-10-11 07:30] LABS: BASO % 0.7 % (0-2.0); EOS % 1.2 % (0-4.5); HEMATOCRIT 30.6 % (35.4-49); HEMOGLOBIN 9.6 GM/dL (11.7-16.9); MCH 29.5 pg (25.7-33.7); MCHC 31.3 g/dl (32.0-35.9); MEAN CELL VOLUME 94.2 fl (80-96); MEAN PLT VOLUME 7.7 fl (7.5-11.1); MONO % 6.3 % (3.8-10.2); NEUT % 73.8 % (42.8-82.8); PLATELET COUNT 281 10^3/uL (134-434); RBC 3.25 M/mm3 (4.00-5.60); RDW 17.6 % (11.9-15.9); WHITE BLOOD COUNT 10.6 K/mm3 (4.0-10.0)
[2022-10-11 07:55] LABS: CALCIUM 8.8 mg/dL (8.5-10.1)
[2022-10-11 07:56] LABS: ALBUMIN 2.9 g/dl (3.4-5.0); BLOOD UREA NITROGEN 16.6 mg/dL (7-18); MAGNESIUM 1.9 mg/dL (1.8-2.4)
[2022-10-11 07:59] LABS: CREATININE 1.3 mg/dL (0.55-1.3); PHOSPHOROUS 3.6 mg/dL (2.5-4.9)
[2022-10-11 08:00] LABS: BILIRUBIN,TOTAL 1.5 mg/dL (0.2-1)
[2022-10-11 08:01] LABS: TOT PROT 7.6 g/dl (6.4-8.2)
[2022-10-11 09:04] VITALS: RESP 20
[2022-10-11] MEDS: AMOX TR/POT CLAV 875MG/125MG TABLETS (FP) PO SCH (10:36)
[2022-10-11] MEDS: METOPROLOL TARTRATE 50 MG TABLET (FP) PO SCH (10:36)
[2022-10-11] MEDS: BICALUTAMIDE 50 MG TABLET (FP) PO SCH (10:36)
[2022-10-11] MEDS: DOXYCYCLINE HYCLATE 100 MG CAPSULE PO SCH (10:37)
[2022-10-11] MEDS: PANTOPRAZOLE 40 MG TABLET PO SCH (10:37)
[2022-10-11] MEDS: ALLOPURINOL 100 MG TABLET (FP) PO SCH (10:37)
[2022-10-11] MEDS: ZINC SULFATE 220 MG CAPSULE (FP) PO SCH (10:38)
[2022-10-11] MEDS: POLYETHYLENE GLYCOL (HEALTHYLAX) 3350 17 GM PACKET PO SCH (10:39)
[2022-10-11] MEDS: FENOFIBRIC ACID 45 MG CAP PO SCH (11:29)
[2022-10-11 16:00] VITALS: BP 142/78; TEMP 97.4
== END 2022-10-11 16:00 | disposition home or self-care (01) | DRG 871 ==
LOC: JER 00:24 → JERBED 03:03 → J4S 10-03 16:32
PROVIDERS: ADMIT Internal Medicine; ATTEND Internal Medicine
DX: A41.9 Sepsis, unspecified organism (principal); G93.41 Metabolic encephalopathy; I13.0 Hypertensive heart and chronic kidney disease with heart failure and stage 1 through stage 4 chronic kidney disease, or unspecified chronic kidney disease; I50.22 Chronic systolic (congestive) heart failure; L03.116 Cellulitis of left lower limb; E87.1 Hypo-osmolality and hyponatremia; M62.82 Rhabdomyolysis; K80.00 Calculus of gallbladder with acute cholecystitis without obstruction; E87.20 Acidosis, unspecified; G93.49 Other encephalopathy; N17.9 Acute kidney failure, unspecified; I48.0 Paroxysmal atrial fibrillation; Z79.01 Long term (current) use of anticoagulants; N18.9 Chronic kidney disease, unspecified; E11.22 Type 2 diabetes mellitus with diabetic chronic kidney disease; E11.40 Type 2 diabetes mellitus with diabetic neuropathy, unspecified; Z79.4 Long term (current) use of insulin; E03.9 Hypothyroidism, unspecified; N40.0 Benign prostatic hyperplasia without lower urinary tract symptoms; C61 Malignant neoplasm of prostate; Z95.0 Presence of cardiac pacemaker; E11.65 Type 2 diabetes mellitus with hyperglycemia; F41.9 Anxiety disorder, unspecified; I35.0 Nonrheumatic aortic (valve) stenosis; K59.09 Other constipation; R79.89 Other specified abnormal findings of blood chemistry; K76.0 Fatty (change of) liver, not elsewhere classified; D50.0 Iron deficiency anemia secondary to blood loss (chronic); E83.39 Other disorders of phosphorus metabolism; E11.621 Type 2 diabetes mellitus with foot ulcer; L97.529 Non-pressure chronic ulcer of other part of left foot with unspecified severity
CPT/HCPCS: 0241U-QW; 36415; 70450-TC; 71045-TC-FY; 71250-TC; 73590-TC-LT-FY; 73610-TC-LT-FY; 73630-TC-LT; 76705-TC; 76775-TC; 78226-TC; 80048; 80053; 80076; 80299; 80307; 81003; 82150; 82248; 82550; 82553; 82962; 82977; 83605; 83690; 83735; 83880; 84100; 84443; 84484; 85025; 85027; 85610; 85651; 85730; 86140; 86704; 86705; 86803; 87040; 87086; 87186; 87340; 87517; 93005; 93010; 93971-TC; 99285-25; A9537; G0480

== ENCOUNTER 2022-12-29 05:16 | Day surgery (SDC) | payer OTHER ==
[2022-12-25 09:29] VITALS: BMI 30.4
[~2022-12-29 05:16] MED LIST changes: +BUPIVACAINE HCL/PF 0.25% (2.5MG/ML) 10 ML VIAL IJ ONE; -DAPTOMYCIN IVPB ONE; -SODIUM CHLORIDE IVPB ONE; +ceFAZolin SODIUM 1 GM VIAL IVPB ONE; +cefOXitin SODIUM 2 GM VIAL (RESTRICTED TO ID) IVPB ONE
[2022-12-29] MEDS ORDERED: BUPIVACAINE HCL/PF 0.25% (2.5MG/ML) 10 ML VIAL ONE (07:13)
[2022-12-29] MEDS ORDERED: SUCCINYLCHOLINE CHLORIDE 200 MG/10 ML SYRINGE ONE (09:02)
[2022-12-29] MEDS ORDERED: ROCURONIUM BROMIDE 50 MG/5 ML SYRINGE ONE (09:02)
[2022-12-29] MEDS ORDERED: PROPOFOL 40 ML ONE (09:02)
[2022-12-29] MEDS ORDERED: MIDAZOLAM HCL 2 MG/2 ML SINGLE DOSE VIAL ONE (10:11)
[2022-12-29] MEDS ORDERED: SUGAMMADEX SODIUM 200 MG/2 ML VIAL ONE (10:12)
[2022-12-29] MEDS ORDERED: cefOXitin SODIUM 2 GM VIAL (RESTRICTED TO ID) IVPB ONE (10:37)
[2022-12-29] MEDS ORDERED: HEPARIN NA (PORCINE) 5,000 UNITS/ML 1ML VIAL ONE (10:39)
[2022-12-29] MEDS ORDERED: BUPIVACAINE HCL/PF 0.25% (2.5MG/ML) 10 ML VIAL IJ ONE (10:51)
[2022-12-29] MEDS ORDERED: NEOSTIGMINE METHYLSULFATE 0.5 MG/1 ML - 10 ML MDV ONE (10:55)
[2022-12-29] MEDS ORDERED: ACETAMINOPHEN 500 MG TABLET (FP) PO PRN (11:44)
[2022-12-29] MEDS ORDERED: IBUPROFEN 800 MG/8 ML IJ IVPB PRN (11:44)
[2022-12-29] MEDS ORDERED: oxyCODONE HCL 5 MG TABLET PO PRN (11:44)
[2022-12-29] MEDS ORDERED: oxyCODONE HCL 5 MG TABLET ONE (13:49)
[2022-12-29] MEDS ORDERED: oxyCODONE HCL 5 MG TABLET PO ONE (13:55)
[2022-12-29 17:45] VITALS: BP 145/66; PULSE 69; RESP 20; TEMP 97.9
== END 2022-12-29 18:17 | disposition home or self-care (01) ==
LOC: JASU-SURG 05:16
PROVIDERS: ATTEND Surgery
PROC: 0FT44ZZ Resection of Gallbladder, Percutaneous Endoscopic Approach (ICD-10-PCS; principal; 2022-12-29 10:00)
DX: K81.1 Chronic cholecystitis (principal)
CPT/HCPCS: 82962; 88304-TC; 94760; J1644

== ENCOUNTER 2024-06-16 15:27 | Inpatient (IN) | payer OTHER ==
[2024-06-16 15:47] VITALS: BMI 31.8
[2024-06-16 17:53] LABS: BASO % 0.2 % (0-2.0); EOS % 0.2 % (0-4.5); HEMATOCRIT 33.3 % (35.4-49); LYMPH % 4.4 % (8-40); MCH 30.6 pg (25.7-33.7); MCHC 33.1 g/dl (32.0-35.9); MEAN CELL VOLUME 92.2 fl (80-96); MEAN PLT VOLUME 7.7 fl (7.5-11.1); MONO % 5.3 % (3.8-10.2); NEUT % 89.9 % (42.8-82.8); PLATELET COUNT 285 10^3/uL (134-434); RBC 3.61 M/mm3 (4.00-5.60); RDW 14.4 % (11.9-15.9); WHITE BLOOD COUNT 19.7 K/mm3 (4.0-10.0)
[2024-06-16 18:01] LABS: POTASSIUM 4.1 mmol/L (3.5-5.1)
[2024-06-16 18:03] LABS: CALCIUM 8.9 mg/dL (8.5-10.1)
[2024-06-16 18:04] LABS: ALBUMIN 3.9 g/dl (3.4-5.0); BLOOD UREA NITROGEN 43.9 mg/dL (7-18); MAGNESIUM 1.6 mg/dL (1.8-2.4)
[2024-06-16 18:07] LABS: CREATININE 2.1 mg/dL (0.55-1.3)
[2024-06-16 18:08] LABS: BILIRUBIN,TOTAL 1.2 mg/dL (0.2-1)
[2024-06-16 18:09] LABS: TOT PROT 7.4 g/dl (6.4-8.2)
[2024-06-16] MEDS: LACTATED RINGERS SOLUTION 1000 ML INFUS.BAG IV ONE (19:33)
[2024-06-16] MEDS ORDERED: VANCOMYCIN 1 GRAM (PRE-DOCKED) 1,000 MG/250 ML BAG IVPB ONE (19:34)
[2024-06-16] MEDS: VANCOMYCIN 1,000 MG in DEXTROSE 5%-WATER - 250 ML IVPB ONE (20:12)
[2024-06-16] MEDS: ASPIRIN 81 MG CHEWABLE TABLETS PO ONE (20:12)
[2024-06-16] MEDS ORDERED: ASPIRIN 81 MG CHEWABLE TABLETS ONE (20:13)
[2024-06-16 23:20] LABS: PH,URINE 5.5 (5.0-8.0); URINE APPEARANCE CLEAR; URINE BILIRUBIN NEGATIVE (NEGATIVE); URINE COLOR YELLOW; URINE GLUCOSE (UA) NEGATIVE (NEGATIVE); URINE KETONE NEGATIVE (NEGATIVE); URINE LEUK ESTERASE NEGATIVE (NEGATIVE); URINE NITRITE NEGATIVE (NEGATIVE); URINE PROTEIN TRACE (NEGATIVE); URINE UROBILINOGEN 0.2 mg/dL (0.2-1.0)
[2024-06-17] MEDS: INSULIN ASPART SLIDING SCALE (NOVOLOG) 1 VIAL SQ SCH (01:03)
[2024-06-17] MEDS ORDERED: MAGNESIUM SULFATE IN WATER 2 GM/50 ML IVPB IVPB ONE (01:04)
[2024-06-17] MEDS: MAGNESIUM 2GM/50ML STERILE WATER IVPB IVPB ONE (01:11)
[2024-06-17 06:22] LABS: BASO % 0.2 % (0-2.0); EOS % 0.3 % (0-4.5); HEMOGLOBIN 10.9 GM/dL (11.7-16.9); LYMPH % 6.4 % (8-40); MCH 31.3 pg (25.7-33.7); MCHC 34.2 g/dl (32.0-35.9); MEAN CELL VOLUME 91.5 fl (80-96); MEAN PLT VOLUME 7.4 fl (7.5-11.1); MONO % 5.4 % (3.8-10.2); NEUT % 87.7 % (42.8-82.8); PLATELET COUNT 220 10^3/uL (134-434); RDW 14.7 % (11.9-15.9); WHITE BLOOD COUNT 13.5 K/mm3 (4.0-10.0)
[2024-06-17] MEDS ORDERED: HEPARIN NA (PORCINE) 5,000 UNITS/ML 1ML VIAL ONE ×2 (06:28→14:15)
[2024-06-17] MEDS: HEPARIN NA (PORCINE) 5,000 UNITS/ML 1ML VIAL SQ SCH (06:42)
[2024-06-17 06:44] LABS: POTASSIUM 4.2 mmol/L (3.5-5.1)
[2024-06-17 06:48] LABS: CALCIUM 9.1 mg/dL (8.5-10.1)
[2024-06-17 06:49] LABS: ALBUMIN 3.9 g/dl (3.4-5.0); BLOOD UREA NITROGEN 42.6 mg/dL (7-18)
[2024-06-17 06:52] LABS: CREATININE 1.8 mg/dL (0.55-1.3); PHOSPHOROUS 3.7 mg/dL (2.5-4.9)
[2024-06-17 06:53] LABS: BILIRUBIN,TOTAL 1.6 mg/dL (0.2-1); TOT PROT 7.2 g/dl (6.4-8.2)
[2024-06-17 06:55] LABS: CHOLESTEROL 84 mg/dL (50-200)
[2024-06-17 06:56] LABS: LDL CHOLESTEROL (ONLY SJRH) 53 mg/dL (5-100)
[2024-06-17 06:58] LABS: HDL CHOLESTEROL 27 mg/dL (40-60)
[2024-06-17] MEDS ORDERED: INSULIN ASPART SLIDING SCALE (NOVOLOG) 1 VIAL SQ ONE ×2 (08:19→12:26)
[2024-06-17] MEDS: LEVOTHYROXINE NA 75 MCG TABLET (FP) PO SCH (08:24)
[2024-06-17] MEDS: VANCOMYCIN/WATER 2 GRAMS 2,000 MG/400 ML PIGGYBACK IVPB SCH (08:29)
[2024-06-17] MEDS ORDERED: PANTOPRAZOLE 40 MG TABLET PO ONE (09:24)
[2024-06-17] MEDS: ALLOPURINOL 100 MG TABLET (FP) PO SCH (09:39)
[2024-06-17] MEDS: FENOFIBRIC ACID 45 MG CAP PO SCH (09:39)
[2024-06-17] MEDS: PANTOPRAZOLE 40 MG TABLET PO SCH (09:39)
[2024-06-17] MEDS: BICALUTAMIDE 50 MG TABLET (FP) PO SCH (09:39)
[2024-06-17] MEDS ORDERED: HEPARIN NA (PORCINE) 5,000 UNITS/ML 1ML VIAL SQ SCH (10:00)
[2024-06-17] MEDS: CEFTRIAXONE 2 GM in SODIUM CHLORIDE 100 ML IVPB SCH (16:41)
[2024-06-17] MEDS: DOXYCYCLINE HYCLATE 100 MG CAPSULE PO SCH (17:26)
[2024-06-17] MEDS: TAMSULOSIN HCL 0.4 MG CAP PO SCH (21:36)
[2024-06-18] MEDS ORDERED: VANCOMYCIN/WATER 2 GRAMS 2,000 MG/400 ML PIGGYBACK IVPB SCH (08:00)
[2024-06-18 08:57] LABS: BASO % 0.7 % (0-2.0); EOS % 1.8 % (0-4.5); HEMATOCRIT 30.6 % (35.4-49); HEMOGLOBIN 10.3 GM/dL (11.7-16.9); LYMPH % 21.2 % (8-40); MCH 30.9 pg (25.7-33.7); MCHC 33.8 g/dl (32.0-35.9); MEAN CELL VOLUME 91.4 fl (80-96); MEAN PLT VOLUME 7.5 fl (7.5-11.1); MONO % 11.1 % (3.8-10.2); NEUT % 65.2 % (42.8-82.8); PLATELET COUNT 201 10^3/uL (134-434); RBC 3.34 M/mm3 (4.00-5.60); RDW 14.4 % (11.9-15.9); WHITE BLOOD COUNT 7.5 K/mm3 (4.0-10.0)
[2024-06-18 09:25] LABS: POTASSIUM 3.7 mmol/L (3.5-5.1)
[2024-06-18 09:29] LABS: ALBUMIN 3.6 g/dl (3.4-5.0); BLOOD UREA NITROGEN 35.7 mg/dL (7-18); CALCIUM 8.9 mg/dL (8.5-10.1)
[2024-06-18 09:32] LABS: CREATININE 1.6 mg/dL (0.55-1.3)
[2024-06-18 09:34] LABS: BILIRUBIN,TOTAL 1.1 mg/dL (0.2-1)
[2024-06-18] MEDS: METOPROLOL TARTRATE 50 MG TABLET (FP) PO SCH (12:25)
[2024-06-18] MEDS: VANCOMYCIN/WATER 2 GRAMS 2,000 MG/400 ML PIGGYBACK IVPB SCH (19:13)
[2024-06-19 08:29] LABS: HEMATOCRIT 30.7 % (35.4-49); HEMOGLOBIN 10.3 GM/dL (11.7-16.9); MCH 31.3 pg (25.7-33.7); MCHC 33.5 g/dl (32.0-35.9); MEAN CELL VOLUME 93.4 fl (80-96); MEAN PLT VOLUME 7.8 fl (7.5-11.1); PLATELET COUNT 225 10^3/uL (134-434); RBC 3.28 M/mm3 (4.00-5.60); RDW 14.4 % (11.9-15.9); WHITE BLOOD COUNT 8.2 K/mm3 (4.0-10.0)
[2024-06-19 08:56] LABS: POTASSIUM 4.2 mmol/L (3.5-5.1)
[2024-06-19 08:58] LABS: BLOOD UREA NITROGEN 30.1 mg/dL (7-18)
[2024-06-19 09:02] LABS: CREATININE 1.6 mg/dL (0.55-1.3)
[2024-06-19 10:13] VITALS: RESP 18
[2024-06-19] MEDS: TORSEMIDE 20 MG TABLET (FP) PO SCH (10:19)
[2024-06-19] MEDS: MINERAL OIL/PET HY-PHL TOPICAL OINTMENT 454 GM JAR TP SCH (10:25)
[2024-06-20 09:34] LABS: POTASSIUM 3.8 mmol/L (3.5-5.1)
[2024-06-20 09:36] LABS: CALCIUM 9.1 mg/dL (8.5-10.1)
[2024-06-20 09:40] LABS: CREATININE 1.6 mg/dL (0.55-1.3)
[2024-06-20 10:04] LABS: HEMATOCRIT 31.3 % (35.4-49); HEMOGLOBIN 10.9 GM/dL (11.7-16.9); MCH 31.5 pg (25.7-33.7); MCHC 34.8 g/dl (32.0-35.9); MEAN CELL VOLUME 90.7 fl (80-96); MEAN PLT VOLUME 7.6 fl (7.5-11.1); PLATELET COUNT 236 10^3/uL (134-434); RBC 3.45 M/mm3 (4.00-5.60); RDW 14.3 % (11.9-15.9)
[2024-06-21 15:37] VITALS: BP 146/63; PULSE 62; TEMP 97.8
== END 2024-06-21 16:03 | disposition home or self-care (01) | DRG 683 ==
LOC: JER 15:27 → JERBED 21:49 → J4S 06-17 16:18
PROVIDERS: ADMIT Internal Medicine; ATTEND Internal Medicine
DX: N17.9 Acute kidney failure, unspecified (principal); I13.0 Hypertensive heart and chronic kidney disease with heart failure and stage 1 through stage 4 chronic kidney disease, or unspecified chronic kidney disease; I24.89 Other forms of acute ischemic heart disease; L03.116 Cellulitis of left lower limb; I48.20 Chronic atrial fibrillation, unspecified; I50.32 Chronic diastolic (congestive) heart failure; L97.528 Non-pressure chronic ulcer of other part of left foot with other specified severity; E03.9 Hypothyroidism, unspecified; E11.22 Type 2 diabetes mellitus with diabetic chronic kidney disease; N18.32 Chronic kidney disease, stage 3b; N40.0 Benign prostatic hyperplasia without lower urinary tract symptoms; I25.10 Atherosclerotic heart disease of native coronary artery without angina pectoris; E11.9 Type 2 diabetes mellitus without complications; E11.42 Type 2 diabetes mellitus with diabetic polyneuropathy; E11.621 Type 2 diabetes mellitus with foot ulcer; M10.9 Gout, unspecified; K59.00 Constipation, unspecified; D72.829 Elevated white blood cell count, unspecified; R25.1 Tremor, unspecified; E78.1 Pure hyperglyceridemia; D64.9 Anemia, unspecified; Z85.46 Personal history of malignant neoplasm of prostate; Z85.528 Personal history of other malignant neoplasm of kidney; Z90.5 Acquired absence of kidney; Z95.0 Presence of cardiac pacemaker; Z96.653 Presence of artificial knee joint, bilateral
CPT/HCPCS: 0241U-QW; 36415; 71045-TC-FY; 76775-TC; 80048; 80053; 80061; 81003; 82550; 82553; 82962; 83036; 83735; 84100; 84443; 84484; 85025; 85027; 87086; 93005; 93010; 99285-25; J1644